=== PATIENT | female | born 1965 | race Caucasian/White ===

== ENCOUNTER → 2018-06-27 14:39 | Outpatient (CLI) | payer BC, SELFPAY ==
--- NOTE | 2018-06-27 14:46 | MM_ITS ---
MM Dig screening mamm BI w/CAD ORDERING PHYSICIAN : Luis Fernando Britton MD PATIENT AGE: 53 years GENDER: Female COMPARISON: Digital mammogram June 2016, . Film screen mammogram March 2009 INDICATION: ITS.Routine: SCREENING mammogram. No hormones. No new complaints. Noncontributory family history TECHNIQUE: Standard CC and MLO images were obtained. R2 CAD reviewed. FINDINGS: Moderate dense breasts. Moderate residual fibroglandular elements most evident towards central and upper outer quadrant of breast bilateral RIGHT BREAST: Visual inspection and CAD noted small focal density at lateral breast cc view,- 4 x 5 mm small nodular density with slight irregular margins. This nodule seen on the cc view and labeled A. It is Not readily apparent on MLO view.... Would suggest follow-up CC and MLO and 90 degrees spot view along with breast ultrasound right breast on further evaluate LEFT BREAST:No new areas of concern at the left breast on either CABG or visual inspection similar fibroglandular pattern. Follow-up in one year on the left IMPRESSION: Right Breast: . Small 4 x 5 mm nodular density lateral breast on cc view labeled A.... This warrants additional spot views & ultrasound. . Could merely be overlapping shadow Left breast: .No areas of concern follow-up in one year on left BI-RADS Category: 0 Need Additional Imaging Evaluation RECOMMENDED FOLLOW-UP: IMM - IMMEDIATE FOLLOW-UP RECOMMENDED Right breast Spot views and ultrasound (A letter has been sent to the patient regarding results of the study.)
--- NOTE | 2018-06-27 14:46 | US_ITS ---
US transvaginal HISTORY: ITS.REASON: RT OVARY CYST ORDERING PHYSICIAN: Luis Fernando Britton MD PATIENT AGE: 53 years Comparison: None FINDINGS: The uterus is 7 x 3.5 x 4.2 cm. Combined endometrial thickness 5 mm. Focus of increased echogenicity is present in the fundus of the uterus consistent with small calcification. The left ovary is 2.4 x 1.4 cm and has an unremarkable appearance. Right ovary measures 2.6 x 1.7 cm and has an unremarkable appearance. No cul-de-sac fluid. IMPRESSION: Essentially negative pelvic ultrasound. Small focus of calcification suspected in the fundus of the uterus
== END ==
PROVIDERS: PCP Family Medicine; Visit Provider Family Medicine
DX: Z12.31 Encounter for screening mammogram for malignant neoplasm of breast (principal); N60.19 Diffuse cystic mastopathy of unspecified breast; N83.201 Unspecified ovarian cyst, right side
CPT/HCPCS: 76830; 77067

== ENCOUNTER → 2018-07-15 14:16 | Outpatient (CLI) | payer BC, SELFPAY ==
--- NOTE | 2018-07-15 14:24 | MM_ITS ---
MM Dig mamm DX unilat RT CAD, US breast RT complete INDICATION: Follow-up abnormal screening mammogram ORDERING PHYSICIAN: Luis Fernando Britton MD PATIENT AGE: 53 years COMPARISON: 06/27/2018, 07/07/2016 TECHNIQUE: Problem-solving views performed of the right breast along with right breast ultrasound FINDINGS: Right mammogram: The area of asymmetric density in the lateral aspect of the right breast does appear to compress out as fibroglandular tissue. No discrete mass or malignant appearing microcalcification. Right breast ultrasound: No sonographic abnormality detected. No mass or cyst. Small nodes are present in the axilla. IMPRESSION: No discrete nodule apparent. Asymmetric density may been due to asymmetric fibroglandular tissue. Recommend 6 month mammographic follow-up for confirmation BI-RADS Category: 3 Probably Benign Finding Short Term Follow-up RECOMMENDED FOLLOW-UP: 6M - 6 MONTH FOLLOW-UP (A letter has been sent to the patient regarding results of the study.)
== END ==
PROVIDERS: PCP Family Medicine; Visit Provider Family Medicine
DX: R92.8 Other abnormal and inconclusive findings on diagnostic imaging of breast (principal)
CPT/HCPCS: 76641; 77065

== ENCOUNTER → 2019-01-17 13:34 | Outpatient (CLI) | payer BC, SELFPAY ==
--- NOTE | 2019-01-17 13:37 | MM_ITS ---
PROCEDURE: MM DIG MAMM DX UNILAT RT CAD CLINICAL INDICATION: 6 MO FU COMPARISON: DIGMAMMS MAMMOGRAM SCREEN-INSPECTOR ALUMINUM BOAT N/C from 02/25/2009 DIGMAMMDX MAMMOGRAM DX-INSPECTOR ALUMINUM BOAT N/C from 03/15/2009 [facility] DIG MAMM-SCREEN HORTENSIA W/CAD from 07/07/2016 [facility] MM Dig screening mamm BI w/CAD from 06/27/2018 DXRT MM Dig mamm DX unilat RT CAD from 07/15/2018 BREASTRT US breast RT complete from 07/15/2018 MM DIG MAMM DX UNILAT RT CAD from 01/17/2019 TECHNIQUE: Follow-up and problem solving views performed of the right breast along with right breast ultrasound. FINDINGS: The average fibroglandular tissue. No discrete mass or malignant-appearing microcalcification.. Previously noted area of asymmetric density is unchanged and felt to be related to fibroglandular tissue Right breast ultrasound: A 3 mm cyst is present at 11 o'clock. No suspicious nodules are evident. IMPRESSION: Benign findings. No evidence of malignancy. Recommend resume screening mammogram in 6 months BI-RAD Category: 2 Benign Finding(s) FOLLOW-UP: 6M 6Month Follow-up (A letter has been sent to the patient regarding results of the study.) Dictated by: Octavio Avalos MD 01/24/2019 09:52 Electronically signed by Octavio Avalos MD in [place] 01/24/2019 09:52
== END ==
PROVIDERS: PCP Family Medicine; Visit Provider Family Medicine
DX: R92.8 Other abnormal and inconclusive findings on diagnostic imaging of breast (principal); N60.01 Solitary cyst of right breast
CPT/HCPCS: 76641; 77065

== ENCOUNTER → 2019-07-16 10:16 | Outpatient (CLI) | payer BC, SELFPAY ==
--- NOTE | 2019-07-16 10:19 | MM_ITS ---
PROCEDURE: MM DIG SCREENING MAMM BI W/CAD DIGITAL BREAST TOMOSYNTHESIS INCLUDED Patient Age:54Y CLINICAL INDICATION: SCREENING 54-year-old female no hormones no new complaints noncontributory family history COMPARISON: DIGMAMMS MAMMOGRAM SCREEN-COMMISSIONING ENGINEER N/C from 02/25/2009 DIGMAMMDX MAMMOGRAM DX-COMMISSIONING ENGINEER N/C from 03/15/2009 [facility] DIG MAMM-SCREEN HORTENSIA W/CAD from 07/07/2016 [facility] MM Dig screening mamm BI w/CAD from 06/27/2018 DXRT MM Dig mamm DX unilat RT CAD from 07/15/2018 MM DIG MAMM DX UNILAT RT CAD from 01/17/2019 TECHNIQUE: Standard CC and MLO images were obtained. R2 CAD reviewed. Bilateral digital breast tomosynthesis included. FINDINGS: Moderate density breast with scattered moderate residual fibroglandular elements. Similar architecture to previous studies with no dominant or suspicious mass but no suspicious calcifications. IMPRESSION: Stable bilateral mammogram No significant new findings. Bilateral follow-up 1 year recommended BI-RAD Category: 1 Negative FOLLOW-UP: 1YR 1 Year Follow-up (A letter has been sent to the patient regarding results of the study.) Dictated by: Ari Angel MD 07/22/2019 10:36 Electronically signed by Ari Angel MD in [place] 07/22/2019 10:36
== END ==
PROVIDERS: PCP Family Medicine; Visit Provider Family Medicine
DX: Z12.31 Encounter for screening mammogram for malignant neoplasm of breast (principal); N60.19 Diffuse cystic mastopathy of unspecified breast
CPT/HCPCS: 77063; 77067

== ENCOUNTER → 2020-07-16 08:22 | Outpatient (CLI) | payer BC, SELFPAY ==
--- NOTE | 2020-07-16 08:25 | MM_ITS ---
PROCEDURE: MM DIG SCREENING MAMM BI W/CAD Digital Breast Tomosynthesis Included CLINICAL INDICATION: SCREENING There is no personal or family history of breast cancer. COMPARISON: MG DXRT MM Dig mamm DX unilat RT CAD from 07/15/2018 MG MM DIG MAMM DX UNILAT RT CAD from 01/17/2019 MG MM DIG SCREENING MAMM BI W/CAD from 07/16/2019 TECHNIQUE: Standard CC and MLO images and 3D Tomosynthesis was obtained. R2 CAD reviewed. FINDINGS: Mild scattered fibroglandular densities are seen throughout both breast on a background of fatty breast parenchyma. There are no CAD markings. There is a benign-appearing calcification left breast. There is no suspicious lesion and no suspicious microcalcifications. IMPRESSION: Fibrofatty parenchyma with no suspicious lesions seen BI-RAD Category: 2 Benign Finding(s) FOLLOW-UP: 1YR 1 Year Follow-up (A letter has been sent to the patient regarding results of the study.) Dictated by: Dr. Aram Saenz MD 07/16/2020 13:04 Dr. Aram Saenz MD in [place] 07/16/2020 13:04
== END ==
PROVIDERS: PCP Family Medicine; Visit Provider Family Medicine
DX: Z12.31 Encounter for screening mammogram for malignant neoplasm of breast (principal); N60.19 Diffuse cystic mastopathy of unspecified breast
CPT/HCPCS: 77063; 77067

== ENCOUNTER → 2021-03-01 14:52 | Outpatient (CLI) | payer BC, SELFPAY ==
--- NOTE | 2021-03-01 14:56 | US_ITS ---
PROCEDURE: US TRANSVAGINAL CLINICAL INDICATION: PELVIC PAIN COMPARISON: US TRANVAG US transvaginal from 06/27/2018 FINDINGS: UTERUS: 7cm x 4cmx 4cm with a combined endometrial thickness of 3.5mm. Calcification noted in the fundus of the uterus. LEFT OVARY: 2dun6pmt4.2cm with a volume of 2.2ml. RIGHT OVARY: [id number] with a volume of 2.2ml. Small right ovarian cyst 1 x 0.6 cm. No cul-de-sac fluid. IMPRESSION: No acute finding. Nonspecific calcification in the fundus of the uterus. Small right ovarian cyst. Dictated by: Octavio Avalos MD 03/01/2021 17:09 Octavio Avalos MD in [place] 03/01/2021 17:09
== END ==
PROVIDERS: PCP Family Medicine; Visit Provider Family Medicine
DX: R10.2 Pelvic and perineal pain (principal)
CPT/HCPCS: 76830

== ENCOUNTER 2024-07-01 17:01 | Outpatient (CLI) | payer BC, SELFPAY ==
--- NOTE | 2024-07-01 17:00 | MM_ITS ---
PROCEDURE INFORMATION: Exam: MG Bilateral Screening 3D Mammography Exam date and time: 07/01/2024 5:08 PM Age: 59 years old Clinical indication: Screening examination TECHNIQUE: Imaging protocol: Bilateral Screening tomosynthesis and 2D mammography including computer-aided detection (CAD) when performed. COMPARISON: 1. MG MM DIG SCREENING MAMM BI W/CAD 07/16/2020 8:27 AM 2. MG MM DIG SCREENING MAMM BI W/CAD 07/16/2019 10:36 AM FINDINGS: MAMMOGRAPHY: Breast composition: There are scattered areas of fibroglandular density. Mass: None. Architectural distortion: None. Calcifications: Clustered calcifications in the posterior left upper outer quadrant Asymmetric density: None. Skin thickening: None. Axillary adenopathy: None. IMPRESSION: Patient to be recalled for spot magnification views of the left breast in the CC and MLO projections for further evaluation of left breast calcifications. ASSESSMENT: BI-RADS Category 0: Incomplete- Need Additional Imaging Evaluation
== END 2024-07-01 23:59 | disposition home or self-care (01) ==
LOC: RAD 17:03
PROVIDERS: PCP Family Medicine; Visit Provider Obstetrics & Gynecology
DX: Z12.31 Encounter for screening mammogram for malignant neoplasm of breast (principal)
CPT/HCPCS: 77063; 77067

== ENCOUNTER 2024-07-21 13:45 | Outpatient (CLI) | payer BC, SELFPAY ==
--- OUTSIDE RECORDS SUMMARY | 2024-07-21 13:47 | XMS_ITS ---
Author Organization Unknown Medications Medication Instructions Effective Dates (start - stop) Status potassium chloride 10 MEQ Ex tended Release Oral Tablet [id number]:00:00.000+00 :00 - Completed potassium chloride 10 MEQ Ex tended Release Oral Tablet [id number]:00:00.000+00 :00 - Completed Microencapsulated potassium chloride 10 MEQ Extended Release Oral Tablet [id number]:00:0 0.000+00 :00 - Completed Microencapsulated potassium chloride 10 MEQ Extended Release Oral Tablet [id number]:00:0 0.000+00 :00 - Completed Microencapsulated potassium chloride 10 MEQ Extended Release Oral Tablet [id number]:00:0 0.000+00 :00 - Completed - [id number]:00 :00.000+00 :00 - Completed Microencapsulated potassium chloride 10 MEQ Extended Release Oral Tablet [id number]:00:0 0.000+00 :00 - Completed Microencapsulated potassium chloride 10 MEQ Extended Release Oral Tablet [id number]:00:0 0.000+00 :00 - Completed fluconazole 150 MG Oral Tablet [id number]:00:00.000+00 :00 - Completed Microencapsulated potassium chloride 10 MEQ Extended Release Oral Tablet [id number]:00:0 0.000+00 :00 - Completed rosuvastatin calcium 10 MG O ral Tablet [id number]:00:00.000+00 :00 - Completed rosuvastatin calcium 10 MG O ral Tablet [id number]:00:00.000+00 :00 - Completed rosuvastatin calcium 10 MG O ral Tablet [id number]:00:00.000+00 :00 - Completed rosuvastatin calcium 10 MG O ral Tablet [id number]:00:00.000+00 :00 - Completed rosuvastatin calcium 10 MG O ral Tablet [id number]:00:00.000+00 :00 - Completed rosuvastatin calcium 10 MG O ral Tablet [id number]:00:00.000+00 :00 - Completed rosuvastatin calcium 10 MG O ral Tablet [id number]:00:00.000+00 :00 - Completed estradiol 0.1 MG/ML Vaginal Cream [id number]:00:00.000+00 :00 - Completed Microencapsulated potassium chloride 10 MEQ Extended Release Oral Tablet [id number]:00:0 0.000+00 :00 - Completed rosuvastatin calcium 10 MG O ral Tablet [id number]:00:00.000+00 :00 - Completed hydrochlorothiazide 25 MG / triamterene 37.5 MG Oral Tablet [id number]:00:00.00 0+00 :00 - Completed hydrochlorothiazide 25 MG / triamterene 37.5 MG Oral Tablet [id number]:00:00.00 000 :00 - Completed sulfamethoxazole 800 MG / trimethoprim 160 MG Oral Tablet [id number]:00:00.00 000 :00 - Completed hydrochlorothiazide 25 MG / triamterene 37.5 MG Oral Tablet [id number]:00:00.00 0+00 :00 - Completed Patient Care team information Name Category Status Period Participants - - Proposed period not known -
--- NOTE | 2024-07-21 14:00 | MM_ITS ---
PROCEDURE INFORMATION: Exam: MG Left Diagnostic Breast Tomosynthesis Exam date and time: 07/21/2024 2:06 PM Age: 59 years old Clinical indication: Patient recalled on the basis of a screening mammogram for further evaluation; Additional info: Spot magnification views in cc/mlo projections TECHNIQUE: Imaging protocol: Left Diagnostic tomosynthesis and 2D mammography including computer-aided detection (CAD) when performed. Unilateral or bilateral exam. COMPARISON: 1. MG MM DIG SCREENING MAMM BI W/CAD 07/01/2024 5:08 PM 2. MG MM DIG SCREENING MAMM BI W/CAD 07/16/2020 8:27 AM FINDINGS: MAMMOGRAPHY: Breast composition: There are scattered areas of fibroglandular density. Breast mammogram findings: There is a 2.3 cm linear move the calcifications in the left upper outer quadrant, posterior depth, approximately 12 cm from the nipple. These are considered indeterminate. No suspicious distortion or mass is seen. IMPRESSION: Calcifications in the left upper outer quadrant at the posterior depth are considered indeterminate. Stereotactic biopsy is recommended for further evaluation. ASSESSMENT: BI-RADS Category 4: Suspicious.
== END 2024-07-21 23:59 | disposition home or self-care (01) ==
LOC: RAD 13:46
PROVIDERS: PCP Family Medicine; Visit Provider Obstetrics & Gynecology
DX: R92.1 Mammographic calcification found on diagnostic imaging of breast (principal)
CPT/HCPCS: 77061; 77065; G0279

== ENCOUNTER 2024-08-08 07:55 | Outpatient (CLI) | payer BC, SELFPAY ==
--- OUTSIDE RECORDS SUMMARY | 2024-08-08 07:57 | XMS_ITS ---
Author Organization Unknown Medications Medication Instructions Effective Dates (start - stop) Status potassium chloride 10 MEQ Ex tended Release Oral Tablet 0015-85-49Z16:00:00.000+00 :00 - Completed potassium chloride 10 MEQ Ex tended Release Oral Tablet 9715-02-53P13:00:00.000+00 :00 - Completed Microencapsulated potassium chloride 10 MEQ Extended Release Oral Tablet 4059-82-53L55:00:0 0.000+00 :00 - Completed Microencapsulated potassium chloride 10 MEQ Extended Release Oral Tablet 5969-88-66N56:00:0 0.000+00 :00 - Completed Microencapsulated potassium chloride 10 MEQ Extended Release Oral Tablet 1010-96-62J76:00:0 0.000+00 :00 - Completed - 5196-31-97U96:00 :00.000+00 :00 - Completed Microencapsulated potassium chloride 10 MEQ Extended Release Oral Tablet 5705-26-13X94:00:0 0.000+00 :00 - Completed Microencapsulated potassium chloride 10 MEQ Extended Release Oral Tablet [id number]:00:0 0.000+00 :00 - Completed fluconazole 150 MG Oral Tablet 256-55-49M91:00:00.000+00 :00 - Completed Microencapsulated potassium chloride 10 MEQ Extended Release Oral Tablet 9244-22-67B36:00:0 0.000+00 :00 - Completed rosuvastatin calcium 10 MG O ral Tablet 7636-62-65O75:00:00.000+00 :00 - Completed rosuvastatin calcium 10 MG O ral Tablet 1167-53-82D57:00:00.000+00 :00 - Completed rosuvastatin calcium 10 MG O ral Tablet 8376-09-39D22:00:00.000+00 :00 - Completed rosuvastatin calcium 10 MG O ral Tablet 4042-28-80F54:00:00.000+00 :00 - Completed rosuvastatin calcium 10 MG O ral Tablet 0279-72-19C14:00:00.000+00 :00 - Completed rosuvastatin calcium 10 MG O ral Tablet [id number]:00:00.000+00 :00 - Completed rosuvastatin calcium 10 MG O ral Tablet 9254-30-96B47:00:00.000+00 :00 - Completed estradiol 0.1 MG/ML Vaginal Cream 6689-43-38I08:00:00.000+00 :00 - Completed Microencapsulated potassium chloride 10 MEQ Extended Release Oral Tablet 7678-04-75X98:00:0 0.000+00 :00 - Completed rosuvastatin calcium 10 MG O ral Tablet 0277-85-91E96:00:00.000+00 :00 - Completed hydrochlorothiazide 25 MG / triamterene 37.5 MG Oral Tablet 7026-60-74J65:00:00.00 0+00 :00 - Completed hydrochlorothiazide 25 MG / triamterene 37.5 MG Oral Tablet 7702-09-19L68:00:00.00 000 :00 - Completed sulfamethoxazole 800 MG / trimethoprim 160 MG Oral Tablet 1887-15-98S79:00:00.00 000 :00 - Completed hydrochlorothiazide 25 MG / triamterene 37.5 MG Oral Tablet [id number]:00:00.00 0+00 :00 - Completed Patient Care team information Name Category Status Period Participants - - Proposed period not known -
--- NOTE | 2024-08-08 08:08 | MM_ITS ---
FINAL REPORT CLINICAL HISTORY: clip placement s/p biopsy FINDINGS: MAMMOGRAM LEFT TECHNIQUE: Standard digital 2-D views COMPARISON: 07/16/2020 and 07/01/2024 DENSITY: There are scattered areas of fibroglandular density FINDINGS: Post biopsy marker clip is noted to be in satisfactory position. No residual calcifications are seen in the left upper outer quadrant, all contained within the sample. Postbiopsy changes are noted. IMPRESSION: Biopsy marker clip in good position with calcifications of interest removed ASSESSMENT: A post-procedure mammogram is used to confirm the position and deployment of a breast tissue marker after a biopsy RECOMMENDATION: Given findings of invasive ductal carcinoma, recommend medical oncologic and surgical follow-up Authenticated and ERN
--- NOTE | 2024-08-08 08:30 | MM_ITS ---
FINAL REPORT CLINICAL HISTORY: left breast calcs FINDINGS: STEREOTACTIC GUIDED LEFT BREAST BIOPSY, CLIP PLACEMENT, SPECIMEN RADIOGRAPH AND POST BIOPSY MAMMOGRAM Indication: Suspicious calcifications Findings: The stereotactic guided breast biopsy procedure was explained in detail to the patient including potential risk and benefits. The patient voiced an understanding of the procedure, was given an opportunity to ask questions, after which informed consent was obtained. The patient was positioned upon the stereotactic unit in the upright position. The breast was prepped in the usual sterile fashion. Subcutaneous soft tissues were anesthetized with lidocaine with epinephrine. Subsequently, with intermittent stereotactic guidance, the stereotactic biopsy needle was advanced into the breast in the region of the mammographic abnormality corresponding to recent diagnostic mammogram. Multiple vacuum assisted core samples were obtained. Sampling was thought to be adequate and the biopsy clip marker was deployed in the region of biopsy. Additional imaging as detailed below was performed. Specimen radiograph: Calcifications confirmed adequate Post procedure routine CC and MLO view mammogram: Post biopsy changes. Biopsy marker clip noted to be in the appropriate location. Patient tolerated the procedure well. No immediate complications. IMPRESSION: 1. Technically successful stereotactic guided biopsy of left breast calcifications 2. Biopsy marker clip deployed 3. Post biopsy mammogram obtained as above Histopathology results reveal invasive ductal carcinoma. Pathology is concordant with mammographic findings. Recommend surgical and medical oncologic follow-up. Authenticated and ERN
[2024-08-08] MEDS: ALPRAZolam 0.5MG TABLET 0.5 MG PO (08:45)
[2024-08-08] MEDS: APAP/HYDROCODONE 325MG/7.5MG TAB 1 TAB PO (08:45)
[2024-08-08] MEDS: LIDOCAINE 1% W/EPI 1:100,000 20ML VIAL IJ (10:08)
== END 2024-08-08 23:59 | disposition home or self-care (01) ==
LOC: RAD 07:56
PROVIDERS: PCP Family Medicine; Visit Provider Obstetrics & Gynecology
DX: C50.912 Malignant neoplasm of unspecified site of left female breast (principal); R92.8 Other abnormal and inconclusive findings on diagnostic imaging of breast; R92.1 Mammographic calcification found on diagnostic imaging of breast
CPT/HCPCS: 19081; 76098; 77065

== ENCOUNTER 2024-11-04 10:56 | Outpatient (CLI) | payer BC, SELFPAY ==
--- OUTSIDE RECORDS SUMMARY | 2024-09-09 14:30 | XMS_ITS | Encounter Summary ---
Author Organization Healthcare Address [address] [place] [id number] Care Team Providers Care Commercial Hvac Service Technician Name Role Phone Terence Britton MD Primary Care Provider [phone] Encounter Details Date Type Department Care Team (Late st Contact Info) Description 09/09/2024 2:30 PM EDT Office Visit [facility] [address] [place] [id number] Ellen Edmonds MD [address] [facility] [address] [place] [address] Invasive ductal carcinoma of breast, female, left (Primary Dx) Social History Tobacco Use Types Packs/Day Years Used Date Smoking Tobacco: Every Day Cigarettes 1 9.6 Started: 2016 Passive Smoke Exposure: Never Smokeless Tobacco: Never Tobacco Cessation:Ready to Q uit: Not Asked; Counseling Given: Not Answered Alcohol Use Standard Drinks/Week Comments Never 0 (1 standard drink = 0.6 oz pur e alcohol) PHQ-2 Answer Date Recorded Patient Health Questionnaire-2 Score 0 08/19/2024 PHQ-9 Answer Date Recorded Patient Health Questionnaire-9 Score 0 08/19/2024 Comments No Sex and Gender Information Value Date Recorded Sex Assigned at Not on file Legal Sex Female 7:32 PM EDT Gender Identity Not on file Sexual Orientation Not on file documented as of this encounter Last Filed Vital Signs Vital Sign Reading Time Taken Comments Blood Pressure 130/80 09/09/2024 2:06 PM EDT Pulse 87 09/09/2024 2:06 PM EDT Temperature 36.6 C (97.8 F) 09/09/2024 2:06 PM EDT Respiratory Rate 17 09/09/2024 2:06 PM EDT Oxygen Saturation 97% 09/09/2024 2:06 PM EDT Inhaled Oxygen Concentration - - Weight 103 kg (227 lb 11.8 oz) 09/09/2024 2:06 P M EDT Height 165.1 cm (5' 5 ) 09/09/2024 2:06 PM EDT Body Mass Index 37.9 09/09/2024 2:06 PM EDT documented in this encounter Miscellaneous Notes * Maxine Ramires - Matilde Crowell, RN - 09/09/2024 2:55 PM EDT Images from the original note were not included. 916 Bathing Before Surgery Basic instructions ? You need to bathe with Hibiclens (chlorhexidine) before surgery. This will clean your skin and remove germs that live on the skin. This reduces your risk of infection after surgery. ? You?will get?free packets in the clinic, or you can?buy Hibiclens at most drug stores. ? You need to bathe with Hibiclens twice before surgery - once the night before surgery and again the morning of surgery. ? Do not use Hibiclens on your hair or anywhere above the neck. ? You should not shave with a razor or use hair removal creams near the surgery site for 4 days before surgery. Night before surgery If you take a shower or tub bath: 1. Wash with regular soap and water and rinse off. 2. You may wash your hair the night before. Shampoo and rinse as usual. 3. Pour 1 ounce (2 tablespoons) of Hibiclens on a clean washcloth. Wash the area where you will be having your surgery first. Then wash the rest of the body, leaving the groin area until last. 4. Allow the Hibiclens to stay on the skin for 5 minutes, then rinse off completely. 5. Use a clean towel to dry off. 6. Put on clean clothing and be sure to have clean sheets on your bed. Morning of surgery ? Repeat the above steps except do not shampoo your hair. If you develop a skin problem between now and your surgery, please tell your doctor as soon as possible at [phone]. * Maxine Ramires - Matilde Crowell RN - 09/09/2024 2:54 PM EDT Images from the original note were not included. 698 After Breast Lumpectomy Staying Active You need to keep your whole body active after your surgery. ? Take deep breaths and cough. ? Walk around your room while you are in the hospital. You don?t have to, and shouldn?t stay in bed. ? When you go home, you will be able to do most things you normally do, like using the stairs or riding in the car. ? You may drive when you no longer require narcotic pain medicines. ? Avoid vigorous activity like running or weight lifting until seen in your follow up appointment. Taking Care of Your Incision ? Most women go home wearing a surgi-bra. It keeps the gauze padding (bandage) in place without tape. ? Your incision is closed on the inside of your skin with stitches. They will dissolve in 4-6 weeks. ? There will be either paper strips called steri-strips or skin glue on the incision. The edges of the steri-strips will curl up in about 1 week and will begin falling off in 1-2 weeks. They can be removed at 2 weeks after surgery (usually in your follow up appointment). If skin glue was used this will flake off in 1-2 weeks. ? Do not apply any lotions or creams to your incision for the first 2 weeks after surgery. Gauze Padding (Bandage) ? You may remove the gauze padding (bandage) on your breast 2 days after surgery. It does not need to be replaced. It?s ok if your incision is exposed to the air. ? The surgi-bra is for your comfort. You don?t need to wear it if it?s not comfortable. Grooming ? You may shower 2 days after your surgery. ? No soaking in the tub, hot tubs, or swimming for 2 weeks after surgery. ? Try not to irritate the incision when shaving or putting on deodorant. Use a mirror for these activities. Numbness and Tingling The upper part of your arm and around the incision on the breast may feel numb and tingly. You may also feel sharp pain like an electric shock in your arm or breast. This is normal and may get betterover time. Swelling ? A small amount of swelling in the breast, chest wall or armpit is normal during the first month after surgery. ? Use pillows to raise your whole arm above your heart to help with swelling in the arm or armpit. Taking Blood or Injections ? If you had a sentinel lymph node biopsy (where only 1-3 lymph nodes are taken out): You can have blood draws, injections, and IV?s in the arm on the same side. ? If you have had an axillary lymph node dissection (where all lymph nodes are removed and you had a drain after the procedure): Avoid having blood draws, injections and IV?s in the arm on the side that the lymph node dissection was performed. If there are no other options, tell your provider aboutyour history of having breast cancer and an axillary lymph node dissection. Monthly Breast Self-Exam Do a breast self-exam every month. If you don?t know how to do a breast self- exam, ask your doctor or nurse to teach you how. You can also get a booklet on breast self-exam in the Breast Center. Changes You Will Feel 2 Weeks After Surgery You may feel a pain in your armpit, down your arm or in your breast. This is a normal part of healing. To help you can: ? Start to exercise more 2 weeks after surgery. ? Take a mild pain medicine like Tylenol or Ibuprofen. ? Take warm showers. Also, your incision(s) may feel thick and lumpy. This is a normal part of healing. To help you can: ? 2 weeks after surgery you can start rubbing the incision with a lotion that has Vitamin E or purelanolin in it. You can get these kinds of lotions at a drug store, a discount store, or a health food store. ? You can also rub Vitamin E on the incision. Prick a Vitamin E capsule with a pin. Squeeze out theoil and apply the oil to the incision. ? Don?t use perfumed lotions. They may contain alcohol which will irritate your skin. ? If you have radiation therapy after surgery, ask your radiation doctor before putting on lotion or oil during your radiation therapy. ? The scar will slowly soften and become cloth shearer in color over several weeks. * Progress Notes - Lisa Sims APRN - 09/09/2024 2:30 PM EDT Images from the original note were not included. [facility] New Patient Consultation This is a follow I[ visit at the [facility] Breast Care [place] visit for this 59 y.o. female for left screen- detected triple negative invasive ductal carcinoma. History of Present Illness Sunita Chiang is a 59 y.o. female referred for evaluation of left upper outer quadrant calcifications that resulted as biopsy proven triple negative breast cancer. She underwent screening mammogram on07/01/2024, and this showed indeterminate cluster of complication int he left upper outer quadrant.A left diagnostic mammogram was then performed on 07/21/2024, and this demonstrated a 2.3cm clusterof calcifications in the upper outer quadrant, posterior depth, 12cmfn . On 08/08/2024, a stereotactic guided biopsy of the left breast calcs found triple negative invasive ductal adenocarcinoma. On 08/19/2024, she had a US of her left axilla that showed focal cortical thickening measuring up to 6mm in lymph node #1 that warranted a FNA. FNA showed no evidence of malignancy. She denies breast pain, skin or nipple changes, and nipple discharge. She also denies unintentional weight loss, fatigue,or new back pain, neck pain, or headaches. She presents today for further evaluation and management. Genetic testing was negative. She saw plastic surgery and is not interested in reconstruction. She has a history of prediabetes, HTN, and HLD which complications care. She is a current smoker. She desires to quit, but states she has been struggling with recent diagnosis and it has been hard tobegin that process. Health Maintenance Colonoscopy: N/A TECHNICAL SERVICES SPECIALIST Exam: 06/25/2024 DEXA: N/A Review of Systems: Review of Systems Constitutional: Negative for activity change, appetite change, fatigue, fever and unexpected weightchange. HENT: Negative for hearing loss, sore throat, trouble swallowing and voice change. Eyes: Negative for pain and visual disturbance. Respiratory: Negative for cough, chest tightness and shortness of breath. Cardiovascular: Negative for chest pain, palpitations and leg swelling. Gastrointestinal: Negative for abdominal pain, blood in stool, nausea and vomiting. Genitourinary: Negative for difficulty urinating, dysuria and frequency. Musculoskeletal: Negative for arthralgias, back pain, myalgias and neck pain. Skin: Negative for color change and wound. Neurological: Negative for dizziness, speech difficulty, weakness and headaches. Psychiatric/Behavioral: Negative for agitation and confusion. The patient is nervous/anxious. All other systems reviewed and are negative. Past Medical History Past Medical History[1] Past Surgical History Surgical History[2] Social History Patient reports that she has been smoking cigarettes. She started smoking about 9 years ago. She has a 9.4 pack-year smoking history. She has never been exposed to tobacco smoke. She has never used smokeless tobacco. She reports that she does not drink alcohol and does not use drugs. Support person: Housing: Lives with Transportation: will drive her Family History Family History[3] Obstetric and Gynecologic History -Menarche: 16 -LMP: N/A -OCP hx: yes, for 7 years -G1@: 20 - -Breast feeding (m): no -Infertility treatments: no -Menopause: no -HRT: no -Hyst/Ooph: no -Previous Bx: no No LMP recorded. Patient is postmenopausal. Current Medications Medications Ordered Prior to Encounter[4] Allergies Allergies[5] PHYSICAL EXAMINATION ECOG Performance Status: 0: Fully active, able to carry on all pre-disease performance without restriction Vital Signs: Visit Vitals OB Status Postmenopausal Smoking Status Every Day Vitals: 06/03/25 1406 BP: 130/80 Pulse: 87 Resp: 17 Temp: 36.6 ??C (97.8 ??F) SpO2: 97% General: The patient is a well-developed individual who appears the stated age, the patient's speech pattern and movements are normal, and affect is appropriate. Head: The head is normocephalic. Neck: The neck is supple, the thyroid is not enlarged, there are no palpable masses, and the trachea is in the midline. Lymphatics: The supraclavicular, submental, cervical, and axillary regions are free of significant lymphadenopathy. Chest: The chest expands symmetrically, the AP diameter appears normal, and the lungs are clear to auscultation bilaterally without wheezes, rhonchi or rales. Heart: The rhythm is regular, the heart is not enlarged, and there are no murmurs, rubs, gallops, or thrills audible. Right Breast: The skin, nipple, and areola appear normal, there is no skin dimpling with movement of the pectoralis, there is no nipple retraction, no nipple discharge can be elicited, the parenchymais mildly nodular, there are no dominant masses, and the axillary tail is normal. Left Breast: The skin, nipple, and areola appear normal, there is no skin dimpling with movement ofthe pectoralis, there is no nipple retraction, no nipple discharge can be elicited, the parenchyma is mildly nodular, there are no dominant masses, and the axillary tail is normal. Abdomen: The abdomen is soft, flat and non-tender, the liver is not enlarged, and there are no palpable masses. Back: There is no vertebral column tenderness. Skin: The skin appears normal and there are no suspicious rashes or lesions. Extremities: The extremities are without deformity, cyanosis, and edema. IMAGING: Imaging has been reviewed here by our radiologists; we have personally reviewed these images/imaging studies. Left DX Mammogram (07/23/2024) Left axillary US (08/19/2024) FINDINGS: Left Axilla Findings: Lymph node #1 demonstrates focal cortical thickening measuring up to 6 mm. FNA is recommended. Lymph nodes labeled #2 and #3 are morphologically normal. IMPRESSION: BI-RADS: BI-RADS 4, Suspicious finding. PATHOLOGY: Pathology has been reviewed here. [facility] Pathology Review (Pending) Stereotactic guided biopsy left breast (08/08/2024) Final Diagnosis (no units) Date/Time Value 08/19/2024 1245 A. LYMPH NODE, LEFT AXILLA ULTRASOUND GUIDED FINE NEEDLE ASPIRATION: - LYMPHOID TISSUE PRESENT - NO EVIDENCE OF MALIGNANCY I have personally reviewed the pathology report. CARE TEAM Primary Care Physician: Terence Britton MD Plastic and Reconstructive Surgery: Not required Medical Oncology: Dr. Garrett Verdin MD Radiation Oncology: Not yet assigned ASSESSMENT: Sunita Chiang is a 59 y.o. female who was referred by Dr. Garrett Verdin for left screen-detected triple negative invasive ductal carcinoma. AJCC (8th Edition) Clinical Stage: Cancer Staging Invasive ductal carcinoma of breast, female, left Staging form: Breast, AJCC 8th Edition - Clinical stage from 08/12/2024: Stage IIB (cT2, cN0, cM0, G3, ER-, PA-, HER2-) - Unsigned Stage prefix: Initial diagnosis Histologic grading system: 3 grade system DISCUSSION: Sunita and I reviewed her situation in detail including her clinical exam findings, imaging and pathology reports. She has also since seen plastics and genetics. We again discussed management options. It was advised that with the currently known information, surgical options include breast conservation (consisting of partial mastectomy and subsequent breast irradiation) versus total mastectomy with or without reconstruction. The details of each were described, including the reasons why one might be chosen over the other. The lack of a survival difference and the risk of local recurrence with both were discussed. She expressed interest in breast conservation, and the remainder of the discussion was dedicated tothis. The use of seed localization and the anticipated perioperative course were discussed in detail. The possible need for a second surgery to obtain clear margins was described. We also reviewed the risks of the procedure, which include but are not limited to, bleeding, infection, seroma, scar formation, cosmetic deformity, and sensory changes. Management of the axilla was also discussed. The use of sentinel lymphadenectomy for axillary staging was reviewed, which would be performed using lymphatic mapping with blue dye and radionucleotide isotope. It was explained that in certain circumstances further axillary surgery may be required, a determination that would be made based upon pathology from surgery. We discussed the possibility of a false negative result if intraoperative analysis of lymph nodes is performed. We also reviewed therisks of axillary surgery, which include but are not limited to bleeding, infection, seroma, altered sensation of the axilla and/or upper arm, injury to surrounding neurovascular structures, blue dye allergic reaction, and lymphedema. We discussed that the vast majority of breast cancers are not related to an inherited gene, but that for many patients, especially those with a family history of breast or ovarian cancer, genetic testing is valuable. Lanre genetic testing was negative. We then discussed the potential role of chemotherapy, endocrine therapy and radiation based on the results of surgical pathology. Appropriate consultation with medical oncology and radiation oncologywill be made postoperatively to complete her adjuvant therapy plan. She is already a patient of Dr.Michael Contreras, so will plan to see him to discuss adjuvant tx once surgery is completed. Finally, we discussed lifestyle modifications that Sunita can take to help in her treatment and overall health. Specifically, we discussed referral to tobacco cessation program, eating a balanced, heart-healthy diet, limiting alcohol consumption, engaging in regular physical activity, and getting plenty of sleep. Smoking Cessation Discussion: I discussed the risks and impact of smoking and advised Sunita Chiang to quit. I explained that quitting smoking prior to surgery will reduce the risk of pulmonary and perioperative complications. Anyreduction in the amount of smoking will help, but a quit date at least 1 month prior to surgery is ideal. After this discussion, the patient was willing to quit. I provided resources, including Quit Now [place] at (372) QUIT-NOW (082-2395). Recommend follow-up with PCP for ongoing assessment and any adjunctive tools. A total of 5 additional minutes was spent separately discussion smoking, including education and smoking cessation. PLAN: -Left localized tag placement 09/22/2024 -Left lumpectomy with SLNB 10/15/2024 -Consent to be obtained day of surgery -Follow up with Dr. Verdin for treatment plan The patient expressed understanding of the treatment plan. All questions were answered to her apparent satisfaction. She was encouraged to contact the office if any questions or concerns arise. Dr. Ellen Edmonds MD Batch Dumper of Surgical Oncology [facility] I spent 60 minutes on this encounter, including preparing to see the patient, which involved review/interpretation of diagnostics and reports; obtaining and/or reviewing separately obtained history; performing appropriate physical exam; ordering/scheduling medications, tests or procedures; communicating findings, discussing diagnosis, prognosis, and treatment plans and counseling/educating the patient, family and/or caregiver; documentation in EMR; and care coordination. In addition, I spent another 4 minutes in smoking cessation counseling. Discussing the need to stopsmoking, the data that shows increased wound infections, and the need for improved respiratory function in preparation for surgery. We also discussed and I recommended nicotine alternatives. [1] Past Medical History: Diagnosis Date Breast cancer 2024 Diabetes mellitus (CMS/HCC) Hyperlipidemia Hypertension [2] Past Surgical History: Procedure Laterality Date BREAST BIOPSY Left 2024 outside facility-invasive ductal carcinoma INNER EAR SURGERY TUBAL LIGATION [3] Family History Problem Relation Name Age of Onset Lung cancer Mother [4] Current Outpatient Medications on File Prior to Visit Medication Sig Dispense Refill cetirizine (ZyrTEC ALLERGY) 10 MG tablet Take 1 tablet by mouth Daily. cholecalciferol (Vitamin D-3) 125 MCG (5000 UT) capsule 1 (one) time each day at the same time. co-enzyme Q-10 30 MG capsule Take 1 capsule by mouth daily. cyanocobalamin 1000 MCG tablet Take 1 tablet by mouth daily. hydroCHLOROthiazide (HYDRODiuril) 25 MG tablet 1 (one) time each day at the same time. losartan (Cozaar) 25 MG tablet 1 (one) time each day at the same time. metFORMIN (Glucophage) 850 MG tablet 1 (one) time each day at the same time. potassium chloride CR (Klor-Con) 10 MEQ ER tablet 1 (one) time each day at the same time. rosuvastatin (Crestor) 10 MG tablet 1 (one) time each day at the same time. No current facility-administered medications on file prior to visit. [5] Allergies Allergen Reactions Augmentin [Amoxicillin-Pot Clavulanate] Vomiting Cosigned by Ellen Edmonds MD at 09/09/2024 4:48 PM EDT Associated attestation - Ellen Edmonds MD - 09/09/2024 4:48 PM EDT Images from the original note were not included. Attending Attestation: I personally saw and evaluated the patient with the RAGMAN. I attest to being involved in providing substantive time in patient care. I discussed the case with them and agree with the findings as documented. The discussion and plan reflect my edits and medical decision making. Dr. Ellen Edmonds MD Batch Dumper of Surgical Oncology [facility] documented in this encounter Plan of Treatment Upcoming Encounters Date Type Department Care Team (Late st Contact Info) Description 06/30/2025 1:00 PM EDT Appointment [facility] [address] [facility] [address] [place] [address] 06/30/2025 2:30 PM EDT Office Visit [facility] [address] [place] [address] Ellen Edmonds MD [address] [facility] [address] [place] [address] documented as of this encounter Results * Mammography Guided Localization Breast Left (09/22/2024 10:51 AM EDT) Anatomical Region Laterality Modality Breast Left Mammography Impressions 09/22/2024 11:47 AM EDT Technically successful mammographically guided localization of the mass and tissue marker in the left breast at the 3:00 position, 11 cm from the nipple with a pink smart clip. CRITICAL RESULT: No. COMMUNICATION: Per this written report. Drafted by Lien Martínez MD on 09/22/2024 11:43 AM Final report signed by Lien Martínez MD on 09/22/2024 11:47 AM Narrative 09/22/2024 11:47 AM EDT CLINICAL INDICATION: Recently diagnosed left breast cancer . Patient is seen for mammographically guided localization. TECHNIQUE: Mammographically guided localization of the mass and tissue marker breast, followed by left unilateral post-procedure mammogram. COMPARISON: Outside facility mammograms dated 08/08/2024, 07/01/2024, and 07/21/2024 Procedure: The patient was informed and consent was obtained. The pre-procedure timeout was performed using two patient identifiers, confirming patient identity, and procedure to be performed. The correct side was marked. Target 1: Utilizing radiographic compression grid guidance, sterile technique, buffered lidocaine for local anesthesia and a lateral approach, the mass and tissue marker in the the left breast at the 3:00 position, 11 cm from the nipple was localized with a pink 5 cm localization device. The patient tolerated the procedure well, and left the department in stable condition. Surgical excision will be performed by Dr. Edmonds. FINDINGS: Final mammographic images demonstrate the localizer tag to be located within the mass. Left Breast Density: There are scattered areas of fibroglandular density. Procedure Note Lien Martínez MD - 09/22/2024 CLINICAL INDICATION: Recently diagnosed left breast cancer . Patient is seen formammographically guided localization. TECHNIQUE: Mammographically guided localization of the mass and tissue marker breast,followed by left unilateral post-procedure mammogram. COMPARISON: Outside facility mammograms dated 08/08/2024, 07/01/2024, and 07/21/2024 Procedure: The patient was informed and consent was obtained. The pre-proceduretimeout was performed using two patient identifiers, confirming patientidentity, and procedure to be performed. The correct side was marked. Target 1: Utilizing radiographic compression grid guidance, steriletechnique, buffered lidocaine for local anesthesia and a lateral approach,the mass and tissue marker in the the left breast at the 3:00 position, 11cm from the nipple was localized with a pink 5 cm localization device. The patient tolerated the procedure well, and left the department instable condition. Surgical excision will be performed by Dr. Edmonds. FINDINGS: Final mammographic images demonstrate the localizer tag to be locatedwithin the mass. Left Breast Density: There are scattered areas of fibroglandulardensity. IMPRESSION: Technically successful mammographically guided localization of the massand tissue marker in the left breast at the 3:00 position, 11 cm from thenipple with a pink smart clip. CRITICAL RESULT: No. COMMUNICATION: Per this written report. Drafted by Lien Martínez MD on 09/22/2024 11:43 AM Final report signed by Lien Martínez MD on 09/22/2024 11:47 AM Ellen Edmonds MD IMG BI PROCEDURES Final Result documented in this encounter Visit Diagnoses Diagnosis Invasive ductal carcinoma of breast, female, left- Primary Invasive ductal carcinoma of breast, female, left documented in this encounter Additional Health Concerns Assessment Noted Time PHQ-9 Depression Total Score: 0 08/20/19 9:56 AM EDT A fall risk assessment has been complete d for the patient 09/09/2024 2:06 PM EDT A Body Mass Index follow-up plan has been documented for the patient 09/09/2024 4:49 PM EDT documented as of this encounter Care Teams Commercial Hvac Service Technician Relationship Specialty Start Date End Date Terence Britton MD [address] [place] [address] PCP - General 08/19/24 documented as of this encounter
--- OUTSIDE RECORDS SUMMARY | 2024-09-22 08:52 | XMS_ITS | Encounter Summary ---
Author Organization Healthcare Address [address] [place] [address] Care Team Providers Care Wood Heel Flap Inserter Name Role Phone Terence Britton MD Primary Care Provider Encounter Details Date Type Department Care Team (Latest Contact Info) Description 09/22/2024 8:52 AM EDT - 09/22/2024 10:09 AM EDT Hospital Encounter [facility] Breast Care Center [facility] [address] [address] Invasive ductal carcinoma of breast, female, left Discharge Disposition: Home or Self Care Social History Tobacco Use Types Packs/Day Years Used Date Smoking Tobacco: Every Day Cigarettes 1 9.6 Started: 2016 Passive Smoke Exposure: Never Smokeless Tobacco: Never Alcohol Use Standard Drinks/Week Comments Never 0 [...] Sign Reading Time Taken Comments Blood Pressure 128/85 09/22/2024 10:15 AM EDT Pulse 85 09/22/2024 10:15 AM EDT Temperature - - Respiratory Rate - - Oxygen Saturation 97% 09/22/2024 10:15 AM EDT Inhaled Oxygen Concentration - - Weight - - Height - - Body Mass Index - - documented in this encounter Medications at Time of Discharge BLACK COHOSH PO Take by mouth daily. cetirizine (ZyrTEC ALLERGY) 10 MG tablet Take 1 tablet by mouth Daily. cholecalciferol (Vitamin D-3) 125 MCG (5000 UT) capsule 1 (one) time each day at the same time. co-enzyme Q-10 30 MG capsule Take 1 capsule by mouth daily. cyanocobalamin 1000 MCG tablet Take 1 tablet by mouth daily. hydroCHLOROthiazi de (HYDRODiuril) 25 MG tablet 1 (one) time each day at the same time. 01/21/2024 losartan (Cozaar) 25 MG tablet 1 (one) time each day at the same time. metFORMIN (Glucophage) 850 MG tablet 1 (one) time each day at the same time. 05/23/2024 oxyCODONE (Roxicodone) 5 MG immediate release tablet Take 1 tablet by mouth every 6 hours as needed for severe pain for up to 5 doses. 5 tablet 10/15/2024 potassium chloride CR (Klor-Con) 10 MEQ ER tablet 1 (one) time each day at the same time. rosuvastatin (Crestor) 10 MG tablet 1 (one) time each day at the same time. documented as of this encounter Miscellaneous Notes * Post-Procedure Note - Savanna Davis RN - 09/22/2024 10:00 AM EDT Patient: Sunita Chiang Date and Time: September 22, 2024 at 1030 Breast: left Procedure: deepa guided tag placement How long was pressure applied: 2 min Site Check: soft, hemostasis achieved Procedure Tolerance: tolerated well Post Pain Assessment: 0 Bleeding or Hematoma: absent Additional Pressure Applied: n/a Post Procedure Care: dermabond to incision, extra ice provided Radiologist that spoke with the patient: Dr Martínez Discharged mode: ambulatory Discharge Instructions: re-enforced prior to dc Entered By: Sunita Davis RN * Pre-Procedure Note - Savanna Davis RN - 09/22/2024 10:00 AM EDT Patient: Sunita Chiang Date and Time: September 22, 2024 at 1025 Procedure Consent: obtained, Dr Martínez Patient Pulse: 85 Patient Pain Level: 0 Patient Allergies: Augmentin NSAIDS and Anti-coagulants: none O2 Sats Room Air: 97% Blood Pressure: 128/85 Discharge Instructions: provided, dc instructions sheet provided, pt states understanding Timeout performed by the radiologist at the time of the procedure: completed, Dr Martínez Patient Medications (see chart and HQA form) Medical History (see chart and HQA form) Surgical History (see chart and HQA form) Entered by: Sunita Davis RN documented in this encounter Plan of Treatment Upcoming Encounters Date Type Department Care Team (Late st Contact Info) Description 06/30/2025 1:00 PM EDT Appointment [facility] Breast Care [place] [facility] [address] [facility] [address] [place] [address] 06/30/2025 2:30 PM EDT Office Visit [facility] Breast Care [place] [address] [facility], [address]nd [place] [address] Ellen Edmonds MD 800 [facility] [address] [place] [address] documented as of this encounter Goals Goal Patient Goal Type Associated Problems Recent Progress Patient-Stated? Author Autogenerat ed Goal Care Plan Autogenerated Problem No Paulo Dickey documented as of this encounter Procedures Procedure Name Priority Date/Time Associated Diagnosis Comments MAMMOGRAPHY GUIDED LOCALIZATION BREAST LEFT Routine 09/22/2024 10:51 AM EDT Invasive ductal carcinoma of breast, female, left documented in this encounter Results * Mammography Guided Localization [...] Diagnosis Invasive ductal carcinoma of breast, female, left documented in this encounter Additional Health Concerns Active Problems Noted Date Diagnosed Date Autogenerated Problem 09/10/2024 Assessment Noted Time PHQ-9 Depression Total Score: 0 08/20/19 9:56 AM EDT A fall risk assessment has been complete d for the patient 09/09/2024 2:06 PM EDT A Body Mass Index follow-up plan has been documented for the patient 09/09/2024 4:49 PM EDT documented as of this encounter Care Teams Wood Heel Flap Inserter Relationship Specialty Start Date End Date Terence Britton MD [address] [place] [address] PCP - General 08/19/24 documented as of this encounter
--- OUTSIDE RECORDS SUMMARY | 2024-09-22 10:10 | XMS_ITS | Encounter Summary ---
Author Organization [facility] Address [address] [place] [address] Care Team Providers Care Salicylic Acid Blender Name Role Phone Terence Britton MD Primary Care Provider [phone] Encounter Details Date Type Department Care Team (Latest Contact Info) Description 09/22/2024 10:10 AM EDT - 09/22/2024 11:59 PM EDT Hospital Encounter [facility] Breast Care Center [facility] [address] [address] Abnormal mammogram Discharge Disposition: Home or Self [...] Info) Description 06/30/2025 1:00 PM EDT Appointment [facility] Breast Care [place] [facility] [address] [place] [address] 06/30/2025 2:30 PM EDT Office Visit [facility] Breast Care [place] [address] [facility], 2nd [place] [address] Ellen Edmonds MD 800 [facility] [address] [address] documented as of this encounter Goals Goal [...] 09/22/2024 10:56 AM Final report signed by iLen Martínez MD on 09/22/2024 11:00 AM Narrative [...] compatible with known malignancy. Procedure Note Lien Martíenz MD - 09/22/2024 CLINICAL INDICATION: Newly diagnosed [...] Lien Martínez MD on 09/22/2024 11:00 AM Ellen Edmonds MD IMG BI PROCEDURES [...] documented as of this encounter Care Teams Salicylic Acid Blender Relationship Specialty Start Date End Date Terence Britton MD [address] [place] [address] PCP - General 08/19/24 documented as of this encounter
--- OUTSIDE RECORDS SUMMARY | 2024-10-15 07:16 | XMS_ITS | Encounter Summary ---
Author Organization [facility] Address [address] [place] [place] [id number] Care Team Providers Care Cafeteria Manager Name Role Phone Terence Britton MD Primary Care Provider [phone] Reason for Visit * Auth/Cert (Routine) Specialty Diagnoses / Procedures Referred By Contac t Referred To Contact Diagnoses Invasive ductal carcinoma of breast, female, left Invasive ductal carcinoma of breast, female, left [C50.912] Procedures LA MASTECTOMY, PARTIAL LA BIOPSY/EXCISION, LYMPH NODE(S) LA BX/REMV,LYMPH NODE,DEEP AXILL LA INTRAOPERATIVE SENTINEL LYMPH NODE ID W DYE INJECTION Left localized lumpectomy sentinel lymph node EXCISION, LYMPH NODE, SENTINEL Ellen Edmonds MD 800 [facility] [address] [address] Phone: tel: fax: [facility] [address] [place] [address] Phone: tel: Referral ID Status Reason Start Date Expiration Date Visits Re quested Visits Authorized [id number] 1 1 Encounter Details Date Type Department Care Team (Latest Contact Info) Description 10/15/2024 7:16 AM EDT - 10/15/2024 10:56 AM EDT Hospital Encounter [facility] [address] [place] [address] Abnormal mammogram Discharge Disposition: Home or Self [...] on file documented as of this encounter Functional Status * Calculated C-SSRS Risk Score (Lifetime/Recent) Answer Date of Assessment Author No Risk Indicated 10/15/2024 12:38 PM EDT Anastacia Barahona RN * Question Answer Date of Assessment Author 1. Wish to be (Past 1 Month) No 025 12:38 PM EDT Anastacia Reddy RN 2. Non-Specific Active Suici jer Thoughts (Past 1 Month) No 10/15/2024 12:38 PM EDT Ramírez Reddy RN 6. Suicidal Behavior (Lifetime) No 12:38 PM EDT Anastacia Reddy RN documented as of this encounter Medications at [...] Breast Care [facility] [address] [place] [address] 06/30/2025 2:30 PM EDT Office Visit [facility] [address] [facility]nd [place] [address] Ellen Edmonds MD [address] [facility] [address] [place] [address] documented as of this encounter Goals Goal Patient Goal Type Associated Problems Recent Progress Patient-Stated? Author Autogenerat ed Goal Care Plan Autogenerated Problem No Paulo Dickey documented as of this encounter Procedures Procedure Name Priority Date/Time Associated Diagnosis Comments MAMMOGRAPHY BREAST SURGICAL SPECIMEN REVIEW Routine 10/15/2024 7:16 AM EDT Abnormal mammogram documented in this encounter Results * Mammography Breast Surgical Specimen (10/15/2024 7:16 AM EDT) Anatomical Region Laterality Modality Breast N/A Mammography Impressions 10/15/2024 5:10 PM EDT Successful localization of the biopsy tissue marker and localizer at 3 o'clock position of the left breast. CRITICAL RESULT: No. COMMUNICATION: Findings communicated via telephone to Dr. Edmonds on 10/15/2024 at the time of the specimen review. Drafted by Adan Loo MD on 10/15/2024 5:04 PM Final report signed by Adan Loo MD on 10/15/2024 5:10 PM Narrative 10/15/2024 5:10 PM EDT CLINICAL INDICATION: Patient with biopsy-proven left breast triple negative breast cancer, via stereotactic biopsy for microcalcifications. Now for specimen review, prior localizer placement. TECHNIQUE: Surgery Specimen review from left breast. Procedure: Surgical excision was performed by Dr. Edmonds. The localized biopsy tissue marker at the 3 o'clock position of the left breast is within the surgical specimen. The localization tag is included within the specimen. COMPARISON: Mammogram 09/22/2024 FINDINGS: See Impression. Procedure Note Adan Loo MD - 10/15/2024 CLINICAL INDICATION: Patient with biopsy-proven left breast triple negative breast cancer, viastereotactic biopsy for microcalcifications. Now for specimen review,prior localizer placement. TECHNIQUE: Surgery Specimen review from left breast. Procedure: Surgical excision was performed by Dr. Edmonds. The localized biopsy tissue marker at the 3 o'clock position of the leftbreast is within the surgical specimen. The localization tag is included within the specimen. COMPARISON: Mammogram 09/22/2024 FINDINGS: See Impression. IMPRESSION: Successful localization of the biopsy tissue marker and localizer at 3o'clock position of the left breast. CRITICAL RESULT: No. COMMUNICATION: Findings communicated via telephone to Dr. Edmonds on 10/15/2024 at the timeof the specimen review. Drafted by Adan Loo MD on 10/15/2024 5:04 PM Final report signed by Adan Loo MD on 10/15/2024 5:10 PM Ellen Edmonds MD IMG BI PROCEDURES Final [...] documented as of this encounter Care Teams Cafeteria Manager Relationship Specialty Start Date End Date Terence Britton MD [address] [place] [address] PCP - General 08/19/24 documented as of this encounter
--- OUTSIDE RECORDS SUMMARY | 2024-10-15 10:57 | XMS_ITS | Encounter Summary ---
Author Organization [facility] Address [address] [place] [address] Care Team Providers Care Recruitment Director Name Role Phone Terence Britton MD Primary Care Provider [phone] Reason for Visit * Auth/Cert (Routine) Specialty Diagnoses / Procedures Referred By Contac t Referred To Contact Diagnoses Invasive ductal carcinoma of breast, female, left Invasive ductal carcinoma of breast, female, left [C50.912] Procedures DE MASTECTOMY, PARTIAL DE BIOPSY/EXCISION, LYMPH NODE(S) DE BX/REMV,LYMPH NODE,DEEP AXILL DE INTRAOPERATIVE SENTINEL LYMPH NODE ID W DYE INJECTION Left localized lumpectomy sentinel lymph node EXCISION, LYMPH NODE, SENTINEL Ellen Edmonds MD [address] [facility] Mouna Benavides macy [address] [address] Phone: tel: fax: [facility] [address] [place] [address] Phone: tel: Referral ID Status Reason Start Date Expiration Date Visits Re quested Visits Authorized [id number] 1 1 Encounter Details Date Type Department Care Team (Late st Contact Info) Description 10/15/2024 10:57 AM EDT - 10/15/2024 8:05 PM EDT Hospital Encounter [facility] A OPERATING ROOM [address] [place] [address] Ellen Edmonds MD [address] [facility] Mouna Benavides [address] [address] Invasive ductal carcinoma of breast, [...] Bills MD - 10/15/2024 5:50 PM EDT [facility] Postoperative Discharge Instructions Follow-up Please follow-up [...] constipation. If necessary you may take an njyf-ujs-sefwleo medication (such as MiraLax or Colace). Call [...] you have questions or concerns, please call [phone] during regular business hours or [phone] at any other time (after hours, weekends, and/or holidays) and ask for the GOLD PIG CASTING MACHINE OPERATOR . Please call the above number [...] PM EDT Operative Note Date: 10/15/24 Location: [place] OR Name: Sunita Chiang, : 1965, Diagnoses: Pre-op Diagnosis Invasive ductal carcinoma of breast, female, left Post-op Diagnosis Invasive ductal carcinoma of breast, female, left Procedure(s): Left axillary sentinel lymph node biopsy Left smartclip localized partial mastectomy Attending Surgeon(s): * Ellen Edmonds - Primary Transmission Mechanic(s): * Linda Bills MD - Resident - Assisting Anesthesia: Choice ASA: III Blood Administration: Blood Product Administration History None Estimated Blood Loss: Minimal Drains: * None in log * Specimen: Specimens ID Source Frozen? 1 [place] Lymph Node No Description: left axillary sentinel lymph node - blue and hot - [id number] 2 Breast, Left No Description: left lumpectomy [...] Submitted by: Ellen Edmonds MD - 10/15/2024 [place] Node Biopsy for Breast Cancer - Left [...] AM. H&P copy forward from clinic note. [facility] New Patient Consultation This is a follow I[ visit at the [facility] [place] visit for this 59 y.o. female for [...] tobegin that process. Health Maintenance Colonoscopy: N/A HEEL SEAT FITTER MACHINE Exam: 06/25/2024 DEXA: N/A Review of Systems: [...] finding. PATHOLOGY: Pathology has been reviewed here. [facility] Pathology Review (Pending) Stereotactic guided biopsy left [...] Stage IIB (cT2, cN0, cM0, G3, ER-, DE-, HER2-) - Unsigned Stage prefix: Initial diagnosis [...] quit. I provided resources, including Quit Now [place] at [phone] QUIT-NOW ([phone]). Recommend follow-up with PCP for ongoing assessment [...] or concerns arise. Dr. Ellen Edmonds MD Herbicide Sprayer of [facility] I spent 60 minutes on this [...] welcome you, your family, and friends to [facility]. We offer access to more than 1,500 [...] will help you be more comfortable with [facility] and the surgical process. This information provides [...] located on the first floor of the [facility] near the Pharmacy and main clinic entrance. We are open Sunday-Sunday from 8 a.m. to 4:30 p.m. A clinic c s s representative can be reached at [phone]. Parking is available in the [facility] garage on [facility] or in the [facility] garage located at [address] [place] [address], directly across [facility] from [facility]. The day before surgery You will receive a phone call telling you what time you need to arrive at the hospital for surgery.If you miss the call, please call one of the following numbers (depending on where your surgery is scheduled): ?? [facility]: [phone] or [phone] ?? [facility]: [phone] or [phone] The day of surgery ?? Arrive on time to avoid delays or cancellation. ?? Park in the [facility] parking garage located at [address] It is directly across [facility] from the medical campus. ?? If you are scheduled for surgery at [facility], take the hospital garage elevator to Level C, then cross the concourse bridge to the Surgery Waiting Room to register for your surgery. The Surgery Waiting Room is located down the first hallway to the right at the end of the concourse bridge. If you need help crossing the concourse, you may chart picker the patient golf cart shuttle directly to the right of the elevators on Level C. ?? If you are scheduled for surgery at the [place] [facility], take the garage elevator Equifaxel A and catch the free shuttle to the hospital. (Be careful not to take the [facility] shuttle - there is an ambassador there [...] checked many times throughout your stay at [facility] to ensure your safety. ?? Go over [...] talk to them after your surgery. A maintenance of way clerk is available in the waiting room [...] them: living will, health care surrogate, powerof heel seat fitter machine or guardianship papers. ?? Bring a responsible [...] makeup, jewelry (including body piercing) or nail danish. ?? Don?t bring money or valuables to [...] office and the Preoperative Anesthesia Clinic at [phone] or [phone]. If it is the day of surgery, call the location where you are scheduled to have your surgery: [facility] at [phone] or [phone] or [place] at [phone] or [phone]. For more information Visit [email or web address] / [facility] or call [phone] or [phone]. [facility] does not discriminate. [facility] complies with applicable Federal civil rights laws [...] turn right off the exit ramp onto [address] ([place] [address] [address]) toward [place]. ?? In 4.1 miles, turn left onto [address]. (at the [employer]). ?? In a half-mile, turn right onto [address]. ?? In .3 miles, turn right onto [address] (just past the [employer] gas station). Garage entrance is on the left. ?? Important: This garage address will change to Anabela Nevarez on October 07, 2024. Directions from HealthCare Parking Garage to I-75/I-64: ?? Turn left out of the garage onto [address]. ?? Turn left onto [address]. ?? In .3 miles, turn left down [address] ?? In a half-mile, turn right onto [address] (at the [employer] gas station). In 4.1 miles, merge onto I-64 /[address]-75 (near the [facility] by [employer] [address]adalupe Guerrero). Parking Any patients or visitors of [facility] can park in the following areas: ?? [facility] Parking Garage (main garage): [address] (Levels A-F) ?? [facility] Garage: [address] (Levels 1-6) ?? [facility] Cancer lot: Located off [employer] (limited parking for [facility] outpatients only). Upon Your Arrival ?? Patients and visitors going to Pavili A, H, and [facility] may walk acrossthe pedway, located [...] please visit our information desks located throughout [facility]. Information desks have additional maps and resources. Information desks are located at the main entrances of: [facility] (first floor and ground floor), [facility]?s [facility], [facility], [facility] CC, [facility], [facility] (first and third floor), and [facility]. Informationdesk number: [phone]. Important Addresses [address] [facility] ?? [facility]?s Hospital entrance ?? Pav[facility] A [facility] G ([facility]) ?? Emergency Department [address] ?? [facility] H ?? [facility] ([facility]) ?? [facility] ([facility]) ?? [facility] [facility] ?? [facility] [facility] ?? [facility] 110 [facility] ?? [facility] [...] card, photo ID, along with power of heel seat fitter machine, guardianship or advanced directives if applicable Do [...] will be on the first floor of [facility]) at the end of the bridge from the parking garage, the hallway on the RIGHT. Parking Garage Address: [address] [place] [address] Av. documented in this encounter Plan of Treatment Upcoming Encounters Date Type Department Care Team (Late st Contact Info) Description 06/30/2025 1:00 PM EDT Appointment [facility] [address] [facility] [address] [place] [address] 06/30/2025 2:30 PM EDT Office Visit [facility] Breast [facility] [address] [facility], 2nd [place] [address] Ellen Edmonds MD 800 [facility] [address] [place] [address] documented as of this encounter Goals Goal Patient Goal Type Associated Problems Recent Progress Patient-Stated? Author Autogenerat ed Goal Care Plan Autogenerated Problem No Paulo Dickey documented as of this encounter Procedures Procedure Name Priority Date/Time Associated Diagnosis Comments SURGICAL PATHOLOGY EXAM Routine 10/15/2024 4:16 PM EDT Invasive ductal carcinoma of breast, female, left DE BIOPSY/EXCISION, LYMPH NODE(S) 10/15/2024 2:38 PM EDT Invasive ductal carcinoma of breast, female, left DE MASTECTOMY, PARTIAL 10/15/2024 2:38 PM EDT Invasive ductal carcinoma of breast, female, left POCT GLUCOSE METER UNSOLICITED RESULTS Routine 10/15/2024 12:48 PM EDT documented in this encounter Results * Surgical Pathology Exam (10/15/2024 4:16 PM EDT) Case Report Surgical Pathology Case: [id number] Authorizing Provider: Ellen Edmonds MD Collected: 10/15/2024 1616 Ordering Location: [facility] OPERATING ROOM Received: 10/15/2024 1633 Pathologist: Carli Grijalva MD Specimens: A) - [place] Lymph Node, left axillary sentinel lymph node - blue and hot - 04326 B) - Breast, Left, left lumpectomy short [...] tao true margin 10/20/2024 4:08 PM EDT [facility] Final Diagnosis A. LYMPH NODE, LEFT [...] WITHOUT DIAGNOSTIC ABNORMALITY. 10/20/2024 4:08 PM EDT [facility] at 1608 EDT Synoptic Checklist INVASIVE CARCINOMA OF THE BREAST: Resection INVASIVE CARCINOMA OF THE BREAST: RESECTION - All Specimens 8th Edition - Protocol posted: 09/26/2023 SPECIMEN Procedure: Excision (less than total mastectomy) Specimen Laterality: Left TUMOR Tumor Site: Central Histologic Type: Invasive carcinoma of no special type (ductal) Histologic Grade (Edinson Histologic Score): Glandular (Acinar) / Tubular Differentiation: [...] Examined (sentinel and non-sentinel): 2 Number of [place] Nodes Examined: 2 pTNM CLASSIFICATION (AJCC 8th [...] Drug Administration (FDA) cleared (test / vendor): [place] Primary Antibody: SP1 Scoring System: No separate scoring system used Test(s) Performed: Progesterone Receptor (PgR) Status: Negative (less than 1%) : Internal control cells present and stain as expected Test Type: Food and Drug Administration (FDA) cleared (test / vendor): [place] Primary Antibody: 1E2 Scoring System: No separate scoring system used Test(s) Performed: HER2 by Immunohistochemist ry: Negative (Score 0) Test Type: Food and Drug Administration (FDA) cleared (test / vendor): [place] Primary Antibody: 4B5 Cold Ischemia and Fixation Times: Meet requirements specified in latest version of the ASCO / CAP Guidelines METHODS Fixative: Formalin Image Analysis: Not performed 10/20/2024 4:08 PM EDT [facility] Clinical Information Invasive ductal carcinoma of breast, female, left [C50.912] 10/20/2024 4:08 PM EDT [facility] Gross Description A. LEFT AXILLARY SENTINEL LYMPH NODE - BLUE AND HOT - 56635 The specimen is received fresh and placed [...] and 5% olea - white fibromembranous tissue. Broom Bundler sections are submitted as follows: B1-B6: Slice [...] FLOR Atkinson (ASCP) 10/20/2024 4:08 PM EDT [facility] Note: A resident was involved in the service. I attest I examined the relevant preparations for the specimens and confirmed the diagnosis or interpretation. 10/20/2024 4:08 PM EDT [facility] Lymph Node Specimen from sentinel lymph [...] MD LAB PATHOLOGY ORDERABLES Final R esult [facility] [address] [place] [address] * (ABNORMAL) POCT glucose meter (10/15/2024 12:48 [...] Comment 10/15/2024 12:49 PM EDT [facility] College Intern ID Dianne Zhu 10/15/2024 12:49 PM EDT [facility] Device ID [id number] 10/15/2024 12:49 PM EDT [facility] Specimen Type POC Capillary 10/15/2024 12:49 PM EDT [facility] Blood Capillary blood specimen / Unknown 10/15/2024 12:48 PM EDT 10/15/2024 12:49 PM EDT Ellen Edmonds MD LAB POINT OF CARE TE ST DOCKED DEVICE UNSOLICITED RESULTS Final Result Performing Organization Address City/[facility] Co de Phone Number [facility] [address] [place] [address] documented in this encounter Visit Diagnoses Diagnosis [...] of breath bupivacaine-EPINEPHrine PF (Marcaine w/EPI) 0.25% -1:[id number] injection (CANCELED) As needed, Starting on Sun10/15/24 [...] on Sun10/15/24 at 1734, Until Sun10/15/24 at 222, Routine, Recovery (Phase I only), pain score [...] documented as of this encounter Care Teams Recruitment Director Relationship Specialty Start Date End Date Terence Britton MD [address] [place] [address] PCP - General 08/19/24 documented as of this encounter
--- OUTSIDE RECORDS SUMMARY | 2024-10-15 12:30 | XMS_ITS | Encounter Summary ---
Author Organization [facility] [address] [facility] [address] [id number] Care Team Providers Care Disability Manager Name Role Phone Terence Britton MD Primary Care Provider [phone] Reason for Referral * Imaging (Routine) - Closed Specialty Diagnoses / Procedures Referred By Rohan t Referred To Contact Radiology Diagnoses Breast cancer Procedures NM Dermal Injection [place] Node Ellen Edmonds MD 800 [facility] Mouna Benavides [address] [address] Phone: tel: fax: Referral ID Status Reason Start Date Expiration Date Visits Re quested Visits Authorized [id number] Closed 09/09/2024 03/11/2026 1 1 Reason for Visit * Auth/Cert (Routine) Specialty Diagnoses / Procedures Referred By Contalexandru t Referred To Contact Diagnoses Invasive ductal carcinoma of breast, female, left Invasive ductal carcinoma of breast, female, left [C50.912] Procedures [place] MASTECTOMY, PARTIAL [place] BIOPSY/EXCISION, LYMPH NODE(S) [place] BX/REMV,LYMPH NODE,DEEP AXILL [place] INTRAOPERATIVE SENTINEL LYMPH NODE ID W DYE INJECTION Left localized lumpectomy sentinel lymph node EXCISION, LYMPH NODE, SENTINEL Ellen Edmonds MD 800 [facility] Mouna Benavides [address] [address] Phone: tel: fax: P[facility] [address] [place] [address] Phone: tel: Referral ID Status Reason Start Date Expiration Date Visits Re quested Visits Authorized [id number] 1 1 Encounter Details Date Type Department Care Team (Latest Contact Info) Description 10/15/2024 12:30 PM EDT - 10/15/2024 11:59 PM EDT Hospital Encounter [facility] H Nuclear Medicine [address] [place] [address] Breast cancer Discharge Disposition: Home or Self [...] 06/30/2025 1:00 PM EDT Appointment [facility] Breast Care [place] [facility] [address] [place] [address] 06/30/2025 2:30 PM EDT Office Visit [facility] Breast Care [place] [address] [facility], 2nd [place] [address] Ellen Edmonds MD 800 [facility] [address] [place] [address] documented as of this encounter Goals Goal Patient Goal Type Associated Problems Recent Progress Patient-Stated? Author Autogenerat ed Goal Care Plan Autogenerated Problem No Paulo Dickey documented as of this encounter Procedures Procedure Name Priority Date/Time Associated Diagnosis Comments NM DERMAL INJECTION SENTINEL NODE Routine 10/15/2024 1:31 PM EDT Breast cancer documented in this encounter Results * NM Dermal Injection [place] Node (10/15/2024 1:31 PM EDT) Anatomical Region [...] as marked on the skin, by the ep technologist at 1:31 PM. COMPARISON/CORRELATION: Not applicable. FINDINGS: [...] as marked on the skin, by the ep technologist at 1:31PM. COMPARISON/CORRELATION: Not applicable. FINDINGS: No [...] on 10/15/2024 3:11 PM Ellen Edmonds MD IMG NM PROCEDURES Final Result documented in this encounter [...] documented as of this encounter Care Teams Disability Manager Relationship Specialty Start Date End Date Terence Britton MD [address] [place] [address] PCP - General 08/19/24 documented as of this encounter
--- OUTSIDE RECORDS SUMMARY | 2024-10-15 12:45 | XMS_ITS | Encounter Summary ---
Author Organization [facility] Address [address] [place] [address] Care Team Providers Care Bark Fitter Name Role Phone Terence Britton MD Primary Care Provider [phone] Reason for Visit * Auth/Cert (Routine) Specialty Diagnoses / Procedures Referred By Contac t Referred To Contact Diagnoses Invasive ductal carcinoma of breast, female, left Invasive ductal carcinoma of breast, female, left [C50.912] Procedures TX MASTECTOMY, PARTIAL TX BIOPSY/EXCISION, LYMPH NODE(S) TX BX/REMV,LYMPH NODE,DEEP AXILL TX INTRAOPERATIVE SENTINEL LYMPH NODE ID W DYE INJECTION Left localized lumpectomy sentinel lymph node EXCISION, LYMPH NODE, SENTINEL Ellen Edmonds MD [address] [facility] Mouna Benavides macy [address] [address] Phone: tel: fax: [facility] [address] [place] [address] Phone: tel: Referral ID Status Reason Start Date Expiration Date Visits Re quested Visits Authorized [id number] 1 1 Encounter Details Date Type Department Care Team (Late st Contact Info) Description 10/15/2024 12:45 PM EDT - 10/15/2024 3:50 PM EDT Surgery [facility] OPERATING ROOM [address] [place] [address] Ellen Edmonds MD [address] [facility] Mouna Benavides [address] [address] Left localized lumpectomy sentinel lymph node [70981 (CPT )] Surgery Details Date/Time Status Location OR Service Patient Class Case Class Case Type Trauma Case? 10/15/2024 12:45 PM [facility] E-Electi ve [...] Bills MD - 10/15/2024 5:50 PM EDT [facility] Postoperative Discharge Instructions Follow-up Please [...] constipation. If necessary you may take an htsc-sci-isfztqo medication (such as MiraLax or Colace). Call [...] you have questions or concerns, please call [phone] during regular business hours or [phone] at any other time (after hours, weekends, and/or holidays) and ask for the GOLD APPRAISAL ANALYST . Please call the above number if [...] PM EDT Operative Note Date: 10/15/24 Location: [facility] Name: Sunita Chiang, : 1965, Diagnoses: Pre-op Diagnosis Invasive ductal carcinoma of breast, female, left Post-op Diagnosis Invasive ductal carcinoma of breast, female, left Procedure(s): Left axillary sentinel lymph node biopsy Left smartclip localized partial mastectomy Attending Surgeon(s): * Ellen Edmonds - Primary Rug Dry Room Attendant(s): * Linda Bills MD - Resident - Assisting Anesthesia: Choice ASA: III Blood Administration: Blood Product Administration History None Estimated Blood Loss: Minimal Drains: * None in log * Specimen: Specimens ID Source Frozen? 1 Luning Lymph Node No Description: left axillary sentinel lymph node - blue and hot - 58157 2 Breast, Left No Description: left lumpectomy [...] surgical clips to identify the true margin. Estorian de monstrated both the smart clip and [...] Submitted by: Ellen Edmonds MD - 10/15/2024 Luning Node Biopsy for Breast Cancer - Left [...] AM. H&P copy forward from clinic note. [facility] New Patient Consultation This is a follow I[ visit at the [facility] visit for this 59 y.o. female for [...] tobegin that process. Health Maintenance Colonoscopy: N/A SOFTWARE LICENSING SPECIALIST Exam: 06/25/2024 DEXA: N/A Review of [...] finding. PATHOLOGY: Pathology has been reviewed here. [facility] Pathology Review (Pending) Stereotactic guided biopsy left [...] Stage IIB (cT2, cN0, cM0, G3, ER-, TX-, HER2-) - Unsigned Stage prefix: Initial diagnosis [...] quit. I provided resources, including Quit Now [place] at (015) QUIT-NOW ([phone]). Recommend follow-up with PCP for ongoing assessment [...] or concerns arise. Dr. Ellen Edmonds MD Psychiatric Aides Teacher of Surgical Oncology [facility] I spent 60 minutes on this [...] welcome you, your family, and friends to [facility]. We offer access to more than [...] will help you be more comfortable with [facility] and the surgical process. This information [...] located on the first floor of the [facility] near the Pharmacy and main clinic entrance. We are open Sunday-Sunday from 8 a.m. to 4:30 p.m. A clinic wire rope sales representative can be reached at [phone]. Parking is available in the [facility] garage on [facility] or in the [facility] garage located at [address] [place] [address] Avenue, directly across [facility] from [facility]. The day before surgery You will receive a phone call telling you what time you need to arrive at the hospital for surgery.If you miss the call, please call one of the following numbers (depending on where your surgery is scheduled): ?? [facility]: [phone] or [phone] ?? [facility] Advanced Surgery: [phone] or [phone] The day of surgery ?? Arrive on time to avoid delays or cancellation. ?? Park in the [facility] parking garage located at [address] It is directly across [facility] from the [facility]. ?? If you are scheduled for surgery at [facility], take the hospital garage elevator to Level C, then cross the concourse bridge to the Surgery Waiting Room to register for your surgery. The Surgery Waiting Room is located down the first hallway to the right at the end of the concourse bridge. If you need help crossing the concourse, you may last picker the patient golf cart shuttle directly to the right of the elevators on Level C. ?? If you are scheduled for surgery at the [facility], take the garage elevator toLevel A and catch the free shuttle to the hospital. (Be careful not to take the [facility] shuttle - there is an ambassador there [...] checked many times throughout your stay at [facility] to ensure your safety. ?? Go [...] talk to them after your surgery. A keyboarding clerk is available in the waiting room [...] them: living will, health care surrogate, powerof marine oil terminal superintendent or guardianship papers. ?? Bring a responsible [...] makeup, jewelry (including body piercing) or nail nicaraguan. ?? Don?t bring money or valuables to [...] office and the Preoperative Anesthesia Clinic at [phone] or [phone]. If it is the day of surgery, call the location where you are scheduled to have your surgery: [facility] at [phone] or [phone] or [facility] at [phone] or [phone]. For more information Visit [email or web address] or call [phone] or [phone]. [facility] does not discriminate. HealthCare complies with [...] right off the exit ramp onto [address] ([place] [address] [address]) toward [place]. ?? In 4.1 miles, turn left onto [address] (at the [employer] gas station). ?? In a half-mile, turn right onto [address]. ?? In .3 miles, turn right onto [address] (just past the [employer] gas station). Garage entrance is on the left. ?? Important: This garage address will change to [address] [place] [address] on October 07, 2024. Directions from [facility] Parking Garage to I-[address]-64: ?? Turn left out of the garage onto [facility] [address]. ?? Turn left onto [address]. ?? In .3 miles, turn left down [address] ?? In a half-mile, turn right onto [address] (at the [employer] gas station). In 4.1 miles, merge onto [address] /[address] (near the [facility] by Jose Guadalupe Guerrero). Parking Any patients or visitors of [facility] can park in the following areas: ?? HealthCare Parking Garage (main garage): [address] (Levels A-F) ?? [facility] Garage: [address] (Levels 1-6) ?? [facility] lot: Located off [employer] [address]a (limited parking for [facility] outpatients only). Upon Your Arrival ?? Patients and visitors going to Pavilion A, H, G and [facility] may walk acrossthe pedway, located at Level [...] please visit our information desks located throughout [facility]. Information desks have additional maps and resources. Information desks are located at the main entrances of: [place] [facility] (first floor and ground floor), [facility], [facility], [facility] CC, [facility], [facility] (first and third floor), and [facility]. Informationdesk number: [phone]. Important Addresses [address] [place] [address] ?? The [facility] Center?s Hospital entrance ?? [facility] A [facility] G ([facility]) ?? Emergency Department [address] ?? [facility] H ?? [facility] ([facility]) ?? [facility] ([facility]) ?? [facility] ?? [facility] [facility] ?? [address] ?? [facility] Pediatric Ophthal[facility] * [...] card, photo ID, along with power of marine oil terminal superintendent, guardianship or advanced directives if applicable Do [...] will be on the first floor of [facility]) at the end of the bridge from the parking garage, the hallway on the RIGHT. Parking Garage Address: [address] [place] [address]. documented in this encounter Plan of Treatment Upcoming Encounters Date Type Department Care Team (Late st Contact Info) Description 06/30/2025 1:00 PM EDT Appointment [facility] [place] [address] [facility] [address] [place] [address] 06/30/2025 2:30 PM EDT Office Visit [facility] [address] [facility] 2nd [place] [address] Ellen Edmonds MD [address] [facility] [address] [place] [address] documented as of this encounter Goals Goal Patient Goal Type Associated Problems Recent Progress Patient-Stated? Author Autogenerat ed Goal Care Plan Autogenerated Problem No Paulo Dickey documented as of this encounter Procedures Procedure Name Priority Date/Time Associated Diagnosis Comments SURGICAL PATHOLOGY EXAM Routine 10/15/2024 4:16 PM EDT Invasive ductal carcinoma of breast, female, left TX BIOPSY/EXCISION, LYMPH NODE(S) 10/15/2024 2:38 PM EDT Invasive ductal carcinoma of breast, female, left TX MASTECTOMY, PARTIAL 10/15/2024 2:38 PM EDT Invasive ductal carcinoma of breast, female, left POCT GLUCOSE METER UNSOLICITED RESULTS Routine 10/15/2024 12:48 PM EDT documented in this encounter Results * Surgical Pathology Exam (10/15/2024 4:16 PM EDT) Case Report Surgical Pathology Case: [id number] Authorizing Provider: Ellen Edmonds MD Collected: 10/15/2024 1616 Ordering Location: [facility] OPERATING ROOM Received: 10/15/2024 1633 Pathologist: Carli Grijalva MD Specimens: A) - Luning Lymph Node, left axillary sentinel lymph node - blue and hot - 52144 B) - Breast, Left, left lumpectomy short [...] tao true margin 10/20/2024 4:08 PM EDT [facility] Final Diagnosis A. LYMPH NODE, [...] WITHOUT DIAGNOSTIC ABNORMALITY. 10/20/2024 4:08 PM EDT [facility] at 1608 EDT Synoptic Checklist INVASIVE CARCINOMA OF THE BREAST: Resection INVASIVE CARCINOMA OF THE BREAST: RESECTION - All Specimens 8th Edition - Protocol posted: 09/26/2023 SPECIMEN Procedure: Excision (less than total mastectomy) Specimen Laterality: Left TUMOR Tumor Site: Central Histologic Type: Invasive carcinoma of no special type (ductal) Histologic Grade ([place] Histologic Score): Glandular (Acinar) / Tubular Differentiation: [...] Examined (sentinel and non-sentinel): 2 Number of Luning Nodes Examined: 2 pTNM CLASSIFICATION (AJCC 8th [...] Drug Administration (FDA) cleared (test / vendor): Peletier Primary Antibody: SP1 Scoring System: No separate scoring system used Test(s) Performed: Progesterone Receptor (PgR) Status: Negative (less than 1%) : Internal control cells present and stain as expected Test Type: Food and Drug Administration (FDA) cleared (test / vendor): Peletier Primary Antibody: 1E2 Scoring System: No separate scoring system used Test(s) Performed: HER2 by Immunohistochemist ry: Negative (Score 0) Test Type: Food and Drug Administration (FDA) cleared (test / vendor): Peletier Primary Antibody: 4B5 Cold Ischemia and Fixation Times: Meet requirements specified in latest version of the ASCO / CAP Guidelines METHODS Fixative: Formalin Image Analysis: Not performed 10/20/2024 4:08 PM EDT [facility] Clinical Information Invasive ductal carcinoma of breast, female, left [C50.912] 10/20/2024 4:08 PM EDT [facility] Gross Description A. LEFT AXILLARY SENTINEL LYMPH NODE - BLUE AND HOT - 50753 The specimen is received fresh and placed [...] and 5% olea - white fibromembranous tissue. Brick Extruder Operator sections are submitted as follows: B1-B6: Slice [...] Atkinson (ASCP) E. INFERIOR SHAVE MARGIN CLIP ATO TRUE MARGIN The specimen is received fresh [...] H1-H4. Cold Time: 24h 11m FLOR Atkinson ([facility]) 10/20/2024 4:08 PM EDT [facility] Note: A resident was involved in the service. I attest I examined the relevant preparations for the specimens and confirmed the diagnosis or interpretation. 10/20/2024 4:08 PM EDT [facility] Lymph Node Specimen from sentinel [...] ductal carcinoma of breast, female, left [C50.912] us Ellen Edmonds MD LAB PATHOLOGY ORDERABLES Final R esult Performing Organization Address City/[facility] [place] [address] * (ABNORMAL) POCT glucose meter (10/15/2024 12:48 [...] 10/15/2024 12:49 PM EDT [facility] Wire Loop Machine Operator ID Dianne Zhu 10/15/2024 12:49 PM EDT HEALTHCARE LAB Device ID [id number] 10/15/2024 12:49 PM EDT [facility] Specimen Type POC Capillary 10/15/2024 12:49 PM EDT [facility]ALTH[facility] Blood Capillary blood specimen / Unknown 10/15/2024 12:48 PM EDT 10/15/2024 12:49 PM EDT us Ellen Edmonds MD LAB POINT OF CARE TE ST DOCKED DEVICE UNSOLICITED RESULTS Final Result Performing Organization Address City/[facility]/ZIP Co de Phone Number [facility] [address] [place] [address] documented in this encounter Visit Diagnoses Diagnosis [...] of breath bupivacaine-EPINEPHrine PF (Marcaine w/EPI) 0.25% -[id number] injection As needed, Starting on Sun10/15/24 at [...] of breath bupivacaine-EPINEPHrine PF (Marcaine w/EPI) 0.25% -[id number] injection (CANCELED) As needed, Starting on Sun10/15/24 [...] Routine, Recovery (Phase I only), nausea, vomiting 185 (Given - Provid er: Jose Posadas RN) [...] documented as of this encounter Care Teams Bark Fitter Relationship Specialty Start Date End Date Terence Britton MD [address] [place] [address] PCP - General 08/19/24 documented as of this encounter
--- OUTSIDE RECORDS SUMMARY | 2024-10-15 14:50 | XMS_ITS | Encounter Summary ---
Author Organization [facility] Address [address] [place] [address] Care Team Providers Care Bonded Strand Operator Name Role Phone Terence Britton MD Primary Care Provider [phone] Reason for Visit * Auth/Cert (Routine) Specialty [...] LYMPH NODE, SENTINEL Ellen Edmonds MD [address] [address] Phone: tel: fax: [facility] [address] [place] [address] Phone: tel: Referral ID Status Reason Start Date Expiration Date Visits Re quested Visits Authorized [id number] 1 1 Encounter Details Date Type Department Care Team (Late st Contact Info) Description 10/15/2024 2:50 PM EDT Anesthesia Event [facility] OPERATING ROOM [address] [place] [address] Jessenia Humphreys MD [address] [place] [address] Anesthesia Record Procedure Summary Procedure [...] 10/15/241309 by Anastacia Reddy RN 10/15/241954 by oJse Posadas RN Supraglottic Airway Placement Date: 10/15/24; Placement Time: 1513 (created via procedure documentation); Mask Ventilation: 0; Removal Date: 10/15/24; Removal Time: 173910/15/24 151 by Layo Wen SOIL EXPERT 10/15/241739 by Norbert Putnam MD documented in [...] 1 Month) No 10/15/2024 12:38 PM EDT Ramíerz Reddy RN 6. Suicidal Behavior (Lifetime) No 12:38 PM EDT Anatsacia Reddy RN documented as of this encounter [...] and Staff Patient location during procedure: OR SOIL EXPERT: Layo Wen CRNA Performed: SOIL EXPERT Patient Condition Indications for airway management: anesthesia [...] Current Medications[6] Jessenia Humphreys MD Anesthesiologist: (Unknown) SOIL EXPERT: (Unknown) Market Development Specialist: (Unknown) Patient: Sunita Chiang HPI Suinta Chiang is a 59 y.o. female with [...] ABG No results found for: PHART , CIS3EBW , PO2ART , SO2ART , BEART , TEL6FBI , HCTART , SODIUMART , POTASSIUMART , POCTCL , POCGLU , IONCALART , LACTATE No results found for: PH , PCO2 , PO2 , M1LFADLW , BASEEXC , HCTSYR , KSYR , CLSYR , GLUSYR , CAION , LACTATE ECHO No echocardiogram results found for the past 12 months PFTs No results found for: QQA7IKR , MFO1YEFN , IDW8SEX , FVCPRED BP Readings from Last 5 [...] Plan ASA 3 Plan was reviewed with: SOIL EXPERT Anesthesia technique(s) discussed with the patient/family: general [...] 06/30/2025 1:00 PM EDT Appointment [facility] Breast Care Center Comprehensive Breast Care Center [place] [address] [address] [facility] [address] [place] [address] 06/30/2025 2:30 PM EDT Office Visit [facility] Breast Care [place] [address] [facility] [place] [address] Ellen Edmonds MD [address] [facility] [address] [place] [address] documented as of this encounter Goals Goal Patient Goal Type Associated Problems Recent Progress Patient-Stated? Author Autogenerat ed Goal Care Plan Autogenerated Problem No Paulo Dickey documented as of this encounter Procedures Procedure Name Priority Date/Time Associated Diagnosis Comments PB ANESTHESIA PLACEHOLDER Routine 10/15/2024 3:14 PM EDT TX AN ELECTIVE SUPRAGLOTTIC AIRWAY Routine 10/15/2024 3:14 PM EDT documented in this encounter Results * TX AN ELECTIVE SUPRAGLOTTIC AIRWAY, PB ANESTHESIA PLACEHOLDER (10/15/2024 3:14 PM EDT) Narrative Layo Wen CRNA - 10/15/2024 3:14 PM EDT Layo Wen CRNA 10/15/2024 3:15 PM Airway Date/Time: 10/15/2024 3:14 PM Reason: elective Airway not difficult General Information and Staff Patient location during procedure: OR SOIL EXPERT: Layo Wen CRNA Performed: PAM Patient Condition [...] documented as of this encounter Care Teams Bonded Strand Operator Relationship Specialty Start Date End Date Terence Britton MD [address] [place] [address] PCP - General 08/19/24 documented as of this encounter
--- OUTSIDE RECORDS SUMMARY | 2024-10-28 15:30 | XMS_ITS | Encounter Summary ---
Author Organization Healthcare Address [address] [place] [id number] Care Team Providers Care Paper Products Supervisor Name Role Phone Terence Britton MD Primary Care Provider [phone] Encounter Details Date Type Department Care Team (Late st Contact Info) Description 10/28/2024 3:30 PM EDT Office Visit [facility] [address] [facility], [address]nd [place] [address] Ellen Edmonds MD [address] [facility] [address] [place] [phone] Invasive ductal carcinoma of breast, female, left [...] Notes * Progress Notes - Lisa Sims, BRAILLE TYPIST - 10/28/2024 3:30 PM EDT Images from the original note were not included. [facility] Postoperative Note Sunita Chiang [...] lymph nodes negative for malignancy. Tumor markersdemonstrate ER-/OK-/HER-. The pathology report was reviewed in detail [...] of no special type (ductal) Histologic Grade ([place] Histologic Score): Glandular (Acinar) / Tubular Differentiation: [...] Examined (sentinel and non-sentinel): 2 Number of [place] Nodes Examined: 2 pTNM CLASSIFICATION (AJCC 8th [...] Drug Administration (FDA) cleared (test / vendor): [employer] Primary Antibody: SP1 Scoring System: No separate scoring system used Test(s) Performed: Progesterone Receptor (PgR) Status: Negative (less than 1%) : Internal control cells present and stain as expected Test Type: Food and Drug Administration (FDA) cleared (test / vendor): [employer] Primary Antibody: 1E2 Scoring System: No separate scoring system used Test(s) Performed: HER2 by Immunohistochemistry: Negative (Score 0) Test Type: Food and Drug Administration (FDA) cleared (test / vendor): [employer] Primary Antibody: 4B5 Cold Ischemia and Fixation [...] Stage IIB (cT2, cN0, cM0, G3, ER-, [place]-, HER2-) - Unsigned Stage prefix: Initial diagnosis Histologic grading system: 3 grade system - Pathologic stage from 10/15/2024: Stage IB (pT1b, pN0, cM0, G3, ER-, [place]-, HER2-) - Unsigned Histopathologic type: Infiltrating duct [...] reasons. She previously saw Dr. Verdin in [place], [place] for medical oncology and would like [...] at any point. Dr. Ellen Edmonds MD Agribusiness Professor of Surgical Oncology [facility] Cosigned by Ellen Edmonds MD at 10/28/2024 4:58 PM EDT Associated attestation - Ellen Edmonds MD - 10/28/2024 4:58 PM EDT Images from the original note were not included. Attending Attestation: I personally saw and evaluated the patient with the BRAILLE TYPIST. I attest to being involved in providing substantive time in patient care. I discussed the case with them and agree with the findings as documented. The discussion and plan reflect my edits and medical decision making. Dr. Ellen Edmonds MD Agribusiness Professor of Surgical Oncology [facility] Healthcare documented in this encounter Plan of Treatment Upcoming Encounters Date Type Department Care Team (Late st Contact Info) Description 06/30/2025 1:00 PM EDT Appointment [facility] [address] [facility] [address] [place] [address] 06/30/2025 2:30 PM EDT Office Visit [facility] [address] [facility], [address]nd [place] [address] Ellen Edmonds MD [address] [facility] [address] [place] [address] Scheduled Orders Name Type Priority Associated Diagnoses Orde r Schedule Mammography Breast Diagnostic Tomosynthesis Bilateral Imaging Routine Invasive ductal carcinoma of breast, female, left Expected: 04/30/2025, Expires: 05/01/2026 documented as of this encounter Goals Goal Patient Goal Type Associated Problems Recent Progress Patient-Stated? Author Autogenerat ed Goal Care Plan Autogenerated Problem No Paulo Dickey documented as of this encounter Visit Diagnoses [...] documented as of this encounter Care Teams Paper Products Supervisor Relationship Specialty Start Date End Date Terence Britton MD [address] [place], [place] [address] PCP - General 08/19/24 documented as of this encounter
--- OUTSIDE RECORDS SUMMARY | 2024-11-04 11:00 | XMS_ITS | Encounter Summary ---
Author Organization Healthcare Address [address] [place] [address] Care Team Providers Care Semi Driver Name Role Phone Terence Britton MD Primary Care Provider [phone] Encounter Details Date Type Department Care Team (Late st Contact Info) Description 10/16/2024 Telephone [facility] [address] [place] [address] Ellen Edmonds MD [address] [place] [address] Social History Tobacco Use Types Packs/Day Years [...] on file documented as of this encounter Miscellaneous Notes * Telephone Encounter - Matilde Crowell RN - 10/16/2024 10:37 AM EDT Spoke to Ms. Chiang and explained that we recommend waiting 48 hours after surgery before she showers. * Telephone Encounter - Kalli Shen Velazquez - 10/16/2024 10:23 AM EDT Patient calling wants to know when she can shower after surgery one paper says 48 hours the other one says she can at any time. Please call back at [phone]. documented in this encounter Plan of Treatment Upcoming Encounters Date Type Department Care Team (Late st Contact Info) Description 06/30/2025 1:00 PM EDT Appointment [facility] [place] [address] [address] [facility] [address] [place] [address] 06/30/2025 2:30 PM EDT Office Visit [facility] [address] [facility], [address]nd [place] [address] Ellen Edmonds MD [address] [facility] [address] [facility] [address] [place] [address] documented as of this encounter Goals Goal Patient Goal Type Associated Problems Recent Progress Patient-Stated? Author Autogenerat ed Goal Care Plan Autogenerated Problem No Paulo Dickey documented as of this encounter Visit Diagnoses Not on filedocumented in this encounter Additional Health Concerns Active [...] documented as of this encounter Care Teams Semi Driver Relationship Specialty Start Date End Date Terence Britton MD [address] [place] [address] PCP - General 08/19/24 documented as of this encounter
--- OUTSIDE RECORDS SUMMARY | 2024-11-04 11:00 | XMS_ITS | Clinical Summary ---
Author Organization [facility] Address [address] [place] [address] Care Team Providers Care Karate Black Belt Name Role Phone Terence Britton MD Primary Care Provider [phone] Allergies Active Allergy Reactions Criticality Noted Date Comments Amoxicillin-Pot Clavulanate Vomiting Medium 08/20/19 25 Medications cetirizine (ZyrTEC ALLERGY) 10 MG tablet Take 1 tablet by mouth Daily. Active cholecalciferol (Vitamin D-3) 125 MCG (5000 UT) capsule 1 (one) time each day at the same time. Active hydroCHLOROthia zide (HYDRODiuril) 25 MG tablet 1 (one) time each day at the same time. 01/21/2024 Active losartan (Cozaar) 25 MG tablet 1 (one) time each day at the same time. Active metFORMIN (Glucophage) 850 MG tablet 1 (one) time each day at the same time. 05/23/2024 Active potassium chloride CR (Klor-Con) 10 MEQ ER tablet 1 (one) time each day at the same time. Active rosuvastatin (Crestor) 10 MG tablet 1 (one) time each day at the same time. Active cyanocobalamin 1000 MCG tablet Take 1 tablet by mouth daily. Active co-enzyme Q-10 30 MG capsule Take 1 capsule by mouth daily. Active BLACK COHOSH PO Take by mouth daily. Active oxyCODONE (Roxicodone) 5 MG immediate release tablet Take 1 tablet by mouth every 6 hours as needed for severe pain for up to 5 doses. 5 tablet 10/15/2024 Active Hospital, Clinic, or Other Facility Administered Medication Ordered Dose Route Frequency Start Date End Date Status sodium bicarbonate 8.4 % injection 2 mEqIndications:Invasiv e ductal carcinoma of breast, female, left 2 mEq SC Once 09/22/2024 Acti ve lidocaine (Xylocaine) 1 % injection 8 mLIndications:Invasive ductal carcinoma of breast, female, left 8 mL INFILTRATION Once 09/22/2024 Ac tive Active Problems Problem Noted Date Diagnosed Date Tobacco use disorder 08/19/2024 Invasive ductal carcinoma of breast, female, lef t 08/19/2024 Cancer Staging:Clinical stage from 08/12/2024:Stage IIB(cT2, cN0, cM0, G3, ER-, WA-, HER2-) - Unsigned Pathologic stage from 10/15/2024:Stage IB(pT1b, pN0, cM0, G3, ER-, WA-, HER2-) - Unsigned Encounters Date Type Department Care Team Description 10/28/2024 3:30 PM EDT Office Visit [facility] [address] [place] [address], [address] [place] [address] Ellen Edmonds MD Invasive ductal carcinoma of breast, female, left (Primary Dx) 10/28/2024 Travel 10/16/2024 Telephone [facility] [address] [phone] Ellen Edmonds MD 10/15/2024 2:50 PM EDT Anesthesia Event [facility] A OPERATING ROOM [address] [place] [phone] Jessenia Humphreys MD 10/15/2024 12:45 PM EDT - 10/15/2024 3:50 PM EDT Surgery [facility] [address] [place] [phone] Ellen Edmonds MD Left localized lumpectomy sentinel lymph node [06843 (CPT )] 10/15/2024 12:30 PM EDT - 10/15/2024 11:59 PM EDT Hospital Encounter [facility] Nuclear Medicine [address] [place] [phone] Breast cancer Discharge Disposition: Home or Self Care 10/15/2024 10:57 AM EDT - 10/15/2024 8:05 PM EDT Hospital Encounter [facility] OPERATING RO[facility] [address] [place] [address] Ellen Edmonds MD Invasive ductal carcinoma of breast, female, left Discharge Disposition: Home or Self Care 10/15/2024 7:16 AM EDT - 10/15/2024 10:56 AM EDT [facility] [address] [facility] [address] [place] [address] Abnormal mammogram Discharge Disposition: Home or Self Care 10/15/2024 Travel 09/22/2024 10:10 AM EDT - 09/22/2024 11:59 PM EDT Hospital [facility] [address] [facility] [address] [place] [address] Abnormal mammogram Discharge Disposition: Home or Self Care 09/22/2024 8:52 AM EDT - 09/22/2024 10:09 AM EDT Hospital [facility]counter [facility] [address] [place] [address] Invasive ductal carcinoma of breast, female, left Discharge Disposition: Home or Self Care 09/22/2024 Travel 09/10/2024 Orders Only [facility] [address] [facility], [address] [place] [address] Ellen Edmonds MD Invasive ductal carcinoma of breast, female, left (Primary Dx) 09/09/2024 2:30 PM EDT Office Visit [facility] [address] [facility] [facility], [address] [place] [address] Ellen Edmonds MD Invasive ductal carcinoma of breast, female, left (Primary Dx) 09/09/2024 Orders Only Radiology Virtual Dept. [address] [place] [address] Mando Kay MD 09/09/2024 Travel 09/03/2024 9:00 AM EDT Consult [facility]astic [facility] Re[facility]ive Surgery [facility] [place] [address] Jazmyn Pascual, BREAD WRAPPER OPERATOR, DNP Encounter to discuss breast reconstruction (Primary Dx); Invasive ductal carcinoma of breast, female, left; Tobacco use disorder 09/03/2024 Travel 08/26/2024 Telephone [facility] [address] [phone] Cely Hoff Distress Screen Follow-up 08/22/2024 11:00 AM EDT Clinical Support [facility] [address] [place] [phone] Michell Brown, GC Invasive ductal carcinoma of breast, female, left 08/22/2024 Travel 08/20/2024 Telephone [facility] [address] [phone] Ellen Edmonds MD 08/20/2024 Telephone [facility] [address] [phone] Jessica Dillon Nurse Liaison call 08/19/2024 11:58 AM EDT - 08/19/2024 11:59 PM EDT Hospital Encounter [facility] [address] [phone] Abnormal finding on breast imaging (Primary Dx) Discharge Disposition: Home or Self Care 08/19/2024 11:12 AM EDT - 08/19/2024 11:57 AM EDT Hospital Encounter [facility] [address] [phone] Invasive ductal carcinoma of breast, female, left Discharge Disposition: Home or Self Care 08/19/2024 10:00 AM EDT Office Visit [facility] [address] [phone] Ellen Edmonds MD Invasive ductal carcinoma of breast, female, left (Primary Dx) 08/19/2024 Travel 08/08/2024 Orders Only External Location [address] [place] [phone] Provider, External 08/08/2024 Orders Only External Location [address] [place] [phone] Provider, External 08/08/2024 Orders Only External Location [address] [place] [phone] Provider, External from Last 3 Months Family History Medical History Relation Name Comments Lung cancer Mother Anesthesia problems Neg Hx Relation Name Status Comments Mother Social History Tobacco Use Types Packs/Day Years [...] on file Sexual Orientation Not on file Last Filed Vital Signs Vital Sign Reading Time Taken Comments Blood Pressure 127/82 10/28/2024 3:12 PM EDT Pulse 85 10/28/2024 3:12 PM EDT Temperature 36.6 C (97.9 F) 10/15/2024 7:30 PM EDT Respiratory Rate 17 10/28/2024 3:12 PM EDT Oxygen Saturation 94% 10/28/2024 3:12 PM EDT Inhaled Oxygen Concentration - - Weight 103 kg (227 lb) 10/14/2024 10:24 AM EDT Height 165.1 cm (5' 5 ) 09/09/2024 2:06 PM EDT Body Mass Index 37.77 09/09/2024 2:06 PM EDT Plan of Treatment Upcoming Encounters Date Type Department Care Team (Late st Contact Info) Description 06/30/2025 1:00 PM EDT [facility]ointment [facility] [address] [place] [address] 06/30/2025 2:30 PM EDT Office Visit [facility] [address] [facility], [address]nd [place] [address] Ellen Edmonds MD [address] [place] [address] [address] [place] [address] Health Maintenance Due Date Last Done Comments [facility]-HIV Screening 1967 [facility]-Hepatitis C Screening 1967 [facility]-/Child/Adol SDOH Screenings 1967 [facility]- SDOH Screenings 1985 [facility]-Adult SDOH Screenings 1985 [facility]-Hepatitis B Vaccines (1 of 3 - 19+ 3-dose series) 1986 [facility]-Pneumococcal Vaccine: 50 + Years (1 of 2 - PCV) 1986 [facility]-Pap Smear 1988 [facility]-Cervical Cancer Screening 1997 [facility]-HPV/Cotest 1997 CT Colonography 2012 Colonoscopy 2012 FIT-DNA 2012 FIT 2012 FOBT 2012 Sigmoidoscopy 2012 [facility]-Colorectal Cancer Screening 2012 [facility]-Zoster Vaccines (2 of 2) 11/08/2021 09/13/2021 [id number] Vaccine ( season) 2023 03/30/2021, 07/21/2020, 06/23/2020 [facility]-Influenza Vaccine (#1) 12/08/202401/09, 02/09/2021 [facility]-Depression Screening 08/19/2025 025, 08/19/2024 [facility]-DTaP,Tdap,and Td Vaccine s (2 - Td or Tdap) 06/17/2028 06/17/2018 [facility]-Obesity Intervention Completed 025, 09/03/2024 HPV Vaccines Aged Out No longer eligi ble based on patient's age to complete this topic [facility]-HIB Vaccines Aged Out No longer e ligible based on patient's age to complete this topic [facility]-Hepatitis A Vaccines Aged Out No longer eligible based on patient's age to complete this topic [facility]-IPV Vaccines Aged Out No longer e ligible based on patient's age to complete this topic [facility]-Rotavirus Vaccines Aged Out No lo nger eligible based on patient's age to complete this topic Goals Goal Patient Goal Type Associated Problems Recent Progress Patient-Stated? Author Autogenerat ed Goal Care Plan Autogenerated Problem No Paulo Dic[employer] Implanted Type Area Press Tender Smoke Signal Device Identifier Shelf Expiration Date Model / Serial / Lot Marker Smartclip Soft Tiss/Delvry Sys Pnk 5cm - [id number] Implanted:Qty: 1 on 09/22/2024 by Lien Martínez MD at [facility] Breast Left: Breast [id number] SMARTCLIPL [id number] / / Procedures Procedure Name Priority Date/Time Associated Diagnosis Comments SURGICAL PATHOLOGY EXAM Routine 10/15/2024 4:16 PM EDT Invasive ductal carcinoma of breast, female, left PB ANESTHESIA PLACEHOLDER Routine 10/15/2024 3:14 PM EDT WA AN ELECTIVE SUPRAGLOTTIC AIRWAY Routine 10/15/2024 3:14 PM EDT WA BIOPSY/EXCISION, LYMPH NODE(S) 10/15/2024 2:38 PM EDT Invasive ductal carcinoma of breast, female, left WA MASTECTOMY, PARTIAL 2:38 PM EDT Invasive ductal carcinoma of breast, female, left NM DERMAL INJECTION SENTINEL NODE Routine 10/15/2024 1:31 PM EDT Breast cancer POCT GLUCOSE METER UNSOLICITED RESULTS Routine 10/15/2024 12:48 PM EDT MAMMOGRAPHY BREAST SURGICAL SPECIMEN REVIEW Routine 10/15/2024 7:16 AM EDT Abnormal mammogram MAMMOGRAPHY GUIDED LOCALIZATION BREAST LEFT Routine 09/22/2024 10:51 AM EDT Invasive ductal carcinoma of breast, female, left MAMMOGRAPHY BREAST DIAGNOSTIC TOMOSYNTHESIS LEFT Routine 09/22/2024 10:23 AM EDT Abnormal mammogram US GUIDED BREAST FINE NEEDLE ASPIRATION Routine 08/19/2024 12:45 PM EDT Abnormal finding on breast imaging FINE NEEDLE ASPIRATION - CYTOLOGY Routine 08/19/2024 12:45 PM EDT Abnormal finding on breast imaging US BREAST LIMITED LEFT Routine 11:28 AM EDT Invasive ductal carcinoma of breast, female, left MAMMOGRAPHY OUTSIDE IMAGES 08/08/2024 9:47 AM EDT MAMMOGRAPHY OUTSIDE IMAGES 08/08/2024 9:37 AM EDT MAMMOGRAPHY OUTSIDE IMAGES 08/08/2024 8:35 AM EDT from Last 3 Months Results * Surgical Pathology Exam (10/15/2024 4:16 PM EDT) Case Report Surgical Pathology Case: [id number] Authorizing Provider: Ellen Edmonds MD Collected: 10/15/2024 1616 Ordering Location: [facility] A OPERATING ROOM Received: 10/15/2024 1633 Pathologist: Carli Grijalva MD Specimens: A) - [place] Lymph Node, left axillary sentinel lymph node - blue and hot - 24338 B) - Breast, Left, left lumpectomy short [...] tao true margin 10/20/2024 4:08 PM EDT [facility] Final Diagnosis A. LYMPH [...] WITHOUT DIAGNOSTIC ABNORMALITY. 10/20/2024 4:08 PM EDT [facility] at 1608 EDT Synoptic Checklist [...] Examined (sentinel and non-sentinel): 2 Number of [place] Nodes Examined: 2 pTNM CLASSIFICATION (AJCC 8th [...] Drug Administration (FDA) cleared (test / vendor): [employer] Primary Antibody: SP1 Scoring System: No separate scoring system used Test(s) Performed: Progesterone Receptor (PgR) Status: Negative (less than 1%) : Internal control cells present and stain as expected Test Type: Food and Drug Administration (FDA) cleared (test / vendor): [employer] Primary Antibody: 1E2 Scoring System: No separate scoring system used Test(s) Performed: HER2 by Immunohistochemist ry: Negative (Score 0) Test Type: Food and Drug Administration (FDA) cleared (test / vendor): [employer] Primary Antibody: 4B5 Cold Ischemia and Fixation Times: Meet requirements specified in latest version of the ASCO / CAP Guidelines METHODS Fixative: Formalin Image Analysis: Not performed 10/20/2024 4:08 PM EDT [facility] Clinical Information Invasive ductal carcinoma of breast, female, left [C50.912] 10/20/2024 4:08 PM EDT [facility] Gross Description A. LEFT AXILLARY SENTINEL LYMPH NODE - BLUE AND HOT - 10388 The specimen is received fresh and placed [...] serially sectioned Cold Time: 18m FLOR Atkinson ([facility]) B. LEFT LUMPECTOMY SHORT STITCH SUPERIOR, LONG [...] and 5% olea - white fibromembranous tissue. Make Up Artist sections are submitted as follows: B1-B6: Slice [...] sectioned Cold Time: 24h 15m FLOR Atkinson ([facility]) C. SUPERIOR SHAVE MARGIN CLIP TAO TRUE [...] FLOR Atkinson ([facility]) 10/20/2024 4:08 PM EDT [facility] Note: A resident was involved in the service. I attest I examined the relevant preparations for the specimens and confirmed the diagnosis or interpretation. 10/20/2024 4:08 PM EDT [facility] Lymph Node Specimen from [...] MD LAB PATHOLOGY ORDERABLES Final R esult [facility] [address] [place] [address] * WA AN ELECTIVE SUPRAGLOTTIC AIRWAY, PB ANESTHESIA PLACEHOLDER (10/15/2024 3:14 PM EDT) Narrative Layo Wen CRNA - 10/15/2024 3:14 PM EDT Layo Wen CRNA 10/15/2024 3:15 PM Airway Date/Time: 10/15/2024 3:14 PM Reason: elective Airway not difficult General Information and Staff Patient location during procedure: OR NETWORK CONTROLLER: Layo Wen CRNA Performed: NETWORK CONTROLLER Patient Condition Indications for airway management: anesthesia Patient position: sniffing MILS maintained throughout Final Airway Details Final airway type: LMALMA Size: 4 LMA Type: flexible us Jessenia Humphreys MD ANESTHESIA ORDERABLES Final R esult * NM Dermal Injection [place] Node (10/15/2024 1:31 PM EDT) Anatomical Region [...] marked on the skin, by the nuclear instructor at 1:31 PM. COMPARISON/CORRELATION: Not applicable. FINDINGS: [...] marked on the skin, by the nuclear instructor at 1:31PM. COMPARISON/CORRELATION: Not applicable. FINDINGS: No imaging performed. No immediate complication. IMPRESSION: Preoperative intradermal injections for sentinel lymph node surgery. CRITICAL RESULT: No. COMMUNICATION: Per this written report. By electronically signing this report, I, the attending physician, que I have personally reviewed the images/data for the aboveexamination(s) and agree with the final edited report. Drafted by Adrian Clifton MD on 10/15/2024 2:43 PM Final report signed by Mando Kay MD on 10/15/2024 3:11 PM Ellen Edmonds MD [facility]ED[facility] Final Result * (ABNORMAL) POCT glucose meter (10/15/2024 12:48 PM EDT) Pathologist [facility] POCT Glucose 101(H) 74 - 99 mg/dL 10/15/2024 12:49 PM EDT [facility] Comment:Accuracy of a glucos e result [...] 10/15/2024 12:49 PM EDT [facility] Flame Cutter ID Dianne Zhu Sarah 10/15/2024 12:49 PM EDT [facility] Device ID [id number] 10/15/2024 12:49 PM EDT [facility]ALTH[facility] Specimen Type POC Capillary 10/15/2024 12:49 PM EDT [facility]ALTH[facility] Blood Capillary blood specimen / Unknown 10/15/2024 12:48 PM EDT 10/15/2024 12:49 PM EDT Ellen Edmonds MD LAB POINT OF CARE TE ST DOCKED DEVICE UNSOLICITED RESULTS Final Result [facility] [address] [place] [address] * Mammography Breast Surgical Specimen (10/15/2024 7:16 [...] Edmonds MD IMG BI PROCEDURES Final Result * Mammography Guided Localization Breast Left (09/22/2024 [...] Edmonds MD IMG BI PROCEDURES Final Result * (ABNORMAL) Mammography Breast Diagnostic Tomosynthesis Left [...] Edmonds MD IMG BI PROCEDURES Final Result * US Guided Breast Fine Needle Aspiration (08/19/2024 12:45 PM EDT) Anatomical Region Laterality Modality Breast N/A Ultrasound Addenda Addendum by Lien Martínez MD on 08/21/2024 11:18 AM EDT Addendum: ADDENDUM: Final Pathology: Target 1: A. LYMPH NODE, LEFT AXILLA ULTRASOUND GUIDED FINE NEEDLE ASPIRATION: - LYMPHOID TISSUE PRESENT - NO EVIDENCE OF MALIGNANCY Concordant: yes Recommendations: Medical/Surgical follow up Patient will be informed of the results and recommendations. The communication will be documented in the patient's chart at the [facility]. Drafted by Lien Martínez MD on 08/21/2024 11:18 AM Final report signed by Lien Martínez MD on 08/21/2024 11:18 AM Impressions 08/19/2024 1:15 PM EDT 1. Successful fine needle aspiration of the left axillary lymph node. 2. Cytologic findings will be correlated. An addendum will be issued when pathology results become available. PATHOLOGY ASSESSMENT: Waiting for pathology. PATHOLOGY RECOMMENDATION: Waiting for pathology. CRITICAL RESULT: No. COMMUNICATION: Per this written report. Drafted by Myla Dhaliwal MD on 08/19/2024 1:14 PM Final report signed by Myla Dhaliwal MD on 08/19/2024 1:15 PM Narrative 08/19/2024 1:15 PM EDT CLINICAL INDICATION: Abnormal exam with cortical thickening measuring 6 mm (labeled #1) COMPARISON: Previous studies were reviewed. TECHNIQUE: Multiplanar, newman scale ultrasound with limited Doppler vascular ultrasound was performed in preparation for the biopsy. Ultrasound-guided FNA of the left axillary lymph node was performed. Procedure: Images from previous studies were reviewed. There is a 20 mm lymph node identified in the left axilla. Informed consent was obtained and placed upon the patient's medical record. The pre-procedure timeout was performed using two patient identifiers, confirming patient identity, and procedure to be performed. The correct side was marked. Using sterile technique, local anesthesia was achieved with 1% buffered lidocaine. Under ultrasound guidance, a 22 gauge needle was placed into the lymph node. 4 passes were performed. Cytopathology was present to collect the specimens and deemed it adequate. Post-biopsy instructions were reviewed with the patient, and a copy was given to the patient. The patient left the department in stable condition. Preliminary Results: Adequate FINDINGS: See Impression. Procedure Note Myla Dhaliwal MD / Lien Martínez MD - 08/21/2024 CLINICAL INDICATION: Abnormal exam with cortical thickening measuring 6 mm (labeled #1) COMPARISON: Previous studies were reviewed. TECHNIQUE: Multiplanar, newman scale ultrasound with limited Doppler vascularultrasound was performed in preparation for the biopsy. Ultrasound-guidedFNA of the left axillary lymph node was performed. Procedure: Images from previous studies were reviewed. There is a 20 mm lymph nodeidentified in the left axilla. Informed consent was obtained and placed upon the patient's medicalrecord. The pre-procedure timeout was performed using two patientidentifiers, confirming patient identity, and procedure to be performed.The correct side was marked. Using sterile technique, local anesthesia was achieved with 1% bufferedlidocaine. Under ultrasound guidance, a 22 gauge needle was placed intothe lymph node. 4 passes were performed. Cytopathology was present to collect the specimens and deemed itadequate. Post-biopsy instructions were reviewed with the patient, and a copy wasgiven to the patient. The patient left the department in stablecondition. Preliminary Results: Adequate FINDINGS: See Impression. IMPRESSION: 1. Successful fine needle aspiration of the left axillary lymph node. 2. Cytologic findings will be correlated. An addendum will be issued whenpathology results become available. PATHOLOGY ASSESSMENT: Waiting for pathology. PATHOLOGY RECOMMENDATION: Waiting for pathology. CRITICAL RESULT: No. COMMUNICATION: Per this written report. Drafted by Myla Dhaliwal MD on 08/19/2024 1:14 PM Final report signed by Myla Dhaliwal MD on 08/19/2024 1:15 PM us Ellen Edmonds MD IMG BI PROCEDURES Edited Result - Final * Fine needle aspiration (08/19/2024 12:45 PM EDT) Case Report Cytology Case: [id number] Authorizing Provider: Ellen Edmonds MD Collected: 08/19/2024 1245 Ordering Location: [facility] Received: 08/19/2024 1403 Pathologist: Carli Grijalva MD Specimen: Lymph Node, Left Axilla, Fine Needle Aspiration, LYMPH NODE, LEFT AXILLA ULTRASOUND GUIDED FINE NEEDLE ASPIRATION 08/20/2024 2:49 PM EDT [facility] Final Diagnosis A. LYMPH NODE, LEFT AXILLA ULTRASOUND GUIDED FINE NEEDLE ASPIRATION: - LYMPHOID TISSUE PRESENT - NO EVIDENCE OF MALIGNANCY 08/20/2024 2:49 PM EDT [facility] at 1449 EDT Immediate Evaluation FNA performed by: Dr. Dhaliwal Number of sticks: 4 Immediate evaluation performed by: Dr. Grijalva / LT Evaluation episode # 1-4: Adequate The immediate evaluation in this case was performed via telecytology by the attending physician listed above. 08/20/2024 2:49 PM EDT [facility] Gross Description A. LYMPH NODE, LEFT AXILLA ULTRASOUND GUIDED FINE NEEDLE ASPIRATION 5 ml's clear Needle rinse fluid processed as ThinPrep for complete evaluation of sample. Received 4 diff quick slides and 4 pap slides. 08/20/2024 2:49 PM EDT [facility] Note: A resident was involved in the service. I attest I examined the relevant preparations for the specimens and confirmed the diagnosis or interpretation. 08/20/2024 2:49 PM EDT [facility] Clinical Information R92.8 - Abnormal finding on breast imaging [ICD-10-CM] 08/20/2024 2:49 PM EDT [facility] Fine Needle Aspirate Structure of lymph node / Unknown 08/19/2024 12:45 PM EDT 08/19/2024 2:03 PM EDT us Ellen Edmonds MD LAB CYTOLOGY ORDERABLES Final Re sult [facility] [address] [place] [address] * (ABNORMAL) US Breast Limited Left (08/19/2024 11:28 AM EDT) Anatomical Region Laterality Modality Breast Left Ultrasound Impressions 08/19/2024 11:51 AM EDT BI-RADS: BI-RADS 4, Suspicious finding. RECOMMENDATIONS: Fine Needle Aspiration for lymph node #1. CRITICAL RESULT: No. COMMUNICATION: The results and recommendations were discussed with the patient and a printed lay language version of the imaging report was given to the patient at the time of the visit. Drafted by Myla Dhaliwal MD on 08/19/2024 11:47 AM Final report signed by Myla Dhaliwal MD on 08/19/2024 11:51 AM Narrative 08/19/2024 11:51 AM EDT CLINICAL INDICATION: Patient presents for left axillary ultrasound. Newly diagnosed breast cancer in the left breast. TECHNIQUE: Multiplanar, newman scale directed ultrasound of the left axilla with limited Doppler vascular ultrasound was performed. Elastography was not performed. COMPARISON: None. FINDINGS: Left Axilla Findings: Lymph node #1 demonstrates focal cortical thickening measuring up to 6 mm. FNA is recommended. Lymph nodes labeled #2 and #3 are morphologically normal. Procedure Note Myla Dhaliwal MD - 08/19/2024 CLINICAL INDICATION: Patient presents for left axillary ultrasound. Newly diagnosed breastcancer in the left breast. TECHNIQUE: Multiplanar, newman scale directed ultrasound of the left axilla withlimited Doppler vascular ultrasound was performed. Elastography was notperformed. COMPARISON: None. FINDINGS: Left Axilla Findings: Lymph node #1 demonstrates focal cortical thickening measuring up to 6 mm.FNA is recommended. Lymph nodes labeled #2 and #3 are morphologicallynormal. IMPRESSION: BI-RADS: BI-RADS 4, Suspicious finding. RECOMMENDATIONS: Fine Needle Aspiration for lymph node #1. CRITICAL RESULT: No. COMMUNICATION: The results and recommendations were discussed with the patient and aprinted lay language version of the imaging report was given to thepatient at the time of the visit. Drafted by Myla Dhaliwal MD on 08/19/2024 11:47 AM Final report signed by Myla Dhaliwal MD on 08/19/2024 11:51 AM Ellen Edmonds MD IMG BI PROCEDURES Final Result * MAMMOGRAPHY OUTSIDE IMAGES (08/08/2024 9:47 AM EDT) Only the most recent of3 resultswithin the time period is included. Anatomical Region Laterality Modality Breast Mammography 08/08/2024 9:47 AM EDT External Provider IMG BI PROCEDURES Final Result from Last 3 Months Additional Health Concerns Active Problems Noted Date Diagnosed Date Autogenerated Problem 09/10/2024 Insurance [employer] Care Teams Karate Black Belt Relationship Specialty Start Date End Date Terence Britton MD [address] [place], [place] [address] PCP - General 08/19/24
--- OUTSIDE RECORDS SUMMARY | 2024-11-04 11:00 | XMS_ITS | Encounter Summary ---
Author Organization Healthcare Address [address] [place] [address] Care Team Providers Care Homebirth Midwife Name Role Phone Terence Britton MD Primary Care Provider [phone] Encounter Details Date Type Department Care Team (Latest Contact Info) Description 10/28/2024 Travel Social History Tobacco Use Types Packs/Day Years [...] on file documented as of this encounter Plan of Treatment Upcoming Encounters Date Type Department Care Team (Late st Contact Info) Description 06/30/2025 1:00 PM EDT Appointment [facility] [place] [address] Mouna Benavides [facility] [address] [place] [address] 06/30/2025 2:30 PM EDT Office Visit [facility] [address], [address]nd [place] [address] Ellen Edmonds MD [address] Mouna Makayla [address] [phone] documented as of this encounter Goals Goal [...] documented as of this encounter Care Teams Homebirth Midwife Relationship Specialty Start Date End Date Terence Britton MD [address] [place] [address] PCP - General 08/19/24 documented as of this encounter
--- OUTSIDE RECORDS SUMMARY | 2024-11-04 11:00 | XMS_ITS | Encounter Summary ---
Author Organization [facility] Address [address] [place] [address] Care Team Providers Care Reactor Kettle Operator Name Role Phone Terence Britton MD Primary Care Provider [phone] Encounter Details Date Type Department Care Team (Latest Contact Info) Description 10/15/2024 Travel Social History Tobacco Use Types Packs/Day [...] Behavior (Lifetime) No 12:38 PM EDT Anastacia Reddy, RN documented as of this encounter Plan of Treatment Upcoming Encounters Date Type Department Care Team (Late st Contact Info) Description 06/30/2025 1:00 PM EDT Appointment [facility] Alejandrina Benavides [facility] [address] [place] [address] 06/30/2025 2:30 PM EDT [facility] [address] , [address] [place] [address] Ellen Edmonds MD 800 [facility] Mouna Benavides [address] [place] [address] documented as of this encounter [...] documented as of this encounter Care Teams Reactor Kettle Operator Relationship Specialty Start Date End Date Terence Britton MD [address] [place] [address] PCP - General 08/19/24 documented as of this encounter
--- OUTSIDE RECORDS SUMMARY | 2024-11-04 11:01 | XMS_ITS | Encounter Summary ---
Author Organization Healthcare Address [address] [address] Care Team Providers Care Nanotechnology Engineering Technician Name Role Phone Terence Britton MD Primary Care Provider [phone] Encounter Details Date Type Department Care Team (Late Contact Info) Description 01/17/2019 Orders Only External Location [address] [place] [address] Provider, External Social History Tobacco Use Types Packs/Day Years Used Date Smoking Tobacco: Never Assessed Comments Unknown Sex and Gender Information Value Date Recorded Sex Assigned at Not on file Legal Sex Female 7:32 PM EDT Gender Identity Not on file Sexual Orientation Not on file documented as of this encounter Plan of Treatment Upcoming Encounters Date Type Department Care Team (Late Contact Info) Description 06/30/2025 1:00 PM EDT Appointment [facility] [place] [address] Mouna Benavides [facility] [address] [place] [address] 06/30/2025 2:30 PM EDT [facility] Visit [facility] [address] [facility], [address]nd [place] [address] Ellen Edmonds MD 800 [facility] Makayla [address] [place] [address] documented as of this encounter Procedures Procedure Name Priority Date/Time Associated Diagnosis Comments US BREAST OUTSIDE IMAGES 01/17/2019 2:12 PM EDT documented in this encounter Results * US BREAST OUTSIDE IMAGES (01/17/2019 2:12 PM EDT) Anatomical Region Laterality Modality Breast Mammography 01/17/2019 2:12 PM EDT us External Provider IMG BI PROCEDURES Final Result documented in this encounter Visit Diagnoses Not on filedocumented in this encounter Care Teams Nanotechnology Engineering Technician Relationship Specialty Start Date End Date Terence Britton MD [address] [place] [address] PCP - General 08/19/24 documented as of this encounter
--- OUTSIDE RECORDS SUMMARY | 2024-11-04 11:01 | XMS_ITS | Encounter Summary ---
Author Organization Healthcare Address [address] [place] [address] Care Team Providers Care Egg Trayer Name Role Phone Terence Britton MD Primary Care Provider [phone] Encounter Details Date Type Department Care Team (Latest Contact Info) Description 09/22/2024 Travel Social History Tobacco Use Types Packs/Day [...] [facility] [place] [address] Mouna Benavides [facility] [address] [place] [address] 06/30/2025 2:30 PM EDT Office Visit [facility] [address] [facility], 2nd [place] [address] Ellen Edmonds MD 800 [facility] Mouna Makayla Bldg [address] [phone] documented as of this encounter Goals Goal [...] documented as of this encounter Care Teams Egg Trayer Relationship Specialty Start Date End Date Terence Britton MD [address] [place] [address] PCP - General 08/19/24 documented as of this encounter
--- OUTSIDE RECORDS SUMMARY | 2024-11-04 11:01 | XMS_ITS | Encounter Summary ---
Author Organization Healthcare Address [address] [place] [address] Care Team Providers Care Cut Off Sawyer [place]ingle [place] Name Role Phone Terence Britton MD Primary Care Provider [phone] Encounter Details Date Type Department Care Team (Late Contact Info) Description 09/10/2024 Orders Only [facility] [address] [facility], 2nd [place] [address] Ellen Edmonds MD [address] [facility] Mouna Benavides [address] [phone] Invasive ductal carcinoma of breast, female, left [...] [facility] [place] [address] Mouna Benavides [facility] [address] [place] [address] 06/30/2025 2:30 PM EDT Office Visit [facility] [address] [facility], 2nd [place] [address] Ellen Edmonds MD [address] [facility] Mouna Benavides [facility] [address] [place] [address] documented as of this encounter Goals Goal [...] documented as of this encounter Care Teams Cut Off Sawyer [place] Relationship Specialty Start Date End Date Terence Britton MD [address] [place] [address] PCP - General 08/19/24 documented as of this encounter
--- OUTSIDE RECORDS SUMMARY | 2024-11-04 11:01 | XMS_ITS | Encounter Summary ---
Author Organization Healthcare Address [address] [place] [address] Care Team Providers Care Skin Care Specialist Name Role Phone Terence Britton MD Primary Care Provider [phone] Encounter Details Date Type Department Care Team (Late Contact Info) Description 07/01/2024 Orders Only External Location [address] [place] [address] Provider, External Social History Tobacco [...] [facility] [place] [address] Mouna Benavides [facility] 800 [place] [address] 06/30/2025 2:30 PM EDT Office Visit [facility] 7[address] [facility], 2nd [place] [address] Ellen Edmonds MD 800 [facility] Mak[address] [place] [address] documented as of this encounter Procedures Procedure Name Priority Date/Time Associated Diagnosis Comments MAMMOGRAPHY OUTSIDE IMAGES 07/01/2024 5:08 PM EDT documented in this encounter Results * MAMMOGRAPHY OUTSIDE IMAGES (07/01/2024 5:08 PM EDT) Anatomical Region Laterality Modality Breast Mammography 07/01/2024 5:08 PM EDT us External Provider IMG BI PROCEDURES Final Result documented in this encounter Visit Diagnoses Not on filedocumented in this encounter Care Teams Skin Care Specialist Relationship Specialty Start Date End Date Terence Britton MD [address] [place] [address] PCP - General 08/19/24 documented as of this encounter
--- OUTSIDE RECORDS SUMMARY | 2024-11-04 11:01 | XMS_ITS | Encounter Summary ---
Author Organization Healthcare Address [address] [place] [address] Care Team Providers Care Balance Staff Staker Name Role Phone Terence Britton MD Primary Care Provider [phone] Encounter Details Date Type Department Care Team (Late Contact Info) Description 07/21/2024 Orders Only External Location 800 [place] [address] Provider, External Social History Tobacco [...] [facility] [place] [address] Mouna Benavides [facility] 800 [place] [address] 06/30/2025 2:30 PM EDT Office Visit [facility] 7[address] [facility], 2nd [place] [address] Ellen Edmonds MD 800 [facility] Mak[address] [place] [address] documented as of this encounter Procedures Procedure Name Priority Date/Time Associated Diagnosis Comments MAMMOGRAPHY OUTSIDE IMAGES 07/21/2024 2:06 PM EDT documented in this encounter Results * MAMMOGRAPHY OUTSIDE IMAGES (07/21/2024 2:06 PM EDT) Anatomical Region Laterality Modality Breast Mammography 07/21/2024 2:06 PM EDT us External Provider IMG BI PROCEDURES Final Result documented in this encounter Visit Diagnoses Not on filedocumented in this encounter Care Teams Balance Staff Staker Relationship Specialty Start Date End Date Terence Britton MD [address] [place] [address] PCP - General 08/19/24 documented as of this encounter
--- OUTSIDE RECORDS SUMMARY | 2024-11-04 11:01 | XMS_ITS | Encounter Summary ---
Author Organization Healthcare Address [address] [place] [address] Care Team Providers Care Food Science Professor Name Role Phone Terence Britton MD Primary Care Provider [phone] Encounter Details Date Type Department Care Team (Late Contact Info) Description 07/15/2018 Orders Only External Location 800 [place] [address] Provider, External Social History Tobacco [...] [facility] [place] [address] Mouna Benavides [facility] 800 [place] [address] 06/30/2025 2:30 PM EDT Office Visit [facility] [address] [facility], 2nd [place] [address] Ellen Edmonds MD 800 [facility] [address] [place] [address] documented as of this encounter Procedures Procedure Name Priority Date/Time Associated Diagnosis Comments MAMMOGRAPHY OUTSIDE IMAGES 07/15/2018 3:01 PM EDT documented in this encounter Results * MAMMOGRAPHY OUTSIDE IMAGES (07/15/2018 3:01 PM EDT) Anatomical Region Laterality Modality Breast Mammography 07/15/2018 3:01 PM EDT us External Provider IMG BI PROCEDURES Final Result documented in this encounter Visit Diagnoses Not on filedocumented in this encounter Care Teams Food Science Professor Relationship Specialty Start Date End Date Terence Britton MD [address] [place] [address] PCP - General 08/19/24 documented as of this encounter
--- OUTSIDE RECORDS SUMMARY | 2024-11-04 11:01 | XMS_ITS | Encounter Summary ---
Author Organization Healthcare Address [address] [place] [address] Care Team Providers Care Superintendent Distribution Name Role Phone Terence Britton MD Primary Care Provider Encounter Details Date Type Department Care Team (Latest Contact Info) Description 09/09/2024 Travel Social History Tobacco Use Types Packs/Day [...] [facility] [place] [address] Mouna Benavides [facility] 800 [place] [address] 06/30/2025 2:30 PM EDT Office Visit [facility] [address] [facility], 2nd [place] [address] Ellen Edmonds MD 800 [facility] Mouna Makayla Bldg [address] [phone] documented as of this encounter Visit Diagnoses Not on filedocumented in this encounter Additional Health Concerns Assessment Noted Time PHQ-9 Depression Total Score: 0 08/20/19 9:56 AM EDT A fall risk assessment has been complete d for the patient 09/09/2024 2:06 PM EDT A Body Mass Index follow-up plan has been documented for the patient 09/09/2024 4:49 PM EDT documented as of this encounter Care Teams Superintendent Distribution Relationship Specialty Start Date End Date Terence Britton MD [address] [place] [address] PCP - General 08/19/24 documented as of this encounter
--- OUTSIDE RECORDS SUMMARY | 2024-11-04 11:01 | XMS_ITS | Encounter Summary ---
Author Organization Healthcare Address [address] [place] [address] Care Team Providers Care Grocery Checker Name Role Phone Terence Britton MD Primary Care Provider [phone] Encounter Details Date Type Department Care Team (Late Contact Info) Description 09/09/2024 Orders Only Ch Radiology Virtual Dept. [address] [place] [address] Mando Kay MD [address] [place] [address] Social History Tobacco Use Types Packs/Day Years [...] [facility] [address] [place] [address] 06/30/2025 2:30 PM EDT Office Visit [facility] [address] [facility], 2nd [place] [address] Ellen Edmonds MD [address] [facility] Mouna Benavides [facility] [address] [place] [address] documented as of this encounter Visit Diagnoses [...] documented as of this encounter Care Teams Grocery Checker Relationship Specialty Start Date End Date Terence Britton MD [address] [place] [address] PCP - General 08/19/24 documented as of this encounter
--- OUTSIDE RECORDS SUMMARY | 2024-11-04 11:01 | XMS_ITS | Encounter Summary ---
Author Organization Healthcare Address [address] [place] [address] Care Team Providers Care Spray Mixer Name Role Phone Terence Britton MD Primary Care Provider [phone] Encounter Details Date Type Department Care Team (Late Contact Info) Description 07/16/2019 Orders Only External Location 800 [place] [address] Provider, External Social History Tobacco [...] [facility] [place] [address] Mouna Benavides [facility] 800 [place] [address] 06/30/2025 2:30 PM EDT Office Visit [facility] [address] [facility], 2nd [place] [address] Ellen Edmonds MD 800 [facility] Makay[address] [place] [address] documented as of this encounter Procedures Procedure Name Priority Date/Time Associated Diagnosis Comments MAMMOGRAPHY OUTSIDE IMAGES 07/16/2019 10:36 AM EDT documented in this encounter Results * MAMMOGRAPHY OUTSIDE IMAGES (07/16/2019 10:36 AM EDT) Anatomical Region Laterality Modality Breast Mammography 07/16/2019 10:3 6 AM EDT us External Provider IMG BI PROCEDURES Final Result documented in this encounter Visit Diagnoses Not on filedocumented in this encounter Care Teams Spray Mixer Relationship Specialty Start Date End Date Terence Britton MD [address] [place] [address] PCP - General 08/19/24 documented as of this encounter
--- OUTSIDE RECORDS SUMMARY | 2024-11-04 11:01 | XMS_ITS | Encounter Summary ---
Author Organization Healthcare Address [address] [place] [address] Care Team Providers Care Handhole Machine Operator Name Role Phone Terence Britton MD Primary Care Provider [phone] Encounter Details Date Type Department Care Team (Late Contact Info) Description 07/15/2018 Orders Only External Location [address] [place] [address] Provider, External Social History Tobacco [...] [facility] [place] [address] [place] Benavides [facility] 800 [place] [address] 06/30/2025 2:30 PM EDT Office Visit [facility] [address] [facility], 2nd [place] [address] Ellen Edmonds MD 800 [facility] Mak[address] [place] [address] documented as of this encounter Procedures Procedure Name Priority Date/Time Associated Diagnosis Comments US BREAST OUTSIDE IMAGES 07/15/2018 2:57 PM EDT documented in this encounter Results * US BREAST OUTSIDE IMAGES (07/15/2018 2:57 PM EDT) Anatomical Region Laterality Modality Breast Mammography 07/15/2018 2:57 PM EDT us External Provider IMG BI PROCEDURES Final Result documented in this encounter Visit Diagnoses Not on filedocumented in this encounter Care Teams Handhole Machine Operator Relationship Specialty Start Date End Date Terence Britton MD [address] [place] [address] PCP - General 08/19/24 documented as of this encounter
[2024-11-04 11:55] LABS: Hematocrit 42.9 % (37.0-47.0); Hemoglobin 13.2 g/dL (12.2-16.2); Immature Granulocytes % 0.6 %; Mean Corpuscular HGB Conc 30.8 g/dL (31.8-35.4); Mean Corpuscular Hemoglobin 27.3 pg (27.0-31.2); Mean Corpuscular Volume 88.8 fl (81-99); Nucleated Red Blood Cells % 0 %; Platelet Count 356 K/mm3 (142-424); Red Blood Count 4.83 M/mm3 (4.20-5.40); Red Cell Distribution Width-SD 45.5 fL; White Blood Count 8.8 K/mm3 (4.8-10.8)
[2024-11-04 12:18] LABS: Albumin Level 3.3 g/dl (3.5-5.0); Chloride 107 mmol/L (98-107); Potassium 4.0 mmoL/L (3.5-5.1); Sodium 137 mmol/L (136-145)
[2024-11-04 12:21] LABS: Alanine Aminotransferase 24 U/L (12-78); Albumin/Globulin Ratio 1.1 (1.1-1.8); Alkaline Phosphatase 93 U/L (38-126); Anion Gap 6.0 mEq/L (5-15); Aspartate Amino Transferase 23 U/L (14-36); Bilirubin,Total 0.5 mg/dl (0.2-1.3); Blood Urea Nitrogen 11 mg/dl (7-17); Calcium 8.8 mg/dl (8.4-10.2); Carbon Dioxide 28 mmol/L (22.0-30.0); Creatinine,Serum 0.60 mg/dl (0.52-1.04); Estimated Glomerular Filt Rate 103 ml/min (>60); GFR (African American) 125 ML/MIN (>60); Globulin 3.1 g/dL (1.3-3.2); Glucose 84 mg/dl (74-100); Total Protein,Serum 6.4 g/dl (6.3-8.2)
== END 2024-11-04 23:59 | disposition home or self-care (01) ==
LOC: LAB 10:57
PROVIDERS: PCP Family Medicine; Visit Provider Internal Medicine Medical Oncology
DX: C50.912 Malignant neoplasm of unspecified site of left female breast (principal)
CPT/HCPCS: 36415; 80053; 85025

== ENCOUNTER 2024-11-18 09:11 | Outpatient (CLI) | payer BC, SELFPAY ==
--- OUTSIDE RECORDS SUMMARY | 2024-01-21 06:00 | XMS_ITS ---
[facility] Address [address] [place] [id number] Care Team Providers Care Rotary Furnace Tender Name Role Phone Carola Britton Primary Care Provider Allergies Allergen (clinical drug ingredient) Drug/Non Drug [...] Encounter Location Date Provider Diagnosis [facility] [address] [facility] 36 [facility] [address] [place] [id number] 01/21/2024 Carola Britton Encounter for immunization Z23 [...] hydroCHLOROthiazide 25 MG 1 tablet in th morning Orally Once a day; Duration: 30 day(s) 01/21/2024 Next Appt Details Follow Up: 4 Months, Reason: Provider Name:Carola Sharma er, 12/01/2024 10:00:00 AM, [facility]0 [facility] 36 [facility], [address], [place], [phone], Progress Notes * MIRIAM GALVANADOB:1965 (59 yo F)Acc No.[id number]:01/21/2024 Progress Notes Patient: CHRISTAL GARZA Provider: Carola Britton M.D. :1965 A ge:58 Y S ex:Female Date:01/21/2024 Address:[address] [place], [place] [id number] Subjective: * Chief Complaints: * 1 [...] * Images: Billing Information: * Visit Code: 36667 Office Visit, Est Pt., Level 3. * Procedure Codes: * Electronic signature of Carola Britton MD on 11/18/2024 at 09:15 AM EDT Sign off status: Pending * Provider: Carola Britton M.D. Date: Generated for Gelai ng/Fasofiag/eTransmitting on: 0 11/18/2024 09:15 AM EDT History and Physical Notes * HPI (History [...]
--- OUTSIDE RECORDS SUMMARY | 2024-05-23 05:30 | XMS_ITS ---
Author Organization [facility] Address [address] [place] [id number] Care Team Providers Care Web Worker Name Role Phone Carola Britton Primary Care [...] OV Performing Lab: Notes/Report: Test performed by [facility] [address] [place] [address] , [address], [place] [address] Alejandro Cabrales MD, Hardwood Faller CLIA: [id number] Sodium 142 135-145 mmol/L Potassium 4.4 3.5-5.3 [...] Interpretation:satisfactory Performing Lab: Notes/Report: Test performed by [facility], [address] , [address], [place] [address] Alejandro Cabrales MD, Hardwood Faller CLIA: [id number] Cholesterol 105 <200 mg/dL Triglycerides 90 <150 [...] 05/23/2024 Encounters Encounter Location Date Provider Diagnosis [facility] [address], [place] [phone] 05/23/2024 Carola Britton Essential hypertensi on I10 [...] 2 months, Reason: Provider Name:Carola Sharma er, 12/01/2024 10:00:00 AM, [address], [address], [place], [id number], Progress Notes * MIRIAM GALVANADOB:1965 (59 yo F)Acc No.[id number]:05/23/2024 Progress Notes Patient: CHRISTAL GARZA Provider: Carola Britton M.D. :1965 A ge:59 Y S ex:Female Date:05/23/2024 Address:[address] [place] [address] [place], [id number] Subjective: * Chief Complaints: * 1 . [...] T riglycerides 90 <150 - mg/dL * VickieHanna L 05/29/2024 9:5 5:58 AM >Patient informed of normal results. 3.?Hyperglycemia?LAB: Glycohemoglobin A1c (in house) (Collection Date & Time - 05/23/2024)? 6.2* Value Reference Range g lycohemoglobin 6.2% 5 - 6.5 % * Candelaria Johnstonnisosa Daniel 05/23/2024 11: 01:11 AM > , Provider reviewed results while patient in office. 4.?Type 2 diabetes mellitus without complication, without long-term current use of insulin? Start metFORMIN HCl Tablet, 850 MG, 1 tablet with a meal, Orally, Once a day, 30 day(s), 30, Refills 4.?? * Procedure Codes: 3 6416 CAPILLARY BLOOD DRAW, 94143 GLYCATED HEMOGLOBIN TEST, Modifiers: QW , 3044F HG A1C LEVEL LT 7.0%, 3074F SYST BP LT 130 MM HG, 3078F DIAST BP < 80 MM HG * Follow Up: 2 months * Images: Billing Information: * Visit Code: 43910 Office Visit, Est Pt., Level 4. * Procedure Codes: 76456 CAPILLARY BLOOD DRAW. 71682 GLYCATED HEMOGLOBIN TEST. Modifiers: QW 3044F HG A1C LEVEL LT 7.0%. 3074F SYST BP LT 130 MM HG. 3078F DIAST BP < 80 MM HG. * Electronic signature of Carola Britton MD on 11/18/2024 at 09:15 AM EDT Sign off status: Pending * Provider: Carola Britton M.D. Date: 0 05/23/2024 Generated for Gelai cheryl/Cindy/eTransmitting on: 0 11/18/2024 09:15 AM EDT History [...]
--- OUTSIDE RECORDS SUMMARY | 2024-09-22 08:52 | XMS_ITS | Encounter Summary ---
Author Organization Healthcare Address [address] [place] [address] Care Team Providers Care Utility Repairer Name Role Phone Terence Britton MD Primary Care Provider [phone] Encounter Details Date Type Department Care Team (Latest Contact Info) Description 09/22/2024 8:52 AM EDT - 09/22/2024 10:09 AM EDT Hospital Encounter [facility] Breast Care Center [facility] [address] [address] Invasive ductal carcinoma of breast, female, left [...] Info) Description 06/30/2025 1:00 PM EDT Appointment [facility] Breast Care [place] [facility] [address] [facility] [address] [place] [address] 06/30/2025 2:30 PM EDT Office Visit [facility] Breast Care [place] [address] [facility], [address]nd [place] [address] Ellen Edmonds MD 800 [facility] [address] [place] [address] documented as of this encounter Procedures Procedure [...] documented as of this encounter Care Teams Utility Repairer Relationship Specialty Start Date End Date Terence Britton MD [address] [place] [address] PCP - General 08/19/24 documented as of this encounter
--- OUTSIDE RECORDS SUMMARY | 2024-09-22 10:10 | XMS_ITS | Encounter Summary ---
Author Organization [facility] Address [address] [place] [address] Care Team Providers Care Chartered Financial Analyst Name Role Phone Terence Britton MD Primary Care Provider [phone] Encounter Details Date Type Department Care Team (Latest Contact Info) Description 09/22/2024 10:10 AM EDT - 09/22/2024 11:59 PM EDT Hospital Encounter [facility] Breast Care Center [facility] Breast Care Center [address] [address] Abnormal mammogram Discharge Disposition: Home or Self Care Social History Tobacco Use Types Packs/Day Years Used Date Smoking Tobacco: Every Day Cigarettes 1 9.6 Started: 2015 Passive Smoke Exposure: Never Smokeless Tobacco: Never [...] on file documented as of this encounter Medications at Time of Discharge [...] same time. documented as of this encounter Plan of Treatment Upcoming Encounters Date Type Department Care Team (Late st Contact Info) Description 06/30/2025 1:00 PM EDT Appointment [facility] Breast Care [place] [facility] [place] [address] [facility] [address] [place] [address] 06/30/2025 2:30 PM EDT Office Visit [facility] Breast Care [place] [address] [facility], 2nd [place] [address] Ellen Edmonds MD [address] [facility] [address] [address] documented as of this encounter Procedures Procedure Name Priority Date/Time Associated Diagnosis Comments MAMMOGRAPHY BREAST DIAGNOSTIC TOMOSYNTHESIS LEFT Routine 09/22/2024 10:23 AM EDT Abnormal mammogram documented in this encounter Results * (ABNORMAL) Mammography Breast Diagnostic Tomosynthesis Left (09/22/2024 10:23 AM EDT) Anatomical Region Laterality Modality Breast Left Mammography Impressions 09/22/2024 11:00 AM EDT BI-RADS Code: BI-RADS 6. Biopsy proven malignancy. RECOMMENDATIONS: Left Breast Recommendations: Medical/Surgical follow up CRITICAL RESULT: No. COMMUNICATION: The results and recommendations were discussed with the patient and a printed lay language version of the imaging report was given to the patient at the time of the visit. The mammogram was read with the assistance of CAD and tomosynthesis. Drafted by Lien Martínez MD on 09/22/2024 10:56 AM Final report signed by Lien Martínez MD on 09/22/2024 11:00 AM Narrative 09/22/2024 11:00 AM EDT CLINICAL INDICATION: Newly diagnosed left breast cancer presents for localization. Preimaging performed for procedure planning. TECHNIQUE: Left diagnostic mammogram was performed. Computer assisted detection was used in the interpretation of this study. Tomosynthesis was used in the interpretation of this study. COMPARISON: Outside facility mammograms dated 08/08/2024, 07/21/2024, and 07/01/2024 Left Breast Density: There are scattered areas of fibroglandular density. FINDINGS: Findings: There is a 13 mm irregular mass in the left breast with associated tissue marker at the 3:00 position, 11 cm from the nipple. There are a few associated scattered amorphous calcifications. Findings are compatible with known malignancy. Procedure Note Lien Martínez MD - 09/22/2024 CLINICAL INDICATION: Newly diagnosed left breast cancer presents for localization. Preimagingperformed for procedure planning. TECHNIQUE: Left diagnostic mammogram was performed. Computer assisted detection was used in the interpretation of this study.Tomosynthesis was used in the interpretation of this study. COMPARISON: Outside facility mammograms dated 08/08/2024, 07/21/2024, and 07/01/2024 Left Breast Density: There are scattered areas of fibroglandulardensity. FINDINGS: Findings: There is a 13 mm irregular mass in the left breast withassociated tissue marker at the 3:00 position, 11 cm from the nipple.There are a few associated scattered amorphous calcifications. Findingsare compatible with known malignancy. IMPRESSION: BI-RADS Code: BI-RADS 6. Biopsy proven malignancy. RECOMMENDATIONS: Left Breast Recommendations: Medical/Surgical follow up CRITICAL RESULT: No. COMMUNICATION: The results and recommendations were discussed with the patient and aprinted lay language version of the imaging report was given to thepatient at the time of the visit. The mammogram was read with theassistance of CAD and tomosynthesis. Drafted by Lien Martínez MD on 09/22/2024 10:56 AM Final report signed by Lien Martínez MD on 09/22/2024 11:00 AM Ellne Edmonds MD IMG BI PROCEDURES Final Result documented in this encounter Visit Diagnoses Diagnosis Abnormal mammogram Abnormal mammogram, unspecified documented in this encounter Additional Health Concerns Assessment Noted Time PHQ-9 Depression Total Score: 0 08/20/19 9:56 AM EDT A fall risk assessment has been complete d for the patient 09/09/2024 2:06 PM EDT A Body Mass Index follow-up plan has been documented for the patient 09/09/2024 4:49 PM EDT documented as of this encounter Care Teams Chartered Financial Analyst Relationship Specialty Start Date End Date Terence Britton MD [address] [place] [address] PCP - General 08/19/24 documented as of this encounter
--- OUTSIDE RECORDS SUMMARY | 2024-10-15 07:16 | XMS_ITS | Encounter Summary ---
Author Organization [facility] Address [address] [place] [id number] Care Team Providers Care Community Theater Actor Name Role Phone Terence Britton MD Primary Care Provider Reason for Visit * Auth/Cert (Routine) Specialty Diagnoses / Procedures Referred By Contac t Referred To Contact Diagnoses Invasive ductal carcinoma of breast, female, left Invasive ductal carcinoma of breast, female, left [C50.912] Procedures UT MASTECTOMY, PARTIAL UT BIOPSY/EXCISION, LYMPH NODE(S) UT BX/REMV,LYMPH NODE,DEEP AXILL UT INTRAOPERATIVE SENTINEL LYMPH NODE ID W DYE INJECTION Left localized lumpectomy sentinel lymph node EXCISION, LYMPH NODE, SENTINEL Ellen Edmonds MD [address] [facility] [address] [address] Phone: tel: fax: [facility] [address] [place] [phone] Phone: tel: Referral ID Status Reason Start Date Expiration Date Visits Re quested Visits Authorized [id number] 1 1 Encounter Details Date Type Department Care Team (Latest Contact Info) Description 10/15/2024 7:16 AM EDT - 10/15/2024 10:56 AM EDT Hospital Encounter [facility] [address] [place] [address] Abnormal mammogram Discharge Disposition: Home [...] Breast Care [facility] [address] [place] [address] 06/30/2025 2:30 PM EDT Office Visit [facility] [address] [facility], 2nd [place] [address] Ellen Edmonds MD [address] [facility] [address] [place] [address] documented as of this encounter [...] Loo MD on 10/15/2024 5:10 PM Ellen Darlyn Edmonds MD IMG BI PROCEDURES Final Result [...] documented as of this encounter Care Teams Community Theater Actor Relationship Specialty Start Date End Date Terence Britton MD [address] [place], [place] [address] PCP - General 08/19/24 documented as of this encounter
--- OUTSIDE RECORDS SUMMARY | 2024-10-15 10:57 | XMS_ITS | Encounter Summary ---
Author Organization [facility] Address [address] [place] [address] Care Team Providers Care Photonic Laboratory Technician Name Role Phone Terence Britton MD Primary Care Provider [phone] Reason for Visit * Auth/Cert (Routine) Specialty Diagnoses / Procedures Referred By Contac t Referred To Contact Diagnoses Invasive ductal carcinoma of breast, female, left Invasive ductal carcinoma of breast, female, left [C50.912] Procedures IL MASTECTOMY, PARTIAL IL BIOPSY/EXCISION, LYMPH NODE(S) IL BX/REMV,LYMPH NODE,DEEP AXILL IL INTRAOPERATIVE SENTINEL LYMPH NODE ID W DYE INJECTION Left localized lumpectomy sentinel lymph node EXCISION, LYMPH NODE, SENTINEL Ellen Edmonds MD [address] [facility] Mouna Benavides macy [address] [address] Phone: tel: fax: [facility] [address] [place] [address] Phone: tel: Referral ID Status Reason Start Date Expiration Date Visits Re quested Visits Authorized [id number] 1 1 Encounter Details Date Type Department Care Team (Late st Contact Info) Description 10/15/2024 10:57 AM EDT - 10/15/2024 8:05 PM EDT Hospital Encounter [facility] OPERATING ROOM [address] [place] [address] Ellen Edmodns MD [address] [facility] Mouna Benavides [address] [address] Invasive ductal carcinoma of breast, [...] Bills MD - 10/15/2024 5:50 PM EDT [facility] Postoperative Discharge Instructions Follow-up Please follow-up [...] constipation. If necessary you may take an lpvn-duh-psjupvk medication (such as MiraLax or Colace). Call [...] you have questions or concerns, please call [phone] during regular business hours or [phone] at any other time (after hours, weekends, and/or holidays) and ask for the GOLD CLAY PRESS OPERATOR . Please call the above number if [...] PM EDT Operative Note Date: 10/15/24 Location: [place] Name: Sunita Chiang, : 1965, Diagnoses: Pre-op Diagnosis Invasive ductal carcinoma of breast, female, left Post-op Diagnosis Invasive ductal carcinoma of breast, female, left Procedure(s): Left axillary sentinel lymph node biopsy Left smartclip localized partial mastectomy Attending Surgeon(s): * Ellen Edmonds - Primary Relationship Mgr(s): * Linda Bills MD - Resident - Assisting Anesthesia: Choice ASA: III Blood Administration: Blood Product Administration History None Estimated Blood Loss: Minimal Drains: * None in log * Specimen: Specimens ID Source Frozen? 1 [place] Lymph Node No Description: left axillary sentinel lymph node - blue and hot - [id number] 2 Breast, Left No Description: left lumpectomy [...] Submitted by: Ellen Edmonds MD - 10/15/2024 [place] Node Biopsy for Breast Cancer - Left [...] AM. H&P copy forward from clinic note. [facility] New Patient Consultation This is a follow I[ visit at the [facility] [place] visit for this 59 y.o. female for [...] tobegin that process. Health Maintenance Colonoscopy: N/A FOOD TRAY ASSEMBLER Exam: 06/25/2024 DEXA: N/A Review of Systems: [...] finding. PATHOLOGY: Pathology has been reviewed here. [facility] Pathology Review (Pending) Stereotactic guided biopsy left [...] Stage IIB (cT2, cN0, cM0, G3, ER-, IL-, HER2-) - Unsigned Stage prefix: Initial diagnosis [...] quit. I provided resources, including Quit Now [place] at [phone] QUIT-NOW ([phone]). Recommend follow-up with PCP for ongoing assessment [...] or concerns arise. Dr. Ellen Edmonds MD Continuity Reader of Surgical Oncology [facility] I spent 60 minutes [...] welcome you, your family, and friends to [facility]. We offer access to more than 1,500 [...] will help you be more comfortable with [facility] and the surgical process. This information provides [...] located on the first floor of the [facility] near the Pharmacy and main clinic entrance. We are open Sunday-Sunday from 8 a.m. to 4:30 p.m. A clinic installation service representative can be reached at [phone]. Parking is available in the [facility] garage on [facility] or in the [facility] garage located at [address] [place] [address], directly across [facility] from [facility]. The day before surgery You will receive a phone call telling you what time you need to arrive at the hospital for surgery.If you miss the call, please call one of the following numbers (depending on where your surgery is scheduled): ?? [facility]: [phone] or [phone] ?? [facility]: [phone] or [phone] The day of surgery ?? Arrive on time to avoid delays or cancellation. ?? Park in the [facility] parking garage located at [address] It is directly across [facility] from the medical campus. ?? If you are scheduled for surgery at [facility], take the hospital garage elevator to Level C, then cross the concourse bridge to the Surgery Waiting Room to register for your surgery. The Surgery Waiting Room is located down the first hallway to the right at the end of the concourse bridge. If you need help crossing the concourse, you may molded goods spot picker the patient golf cart shuttle directly to the right of the elevators on Level C. ?? If you are scheduled for surgery at the [facility], take the garage elevator [employer] A and catch the free shuttle to the hospital. (Be careful not to take the [facility] shuttle - there is an ambassador there [...] checked many times throughout your stay at [facility] to ensure your safety. ?? Go over [...] talk to them after your surgery. A airport clerk is available in the waiting room [...] them: living will, health care surrogate, powerof civil rights attorney or guardianship papers. ?? Bring a [...] makeup, jewelry (including body piercing) or nail zambian. ?? Don?t bring money or valuables to [...] office and the Preoperative Anesthesia Clinic at [phone] or [phone]. If it is the day of surgery, call the location where you are scheduled to have your surgery: [facility] at [phone] or [phone] or [facility] at [phone] or [phone]. For more information Visit [email or web address] or call [phone] or [phone]. [facility] does not discriminate. [facility] complies with applicable Federal civil rights laws [...] turn right off the exit ramp onto [address] ([place] [address] [address]) toward [place]. ?? In 4.1 miles, turn left onto [address]. (at the [address]). ?? In a half-mile, turn right onto [address]. ?? In .3 miles, turn right onto [address] (just past the [employer] gas station). Garage entrance is on the left. ?? Important: This garage address will change to Anabela Nevarez on October 07, 2024. Directions from HealthCare Parking Garage to I-75/I-64: ?? Turn left out of the garage onto [address]. ?? Turn left onto [address]. ?? In .3 miles, turn left down [address] ?? In a half-mile, turn right onto [address] (at the [employer] gas station). In 4.1 miles, merge onto [address] /[address] (near the [facility] by [employer] Guadalupe Guerrero). Parking Any patients or visitors of [facility] can park in the following areas: ?? [facility] Parking Garage (main garage): [address] (Levels A-F) ?? [facility] Garage: [address] (Levels 1-6) ?? [facility] Cancer lot: Located off [address] (limited parking for [facility] outpatients only). Upon Your Arrival ?? Patients and visitors going to Pavili A, H, and [facility] may walk acrossthe pedway, located at [...] please visit our information desks located throughout [facility]. Information desks have additional maps and resources. Information desks are located at the main entrances of: [place] [facility] (first floor and ground floor), [facility]?s [facility], [facility], [facility] CC, [facility], [facility] (first and third floor), and [facility]. Informationdesk number: [phone]. Important Addresses [address] [facility] ?? [facility]?s Hospital entrance ?? Pavilion A Pavilion G ([facility]) ?? Emergency Department [address] ?? [facility] H ?? [facility] CC ([facility]) ?? [facility] ([facility]) ?? [facility] [address] [facility] ?? [facility] [address] [facility] ?? [facility] [address] [facility] ?? [facility] Pediatric Ophthalmology * [...] card, photo ID, along with power of civil rights attorney, guardianship or advanced directives if applicable [...] will be on the first floor of [facility]) at the end of the bridge from the parking garage, the hallway on the RIGHT. Parking Garage Address: [address] [place] [address] Av. documented in this encounter Plan of Treatment Upcoming Encounters Date Type Department Care Team (Late st Contact Info) Description 06/30/2025 1:00 PM EDT Appointment [facility] Breast Care Center Comprehensive Breast Care Center [place] [address] Mouna Benavides [facility] [address] [place] [address] 06/30/2025 2:30 PM EDT Office Visit [facility] Breast Care Center [address] [facility], 2nd [place] [address] Ellen Edmonds MD [address] [facility] [address] [place] [address] documented as of this encounter Procedures Procedure Name Priority Date/Time Associated Diagnosis Comments SURGICAL PATHOLOGY EXAM Routine 10/15/2024 4:16 PM EDT Invasive ductal carcinoma of breast, female, left IL BIOPSY/EXCISION, LYMPH NODE(S) 10/15/2024 2:38 PM EDT Invasive ductal carcinoma of breast, female, left IL MASTECTOMY, PARTIAL 10/15/2024 2:38 PM EDT Invasive ductal carcinoma of breast, female, left POCT GLUCOSE METER UNSOLICITED RESULTS Routine 10/15/2024 12:48 PM EDT documented in this encounter Results * Surgical Pathology Exam (10/15/2024 4:16 PM EDT) Case Report Surgical Pathology Case: [id number] Authorizing Provider: Ellen Edmonds MD Collected: 10/15/2024 1616 Ordering Location: [facility] OPERATING ROOM Received: 10/15/2024 1639 Pathologist: Carli Grijalva MD Specimens: A) - [place] Lymph Node, left axillary sentinel lymph node - blue and hot - [address] B) - Breast, Left, left lumpectomy short [...] tao true margin 10/20/2024 4:08 PM EDT [facility] Final Diagnosis A. LYMPH NODE, [...] WITHOUT DIAGNOSTIC ABNORMALITY. 10/20/2024 4:[address] [facility] [place] [place] at 1608 EDT Synoptic Checklist INVASIVE CARCINOMA OF THE BREAST: Resection INVASIVE CARCINOMA OF THE BREAST: RESECTION - All Specimens 8th Edition - Protocol posted: 09/26/2023 SPECIMEN Procedure: Excision (less than total mastectomy) Specimen Laterality: Left TUMOR Tumor Site: Central Histologic Type: Invasive carcinoma of no special type (ductal) Histologic Grade ([place] Histologic Score): Glandular (Acinar) / Tubular Differentiation: [...] Examined (sentinel and non-sentinel): 2 Number of [place] Nodes Examined: 2 pTNM CLASSIFICATION (AJCC 8th [...] Drug Administration (FDA) cleared (test / vendor): Goss Primary Antibody: SP1 Scoring System: No separate scoring system used Test(s) Performed: Progesterone Receptor (PgR) Status: Negative (less than 1%) : Internal control cells present and stain as expected Test Type: Food and Drug Administration (FDA) cleared (test / vendor): Goss Primary Antibody: 1E2 Scoring System: No separate scoring system used Test(s) Performed: HER2 by Immunohistochemist ry: Negative (Score 0) Test Type: Food and Drug Administration (FDA) cleared (test / vendor): SnapMD Primary Antibody: 4B5 Cold Ischemia and Fixation Times: Meet requirements specified in latest version of the ASCO / CAP Guidelines METHODS Fixative: Formalin Image Analysis: Not performed 10/20/2024 4:08 PM EDT [facility] Clinical Information Invasive ductal carcinoma of breast, female, left [C50.912] 10/20/2024 4:08 PM EDT [facility] Gross Description A. LEFT AXILLARY SENTINEL LYMPH NODE - BLUE AND HOT - 89111 The specimen is received fresh and placed [...] and 5% olea - white fibromembranous tissue. Security Analyst sections are submitted as follows: B1-B6: Slice [...] FLOR Atkinson (ASCP) 10/20/2024 4:08 PM EDT [facility] Note: A resident was involved in the service. I attest I examined the relevant preparations for the specimens and confirmed the diagnosis or interpretation. 10/20/2024 4:08 PM EDT [facility] Lymph Node Specimen from sentinel [...] ORDERABLES Final R esult Performing Organization Address City/[facility]/ZIP Co de Phone Number [facility] [address] [place] [address] * (ABNORMAL) POCT glucose meter (10/15/2024 12:48 [...] Comment 10/15/2024 12:49 PM EDT [facility] Enterprise Infrastructure Architect ID Dianne Zhu 10/15/2024 12:49 PM EDT [facility] Device ID [id number] 10/15/2024 12:49 PM EDT [facility] Specimen Type POC Capillary 10/15/2024 12:49 PM EDT [facility] Blood Capillary blood specimen / Unknown 10/15/2024 12:48 PM EDT 10/15/2024 12:49 PM EDT Ellen Edmonds MD LAB POINT OF CARE TE ST DOCKED DEVICE UNSOLICITED RESULTS Final Result Performing Organization Address [facility] Co de Phone Number [facility] [address] [place] [address] documented in this encounter Visit Diagnoses Diagnosis [...] of breath bupivacaine-EPINEPHrine PF (Marcaine w/EPI) 0.25% -1:606853 injection (CANCELED) As needed, Starting on Sun10/15/24 [...] documented as of this encounter Care Teams Photonic Laboratory Technician Relationship Specialty Start Date End Date Terence Britton MD [address] [place] [address] PCP - General 08/19/24 documented as of this encounter
--- OUTSIDE RECORDS SUMMARY | 2024-10-15 12:30 | XMS_ITS | Encounter Summary ---
Author Organization [facility] Address [address] [place] [id number] Care Team Providers Care Dump Motorman Name Role Phone Terence Britton MD Primary Care Provider [phone] Reason for Referral * Imaging (Routine) - Closed Specialty Diagnoses / Procedures Referred By Rohan t Referred To Contact Radiology Diagnoses Breast cancer Procedures NM Dermal Injection [place] Node Ellen Edmonds MD [address] [facility] Mouna Benavides [address] [address] Phone: tel: fax: Referral ID Status Reason Start Date Expiration Date Visits Re quested Visits Authorized [id number] Closed 09/09/2024 03/11/2026 1 1 Reason for Visit * Auth/Cert (Routine) Specialty Diagnoses / Procedures Referred By Contalexandru t Referred To Contact Diagnoses Invasive ductal carcinoma of breast, female, left Invasive ductal carcinoma of breast, female, left [C50.912] Procedures CO MASTECTOMY, PARTIAL CO BIOPSY/EXCISION, LYMPH NODE(S) CO BX/REMV,LYMPH NODE,DEEP AXILL CO INTRAOPERATIVE SENTINEL LYMPH NODE ID W DYE INJECTION Left localized lumpectomy sentinel lymph node EXCISION, LYMPH NODE, SENTINEL Ellen Edmonds MD 800 [facility] Mouna Benavides [address] [address] Phone: tel: fax: PAV [facility] [address] [place] [address] Phone: tel: Referral ID Status Reason Start Date Expiration Date Visits Re quested Visits Authorized [id number] 1 1 Encounter Details Date Type Department Care Team (Latest Contact Info) Description 10/15/2024 12:30 PM EDT - 10/15/2024 11:59 PM EDT Hospital Encounter [facility] H Nuclear Medicine [address] [place] [address] Breast cancer Discharge Disposition: Home or Self Care Social [...] 1:00 PM EDT Appointment [facility] [place] [facility] [place] [address] Mouna Benavides [facility] [address] [place] [address] 06/30/2025 2:30 PM EDT Office Visit [facility] Breast Care [place] [address] [facility], [address] [place] [address] Ellen Edmonds MD 800 [facility] [address] [place] [address] documented as of this encounter Procedures Procedure Name Priority Date/Time Associated Diagnosis Comments NM DERMAL INJECTION SENTINEL NODE Routine 10/15/2024 1:31 PM EDT Breast cancer documented in this encounter Results * NM Dermal Injection [place] Node (10/15/2024 1:31 PM EDT) Anatomical Region Laterality Modality Nuclear Medicine Impressions 10/15/2024 3:11 PM EDT Preoperative intradermal injections for sentinel lymph node surgery. CRITICAL RESULT: No. COMMUNICATION: Per this written report. By electronically signing this report, I, the attending physician, attest that I have personally reviewed the images/data for the above examination(s) and agree with the final edited report. Drafted by Adrian Clifton MD on 10/15/2024 2:43 PM Final report signed by Mando Kay MD on 10/15/2024 3:11 PM Narrative 10/15/2024 3:11 PM EDT CLINICAL INDICATION: Breast cancer. TECHNIQUE: To assist with gamma probe sentinel lymph node surgery, two intradermal injections containing a total of 1 mCi of Tc-99m tilmanocept (Lymphoseek) were performed at the 1 o'clock position of the areolar border of the left breast, according to protocol and/or as specified in the patient's chart and/or as marked on the skin, by the nuclear radiation engineer at 1:31 PM. COMPARISON/CORRELATION: Not applicable. FINDINGS: No imaging performed. No immediate complication. Procedure Note Mando Kay MD - 10/15/2024 CLINICAL INDICATION: Breast cancer. TECHNIQUE: To assist with gamma probe sentinel lymph node surgery, two intradermalinjections containing a total of 1 mCi of Tc-99m tilmanocept (Lymphoseek)were performed at the 1 o'clock position of the areolar border of the leftbreast, according to protocol and/or as specified in the patient's chartand/or as marked on the skin, by the nuclear radiation engineer at 1:31PM. COMPARISON/CORRELATION: Not applicable. FINDINGS: No imaging performed. No immediate complication. IMPRESSION: Preoperative intradermal injections for sentinel lymph node surgery. CRITICAL RESULT: No. COMMUNICATION: Per this written report. By electronically signing this report, I, the attending physician, attestthat I have personally reviewed the images/data for the aboveexamination(s) and agree with the final edited report. Drafted by Adrian Clifton MD on 10/15/2024 2:43 PM Final report signed by Mando Kay MD on 10/15/2024 3:11 PM Ellen Edmonds MD [facility] PROCEDURES Final Result documented in this encounter Visit Diagnoses Diagnosis Breast cancer Malignant neoplasm of breast (female), unspecified site documented in this encounter Administered Medications Inactive Administered Medications - up to 3 most recent administrations Medication Order MAR Action Action Date Dose Rate Site Technetium Tc 99m Tilmanocept (Lymphoseek) radio-isotope injection 1 millicurie 1 millicurie, Intradermal, Once, 1 dose, On Sun10/15/24 at 1415, Routine, Imaging NM Protocol Orders Given 10/15/2024 1:28 PM EDT 1 millicurie documented in this encounter Additional Health Concerns Assessment Noted Time PHQ-9 Depression Total Score: 0 08/20/19 9:56 AM EDT A fall risk assessment has been complete d for the patient 09/09/2024 2:06 PM EDT A Body Mass Index follow-up plan has been documented for the patient 09/09/2024 4:49 PM EDT documented as of this encounter Care Teams Dump Motorman Relationship Specialty Start Date End Date Terence Britton MD [address] [place] [address] PCP - General 08/19/24 documented as of this encounter
--- OUTSIDE RECORDS SUMMARY | 2024-10-15 12:45 | XMS_ITS | Encounter Summary ---
Author Organization [facility] Address [address] [place] [address] Care Team Providers Care Turbine Engineer Name Role Phone Terence Britton MD Primary Care Provider [phone] Reason for Visit * Auth/Cert (Routine) Specialty Diagnoses / Procedures Referred By Contac t Referred To Contact Diagnoses Invasive ductal carcinoma of breast, female, left Invasive ductal carcinoma of breast, female, left [C50.912] Procedures ME MASTECTOMY, PARTIAL ME BIOPSY/EXCISION, LYMPH NODE(S) ME BX/REMV,LYMPH NODE,DEEP AXILL ME INTRAOPERATIVE SENTINEL LYMPH NODE ID W DYE INJECTION Left localized lumpectomy sentinel lymph node EXCISION, LYMPH NODE, SENTINEL Ellen Edmonds MD [address] [facility] Mouna Benavides macy [address] [address] Phone: tel: fax: [facility] [address] [place] [address] Phone: tel: Referral ID Status Reason Start Date Expiration Date Visits Re quested Visits Authorized [id number] 1 1 Encounter Details Date Type Department Care Team (Late st Contact Info) Description 10/15/2024 12:45 PM EDT - 10/15/2024 3:50 PM EDT Surgery [facility] A OPERATING ROOM [address] [place] [address] Ellen Edmonds MD [address] [facility] Mouna Benavides [address] [address] Left localized lumpectomy sentinel lymph node [56517 (CPT )] Surgery Details Date/Time Status Location OR Service Patient Class Case Class Case Type Trauma Case? 10/15/2024 12:45 PM [facility] E-Electi ve Panel 1 Procedure LRB Anes Op Region Wound Class Comments Left localized lumpectomy se ntinel lymph node Left Choice Class I/ Clean EXCISION, LYMPH NODE, SENTINEL Left Choice Class I/ Clean Surgeon Surgeon Role Service Panel Linda Bills MD Resident - Assisting 1 Ellen Edmonds MD Primary Surgical Oncology 1 documented in this encounter Social History Tobacco Use Types Packs/Day Years [...] Sign Reading Time Taken Comments Blood Pressure 134/77 10/15/2024 12:40 PM EDT Pulse 75 10/15/2024 12:40 PM EDT Temperature 36.7 C (98.1 F) 10/15/2024 12:40 PM EDT Respiratory Rate - - Oxygen Saturation 97% 10/15/2024 12:40 PM EDT Inhaled Oxygen Concentration - - [...] Bills MD - 10/15/2024 5:50 PM EDT [facility] Postoperative Discharge Instructions Follow-up Please follow-up [...] constipation. If necessary you may take an harx-pjj-cogshbw medication (such as MiraLax or Colace). Call [...] you have questions or concerns, please call [phone] during regular business hours or [phone] at any other time (after hours, weekends, and/or holidays) and ask for the GOLD LEATHER [employer] I ASSEMBLER . Please call the above number if [...] PM EDT Operative Note Date: 10/15/24 Location: [facility] Name: Sunita Chiang, : 1965, Diagnoses: Pre-op Diagnosis Invasive ductal carcinoma of breast, female, left Post-op Diagnosis Invasive ductal carcinoma of breast, female, left Procedure(s): Left axillary sentinel lymph node biopsy Left smartclip localized partial mastectomy Attending Surgeon(s): * Ellen Edmonds - Primary Air Transport Professionals(s): * Linda Bills MD - Resident - Assisting Anesthesia: Choice ASA: III Blood Administration: Blood Product Administration History None Estimated Blood Loss: Minimal Drains: * None in log * Specimen: Specimens ID Source Frozen? 1 Newman Lymph Node No Description: left axillary sentinel lymph node - blue and hot - [id number] 2 Breast, Left No Description: left lumpectomy [...] surgical clips to identify the true margin. Ortho-tag de monstrated both the smart clip and biopsy clip [...] Submitted by: Ellen Edmonds MD - 10/15/2024 Newman Node Biopsy for Breast Cancer - Left [...] AM. H&P copy forward from clinic note. [facility] New Patient Consultation This is a follow I[ visit at the [facility] Breast [facility] visit for this 59 y.o. female for [...] tobegin that process. Health Maintenance Colonoscopy: N/A BUSINESS COORDINATOR Exam: 06/25/2024 DEXA: N/A Review of Systems: [...] finding. PATHOLOGY: Pathology has been reviewed here. [facility] Pathology Review (Pending) Stereotactic guided biopsy left [...] Stage IIB (cT2, cN0, cM0, G3, ER-, ME-, HER2-) - Unsigned Stage prefix: Initial diagnosis [...] quit. I provided resources, including Quit Now [place] at [phone] QUIT-NOW [phone]). Recommend follow-up with PCP for ongoing assessment [...] or concerns arise. Dr. Ellen Edmonds MD Rn Relief Charge of Surgical Oncology [facility] I spent 60 minutes on this [...] MD at 09/09/2024 4:48 PM * Maxine Keyla - Risa Sparrow RN - 10/14/2024 10:31 [...] your doctor as soon as possible! * Maxine Ramires - Risa Sparrow, RN - 10/14/2024 10:31 AM EDT Images from the original note were not included. 1072 Patient Surgery Guide The doctors and staff of Surgical Services would like to welcome you, your family, and friends to [facility]. We offer access to more than 1,500 [...] will help you be more comfortable with [facility] and the surgical process. This information provides [...] located on the first floor of the [facility] near the Pharmacy and main clinic entrance. We are open Sunday-Sunday from 8 a.m. to 4:30 p.m. A clinic sales representative education courses can be reached at [phone]. Parking is available in the [facility] garage on [facility] or in the [facility] garage located at [address] [place] [address] Avenue, directly across [facility] from [facility]. The day before surgery You will receive a phone call telling you what time you need to arrive at the hospital for surgery.If you miss the call, please call one of the following numbers (depending on where your surgery is scheduled): ?? [facility]: [phone] or [phone] ?? [facility]: [phone] or [phone] The day of surgery ?? Arrive on time to avoid delays or cancellation. ?? Park in the [facility] parking garage located at [address] It is directly across [facility] from the [facility]. ?? If you are scheduled for surgery at [facility], take the hospital garage elevator to Level C, then cross the concourse bridge to the Surgery Waiting Room to register for your surgery. The Surgery Waiting Room is located down the first hallway to the right at the end of the concourse bridge. If you need help crossing the concourse, you may belt picker the patient golf cart shuttle directly to the right of the elevators on Level C. ?? If you are scheduled for surgery at the [facility], take the garage elevator toLevel A and catch the free shuttle to the hospital. (Be careful not to take the [facility] shuttle - there is an ambassador [...] checked many times throughout your stay at [facility] to ensure your safety. ?? Go over [...] talk to them after your surgery. A temporary data entry clerk is available in the waiting room [...] them: living will, health care surrogate, powerof family law attorney or guardianship papers. ?? Bring a [...] makeup, jewelry (including body piercing) or nail estonian. ?? Don?t bring money or valuables to [...] office and the Preoperative Anesthesia Clinic at [phone] or [phone]. If it is the day of surgery, call the location where you are scheduled to have your surgery: [facility] at [phone] or [phone] or [facility] at [phone] or [phone]. For more information Visit [email or web address] or call [phone] or [phone]. [facility] does not discriminate. HealthCare complies with applicable Federal civil rights laws and does not discriminate on the basis of race, color, national origin, age, disability, or sex. * Maxine Ramires - Risa Sparrow RN - 10/14/2024 10:31 AM EDT Images from the original note were not included. 489 Map to HealthCare Facilities Directions Easy directions to and from I-[address] (from [address]) Directions from I-75/I-64 to the [facility] Parking Garage: ?? From [address], turn right off the exit ramp onto [address] ([place] [address] [address]) toward [place]. ?? In 4.1 miles, turn left onto [address] (at the [employer] gas station). ?? In a half-mile, turn right onto [address]. ?? In .3 miles, turn right onto [address] (just past the [employer] gas station). Garage entrance is on the left. ?? Important: This garage address will change to [address] [place] [address] on October 07, 2024. Directions from [facility] Parking Garage to I-75/I-64: ?? Turn left out of the garage onto [address]. ?? Turn left onto [address]. ?? In .3 miles, turn left down [address] ?? In a half-mile, turn right onto [address] (at the [employer] gas station). In 4.1 miles, merge onto [address] /[address] (near the [facility] by Jose Guadalupe Guerrero). Parking Any patients or visitors of [facility] can park in the following areas: ?? HealthCare Parking Garage (main garage): [address] (Levels A-F) ?? [facility] Garage: [address] (Levels 1-6) ?? [facility] lot: Located off [address] (limited parking for [facility] outpatients only). Upon Your Arrival ?? Patients and visitors going to Pavilion A, H, G and [place] may walk acrossthe pedway, located at Level [...] dropoff area. Vehicles in this lot must bemoved to the main hospital garage after 15 [...] please visit our information desks located throughout [facility]. Information desks have additional maps and resources. Information desks are located at the main entrances of: [place] [facility] (first floor and ground floor), [facility]?s [facility], [facility] H, [facility] CC, [facility] WH, [facility] (first and third floor), and [facility]. Informationdesk number: [phone]. Important Addresses [address] [place] [address] ?? [facility]?s Hospital entrance ?? Pav[facility] A [facility] G ([facility]) ?? Emergency Department [address] ?? [facility] H ?? [facility] CC ([facility]) ?? [facility] ([facility]) ?? [place] [facility] [address] [facility] ?? [facility] [address] [facility] ?? [address] ?? [facility] Pediatric Ophthalmology * PAT Phone Note - Risa Sparrow RN - 10/14/2024 10:31 AM EDT ASHLIE Cihang is a 59 y.o. female who presents [...] same time. * Preprocedure Instructions - Risa Sparrow, RN - 10/14/2024 10:29 AM EDT Home [...] card, photo ID, along with power of family law attorney, guardianship or advanced directives if applicable [...] will be on the first floor of [facility]) at the end of the bridge from the parking garage, the hallway on the RIGHT. Parking Garage Address: [address] [place] [address]. documented in this encounter Plan of Treatment Upcoming Encounters Date Type Department Care Team (Late st Contact Info) Description 06/30/2025 1:00 PM EDT Appointment [facility] Breast Care Center [facility] [address] [address] [facility] [address] [place] [address] 06/30/2025 2:30 PM EDT Office Visit [facility] Breast Care Center [address] [facility]nd [place] [address] Ellen Edmonds MD [address] Mouna Benavides [facility] [address] [place] [address] documented as of this encounter Procedures Procedure Name Priority Date/Time Associated Diagnosis Comments SURGICAL PATHOLOGY EXAM Routine 10/15/2024 4:16 PM EDT Invasive ductal carcinoma of breast, female, left ME BIOPSY/EXCISION, LYMPH NODE(S) 10/15/2024 2:38 PM EDT Invasive ductal carcinoma of breast, female, left ME MASTECTOMY, PARTIAL 10/15/2024 2:38 PM EDT Invasive ductal carcinoma of breast, female, left POCT GLUCOSE METER UNSOLICITED RESULTS Routine 10/15/2024 12:48 PM EDT documented in this encounter Results * Surgical Pathology Exam (10/15/2024 4:16 PM EDT) Case Report Surgical Pathology Case: [id number] Authorizing Provider: Ellen Edmonds MD Collected: 10/15/2024 1616 Ordering Location: [facility] OPERATING ROOM Received: 10/15/2024 1633 Pathologist: Carli Grijalva MD Specimens: A) - Newman Lymph Node, left axillary sentinel lymph node - blue and hot - [address] B) - Breast, Left, left lumpectomy short [...] tao true margin 10/20/2024 4:08 PM EDT [facility] Final Diagnosis A. LYMPH NODE, [...] WITHOUT DIAGNOSTIC ABNORMALITY. 10/20/2024 4:08 PM EDT [facility] at 1608 EDT Synoptic Checklist INVASIVE CARCINOMA OF THE BREAST: Resection INVASIVE CARCINOMA OF THE BREAST: RESECTION - All Specimens 8th Edition - Protocol posted: 09/26/2023 SPECIMEN Procedure: Excision (less than total mastectomy) Specimen Laterality: Left TUMOR Tumor Site: Central Histologic Type: Invasive carcinoma of no special type (ductal) Histologic Grade ([place] Histologic Score): Glandular (Acinar) / Tubular Differentiation: [...] Examined (sentinel and non-sentinel): 2 Number of Newman Nodes Examined: 2 pTNM CLASSIFICATION (AJCC 8th [...] Drug Administration (FDA) cleared (test / vendor): [place] Primary Antibody: SP1 Scoring System: No separate scoring system used Test(s) Performed: Progesterone Receptor (PgR) Status: Negative (less than 1%) : Internal control cells present and stain as expected Test Type: Food and Drug Administration (FDA) cleared (test / vendor): [place] Primary Antibody: 1E2 Scoring System: No separate scoring system used Test(s) Performed: HER2 by Immunohistochemist ry: Negative (Score 0) Test Type: Food and Drug Administration (FDA) cleared (test / vendor): [place] Primary Antibody: 4B5 Cold Ischemia and Fixation Times: Meet requirements specified in latest version of the ASCO / CAP Guidelines METHODS Fixative: Formalin Image Analysis: Not performed 10/20/2024 4:08 PM EDT [facility] Clinical Information Invasive ductal carcinoma of breast, female, left [C50.912] 10/20/2024 4:08 PM EDT [facility] Gross Description A. LEFT AXILLARY SENTINEL LYMPH NODE - BLUE AND HOT - 44057 The specimen is received fresh and placed [...] serially sectioned Cold Time: 18m FLOR Atkinson ([facility]) B. LEFT LUMPECTOMY SHORT STITCH SUPERIOR, LONG [...] and 5% olea - white fibromembranous tissue. Film Inspector sections are submitted as follows: B1-B6: Slice [...] sectioned Cold Time: 24h 15m FLOR Atkinson [facility] C. SUPERIOR SHAVE MARGIN CLIP TAO TRUE [...] H1-H4. Cold Time: 24h 11m FLOR Atkinson ([facility]) 10/20/2024 4:08 PM EDT [facility] Note: A resident was involved in the service. I attest I examined the relevant preparations for the specimens and confirmed the diagnosis or interpretation. 10/20/2024 4:08 PM EDT [facility] Lymph Node Specimen from sentinel [...] MD LAB PATHOLOGY ORDERABLES Final R esult [facility] [address] [place] [address] * (ABNORMAL) POCT glucose meter (10/15/2024 12:48 PM EDT) POCT Glucose 101(H) 74 - 99 mg/dL 10/15/2024 12:49 PM EDT [facility] Comment:Accuracy of a glucos e [...] for testing. Comment 10/15/2024 12:49 PM EDT [facility] Crop Or Grain Farmer ID Dianne Zhu 10/15/2024 12:49 PM EDT HEALTH[facility]ARE LAB Device ID [id number] 10/15/2024 12:49 PM EDT [facility] Specimen Type POC Capillary 10/15/2024 12:49 PM EDT [facility] Blood Capillary blood specimen / Unknown 10/15/2024 12:48 PM EDT 10/15/2024 12:49 PM EDT us Ellen Edmonds MD LAB POINT OF CARE TE ST DOCKED DEVICE UNSOLICITED RESULTS Final Result [facility] [address] [place] [address] documented in this encounter Visit Diagnoses Diagnosis Invasive ductal carcinoma of breast, female, left- Primary Invasive ductal carcinoma of breast, female, left documented in this encounter Admitting Diagnoses Diagnosis [...] of breath bupivacaine-EPINEPHrine PF (Marcaine w/EPI) 0.25% -1:960797 injection As needed, Starting on Sun10/15/24 at 1733, Until Sun10/15/24 at 1754, Routine, Intraprocedure Given 10/15/2024 5:33 PM EDT 30 mL droperidol (Inapsine) injection 0.625 mg 0.625 mg, [...] 10 isosulfan blue (Lumphazurin) 1 % injection As needed, Starting on Sun10/15/24 at 1515, Until Sun10/15/24 at 1754, Routine, Intraprocedure Given 10/15/2024 3:15 PM EDT 5 mL Other lactated Ringer's infusion 20 mL/hr, Intravenous, Continuous, [...] of breath bupivacaine-EPINEPHrine PF (Marcaine w/EPI) 0.25% -1:555906 injection (CANCELED) As needed, Starting on Sun10/15/24 [...] Routine, Recovery (Phase I only), nausea, vomiting 1853 (Given - Provid er: Jose Posadas RN) [...] documented as of this encounter Care Teams Turbine Engineer Relationship Specialty Start Date End Date Terence Britton MD [address] [place] [address] PCP - General 08/19/24 documented as of this encounter
--- OUTSIDE RECORDS SUMMARY | 2024-10-15 14:50 | XMS_ITS | Encounter Summary ---
Author Organization [facility] Address [address] [place] [address] Care Team Providers Care Interventional Radiology Rn Name Role Phone Terence Britton MD Primary Care Provider [phone] Reason for Visit * Auth/Cert (Routine) Specialty [...] LYMPH NODE, SENTINEL Ellen Edmonds MD [address] [address] Phone: tel: fax: [facility] [address] [place] [address] Phone: tel: Referral ID Status Reason Start Date Expiration Date Visits Re quested Visits Authorized [id number] 1 1 Encounter Details Date Type Department Care Team (Late st Contact Info) Description 10/15/2024 2:50 PM EDT Anesthesia Event [facility] RO[facility] [address] [place] [address] Jessenia Humphreys MD [address] [place] [address] Anesthesia Record Procedure Summary Procedure Name Responsible Anesthesiologist Anesthesia Start Time Anesthesia Stop Time Left localized lumpectomy sentinel lymph node (Left) Jessenia Humphreys MD 10/15/24 1450 10/15/24 1800 Events Date Time Event Comment 10/15/2024 1258 1450 An Start The patient was reevaluated immediately before sedation and remains eligible for anesthesia plan. 1453 In Room 1453 An Start Data 1502 An Induction The patient was reevaluated immediately before moderate or deep sedation use and before anesthesia induction. 1506 An Intubation 1508 Anesthesia Ready 1515 Proc Start 1740 An Extubation 1743 Proc Fin 1753 an stop data 1754 Out of Room 1800 Handoff to Receiving I compl eted my handoff to the receiving clinician during which we: 1. Identified the patient 2. Identified the responsible provider 3. Reviewed the pertinent medical history 4. Discussed the surgical course 5. Reviewed intra-op anesthesia management and issues during anesthesia 6. Set expectations for post-procedure period 7. Allowed opportunity for questions and acknowledgement of understanding. 1800 An Stop Meds Name Total fentaNYL (Sublimaze) injection 50 mcg/mL 200 mcg lidocaine PF (Xylocaine-MPF) 2% 100 mg propofol (Diprivan) injection 10 mg/mL 3 00 mg dexamethasone (Decadron) injection 4 mg/ mL 4 mg ondansetron (Zofran) injection 2 mg/mL 8 mg ceFAZolin (Ancef) vial 1 g 2 g midazolam (Versed) injection 1 mg/mL 2 m g HYDROmorphone PF (Dilaudid) injection 1 mg/mL 0.7 mg ketorolac (Toradol) injection 30 mg/mL 1 5 mg lactated Ringer's infusion 500 mL * Agents Name O2 N2O Air Sevoflurane Isoflurane Desflurane Inspired Desflurane Inspired Isoflurane Inspired Sevoflurane N2O Inspired N2O * Blood No blood administrations on file. Lines, Drains, and Airways Type Details Placement Removal Wound 10/15/24; 1530; N; Yes; Surgical; Breast; Left 10/15/24 153 by Vera Rodriguez RN Peripheral IV Placement Date: 10/15/24; Placement Time: 1309; Catheter Size: 20 G; Orientation: Right; Location: Antecubital; Site Prep: Alcohol; Insertion Attempts: 3; Patient Tolerance: Tolerated well; Removal Date: 10/15/24; Removal Time: 1954; Removal Reason: Discharge 10/15/241309 by Anastacia Reddy RN 10/15/241954 by Jose Posadas RN Supraglottic Airway Placement Date: 10/15/24; Placement Time: 1513 (created via procedure documentation); Mask Ventilation: 0; Removal Date: 10/15/24; Removal Time: 173910/15/24 151 by Layo Wen WINDOW SHADE RING SEWER 10/15/241739 by Norbert Putnam MD documented in this encounter Social History Tobacco [...] Reddy RN documented as of this encounter Miscellaneous Notes * Anesthesia Postprocedure Evaluation - Dyana Desir MD - 10/15/2024 6:00 PM EDT Patient: Sunita Chiang Anesthesia Type: general Vitals Value Taken Time BP 117/58 10/15/24 17:56 Temp See flowsheet 10/15/24 18:00 Pulse 87 10/15/24 18:00 Resp 14 10/15/24 18:00 SpO2 94 % 10/15/24 17:59 Vitals shown include unfiled device data. Anesthesia Post Evaluation Patient location during evaluation: PACU Patient participation: complete - patient participated Level of consciousness: awake and baseline Pain management: adequate (pain score 0-3) Airway patency: natural airway Cardiovascular status: acceptable Respiratory status: acceptable Hydration status: acceptable Nausea/Vomiting: No No notable events documented. * Anesthesia Procedure Notes - Layo Wen CRNA - 10/15/2024 3:14 PM EDTAssociated Order(s): Airway Airway Date/Time: 10/15/2024 3:14 PM Reason: elective Airway not difficult General Information and Staff Patient location during procedure: OR WINDOW SHADE RING SEWER: Layo Wen CRNA Performed: WINDOW SHADE RING SEWER Patient Condition Indications for airway management: anesthesia Patient position: sniffing MILS maintained throughout Final Airway Details Final airway type: LMALMA Size: 4 LMA Type: flexible * Anesthesia Preprocedure Evaluation - Jessenia Humphreys MD - 10/15/2024 8:57 AM EDT HPI Sunita Chiang is a 59 y.o. female who presents with Pre-op Diagnosis * Invasive ductal carcinoma of breast, female, left [C50.912] now scheduled for Left localized lumpectomy sentinel lymph node (Left), EXCISION, LYMPH NODE, SENTINEL (Left). Date scheduled is 10/15/2024. Past Medical History[1] Family History[2] Social History[3] SURGICAL HISTORY: Surgical History[4] Allergies[5] MEDICATIONS: Current Medications[6] Jessenia Humphreys MD Anesthesiologist: (Unknown) WINDOW SHADE RING SEWER: (Unknown) Information Assurance Officer: (Unknown) Patient: Sunita Chiang HPI Sunita Chiang is a 59 y.o. female with body mass index is 37.77 kg/m??. who presents with Invasive ductal carcinoma of breast, female, left, now for Left localized lumpectomy sentinel lymph node (Left), EXCISION, LYMPH NODE, SENTINEL (Left) Procedure Information Date/Time: 10/15/24 1245 Procedures: Left localized lumpectomy sentinel lymph node (Left) EXCISION, LYMPH NODE, SENTINEL (Left) Location: 2OR / [facility] OR Surgeons: Ellen Edmonds MD Relevant Problems No relevant active problems ALLERGIES Allergies[7] NPO STATUS Past Medical History[8] AIRWAY HISTORY Airway Detailed Review Displaying the 20 most recent records No records found. MEDICATIONS Outpatient Current Outpatient Medications Medication Instructions BLACK COHOSH PO Daily cetirizine (ZyrTEC ALLERGY) 10 MG tablet 1 tablet, Daily cholecalciferol (Vitamin D-3) 125 MCG (5000 UT) capsule Every 24 hours co-enzyme Q-10 30 mg, Daily cyanocobalamin (VITAMIN B-12) 1,000 mcg, Daily hydroCHLOROthiazide (HYDRODiuril) 25 MG tablet Every 24 hours losartan (Cozaar) 25 MG tablet Every 24 hours metFORMIN (Glucophage) 850 MG tablet Every 24 hours potassium chloride CR (Klor-Con) 10 MEQ ER tablet Every 24 hours rosuvastatin (Crestor) 10 MG tablet Every 24 hours Scheduled Current Scheduled Medications[9] PRNs Current PRN Medications[10] SURGICAL HX: Surgical History[11] SOCIAL HX: Social History[12] OBJECTIVE DATA LABS No results found for: WBC , HGB , HCT , MCV , PLT No results found for: CALCIUM , BUN , CREATININE , BCR , NA , K , CL , CO2 , AG , CA Type and Screen No results found for: ABO No results found for: HGBA1C No results found for: PGLU , GLUCOSE ABG No results found for: PHART , YTR8RNS , PO2ART , SO2ART , BEART , RXY6OFQ , HCTART , SODIUMART , POTASSIUMART , POCTCL , POCGLU , IONCALART , LACTATE No results found for: PH , PCO2 , PO2 , X2JQGXLD , BASEEXC , HCTSYR , KSYR , CLSYR , GLUSYR , CAION , LACTATE ECHO No echocardiogram results found for the past 12 months PFTs No results found for: AZV3QQC , HAH8LYFY , GMF0HYA , FVCPRED BP Readings from Last 5 Encounters: 09/22/24 128/85 09/09/24 130/80 09/03/24 113/78 05/13/25 125/84 08/19/24 134/84 Physical Exam Airway Mallampati: II Mouth opening: normal TM distance: >3 FB Neck ROM: full Upper lip bite test: I Cardiovascular Rhythm: regular Rate: normal Dental - normal exam (+) upper dentures, lower dentures Pulmonary Breath sounds clear to auscultation Neurological Oriented: normal to time, normal to place and normal to person and oriented to person, place and time Skin - normal exam Musculoskeletal - normal exam Extremities -normal exam Anesthesia Plan ASA 3 Plan was reviewed with: WINDOW SHADE RING SEWER Anesthesia technique(s) discussed with the patient/family: general Anesthesia plan agreed upon was: general Anesthetic plan and risks discussed with patient. ROS Anesthesia: history of previous anesthesia. Does not have a history of anesthetic complications. Cardiovascular: hyperlipidemia. hypertension: Respiratory: allergic rhinitis. Gastrointestinal: obese. Genitourinary: Negative ROS. Endocrine/Metabolic: diabetes mellitus type 2.well controlled. [1] Past Medical History: Diagnosis Date Breast [...] time each day at the same time. 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 Exercise tolerance finding 10/14/2024 Can climb 2 flights of stairs w/o SOA Hyperlipidemia Hypertension Motion sickness Seasonal allergies [9] lidocaine, 8 mL, Infiltration, Once sodium bicarbonate, 2 mEq, Subcutaneous, Once [10] [11] Past Surgical History: Procedure Laterality Date BREAST BIOPSY Left 2024 outside facility-invasive ductal carcinoma INNER EAR SURGERY OTHER SURGICAL HISTORY Polyp Removal from Vocal Cords TUBAL LIGATION [12] Social History Tobacco Use Smoking status: Every Day Current packs/day: 1.00 Average packs/day: 1 pack/day for 9.5 years (9.5 ttl pk-yrs) Types: Cigarettes Start date: 2015 Passive exposure: Never Smokeless tobacco: Never Vaping Use Vaping status: Never Used Substance Use Topics Alcohol use: Never Drug use: Never documented in this encounter Plan of Treatment Upcoming Encounters Date Type Department Care Team (Late st Contact Info) Description 06/30/2025 1:00 PM EDT Appointment [facility] [place] [address] [address] [facility] [address] [place] [address] 06/30/2025 2:30 PM EDT Office Visit [facility] Breast Care [place] [address] [facility] [place] [address] Ellen Edmonds MD [address] [facility] [address] [place] [address] documented as of this encounter Procedures Procedure Name Priority Date/Time Associated Diagnosis Comments PB ANESTHESIA PLACEHOLDER Routine 10/15/2024 3:14 PM EDT DE AN ELECTIVE SUPRAGLOTTIC AIRWAY Routine 10/15/2024 3:14 PM EDT documented in this encounter Results * DE AN ELECTIVE SUPRAGLOTTIC AIRWAY, PB ANESTHESIA PLACEHOLDER (10/15/2024 3:14 PM EDT) Narrative Layo Wen CRNA - 10/15/2024 3:14 PM EDT Layo Wen CRNA 10/15/2024 3:15 PM Airway Date/Time: 10/15/2024 3:14 PM Reason: elective Airway not difficult General Information and Staff Patient location during procedure: OR WINDOW SHADE RING SEWER: Layo Wen CRNA Performed: PAM Patient Condition Indications for airway management: anesthesia Patient position: sniffing MILS maintained throughout Final Airway Details Final airway type: LMALMA Size: 4 LMA Type: flexible us Jessenia Humphreys MD ANESTHESIA ORDERABLES Final R esult documented in this encounter Visit Diagnoses Not on filedocumented in this encounter Administered Medications Inactive Administered Medications - up to 3 most recent administrations Medication Order MAR Action Action Date Dose Rate Site ceFAZolin (Ancef) injection Intravenous, As needed, Starting on Sun10/15/24 at 1512, Until Sun10/15/24 at 1800, Routine, Anesthesia Intraprocedure Given 10/15/2024 3:05 PM EDT 2 g dexamethasone (Decadron) injection Intravenous, As needed, Starting on Sun10/15/24 at 1521, Until Sun10/15/24 at 1800, Routine, Anesthesia Intraprocedure Given 10/15/2024 3:21 PM EDT 4 mg fentaNYL (Sublimaze) injection Intravenous, As needed, Starting on Sun10/15/24 at 1453, Until Sun10/15/24 at 1800, Routine, Anesthesia Intraprocedure Given 10/15/2024 4:01 PM EDT 50 mcg Given 10/15/2024 3:42 PM EDT 50 mcg Given 10/15/2024 2:53 PM EDT 100 mcg HYDROmorphone PF (Dilaudid) injection Intravenous, As needed, Starting on Sun10/15/24 at 1645, Until Sun10/15/24 at 1800, Routine, Anesthesia Intraprocedure Given 10/15/2024 5:11 PM EDT 0.2 mg Given 10/15/2024 4:45 PM EDT 0.5 mg ketorolac (Toradol) injection Intravenous, As needed, Starting on Sun10/15/24 at 1719, Until Sun10/15/24 at 1800, Routine, Anesthesia Intraprocedure Given 10/15/2024 5:19 PM EDT 15 mg lactated Ringer's infusion 20 mL/hr, Intravenous, Continuous, Starting on Sun10/15/24 at 1330, Until Sun10/15/24 at 2221, Routine New Bag 10/15/2024 2:50 PM EDT lidocaine PF (Xylocaine) 2 % injection Intravenous, As needed, Starting on Sun10/15/24 at 1502, Until Sun10/15/24 at 1800, Routine, Anesthesia Intraprocedure Given 10/15/2024 3:02 PM EDT 100 mg midazolam (Versed) injection Intravenous, As needed, Starting on Sun10/15/24 at 1453, Until Sun10/15/24 at 1800, Routine, Anesthesia Intraprocedure Given 10/15/2024 2:53 PM EDT 2 mg ondansetron (Zofran) injection Intravenous, As needed, Starting on Sun10/15/24 at 1521, Until Sun10/15/24 at 1800, Routine, Anesthesia Intraprocedure Given 10/15/2024 5:19 PM EDT 4 mg Given 10/15/2024 3:21 PM EDT 4 mg propofol (Diprivan) injection Intravenous, As needed, Starting on Sun10/15/24 at 1502, Until Sun10/15/24 at 1800, Routine, Anesthesia Intraprocedure Given 10/15/2024 5:03 PM EDT 20 mg Given 10/15/2024 3:42 PM EDT 80 mg Given 10/15/2024 3:02 PM EDT 200 mg documented in this encounter Additional Health Concerns Assessment Noted Time PHQ-9 Depression Total Score: 0 08/20/19 25 9:56 AM EDT A fall risk assessment has been complete d for the patient 09/09/2024 2:06 PM EDT A Body Mass Index follow-up plan has been documented for the patient 09/09/2024 4:49 PM EDT documented as of this encounter Care Teams Interventional Radiology Rn Relationship Specialty Start Date End Date Terence Britton MD [address] [place] [address] PCP - General 08/19/24 documented as of this encounter
--- OUTSIDE RECORDS SUMMARY | 2024-10-28 15:30 | XMS_ITS | Encounter Summary ---
Author Organization Healthcare Address [address] [place] [id number] Care Team Providers Care Principal Biostatistician Name Role Phone Terence Britton MD Primary Care Provider [phone] Encounter Details Date Type Department Care Team (Late st Contact Info) Description 10/28/2024 3:30 PM EDT Office Visit [facility] [address] [facility], [address]nd [place] [address] Ellen Edmonds MD [address] [facility] [address] [place] [id number] Invasive ductal carcinoma of breast, female, left [...] Sign Reading Time Taken Comments Blood Pressure 127/82 10/28/2024 3:12 PM EDT Pulse 85 10/28/2024 3:12 PM EDT Temperature - - Respiratory Rate 17 10/28/2024 3:12 PM EDT Oxygen Saturation 94% 10/28/2024 3:12 PM EDT Inhaled Oxygen Concentration - - Weight - - Height - - Body Mass Index - - documented in this encounter Miscellaneous Notes * Progress Notes - Lisa Sims, CIVIL ENGINEERING PROFESSOR - 10/28/2024 3:30 PM EDT Images from the original note were not included. [facility] Postoperative Note Sunita Chiang is a 59 y.o. female who returns today for her postoperative visit. She underwent her left lumpectomy with SLNB on 10/15/2024 and is thus POD# 13. She has no complaints. 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 Tumor markersdemonstrate ER-/FL-/HER-. The pathology report was reviewed in detail with the patient, and she was provided with a copy. We discussed that surgery is considered complete. . Final Diagnosis (no units) Date/Time Value 10/15/2024 1616 A. LYMPH NODE, LEFT AXILLARY SENTINEL; EXCISION: [...] - FATTY BREAST TISSUE WITHOUT DIAGNOSTIC ABNORMALITY. Synoptic Checklist (no units) Date/Time Value 10/15/2024 1616 INVASIVE CARCINOMA OF THE BREAST: Resection INVASIVE CARCINOMA OF THE BREAST: RESECTION - All Specimens 8th Edition - Protocol posted: 09/26/2023 SPECIMEN Procedure: Excision (less than total mastectomy) Specimen Laterality: Left TUMOR Tumor Site: Central Histologic Type: Invasive carcinoma of no special type (ductal) Histologic Grade ([place] Histologic Score): Glandular (Acinar) / Tubular Differentiation: [...] / or Vascular Invasion: No skin present Microcalcifications: Not identified Treatment Effect in the Breast: [...] Examined (sentinel and non-sentinel): 2 Number of [place] Nodes Examined: 2 pTNM CLASSIFICATION (AJCC 8th Edition) Reporting of pT, pN, and (when applicable) pM categories is based on information available to the pathologist at the time the report is issued. As per the AJCC (Chapter 1, 8th Ed.) it is the managingphysician's responsibility to establish the final pathologic stage [...] Drug Administration (FDA) cleared (test / vendor): [place] Primary Antibody: SP1 Scoring System: No separate scoring system used Test(s) Performed: Progesterone Receptor (PgR) Status: Negative (less than 1%) : Internal control cells present and stain as expected Test Type: Food and Drug Administration (FDA) cleared (test / vendor): [place] Primary Antibody: 1E2 Scoring System: No separate scoring system used Test(s) Performed: HER2 by Immunohistochemistry: Negative (Score 0) Test Type: Food and Drug Administration (FDA) cleared (test / vendor): [employer] Primary Antibody: 4B5 Cold Ischemia and Fixation Times: Meet requirements specified in latest version of the ASCO / CAP Guidelines METHODS Fixative: Formalin Image Analysis: Not performed Oncology History: 08/08/2024: Left breast ST biopsy 08/19/2024: Left FNA Physical Examination: The left axilla demonstrates a well-healing incision and left breast demonstrates a well-healing incision. The surgical area is clean and dry and demonstrates no erythema or drainage. ECOG Performance Status: 0: Fully active, able to carry on all pre-disease performance without restriction CARE TEAM Primary Care Physician: Terence Britton MD Plastic and Reconstructive Surgery: Not required Medical Oncology: Dr. 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, left breast AJCC (8th Edition) Pathologic Stage: Cancer Staging Invasive ductal carcinoma of breast, female, left Staging form: Breast, AJCC 8th Edition - Clinical stage from 08/12/2024: Stage IIB (cT2, cN0, cM0, G3, ER-, FL-, HER2-) - Unsigned Stage prefix: Initial diagnosis Histologic grading system: 3 grade system - Pathologic stage from 10/15/2024: Stage IB (pT1b, pN0, cM0, G3, ER-, FL-, HER2-) - Unsigned Histopathologic type: Infiltrating duct carcinoma, NOS Stage prefix: Initial diagnosis Nuclear grade: G2 Multigene prognostic tests performed: IHC4 Histologic grading system: 3 grade system Residual tumor (R): R2 Laterality: Left Lymph-vascular invasion (LVI): LVI not present (absent)/not identified Specimen type: Excision HER2-IHC interpretation: Negative HER2-IHC value: Score 0 Plan: She can continue to shower and should keep the breast supported as she has been doing. Based on final pathology, surgery is considered complete. She will follow up with medical oncology and we discussed the reasons. She previously saw Dr. Verdin in [place], [place] for medical oncology and would like to proceed with treatment there. A radiation referral will also be placed based on adjuvant chemotherapy plan. Oncotype DX testing will be deferredgiven triple negative disease. We will see her back at 6 month intervals for the first two years. Her next breast screening is duein June 2025, for which bilateral diagnostic mammogram will be arranged. She understands that should she have any concerns or questions, she is welcome to either call at any time, or return to see us at any point. Dr. Ellen Edmonds MD Retail Sales Assistant of Surgical Oncology [facility] Cosigned by Ellen Edmonds MD at 10/28/2024 4:58 PM EDT Associated attestation - Ellen Edmonds MD - 10/28/2024 4:58 PM EDT Images from the original note were not included. Attending Attestation: I personally saw and evaluated the patient with the CIVIL ENGINEERING PROFESSOR. I attest to being involved in providing substantive time in patient care. I discussed the case with them and agree with the findings as documented. The discussion and plan reflect my edits and medical decision making. Dr. Ellen Edmonds MD Retail Sales Assistant of Surgical Oncology [facility] Healthcare documented in this encounter Plan of Treatment Upcoming Encounters Date Type Department Care Team (Late st Contact Info) Description 06/30/2025 1:00 PM EDT Appointment [facility] [address] [facility] [address] [place] [address] 06/30/2025 2:30 PM EDT Office Visit [facility] [address] [facility], [address] [place] [address] Ellen Edmonds MD [address] [facility] [address] [place] [address] Scheduled Orders Name Type Priority Associated Diagnoses Orde r Schedule Mammography Breast Diagnostic Tomosynthesis Bilateral Imaging Routine Invasive ductal carcinoma of breast, female, left Expected: 04/30/2025, Expires: 05/01/2026 documented as of this encounter Visit Diagnoses Diagnosis Invasive ductal carcinoma of breast, female, left- Primary documented in this encounter Additional Health Concerns Assessment Noted Time PHQ-9 Depression Total Score: 0 08/20/19 25 9:56 AM EDT A fall risk assessment has been complete d for the patient 10/28/2024 3:11 PM EDT A Body Mass Index follow-up plan has been documented for the patient 09/09/2024 4:49 PM EDT documented as of this encounter Care Teams Principal Biostatistician Relationship Specialty Start Date End Date Terence Britton MD [address] [place] [address] PCP - General 08/19/24 documented as of this encounter
[2024-11-18] VITALS (8 sets, daily range): BP systolic 108–133; BP diastolic 59–81; PULSE 65–78; RESP 18; TEMP 36.1–36.2; O2SAT 97
--- OUTSIDE RECORDS SUMMARY | 2024-11-18 09:15 | XMS_ITS | Clinical Summary ---
Author Organization [facility] Address [address] [place] [address] Care Team Providers Care Four Slide Operator Name Role Phone Terence Britton MD Primary Care Provider [phone] Allergies Active Allergy Reactions Criticality Noted Date [...] from 08/12/2024:Stage IIB(cT2, cN0, cM0, G3, ER-, WI-, HER2-) - Unsigned Pathologic stage from 10/15/2024:Stage IB(pT1b, pN0, cM0, G3, ER-, WI-, HER2-) - Unsigned Encounters Date Type Department Care Team Description 10/28/2024 3:30 PM EDT Office Visit [facility] [address] [place] [address], [address] [place] [address] Ellen Edmonds MD Invasive ductal carcinoma of breast, female, left (Primary Dx) 10/28/2024 Travel 10/16/2024 Telephone [facility] Breast [facility] [address] [address] Ellen Edmonds MD 10/15/2024 2:50 PM EDT Anesthesia Event [facility] A OPERATING ROOM [address] [place] [phone] Jessenia Humphreys MD 10/15/2024 12:45 PM EDT - 10/15/2024 3:50 PM EDT Surgery [facility] RO[facility] [address] [place] [phone] Ellen Edmonds MD Left localized lumpectomy sentinel lymph node [48247 (CPT )] 10/15/2024 12:30 PM EDT - 10/15/2024 11:59 PM EDT Hospital Encounter [facility] H Nuclear Medicine [address] [place] [phone] Breast cancer Discharge Disposition: Home or Self Care 10/15/2024 10:57 AM EDT - 10/15/2024 8:05 PM EDT Hospital Encounter [facility]PERATING RO[facility] [address] [place] [address] Ellen Edmonds MD Invasive ductal carcinoma of breast, female, left Discharge Disposition: Home or Self Care 10/15/2024 7:16 AM EDT - 10/15/2024 10:56 AM EDT Hospital [facility] [address] [facility] [address] [place] [address] Abnormal mammogram Discharge Disposition: Home or Self Care 10/15/2024 Travel 09/22/2024 10:10 AM EDT - 09/22/2024 11:59 PM EDT Hospital Encounter [facility] [address] [place] [address] Abnormal mammogram Discharge Disposition: Home or Self Care 09/22/2024 8:52 AM EDT - 09/22/2024 10:09 AM EDT Hospital Encounter [facility] [address] [facility] [address] [place] [address] Invasive ductal carcinoma of breast, female, left Discharge Disposition: Home or Self Care 09/22/2024 Travel 09/10/2024 Orders Only [facility] [address] [facility], [address] [place] [address] Ellen Edmonds MD Invasive ductal carcinoma of breast, female, left (Primary Dx) 09/09/2024 2:30 PM EDT Office Visit [facility]AV [facility] [address] [facility], [address] [place] [address] Ellen Edmonds MD Invasive ductal carcinoma of breast, female, left (Primary Dx) 09/09/2024 Orders Only Radiology Virtual Dept. [address] [place] [address] Mando Kay MD 09/09/2024 Travel 09/03/2024 9:00 AM EDT Consult [facility] Plastic & Reconstructive Surgery [facility] [place] [address] Jazmyn Pascual, MANAGER RELATIONSHIP, DNP Encounter to discuss breast reconstruction (Primary Dx); Invasive ductal carcinoma of breast, female, left; Tobacco use disorder 09/03/2024 Travel 08/26/2024 Telephone [facility] [address] [phone] Cely Hoff Distress Screen Follow-up 08/22/2024 11:00 AM EDT Clinical Support [facility] [address] [place] [phone] Pack, Michell N, GC Invasive ductal carcinoma of breast, female, left 08/22/2024 Travel 08/20/2024 Telephone [facility] [address] [address] Ellen Edmonds MD 08/20/2024 Telephone [facility] [address] [address] Jessica Dillon Nurse Liaison call 08/19/2024 11:58 AM EDT - 08/19/2024 11:59 PM EDT Hospital Encounter [facility] [address] [address] Abnormal finding on breast imaging (Primary Dx) Discharge Disposition: Home or Self Care 08/19/2024 11:12 AM EDT - 08/19/2024 11:57 AM EDT Hospital Encounter [facility] [address] [address] Invasive ductal carcinoma of breast, female, left Discharge Disposition: Home or Self Care 08/19/2024 10:00 AM EDT Office Visit [facility] [address] [address] Ellen Edmonds MD Invasive ductal carcinoma of breast, female, left (Primary Dx) 08/19/2024 Travel from Last 3 Months Family History Medical [...] Upcoming Encounters Date Type Department Care Team ([facility] st Contact Info) Description 06/30/2025 1:00 PM EDT Appointment [facility] Breast Care Center Comprehensive [facility] [place] [address] [address] [facility] [address] [place] [address] 06/30/2025 2:30 PM EDT Office Visit [facility] Breast Care Center [address] [facility], [address] [place] [address] Ellen Edmonds MD [address] [facility] [address] [address] Health Maintenance Due Date Last Done Comments [facility]-HIV Screening 1965 [facility]-Hepatitis C Screening 1965 [facility]-Infant/Child/Adol SDOH Screenings 1965 [facility]- SDOH Screenings 1985 [...] [facility]-Zoster Vaccines (2 of 2) 11/08/2021 09/13/2021 [id number] Vaccine ( season) 2023 03/30/2021, 07/21/2020, 06/23/2020 [...] on patient's age to complete this topic Medical Devices Implanted Type Area Product Representative Device Identifier Shelf Expiration Date Model / Serial / Lot Marker Smartclip Soft Tiss/Delvry Sys Pnk 5cm - [id number] Implanted:Qty: 1 on 09/22/2024 by Lien Martínez MD at [facility] Breast Left: Breast [employer] [id number] SMARTIPL T-[id number]-5 / / Procedures Procedure Name Priority Date/Time Associated Diagnosis Comments SURGICAL PATHOLOGY EXAM Routine 10/15/2024 4:16 PM EDT Invasive ductal carcinoma of breast, female, left PB ANESTHESIA PLACEHOLDER Routine 10/15/2024 3:14 PM EDT WI AN ELECTIVE SUPRAGLOTTIC AIRWAY Routine 10/15/2024 3:14 PM EDT WI BIOPSY/EXCISION, LYMPH NODE(S) 10/15/2024 2:38 PM EDT Invasive ductal carcinoma of breast, female, left WI MASTECTOMY, PARTIAL 2:38 PM EDT Invasive ductal [...] Invasive ductal carcinoma of breast, female, left from Last 3 Months Results * Surgical Pathology Exam (10/15/2024 4:16 PM EDT) Case Report Surgical Pathology Case: [id number] Authorizing Provider: Ellen Edmonds MD Collected: 10/15/2024 1616 Ordering Location: [facility] OPERATING ROOM Received: 10/15/2024 1633 Pathologist: Carli Grijalva MD Specimens: A) - Anderson Lymph Node, left axillary sentinel lymph node - blue and hot - [id number] B) - Breast, Left, left lumpectomy short [...] tao true margin 10/20/2024 4:08 PM EDT [facility] Final Diagnosis A. LYMPH [...] WITHOUT DIAGNOSTIC ABNORMALITY. 10/20/2024 4:08 PM EDT [facility] at 1608 EDT Synoptic [...] Examined (sentinel and non-sentinel): 2 Number of Anderson Nodes Examined: 2 pTNM CLASSIFICATION (AJCC 8th [...] Drug Administration (FDA) cleared (test / vendor): [employer] Primary Antibody: SP1 Scoring System: No separate scoring system used Test(s) Performed: Progesterone Receptor (PgR) Status: Negative (less than 1%) : Internal control cells present and stain as expected Test Type: Food and Drug Administration (FDA) cleared (test / vendor): [employer] Primary Antibody: 1E2 Scoring System: No separate scoring system used Test(s) Performed: HER2 by Immunohistochemist ry: Negative (Score 0) Test Type: Food and Drug Administration (FDA) cleared (test / vendor): [employer] Primary Antibody: 4B5 Cold Ischemia and Fixation Times: Meet requirements specified in latest version of the ASCO / CAP Guidelines METHODS Fixative: Formalin Image Analysis: Not performed 10/20/2024 4:08 PM EDT [facility] Clinical Information Invasive ductal carcinoma of breast, female, left [C50.912] 10/20/2024 4:08 PM EDT [facility] Gross Description A. LEFT AXILLARY SENTINEL LYMPH NODE - BLUE AND HOT - 91272 The specimen is received fresh and placed [...] and 5% olea - white fibromembranous tissue. Sign Language Instructor sections are submitted as follows: B1-B6: Slice [...] in formalin, labeled i nferior shave clips toa true margin , and consists of two [...] FLOR Atkinson (ASCP) 10/20/2024 4:08 PM EDT [facility] Note: A resident was involved in the service. I attest I examined the relevant preparations for the specimens and confirmed the diagnosis or interpretation. 10/20/2024 4:08 PM EDT [facility] Lymph Node Specimen from [...] MD LAB PATHOLOGY ORDERABLES Final R esult [facility] [address] [place] [address] * WI AN ELECTIVE SUPRAGLOTTIC AIRWAY, PB ANESTHESIA PLACEHOLDER (10/15/2024 3:14 PM EDT) Narrative Layo Wen OPERATING SYSTEMS SPECIALIST - 10/15/2024 3:14 PM EDT Layo Wen CRNA 10/15/2024 3:15 PM Airway Date/Time: 10/15/2024 3:14 PM Reason: elective Airway not difficult General Information and Staff Patient location during procedure: OR OPERATING SYSTEMS SPECIALIST: Layo Wen CRNA Performed: PAM Patient Condition Indications for airway management: anesthesia Patient position: sniffing MILS maintained throughout Final Airway Details Final airway type: LMALMA Size: 4 LMA Type: flexible us Jessenia Humphreys MD ANESTHESIA ORDERABLES Final R esult * NM Dermal Injection Anderson Node (10/15/2024 1:31 PM EDT) Anatomical Region [...] as marked on the skin, by the interventional radiology technologist at 1:31 PM. COMPARISON/CORRELATION: Not applicable. [...] as marked on the skin, by the interventional radiology technologist at 1:31PM. COMPARISON/CORRELATION: Not applicable. FINDINGS: No imaging performed. No immediate complication. IMPRESSION: Preoperative intradermal injections for sentinel lymph node surgery. CRITICAL RESULT: No. COMMUNICATION: Per this written report. By electronically signing this report, I, the attending physician, evelynat I have personally reviewed the images/data for the aboveexamination(s) and agree with the final edited report. Drafted by Adrian Clifton MD on 10/15/2024 2:43 PM Final report signed by Mando Kay MD on 10/15/2024 3:11 PM us Ellen Edmonds MD IMG NM PROCEDURES Final Result * (ABNORMAL) POCT glucose meter (10/15/2024 12:48 PM EDT) POCT Glucose 101(H) 74 - 99 mg/dL 10/15/2024 12:49 PM EDT [facility] Comment:Accuracy of a glucos e result [...] for testing. Comment 10/15/2024 12:49 PM EDT [facility] Manager Of Compensation ID Dianne Zhu 10/15/2024 12:49 PM EDT [facility] Device ID [id number] 10/15/2024 12:49 PM EDT [facility] Specimen Type POC Capillary 10/15/2024 12:49 PM EDT [facility] Blood Capillary blood specimen / Unknown 10/15/2024 12:48 PM EDT 10/15/2024 12:49 PM EDT us Ellen Edmonds MD LAB POINT OF CARE TE ST DOCKED DEVICE UNSOLICITED RESULTS Final Result [facility] [address] [place] [address] * Mammography Breast Surgical Specimen (10/15/2024 7:16 [...] Lien Martínez MD on 09/22/2024 11:00 AM us Ellen Edmonds MD IMG BI PROCEDURES Final [...] documented in the patient's chart at the [facility]. Drafted by Lein Martínez MD on 08/21/2024 11:18 AM Final [...] Myla Dhaliwal MD on 08/19/2024 1:15 PM Ellen Edmonds MD [facility] [place] PROCEDURES Edited Result - Final * Fine needle aspiration (08/19/2024 12:45 PM EDT) Case Report Cytology Case: [id number] Authorizing Provider: Ellen Edmonds MD Collected: 08/19/2024 8615 Ordering Location: [facility] Received: 08/19/2024 7378 Pathologist: Carli Grijalva MD Specimen: Lymph Node, Left Axilla, Fine Needle Aspiration, LYMPH NODE, LEFT AXILLA ULTRASOUND GUIDED FINE NEEDLE ASPIRATION 08/20/2024 2:49 PM EDT [facility] Final Diagnosis A. LYMPH NODE, LEFT AXILLA ULTRASOUND GUIDED FINE NEEDLE ASPIRATION: - LYMPHOID TISSUE PRESENT - NO EVIDENCE OF MALIGNANCY 08/20/2024 2:49 PM EDT [facility] at 1449 EDT Immediate Evaluation FNA performed by: Dr. Dhaliwal Number of sticks: 4 Immediate evaluation performed by: Dr. Grijalva / LT Evaluation episode # 1-4: Adequate The immediate evaluation in this case was performed via telecytology by the attending physician listed above. 08/20/2024 2:49 PM EDT [facility] Gross Description A. LYMPH NODE, LEFT AXILLA ULTRASOUND GUIDED FINE NEEDLE ASPIRATION 5 ml's clear Needle rinse fluid processed as ThinPrep for complete evaluation of sample. Received 4 diff quick slides and 4 pap slides. 08/20/2024 2:49 PM EDT [facility] Note: A resident was involved in the service. I attest I examined the relevant preparations for the specimens and confirmed the diagnosis or interpretation. 08/20/2024 2:49 PM EDT [facility] Clinical Information R92.8 - Abnormal finding on breast imaging [ICD-10-CM] 08/20/2024 2:49 PM EDT [facility] Fine Needle Aspirate Structure of lymph node / Unknown 08/19/2024 12:45 PM EDT 08/19/2024 2:03 PM EDT us Ellen Edmonds MD LAB CYTOLOGY ORDERABLES Final Re sult Performing Organization Address City/State/[facility] Co de Phone Number [facility] [address] [place] [address] * (ABNORMAL) US Breast Limited Left (08/19/2024 [...] Edmonds MD IMG BI PROCEDURES Final Result from Last 3 Months Insurance MARLENE Care Teams Four Slide Operator Relationship Specialty Start Date End Date Terence Britton MD [address] [place] [address] PCP - General 08/19/24
--- OUTSIDE RECORDS SUMMARY | 2024-11-18 09:16 | XMS_ITS | Encounter Summary ---
Author Organization Healthcare Address [address] [place] [address] Care Team Providers Care Metal Drill Press Operator Name Role Phone Terence Britton MD Primary Care Provider [phone] Encounter Details Date Type Department Care Team (Late Contact Info) Description 07/01/2024 Orders Only External Location [address] [place] [address] Provider, External Social History Tobacco [...] Breast Care Center [facility] [place] [address] [address] [facility] [address] [place] [address] 06/30/2025 2:30 PM EDT Office Visit [facility] [address] [facility], 2nd [place] [address] Ellen Edmonds MD 800 [facility] [address] [place] [address] documented as of this encounter [...] on filedocumented in this encounter Care Teams Metal Drill Press Operator Relationship Specialty Start Date End Date Terence Britton MD [address] [place] [address] PCP - General 08/19/24 documented as of this encounter
--- OUTSIDE RECORDS SUMMARY | 2024-11-18 09:16 | XMS_ITS | Encounter Summary ---
Author Organization Healthcare Address [address] [place] [address] Care Team Providers Care Cardiology Physician Assistant Name Role Phone Terence Britton MD Primary Care Provider [phone] Encounter Details Date Type Department Care Team (Late Contact Info) Description 07/15/2018 Orders Only External Location [address] [place] [address] Provider, External Social History Tobacco [...] Breast Care Center [facility] [place] [address] [address] [facility] [address] [place] [address] 06/30/2025 2:30 PM EDT Office Visit [facility] [address] [facility], 2nd [place] [address] Ellen Edmonds MD [address] [facility] [address] [place] [address] documented as of this encounter [...] on filedocumented in this encounter Care Teams Cardiology Physician Assistant Relationship Specialty Start Date End Date Terence Britton MD [address] [place] [address] PCP - General 08/19/24 documented as of this encounter
--- OUTSIDE RECORDS SUMMARY | 2024-11-18 09:16 | XMS_ITS | Encounter Summary ---
Author Organization [facility] Address [address] [place] [address] Care Team Providers Care Behavioral Geneticist Name Role Phone Terence Britton MD Primary Care Provider [phone] Encounter Details Date Type Department Care Team [...] Breast Care Center [facility] Alejandrina Benavides [facility] [address] [place] [address] 06/30/2025 2:30 PM EDT Office Visit [facility] [address] [facility], 2nd [place] [address] Ellen Edmonds MD [address] [facility] Moun[address] Benavides [facility] [address] [place] [address] documented as of this encounter Visit Diagnoses [...] documented as of this encounter Care Teams Behavioral Geneticist Relationship Specialty Start Date End Date Terence Britton MD [address] [place] [address] PCP - General 08/19/24 documented as of this encounter
--- OUTSIDE RECORDS SUMMARY | 2024-11-18 09:16 | XMS_ITS | Encounter Summary ---
Author Organization Healthcare Address [address] [place] [address] Care Team Providers Care Production Quality Analyst Name Role Phone Terence Britton MD Primary Care Provider [phone] Encounter Details Date Type Department Care Team [...] Breast Care Center [facility] [place] [address] [address] [facility] [address] [place] [address] 06/30/2025 2:30 PM EDT Office Visit [facility] [address] [facility], [address]nd [place] [address] Ellen Edmonds MD [address] [facility] [address] [phone] documented as of this encounter Visit Diagnoses [...] documented as of this encounter Care Teams Production Quality Analyst Relationship Specialty Start Date End Date Terence Britton MD [address] [place] [address] PCP - General 08/19/24 documented as of this encounter
--- OUTSIDE RECORDS SUMMARY | 2024-11-18 09:16 | XMS_ITS | Encounter Summary ---
Author Organization Healthcare Address [address] [place] [address] Care Team Providers Care Preparation Plant Supervisor Name Role Phone Terence Britton MD Primary Care Provider [phone] Encounter Details Date Type Department Care Team [...] Breast Care Center [facility] [place] [address] [address] [facility] [address] [place] [address] 06/30/2025 2:30 PM EDT Office Visit [facility] [address] [facility], [address]nd [place] [address] Ellen Edmonds MD [address] [facility] [address] [phone] documented as of this encounter Visit Diagnoses [...] documented as of this encounter Care Teams Preparation Plant Supervisor Relationship Specialty Start Date End Date Terence Britton MD [address] [place] [address] PCP - General 08/19/24 documented as of this encounter
--- OUTSIDE RECORDS SUMMARY | 2024-11-18 09:16 | XMS_ITS | Patient Health Record ---
[facility] [address] [facility] [address] [place] [id number] Care Team Providers Care Whiskey Filterer Name Role Phone Carola Britton Primary Care Provider Allergies Allergen (clinical drug ingredient) Drug/Non Drug Allergy documented on EMR Reaction Allergy Type Onset Date Status amoxicillin / clavulanate Augmentin vomiting Drug Allergy Active Results Component Value Reference Range Notes P-Hemoglobin A1C Reviewed date:08/08/2024 12:26:23 PM Interpretation:a1c 6.2 Performing Lab: Notes/Report: Test performed by [facility] [address] [place], [place] [address] [place] , [address], [place] [address] Alejandro Cabrales MD, Broke Beater CLIA: [id number] Hemoglobin A1C 6.2 <5.7 % The following HbA1c ranges recommended by the [place] [employer] (ADA) may be used as an aid in the diagnosis of diabetes mellitus. HbA1c Suggested Diagnosis >=6.5% Diabetic 5.7% - 6.4% Pre-Diabetic <5.7% Non-Diabetic P-Basic Metabolic Panel (BMP ) Reviewed date:08/08/2024 12:26:23 PM Interpretation:Normal Performing Lab: Notes/Report: Test performed by [facility] [address] [place], [place] [address] [place] , [address], [place] [address] Alejandro Cabrales MD, Broke Beater CLIA: [id number] Sodium 141 135-145 mmol/L Potassium 4.2 3.5-5.3 mmol/L Chloride 104 97-108 mmol/L CO2 26 22-32 mmol/L Glucose 90 65-99 mg/dL BUN 13 6-20 mg/dL Creatinine 0.70 0.50-1.00 mg/dL Calcium 9.6 8.6-10.4 mg/dL eGFR by Creatinine 101 >59 mL/min/1.73m2 P-Lipid Panel Reviewed date:05/29/2024 09:56:08 AM Interpretation:satisfactory Performing Lab: Notes/Report: Test performed by [facility] [address] [facility] [address], [place] [address] Alejandro Cabrales MD, Broke Beater CLIA: [id number] Cholesterol 105 <200 mg/dL Triglycerides 90 <150 [...] Results: 50 Units: mg/dL % Change: - P-Comprehensive Metabolic Pa mariama (CMP) Reviewed date:05/29/2024 09:56:08 AM Interpretation:gluc 113, a1c discussed in OV Performing Lab: Notes/Report: Test performed by [facility] [address] [place] [address] [address], [place] [address] Alejandro Cabrales MD, Broke Beater CLIA: [id number] Sodium 142 135-145 mmol/L Potassium 4.4 3.5-5.3 [...] 0.4 <0.2-1.2 mg/dL A/G Ratio 1.5 1.1-2.5 Glycohemoglobin A1c (in hous e) Reviewed date:05/23/2024 12:45:47 PM Interpretation:6.2 Performing Lab: Notes/Report: 6.2 glycohemoglobin 6.2% 5 - 6.5 % Estimated Average Glucose Reviewed date:08/08/2024 12:26:23 PM Interpretation:Normal Performing Lab: Notes/Report: Test performed by [facility] [address] [place] [address] [address], [place] [address] Alejandro Cabrales MD, Broke Beater CLIA: [id number] Estimated Average Glucose (eAG) 131 Estimated Average Glucose (eAG) is calculated using the equation eAG = (28.7 x HbA1c) - 46.7 based on the guidelines established by the ADA. If the patient has certain diseases including kidney disease, sickle cell anemia, thalassemia, or is taking medications such as dapsone, erythropoietin, or iron, eAG should not be evaluated. Medications Medication SIG (Take, Route, Frequency, Duration) Notes Start Date End Date Status Potassium Chloride ER 10 MEQ 1 tab(s) Or ally once daily; Duration: 30 days Active Losartan Potassium 25 MG 1 tablet Orally once daily; Duration: 30 days Active metFORMIN HCl 850 MG 1 tablet with a uriel l Orally Once a day; Duration: 30 days Active Rosuvastatin Calcium 10 MG 1 tablet Oral ly once daily; Duration: 30 days Active Vitamin B-12 1000 MCG 1 tab(s) orally on a day 07/24/2016 Active Vitamin D3 125 MCG (5000 UT) 1 cap(s) or ally once a day; Duration: 30 day(s) Active ZyrTEC Allergy 10 MG 1 tab(s) orally onc e a day Active hydroCHLOROthiazide 25 MG 1 tablet in th e morning Orally Once a day; Duration: 30 day(s) 01/21/2024 Active CoQ-10 100 MG 1 cap(s) orally once a day; Duration: 30 day(s) 10/22/2019 Active Immunizations Vaccine Route Administration Date Status Comme nts COVID 19 Moderna Unknown 06/23/2020 Administered COVID 19 Moderna Unknown 07/21/2020 Administered COVID 19 Moderna Unknown 03/30/2021 Administered Flublok IM Intramuscular 01/14/2020 Administered Fluzone Quad (6months&older) IM Intramuscular 02/09/2021 Administered Fluzone Quad (6months&older) IM Intramuscular 01/09/2022 Administered Fluzone Quad (6months&older) IM Intramuscular 02/05/2023 Administered Fluzone Quad (6months&older) IM Intramuscular 01/21/2024 Administered Shingrix IM Intramuscular 09/13/2021 Administered Shingrix IM Intramuscular 03/15/2022 Administered Tetanus Tdap-Adacel (over 7yrs) IM Intramuscular 06/17/2018 Administered Problems Problem Type SNOMED Code ICD Code Onset Dates Problem Status W/U Status Risk Notes Problem Hyperglycemia (53441434) Hyperglycemia (R73.9) Active confirmed Problem Vitamin B12 deficiency (288727057) Vitamin B12 deficiency (E53.8) Active confirmed Problem Essential hypertension (06314136) Essential hypertension (I10) Active confirmed Problem Mixed hyperlipidemia (502285386) Mixed hyperlipidemia (E78.2) Active confirmed Problem Vaccination given (817245975) Encounter for immunization (Z23) Active confirmed Problem Abnormal vaginal bleeding (280945151) DUB (dysfunctional uterine bleeding) (N93.8) Active confirmed Problem Fibrocystic breast changes (71110955) Fibrocystic breast, unspecified laterality (N60.19) Active confirmed Problem New daily persistent headache (548642256605333) New daily persistent headache (G44.52) Active confirmed Problem Chronic vaginitis (62750422) Chronic vaginitis (N76.1) Active confirmed Problem Vulvovaginitis (28010867) Vulvovaginitis (N76.0) Active confirmed Problem Mammography abnormal (728407262) Abnormal mammogram of right breast (R92.8) Active confirmed Problem Type II diabetes mellitus without complication (663015044) Type 2 diabetes mellitus without complication, without long-term current use of insulin (E11.9) Active confirmed Problem Urge incontinence of urine (11970220) Urge incontinence of urine (N39.41) Active confirmed Problem Cigarette smoking tobacco (substance) (30544265) Smoking history (Z87.891) Active confirmed Problem Fibrocystic breast changes (92001093) Fibrocystic breast disease (FCBD), unspecified laterality (N60.19) Active confirmed Problem Cyst of right ovary (8533028724957763 8) Cyst of right ovary (N83.201) Active confirmed Problem Hordeolum externum (4179852) Hordeolum externum of left upper eyelid (H00.014) Active confirmed Problem Ganglion cyst of left wrist (811435384239383) Ganglion cyst of dorsum of left wrist (M67.432) Active confirmed Problem Lichen sclerosus of vulva (316898311) Lichen sclerosus of vulva (N90.4) Active confirmed Vital Signs Heart Rate 79 /min 08/04/2024 Blood pressure diastolic 84 mm Hg 08/04/2024 Height 64.75 in 08/04/2024 Blood pressure systolic 120 mm Hg 08/04/2024 Weight 229.4 lbs 08/04/2024 BMI 38.47 kg/m2 08/04/2024 Encounters Encounter Location Date Provider Diagnosis [facility] [address] [place] [id number] 01/21/2024 Carola Britton Encounter for immunization Z23 and Essential hypertension I10 [facility] [address] [facility] [address] [place] [id number] 05/23/2024 Carola Britton Essential hypertensi on I10 ; Mixed hyperlipidemia E78.2 ; Hyperglycemia R73.9 and Type 2 diabetes mellitus without complication, without long-term current use of insulin E11.9 [facility] [address] [facility] [address] [facility] [address] [place] [id number] 08/04/2024 Carola Britton Essential hypertensi on I10 ; Vulvovaginitis N76.0 ; Lichen sclerosus of vulva N90.4 and Type 2 diabetes mellitus without complication, without long-term current use of insulin E11.9 [facility] [address] [facility] [address] [facility] [address] [place] [id number] 05/26/2024 Carola Britton Type 2 diabetes alsiha itus without complication, without long-term current use of insulin E11.9 [facility] [address] [facility] [address] [facility] [address] [place] [id number] 08/08/2024 Carola Britton Assessments Encounter Date Diagnosis (ICD Code) Assessment Notes Treatment Notes Treatment Clinical Notes Section Notes 01/21/2024 Essential hypertension (ICD-10 - I10) 01/21/2024 Encounter for immunization (ICD-10 - Z23) 05/26/2024 Type 2 diabetes mellitus without complication, without long-term current use of insulin (ICD-10 - E11.9) 08/04/2024 Essential hypertension (ICD-10 - I10) 08/04/2024 Vulvovaginitis (ICD-10 - N76.0) 05/23/2024 Essential hypertension (ICD-10 - I10) 05/23/2024 Mixed hyperlipidemia (ICD-10 - E78.2) 08/04/2024 Lichen sclerosus of vulva (ICD-10 - N90.4) 05/23/2024 Hyperglycemia (ICD-10 - R73.9) 05/23/2024 Type 2 diabetes mellitus without complication, without long-term current use of insulin (ICD-10 - E11.9) 08/04/2024 Type 2 diabetes mellitus without complication, without long-term current use of insulin (ICD-10 - E11.9) Plan Of Treatment Next Appt Details Provider Name:Carola Sharma er, 12/01/2024 10:00:00 AM, [address] [facility] [address] [facility], [address], [place], [id number], Insurance Providers Payer Name Payer Address Payer Phone Subscriber Number Group Number Insured Name Patient Relationship to Insured Coverage Start Date Coverage End Date MARLENE VELAZCO [address] [place] [address] [id number] CHRISTAL RIVERA Self - patient is the insured Medications Administered Medication Instructions Date of Administration Dosage Notes B-12 07/24/2016 1 mL B-12 10/24/2016 1 mL B-12 08/14/2018 1 mL Dexamethasone 08/23/2011 1 mL Dexamethasone 07/23/2012 Medical (General) History Medical History History ICD Code 06/2018 mammogram COVID 19 Vaccine, Moderna Jun/May 2020 Hives have cleared since Zolair Encounter for vaccination Z23 decreased vision OS, traumatic Surgical History Surgery Date(Month/Year) left ear drum X 2 BTL poylps from vocal cord 05/18/14 poylps removed from vocal cords endometrial polyp, Dr. Vale 2011 Colonoscopy, Dr. Berrios, adenomatous polyp s 08/01/2018 Hospitalization History Reason Date(Month/Year) ears
--- OUTSIDE RECORDS SUMMARY | 2024-11-18 09:16 | XMS_ITS | Encounter Summary ---
Author Organization Healthcare Address [address] [place] [address] Care Team Providers Care Occupational Health Nurse Manager Name Role Phone Terence Britton MD Primary Care Provider [phone] Encounter Details Date Type Department Care Team (Late st Contact Info) Description 10/16/2024 Telephone [facility] [address] [place] [address] Ellen Edmonds MD [address] [place] [address] Social History Tobacco Use Types Packs/Day [...] at any time. Please call back at [phone]. documented in this encounter Plan of Treatment Upcoming Encounters Date Type Department Care Team (Late st Contact Info) Description 06/30/2025 1:00 PM EDT Appointment [facility] [place] [address] Mouna Benavides [facility] [address] [place] [address] 06/30/2025 2:30 PM EDT Office Visit [facility] [address] [facility], [address] [place] [address] Ellen Edmonds MD [address] [facility] Mouna Benavides [address] [address] documented as of this encounter Visit [...] documented as of this encounter Care Teams Occupational Health Nurse Manager Relationship Specialty Start Date End Date Terence Britton MD [address] [place] [address] PCP - General 08/19/24 documented as of this encounter
--- OUTSIDE RECORDS SUMMARY | 2024-11-18 09:16 | XMS_ITS | Encounter Summary ---
Author Organization Healthcare Address [address] [place] [address] Care Team Providers Care Wool Hat Flanger Name Role Phone Terence Britton MD Primary Care Provider Encounter Details Date Type Department Care Team (Late Contact Info) Description 07/21/2024 Orders Only External Location [address] [place] [address] Provider, External Social History Tobacco [...] [facility] [place] [address] Mouna Benavides [facility] [address] [place] [address] 06/30/2025 2:30 PM EDT Office Visit [facility] [address] [facility], [address] [place] [address] Ellen Edmonds MD [address] [facility] [address] [place] [address] documented as of this encounter [...] on filedocumented in this encounter Care Teams Wool Hat Flanger Relationship Specialty Start Date End Date Terence Britton MD [address] [place] [address] PCP - General 08/19/24 documented as of this encounter
--- OUTSIDE RECORDS SUMMARY | 2024-11-18 09:16 | XMS_ITS | Encounter Summary ---
Author Organization Healthcare Address [address] [place] [address] Care Team Providers Care Medical Scientific Liaison Name Role Phone Terence Britton MD Primary Care Provider [phone] Encounter Details Date Type Department Care Team (Late Contact Info) Description 07/15/2018 Orders Only External Location [address] [place] [address] Provider, External Social History Tobacco [...] [facility] [place] [address] Mouna Benavides [facility] [address] [place] [address] 06/30/2025 2:30 PM EDT Office Visit [facility] [address] [facility], [address] [place] [address] Ellen Edmonds MD [address] [facility] [address] [place] [address] documented as of this encounter [...] on filedocumented in this encounter Care Teams Medical Scientific Liaison Relationship Specialty Start Date End Date Terence Britton MD [address] [place] [address] PCP - General 08/19/24 documented as of this encounter
--- OUTSIDE RECORDS SUMMARY | 2024-11-18 09:16 | XMS_ITS | Encounter Summary ---
Author Organization Healthcare Address [address] [place] [address] Care Team Providers Care Oven Press Tender Name Role Phone Terence Britton MD Primary Care Provider [phone] Encounter Details Date Type Department Care Team (Late Contact Info) Description 07/16/2019 Orders Only External Location [address] [place] [address] Provider, External Social History Tobacco [...] [facility] [place] [address] M[address]a [address] [facility] [address] [place] [address] 06/30/2025 2:30 PM EDT Office Visit [facility] [address] [facility], [address] [place] [address] Ellen Edmonds MD [address] [facility] [address] [place] [address] documented as of this encounter [...] on filedocumented in this encounter Care Teams Oven Press Tender Relationship Specialty Start Date End Date Terence Britton MD [address] [place] [address] PCP - General 08/19/24 documented as of this encounter
--- OUTSIDE RECORDS SUMMARY | 2024-11-18 09:16 | XMS_ITS | Encounter Summary ---
Author Organization Healthcare Address [address] [place] [address] Care Team Providers Care Translator And Interpreter Name Role Phone Terence Britton MD Primary Care Provider [phone] Encounter Details Date Type Department Care Team (Late Contact Info) Description 01/17/2019 Orders Only External Location [address] [place] [address] Provider, External Social History Tobacco [...] [facility] [place] [address] Mouna Benavides [facility] [address] [place] [address] 06/30/2025 2:30 PM EDT Office Visit [facility] [address] [facility], [address] [place] [address] Ellen Edmonds MD [address] [facility] [address] [place] [address] documented as of this encounter [...] on filedocumented in this encounter Care Teams Translator And Interpreter Relationship Specialty Start Date End Date Terence Britton MD [address] [place] [address] PCP - General 08/19/24 documented as of this encounter
[2024-11-18] MEDS: DEXAMETHASONE 4MG TABLET 8 MG (09:25)
[2024-11-18] MEDS: 0.9 % SODIUM CHLORIDE 100 ML IV (09:25)
[2024-11-18] MEDS: ONDANSETRON 4MG ODT 16 MG (09:25)
--- NOTE | 2024-11-18 10:00 | PC.NURSE ---
[facility] nurse navigator at chair side educating pt on chemotherapy
[2024-11-18] MEDS: WATER IV (10:10)
[2024-11-18] MEDS: DOCETAXEL IV (10:10)
[2024-11-18] MEDS: DEXTROSE 5% IV (10:10)
[2024-11-18] MEDS: CYCLOPHOSPHAMIDE IV (11:21)
[2024-11-18] MEDS: SODIUM CHLORIDE 0.9% IV (11:21)
== END 2024-11-18 12:13 | disposition home or self-care (01) ==
LOC: INF 09:13
PROVIDERS: PCP Family Medicine; Visit Provider Internal Medicine Medical Oncology
DX: C50.912 Malignant neoplasm of unspecified site of left female breast (principal); Z51.11 Encounter for antineoplastic chemotherapy
CPT/HCPCS: 96413; 96415; 96417; J7060; J8540; J9075; J9171; Q0162

== ENCOUNTER 2024-12-09 08:23 | Outpatient (CLI) | payer BC, SELFPAY ==
--- OUTSIDE RECORDS SUMMARY | 2024-01-21 06:00 | XMS_ITS ---
Author [facility] Address [address] [place] [phone] Care Team Providers Care Animal Control Supervisor Name Role Phone Carola Britton Primary Care Provider [phone] Allergies Allergen (clinical drug ingredient) Drug/Non Drug [...] Encounter Location Date Provider Diagnosis [facility] [facility] 36 [facility] [address] [place] [phone] 01/21/2024 Carola Britton Encounter for immunization Z23 [...] Provider Name:Carola Sharma er, 03/13/2025 10:15:00 AM, [facility]0 [facility] 36 [facility], [address], [place], [phone], Progress Notes * MIRIAM GALVANADOB:1965 (59 yo F)Acc No.[id number]:01/21/2024 Progress Notes Patient: CHRISTAL GARZA Provider: Carola Britton M.D. :1965 A ge:58 Y S ex:Female Date:01/21/2024 Address:[address] [place], [place] [id number] Subjective: * Chief Complaints: * 1 [...] * Images: Billing Information: * Visit Code: 95682 Office Visit, Est Pt., Level 3. * Procedure Codes: * Electronic signature of Carola Britton MD on 12/09/2024 at 08:47 AM EDT Sign off status: Pending * Provider: Carola Britton M.D. Date: Generated for Gelai ng/Fasofiag/eTransmitting on: 0 12/09/2024 08:47 AM EDT History and Physical Notes * [...]
--- OUTSIDE RECORDS SUMMARY | 2024-05-23 05:30 | XMS_ITS ---
Author Organization [facility] Address [address] [place] [id number] Care Team Providers Care Medical Lead Name Role Phone Carola Britton Primary Care [...] OV Performing Lab: Notes/Report: Test performed by [facility] [address] [place] [address] , [address], [place] [address] Alejandro Cabrales MD, Architectural Draftsperson CLIA: [id number] Sodium 142 135-145 mmol/L Potassium 4.4 3.5-5.3 [...] Interpretation:satisfactory Performing Lab: Notes/Report: Test performed by [facility], [address] , [address], [place] [address] Alejandro Cabrales MD, Architectural Draftsperson CLIA: [id number] Cholesterol 105 <200 mg/dL Triglycerides 90 <150 [...] Status W/U Status Risk Notes Problem Type 2 diabetes mellitus without complication, without long-term current use of insulin (E11.9) Active confirmed Vital Signs Blood pressure systolic 110 mm Hg 05/23/19 25 Blood pressure diastolic 78 mm Hg 025 Heart Rate 79 /min 05/23/2024 Height 64.75 in 05/23/2024 Weight 237.8 lbs 05/23/2024 BMI 39.87 kg/m2 05/23/2024 Encounters Encounter Location Date Provider Diagnosis [facility] [facility] [address], [place] [id number] 05/23/2024 Carola Britton Essential hypertensi on I10 [...] 03/13/2025 10:15:00 AM, [address], [address], [place], [id number], Progress Notes * MIRIAM GALVANADOB:1965 (59 yo F)Acc No.[id number]:05/23/2024 Progress Notes Patient: CHRISTAL GARZA Provider: Carola Britton M.D. :1965 A ge:59 Y S ex:Female Date:05/23/2024 Address:[address] [place] [address] [place], [id number] Subjective: * Chief Complaints: * 1 . [...] T riglycerides 90 <150 - mg/dL * Underhill CenterHanna desouza Fredy 05/29/2024 9:5 5:58 AM >Patient informed of normal results. 3.?Hyperglycemia?LAB: Glycohemoglobin A1c (in house) (Collection Date & Time - 05/23/2024)? 6.2* Value Reference Range g lycohemoglobin 6.2% 5 - 6.5 % * VickieHanna L 05/23/2024 11: 01:11 AM > , Provider reviewed results while patient in office. 4.?Type 2 diabetes mellitus without complication, without long-term current use of insulin? Start metFORMIN HCl Tablet, 850 MG, 1 tablet with a meal, Orally, Once a day, 30 day(s), 30, Refills 4.?? * Procedure Codes: 3 6416 CAPILLARY BLOOD DRAW, 75052 GLYCATED HEMOGLOBIN TEST, Modifiers: QW , 3044F HG A1C LEVEL LT 7.0%, 3074F SYST BP LT 130 MM HG, 3078F DIAST BP < 80 MM HG * Follow Up: 2 months * Images: Billing Information: * Visit Code: 36645 Office Visit, Est Pt., Level 4. * Procedure Codes: 51975 CAPILLARY BLOOD DRAW. 44777 GLYCATED HEMOGLOBIN TEST. Modifiers: QW 3044F HG A1C LEVEL LT 7.0%. 3074F SYST BP LT 130 MM HG. 3078F DIAST BP < 80 MM HG. * Electronic signature of Carola Britton MD on 12/09/2024 at 08:47 AM EDT Sign off status: Pending * Provider: Carola Britton M.D. Date: 0 05/23/2024 Generated for Gelai ng/Cindy/eTransmitting on: 0 12/09/2024 08:47 AM EDT History [...]
--- OUTSIDE RECORDS SUMMARY | 2024-10-15 07:16 | XMS_ITS | Encounter Summary ---
Author Organization [facility] Address [address] [place] [id number] Care Team Providers Care Parachute Rigger Name Role Phone Terence Britton MD Primary Care Provider [phone] Reason for Visit * Auth/Cert (Routine) Specialty Diagnoses / Procedures Referred By Contac t Referred To Contact Diagnoses Invasive ductal carcinoma of breast, female, left Invasive ductal carcinoma of breast, female, left [C50.912] Procedures OR MASTECTOMY, PARTIAL OR BIOPSY/EXCISION, LYMPH NODE(S) OR BX/REMV,LYMPH NODE,DEEP AXILL OR INTRAOPERATIVE SENTINEL LYMPH NODE ID W DYE INJECTION Left localized lumpectomy sentinel lymph node EXCISION, LYMPH NODE, SENTINEL Ellen Edmonds MD [address] [facility] [address] [phone] Phone: tel: fax: [facility] [address] [place] [phone] Phone: tel: Referral ID Status Reason Start Date Expiration Date Visits Re quested Visits Authorized [id number] 1 1 Encounter Details Date Type Department Care Team (Latest Contact Info) Description 10/15/2024 7:16 AM EDT - 10/15/2024 10:56 AM EDT Hospital Encounter [facility] [address] [place] [address] Abnormal mammogram Discharge Disposition: Home or Self Care Social History Tobacco Use Types Packs/Day Years Used Date Smoking Tobacco: Every Day Cigarettes 1 9.7 Started: 2016 Passive Smoke Exposure: Never Smokeless [...] [facility] [address] [place] [address] 06/30/2025 2:30 PM EDT Office Visit [facility] [address] [facility] [place] [address] Ellen Edmonds MD [address] [facility] [address] [place] [address] documented as of this encounter [...] documented as of this encounter Care Teams Parachute Rigger Relationship Specialty Start Date End Date Terence Britton MD [address] [place], [place] [address] PCP - General 08/19/24 documented as of this encounter
--- OUTSIDE RECORDS SUMMARY | 2024-10-15 10:57 | XMS_ITS | Encounter Summary ---
Author Organization [facility] Address [address] [place] [address] Care Team Providers Care Spine Specialist Name Role Phone Terence Britton MD Primary Care Provider [phone] Reason for Visit * Auth/Cert (Routine) Specialty Diagnoses / Procedures Referred By Contac t Referred To Contact Diagnoses Invasive ductal carcinoma of breast, female, left Invasive ductal carcinoma of breast, female, left [C50.912] Procedures FL MASTECTOMY, PARTIAL FL BIOPSY/EXCISION, LYMPH NODE(S) FL BX/REMV,LYMPH NODE,DEEP AXILL FL INTRAOPERATIVE SENTINEL LYMPH NODE ID W DYE INJECTION Left localized lumpectomy sentinel lymph node EXCISION, LYMPH NODE, SENTINEL Ellen Edmonds MD [address] [facility] Mouna Benavides macy [address] [address] Phone: tel: fax: [facility] [address] [place] [address] Phone: tel: Referral ID Status Reason Start Date Expiration Date Visits Re quested Visits Authorized [id number] 1 1 Encounter Details Date Type Department Care Team (Late st Contact Info) Description 10/15/2024 10:57 AM EDT - 10/15/2024 8:05 PM EDT Hospital Encounter [facility] OPERATING ROOM [address] [place] [address] Ellen Edmonds MD [address] [facility] Mouna Benavides [address] [address] Invasive ductal carcinoma of breast, female, [...] Sign Reading Time Taken Comments Blood Pressure 117/60 10/15/2024 7:30 PM EDT Pulse 62 10/15/2024 7:30 PM EDT Temperature 36.6 C (97.9 F) 10/15/2024 7:30 PM EDT Respiratory Rate 15 10/15/2024 6:10 PM EDT Oxygen Saturation 91% 10/15/2024 7:30 PM EDT Inhaled Oxygen Concentration - - Weight 103 kg (227 lb) 10/14/2024 10:24 AM EDT Height - - Body Mass Index 37.77 09/09/2024 2:06 PM EDT documented in this encounter Functional Status * Calculated C-SSRS [...] Reddy RN documented as of this encounter Discharge Instructions * Discharge Instructions* Linda Bills MD - 10/15/2024 5:50 PM EDT [facility] Postoperative Discharge Instructions Follow-up Please follow-up with Dr. Edmonds on 10/28/24 at 3:30pm. Wound care - You may have a surgical bra on when you wake up from surgery. Please wear your surgical bra at all times until your follow up. It can be worn during sleeping for comfort, but should not be worn in the shower. - Over your incision may be a clear plastic dressing ( Tegaderm ), a gauze dressing, Steri-strips and/or surgical glue. You may remove the Tegaderm and gauze two days after surgery. The Steri-strips or surgical glue will begin to flake off in about one week. You can leave your incision(s) uncoveredunless you have drainage. Some blood staining of the dressing can be normal, as is bruising at the site. - You may develop a harmless pocket of fluid (called a seroma ) at the surgical site(s), which maycause a sloshing sound or sensation. This is normal and will eventually disappear. If you developa seroma that is large or uncomfortable, call the office to discuss. - You may have a surgical drain to collect extra fluid from the surgical site. Please refer to additional instructions on how to care for the drain. - If you had a sentinel lymph node biopsy, where blue dye was injected, your skin may be blue. Thisis normal and will eventually resolve after several weeks. Your urine may be green for a few days and this will also resolve. Showering - You may shower as you normally do starting the day after surgery. The dressings are waterproof. Let soapy water run over the incision and avoid vigorous scrubbing of the surgical site. - No soaking in baths, hot tubs or public areas such as lakes or pools until cleared by your surgeon. Eating and drinking - You may return to eating your regular diet. Because you received anesthesia, we recommend you start with drinking clear liquids and a light meal to avoid getting an upset stomach. - Drink plenty of liquids to avoid constipation. If necessary you may take an hzig-exv-fpaiqbu medication (such as MiraLax or Colace). Call the office if you have not had a bowel movement in more than 2 days. Activity - You may resume normal activity the day after surgery, but avoid any vigorous exercise until your follow up. - Please do not drive for at least 24 hours as you received anesthesia. If you are taking prescriptions pain medicine that makes you drowsy, please do not attempt to drive. Pain - You may experience tenderness or soreness at the surgical site(s) which is to be expected. You may also experience a sore throat or a headache which is temporary. - If narcotic pain medication was prescribed to you, please take only only as prescribed. Refills cannot be provided after regular business hours. - For pain control, you can take Tylenol and Ibuprofen, unless prohibited by another health care provider. - You may apply ice packs to the surgical site(s) for comfort.s or on weekends. - Please take medications as prescribed. If you have questions or concerns, please call [phone] during regular business hours or [phone] at any other time (after hours, weekends, and/or holidays) and ask for the GOLD SUPERINTENDENT OF GENERATION . Please call the above number if you experience: - a fever 100.4 or higher - unrelieved or increasing pain at your surgical site - significant redness of your incision(s) or surrounding area - concerning drainage from the incision(s) documented in this encounter Medications at Time [...] as of this encounter Miscellaneous Notes * Anesthesia PACU Signout - Dyana Desir MD - 10/15/2024 7:52 PM EDT Patient: Sunita Chiang Anesthesia Type: general Vitals Value Taken Time BP 117/60 10/15/24 19:30 Temp 36.6 ??C (97.9 ??F) 10/15/24 19:30 Pulse 64 10/15/24 19:31 Resp 15 10/15/24 18:10 SpO2 95 % 10/15/24 19:31 Vitals shown include unfiled device data. Anesthesia PACU Signout * Op Note - Ellen Edmonds MD - 10/15/2024 3:15 PM EDT Operative Note Date: 10/15/24 Location: [facility] Name: Sunita Chiang, : 1965, Diagnoses: Pre-op Diagnosis Invasive ductal carcinoma of breast, female, left Post-op Diagnosis Invasive ductal carcinoma of breast, female, left Procedure(s): Left axillary sentinel lymph node biopsy Left smartclip localized partial mastectomy Attending Surgeon(s): * Ellen Edmonds - Primary Deputy Felony Clerk(s): * Linda Bills MD - Resident - Assisting Anesthesia: Choice ASA: III Blood Administration: Blood Product Administration History None Estimated Blood Loss: Minimal Drains: * None in log * Specimen: Specimens ID Source Frozen? 1 [place] Lymph Node No Description: left axillary sentinel lymph node - blue and hot - [id number] 2 Breast, Left No Description: left lumpectomy short stitch superior, long stitch lateral 3 Breast, Left No Description: superior shave margin clip tao true margin 4 Breast, Left No Description: lateral shave margin clip tao true margin 5 Breast, Left No Description: inferior shave margin clip tao true margin 6 Breast, Left No Description: medial shave margin clip tao true margin 7 Breast, Left No Description: anterior shave margin clip tao true margin 8 Breast, Left No Description: posterior shave margin clip tao true margin Findings: The smart clip and biopsy marker were visualized in the center of the specimen in intraoperative mammogram. Indications: Sunita Chiang is an 59 y.o. female who is having surgery for Invasive ductal carcinoma of breast, female, left. Narrative: After informed consent was obtained, the patient was brought to the operating room and placed on the operating room table in the supine position. The patient was prepped and draped in sterile fashionand timeout was completed. 5cc of 1% Lymphazurin dye was injected into the left breast intradermally and intraparenchymally and breast massage was commenced for approximately 5 minutes. An incision was made with a #15 blade and electrocautery was used to dissect down to the site of sentinel nodes that were blue/hot. These were resected by electrocautery and sent off the table to pathology fresh for permanent section. No additional sentinel nodes were identified. After copious irrigation for hemostasis attention was turned to the remainder of the procedure. Attention was then turned to the partial mastectomy portion of the procedure. Preoperatively, the left-sided breast lesion was localized using a smart clip by breast radiology, and films were reviewed to confirm proximity of the smart clip to the biopsy clip. A curvilinear incision was made with a #15 blade along the lateral breast. The dissection was facilitated by real-time navigation, and the area in question was resected using electrocautery. Separatecavity shave margins were taken of the superior, lateral, inferior, medial posterior and anterior margins, all of which were marked with surgical clips to identify the true margin. Faxitron imaging demonstrated both the smart clip and biopsy clip in the specimen. Electrocautery was used to achieve hemostasis and the site was irrigated. After hemostasis was assured, clips were placed to roman the cavity. Local anesthetic was injected.Closure of the underlying flap was performed using a #2-0 Vicryl. The surgical incisions were then closed with interrupted #3-0Vicryl and #4-0 Monocryl in running subcuticular fashion. Surgical glue and a dry sterile dressing were applied and the patient was transferred to the recovery room in stable condition having tolerated the procedure quite well. Complications: None; patient tolerated the procedure well. Submitted by: Ellen Edmonds MD - 10/15/2024 [place] Node Biopsy for Breast Cancer - Left Operation performed with curative intent. Yes Tracer(s) used to identify sentinel nodes in the upfront surgery (non- neoadjuvant) setting (select all that apply). Dye and Radioactive tracer Tracer(s) used to identify sentinel nodes in the neoadjuvant setting (select all that apply). N/A All nodes (colored or non-colored) present at the end of a dye-filled lymphatic channel were removed. Yes All significantly radioactive nodes were removed. Yes All palpably suspicious nodes were removed. Yes Biopsy-proven positive nodes marked with clips prior to chemotherapy were identified and removed. N/A * H&P - Jonatan Anderson APRN - 10/15/2024 12:43 PM EDT Images from the original note were not included. H&P reviewed. The patient was examined and there are no changes to the H&P. NO changes to medical history. Not on AC. - To OR for left lumpectomy with SLNB - Consent obtained at bedside and in patient chart - NPO since midnight, clears prior to 0900. No home meds taken this AM. H&P copy forward from clinic note. [facility] New Patient Consultation This is a follow I[ visit at the [facility] visit for this 59 y.o. female for [...] tobegin that process. Health Maintenance Colonoscopy: N/A INSIDE SALES AGENT Exam: 06/25/2024 DEXA: N/A Review of Systems: [...] reviewed and are negative. Past Medical History [Past Medical History] [Past Medical History] Diagnosis Date Breast cancer 2024 Diabetes mellitus (CMS/HCC) Hyperlipidemia Hypertension Past Surgical History [Surgical History] [Surgical History] Past Surgical History Procedure Laterality Date BREAST BIOPSY Left 2024 outside facility-invasive ductal carcinoma INNER EAR SURGERY TUBAL LIGATION Social History Patient reports that she has been smoking cigarettes. She started smoking about 9 years ago. She has a 9.4 pack-year smoking history. She has never been exposed to tobacco smoke. She has never used smokeless tobacco. She reports that she does not drink alcohol and does not use drugs. Support person: Housing: Lives with Transportation: will drive her Family History [Family History] [Family History] Problem Relation Name Age of Onset Lung cancer Mother Obstetric and Gynecologic History -Menarche: 16 -LMP: N/A -OCP hx: yes, for 7 years -G1@: 20 - -Breast feeding (m): no -Infertility treatments: no -Menopause: no -HRT: no -Hyst/Ooph: no -Previous Bx: no No LMP recorded. Patient is postmenopausal. Current Medications [Medications Ordered Prior to Encounter] [Medications Ordered Prior to Encounter] Current Outpatient Medications on File Prior to [...] facility-administered medications on file prior to visit. Allergies [Allergies] [Allergies] Allergen Reactions Augmentin [Amoxicillin-Pot Clavulanate] Vomiting PHYSICAL EXAMINATION ECOG Performance Status: 0: Fully active, able to carry on all pre-disease performance without restriction Vital Signs: Visit Vitals OB Status Postmenopausal Smoking Status Every Day Vitals: 09/09/24 1406 BP: 130/80 Pulse: 87 Resp: 17 [...] finding. PATHOLOGY: [facility] has been [facility]. [facility] (Pending) Stereotactic guided biopsy left [...] Stage IIB (cT2, cN0, cM0, G3, ER-, FL-, HER2-) - Unsigned Stage prefix: Initial diagnosis [...] or ovarian cancer, genetic testing is valuable. Sunita's genetic testing was negative. We then discussed [...] quit. I provided resources, including Quit Now [place] at (929) QUIT-NOW (976-4096). Recommend follow-up with PCP for ongoing assessment [...] or concerns arise. Dr. Ellen Edmonds MD Clerical Assigner of Surgical Oncology [facility] I spent 60 minutes [...] also discussed and I recommended nicotine alternatives. Cosigned by: Ellen Edmonds MD at 09/09/2024 4:48 PM * Maxine Ramires - Risa Sparrow RN - 10/14/2024 10:31 AM EDT Images from the original note were not included. 40 Bathing Before Surgery Basic instructions ?? You need to bathe with Hibiclens (chlorhexidine) before surgery. This will clean your skin and remove germs that live on the skin. This reduces your risk of infection after surgery. ?? You can buy Hibiclens at most drug stores. ?? You need to bathe with Hibiclens twice before surgery - once the night before surgery and again the morning of surgery. ?? Do not use Hibiclens on your hair or anywhere above the neck. ?? You should not shave with a razor or use hair removal creams near the surgery site for 4 days before surgery. Night before surgery If you take a shower or tub bath: 1. Wash with regular soap and water and rinse off. 2. You may wash your hair the night before or the morning of surgery. Shampoo and rinse as usual. 3. Pour [...] to have clean sheets on your bed. ? If you take a bed bath: 1. Wash with regular soap and water and rinse off. 2. Place 1 ounce (2 tablespoons) of Hibiclens solution in a wash basin of clean water. Wash the area where you will be having surgery first. 3. Then wash the rest of the body. Leave the groin area until last. 4. Allow the Hibiclens to stay on the skin for 5 minutes. Then rinse off completely. 5. Use a clean towel to dry off. 6. Put on clean clothing. Be sure to have clean sheets on your bed. Morning of surgery ?? Repeat the above steps. You are now ready for surgery with the cleanest possible skin! If you develop a skin problem between now and your surgery, please tell your doctor as soon as possible! * Risa Hicks, RN - 10/14/2024 10:31 AM EDT Images from the original note were not included. 1072 Patient Surgery Guide The doctors and staff of [facility] would like to welcome you, your family, and friends to [facility]. We offer access to more than 1,500 doctors from many specialty areas. Our goal is to provide high-quality, patient-centered care throughout your experience. We have a team approach tosurgery, and you and your family are an important part of our team. Surgeons, surgical nurses, anest hesiologists, dietitians, social workers, pharmacists, and others will work with you to decide the best plan of care for you. We understand surgery is a stressful time. This information will help you be more comfortable with [facility] and the surgical process. This information provides an overview answering many of yourquestions. But if you have further questions, please ask your doctor or nurse. Preoperative Anesthesia Clinic Your doctor may ask you to go to the Preoperative Anesthesia Clinic before your surgery. This visitallows us to evaluate your overall health and reduce the chance of delays or cancellation on the day of surgery. Please bring a complete list of the medicines your currently take. Bring any recent test reports you may have, including blood work, EKG, X-rays. Bring the results of any recent heart evaluation, including doctor?s notes and test reports. If you are not scheduled for a Preoperative Anesthesia Clinic visit, a nurse will call you to go over your health history and give you information about your surgery. It is very important you speak to a nurse before your surgery. The Preoperative Anesthesia Clinic is located on the first floor of the [facility] near the Pharmacy and main clinic entrance. We are open Sunday-Sunday from 8 a.m. to 4:30 p.m. A clinic outreach representative can be reached at [phone]. Parking is available in the [facility] garage on [facility] or in the [facility] garage located at [address] [place] [address], directly across [facility] from [facility]. The day before surgery You will receive a phone call telling you what time you need to arrive at the hospital for surgery.If you miss the call, please call one of the following numbers (depending on where your surgery is scheduled): ?? [facility]: [phone] or [phone] ?? [facility]: [phone] or [phone] The day of surgery ?? Arrive on time to avoid delays or cancellation. ?? Park in the [facility] parking garage located at [address] It is directly across [facility] from the medical campus. ?? If you are scheduled for surgery at [facility], take the hospital garage elevator to Level C, then cross the concourse bridge to the Surgery Waiting Room to register for your surgery. The Surgery Waiting Room is located down the first hallway to the right at the end of the concourse bridge. If you need help crossing the concourse, you may nut picker the patient golf cart shuttle directly to the right of the elevators on Level C. ?? If you are scheduled for surgery at the [facility], take the garage elevator TripShakeel A and catch the free shuttle to the hospital. (Be careful not to take the [facility] shuttle - there is an ambassador there who can help you.) Exit the shuttle at the first shuttle stop, then proceed to the registration desk to the right of the entrance. ?? Registration staff will take your insurance information and confirm your name, birthday, addressand other information. When you arrive After you register, we will take you to the preoperative area. Here the nurses will get you ready for surgery. Visitors are limited in the preoperative area. Nurses will: ?? Allow you to change into a hospital gown. ?? Check your arm band for your name and birthday. Your arm band will be checked many times throughout your stay at [facility] to ensure your safety. ?? Go over your health history. ?? Review your medicines and allergies. ?? Check your temperature, blood pressure, heart rate, height and weight. ?? Start an IV. ?? Tell you what to expect during your stay at the hospital. During surgery Your family and friends will be directed to the Surgery Waiting Room. There they will receive regular updates during your surgery. Your doctor will talk to them after your surgery. A inventory clerk is available in the waiting room to help family and visitors. Space is limited, so please limit the number of people who come with you for your surgery. After surgery We will take you to a special area called the Post-Anesthesia Care Unit, or ?PACU.? There nurses will take care of you as you recover from surgery. Most patients will stay in the PACU for about 1-2 hours. Some people might need to stay longer. During this time the doctors and nurses will: ?? Keep your pain level as low as possible. ?? Help keep you from being sick to your stomach. ?? Make sure you are warm and comfortable. ?? Update your family on how you are doing. The anesthesia doctor will decide when you can go home or to your room. If you are going home after surgery: A nurse will give you and your family instructions on how to care for yourself when you go home. You will also get written instructions. This information will tell you how to schedule a follow-up appointment if an appointment is not scheduled before you leave, and how to contact your surgeon. If you are staying in the hospital after surgery: You will stay in the PACU until you are assigned a room. Your family and friends may visit you once you get to your hospital room. Parents of children or caregivers of special needs patients may remain in the preoperative area forthe entire time. They will be allowed in the PACU as soon as possible after the operation. At home ?? Plan to go straight home to rest when you leave the hospital. If you wish, your medicines to take home can be brought to your room before you leave. ?? Follow your doctor?s instructions about rest, what to eat, what you can and cannot do, which medicines to take and when you may return to your normal activities. ?? Be sure to keep your follow-up appointment with your doctor. You should be scheduled for a clinic appointment before you leave the hospital. Special reminders If you take insulin or other medicine for diabetes, the doctor will tell you what dose to take before your surgery. This will probably be different from your normal dose. Please bring your insulin with you on the day of surgery. If you are taking a blood thinner (for example: Coumadin, Plavix, aspirin, etc.), please tell your surgeon and anesthesia doctor. For all other medicines, you will receive instructions during your Anesthesia Preoperative Clinic visit or phone screening. Updates from the operating room It is important to protect your privacy when you are in the hospital. We also want to make it easy for your family to find out how you are doing while you are in surgery. To do this, on the day of your surgery a nurse will ask you to choose a password and share it with just one family member or friend. This password will then be put on your chart. When your family member calls to check on your condition, he or she must give the password to the nurse. The nurse will look on your chart to make sure it is the correct password and then give the person information on your condition. If you have any questions about this process, please ask. Our mission is to give you the very best care, including protecting your privacy. Feel better faster You should take walks if possible and do plenty of deep breathing. This will help you feel better more quickly after surgery. Walking and deep breathing help prevent blood clots and pneumonia and mayhelp ease any muscle soreness. Surgery do's ?? Be sure to bring your current insurance card and a picture ID. ?? Please bring copies of the following,if you have them: living will, health care surrogate, powerof employment attorney or guardianship papers. ?? Bring a responsible adult to drive you home (or ride with you in a taxi) if you are having outpatient surgery. ?? Plan to have someone stay with you at home for 24 hours after your surgery. ?? Bring a list of your current medicines, including how much you take and when you take it. You may also just bring the medicines (in their original containers) with you. ?? Tell your doctor about any allergies you have to medicines or food. ?? Wear comfortable, loose-fitting clothes and low-heeled shoes. ?? Bring a case to store glasses, contact lenses or dentures during surgery. Label the containers with your name. ?? Pack an overnight bag that includes personal care items, such as a toothbrush and lotion, if youare staying in the hospital. ?? Bring a parent or guardian if you are younger than 18. ?? Bring a favorite toy or blanket for children having surgery. Surgery don'ts ?? Starting at midnight, don?t eat anything on the day of your surgery. ?? Don?t drink anything after midnight (unless told otherwise by your doctor or nurse) the day before your surgery. ?? Don?t smoke, use smokeless tobacco, eat mints or chew gum after midnight the day of your surgery. ?? Don?t drink alcohol 24 hours before your surgery. ?? Don?t wear makeup, jewelry (including body piercing) or nail welsh. ?? Don?t bring money or valuables to the hospital. ?? Don?t drive a motor vehicle for 24 hours after your surgery. ?? Don?t make important decisions or sign any legal documents for 24 hours after your surgery. ?? Don?t drink alcohol or take medicine not prescribed by your doctor for 24 hours after your surgery. Need to cancel? If you decide not to have surgery or if you need to cancel because of a fever, a breathing or viralillness, or a family emergency, please call your surgeon?s office and the Preoperative Anesthesia Clinic at [phone] or [phone]. If it is the day of surgery, call the location where you are scheduled to have your surgery: [facility] at [phone] or [phone] or [facility] at [phone] or [phone]. For more information Visit [email or web address] or call [phone] or [phone]. [facility] does not discriminate. [facility] complies with applicable Federal civil rights laws and does not discriminate on the basis of race, color, national origin, age, disability, or sex. * Maxine PerezFERNY - Risa Sparrow RN - 10/14/2024 10:31 AM EDT Images from the original note were not included. 489 Map to HealthCare Facilities Directions Easy directions to and from I-75/I-64 (from [address]) Directions from I-75/I-64 to the HealthCare Parking Garage: ?? From Exit [address], turn right off the exit ramp onto [employer] [address] ([place] [address]/[place] [address]) toward [place]. ?? In 4.1 miles, turn left onto [address]. (at the [email or web address]). ?? In a half-mile, turn right onto [address]. ?? In .3 miles, turn right onto [address] (just past the [employer] gas station). Garage entrance is on the left. ?? Important: This garage address will change to Anabela Nevarez on October 07, 2024. Directions from HealthCare Parking Garage to I-75/I-64: ?? Turn left out of the garage onto [address]. ?? Turn left onto [address]. ?? In .3 miles, turn left down [address] ?? In a half-mile, turn right onto [address] (at the [employer] gas station). In 4.1 miles, merge onto I-64 /I-75 (near the [facility] by Jose Guadalupe Guerrero). Parking Any patients or visitors of [facility] can park in the following areas: ?? [facility] Parking Garage (main garage): [address] (Levels A-F) ?? [facility] Garage: [address] (Levels 1-6) ?? [facility] Cancer lot: Located off [address] (limited parking for [facility] outpatients only). Upon Your Arrival ?? Patients and visitors going to Pavili A, H, and [facility] may walk acrossthe pedway, located at Level C of the main parking garage ([address] or take the free shuttle from Level A. Golf carts are available on the pedway. ?? Patients and visitors going to all other hospital pavilions are encouraged to take a free shuttle at Level A of the main garage. ?? Emergency Department (ED) patients in need of immediate treatment may be dropped off at the ED entrance at the 15-minute dropoff area. Vehicles in this lot must be moved to the main hospital garage after 15 minutes. The ED may also be accessed via the pedway off the main hospital garage on Level C. If you need a shuttle to the ED, one can be called for you at Level A of the main garage or contact any of the information desks, . Additional Information For additional information, please visit our information desks located throughout [facility]. Information desks have additional maps and resources. Information desks are located at the main entrances of: [place] [facility] (first floor and ground floor), [facility]?s [facility], [facility] H, [facility] CC, [facility] WH, [facility] (first and third floor), and [facility]. Informationdesk number: [phone]. Important Addresses [address] [facility] ?? [facility]?s Hospital entrance ?? Pavilion A Pav[facility] G ([facility]) ?? Emergency Department [address] ?? Pavilion H ?? [facility] ([facility]) ?? [facility] ([facility]) ?? [facility] [address] [facility] ?? [facility] [address] [facility] ?? [facility] [address] [facility] ?? [facility] * PAT Phone Note - Risa Sparrow RN - 10/14/2024 10:31 AM EDT ASHLIE Chiang is a 59 y.o. female who presents with Pre-op Diagnosis * Invasive ductal carcinoma of breast, female, left [C50.912] now scheduled for Left localized lumpectomy sentinel lymph node (Left), EXCISION, LYMPH NODE, SENTINEL (Left). Date scheduled is 10/15/2024. 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 Exercise tolerance finding 10/14/2024 Can climb 2 flights of stairs w/o SOA Hyperlipidemia Hypertension Motion sickness Seasonal allergies [2] Family History Problem Relation Name Age of Onset Lung cancer Mother Anesthesia problems Neg Hx [3] Social History Tobacco Use Smoking status: Every Day Current packs/day: 1.00 Average packs/day: 1 pack/day for 9.5 years (9.5 ttl pk-yrs) Types: Cigarettes Start date: 2015 Passive exposure: Never Smokeless tobacco: Never Vaping Use Vaping status: Never Used Substance Use Topics Alcohol use: Never Drug use: Never [4] Past Surgical History: Procedure Laterality Date BREAST BIOPSY Left 2024 outside facility-invasive ductal carcinoma INNER EAR SURGERY OTHER SURGICAL HISTORY Polyp Removal from Vocal Cords TUBAL LIGATION [5] Allergies Allergen Reactions Augmentin [Amoxicillin-Pot Clavulanate] Vomiting [6] Current Facility-Administered Medications: lidocaine sodium bicarbonate Current Outpatient Medications: BLACK COHOSH PO, Take by mouth daily. cetirizine, Take 1 tablet by mouth Daily. cholecalciferol, 1 (one) time each day at the same time. co-enzyme Q-10, Take 1 capsule by mouth daily. cyanocobalamin, Take 1 tablet by mouth daily. hydroCHLOROthiazide, 1 (one) time each day at the same time. losartan, 1 (one) time each day at the same time. metFORMIN, 1 (one) time each day at the same time. potassium chloride CR, 1 (one) time each day at the same time. rosuvastatin, 1 (one) time each day at the same time. * Preprocedure Instructions - Risa Sparrow RN - 10/14/2024 10:29 AM EDT Home Medication Instructions Current Medications Medication Instructions BLACK COHOSH PO Hold day of surgery cetirizine (ZyrTEC ALLERGY) 10 MG tablet Take morning of surgery cholecalciferol (Vitamin D-3) 125 MCG (5000 UT) capsule Hold day of surgery co-enzyme Q-10 30 MG capsule Hold day of surgery cyanocobalamin 1000 MCG tablet Hold day of surgery hydroCHLOROthiazide (HYDRODiuril) 25 MG tablet Hold day of surgery losartan (Cozaar) 25 MG tablet Take night before surgery metFORMIN (Glucophage) 850 MG tablet Hold 48 hours before surgery potassium chloride CR (Klor-Con) 10 MEQ ER tablet Hold day of surgery rosuvastatin (Crestor) 10 MG tablet Take night before surgery General Preoperative Instructions You will be called the business day before surgery with your arrival time No alcohol or smoking prior to surgery Arrive on time to avoid delays Parking/Registration procedure explained You MUST have a responsible adult available for transport to and from hospital Visitation policy for the day of surgery reviewed Bring insurance card, photo ID, along with power of employment attorney, guardianship or advanced directives if applicable Do not bring money, jewelry or other valuables Hibiclens bathing instructions reviewed if applicable Notify surgeon of fever, illness, any changes or if you decide not to have surgery No food, no thick or dark liquids after midnight the night before the surgery. Please drink CLEAR LIQUIDS-meaning water, Gatorade/Pedialyte, or apple juice, until 2 hours prior to arrival time surgery day. Please avoid the reds and purples on the Gatorade/Pedialyte. Registration will be on the first floor of [facility]) at the end of the bridge from the parking garage, the hallway on the RIGHT. Parking Garage Address: [address] [place] [address] Av. documented in this encounter Plan of Treatment Upcoming Encounters Date Type Department Care Team (Late st Contact Info) Description 06/30/2025 1:00 PM EDT Appointment [facility] Breast [facility] [place] [address] [address] [facility] [address] [place] [address] 06/30/2025 2:30 PM EDT Office Visit [facility] [address] [facility]nd [place] [address] Ellen Edmonds MD [address] [facility] [address] [place] [address] documented as of this encounter Procedures Procedure Name Priority Date/Time Associated Diagnosis Comments SURGICAL PATHOLOGY EXAM Routine 10/15/2024 4:16 PM EDT Invasive ductal carcinoma of breast, female, left FL BIOPSY/EXCISION, LYMPH NODE(S) 10/15/2024 2:38 PM EDT Invasive ductal carcinoma of breast, female, left FL MASTECTOMY, PARTIAL 10/15/2024 2:38 PM EDT Invasive ductal carcinoma of breast, female, left POCT GLUCOSE METER UNSOLICITED RESULTS Routine 10/15/2024 12:48 PM EDT documented in this encounter Results * Surgical Pathology Exam (10/15/2024 4:16 PM EDT) Case Report Surgical Pathology Case: [id number] Authorizing Provider: Ellen Edmonds MD Collected: 10/15/2024 1616 Ordering Location: [facility] OPERATING ROOM Received: 10/15/2024 1630 Pathologist: Carli Grijalva MD Specimens: A) - Manderson Lymph Node, left axillary sentinel lymph node - blue and hot - [id number] B) - Breast, Left, left lumpectomy short stitch superior, long stitch lateral C) - Breast, Left, superior shave margin clip tao true margin D) - Breast, Left, lateral shave margin clip tao true margin E) - Breast, Left, inferior shave margin clip tao true margin F) - Breast, Left, medial shave margin clip tao true margin G) - Breast, Left, anterior shave margin clip tao true margin H) - Breast, Left, posterior shave margin clip tao true margin 10/20/2024 4:08 PM EDT [facility] Final Diagnosis A. LYMPH NODE, LEFT AXILLARY SENTINEL; EXCISION: - TWO SENTINEL LYMPH NODES NEGATIVE FOR TUMOR (0/2). B. BREAST, LEFT; LUMPECTOMY: - INVASIVE DUCTAL CARCINOMA (SEE CANCER CHECKLIST FOR DETAILS). - DUCTAL CARCINOMA IN SITU (SEE CANCER CHECKLIST). - FIBROCYSTIC CHANGES. - BIOPSY SITE WITH INFLAMMATION AND FIBROSIS. C. BREAST, SUPERIOR; SHAVE MARGINATION: - FATTY BREAST TISSUE WITHOUT DIAGNOSTIC ABNORMALITY. D. BREAST, LEFT LATERAL; SHAVE MARGINATION: - FATTY BREAST TISSUE WITHOUT DIAGNOSTIC ABNORMALITY. E. BREAST, LEFT INFERIOR; SHAVE MARGINATION: - FATTY BREAST TISSUE WITHOUT DIAGNOSTIC ABNORMALITY. F. BREAST, LEFT MEDIAL; SHAVE MARGINATION: - FATTY BREAST TISSUE WITHOUT DIAGNOSTIC ABNORMALITY. G. BREAST, LEFT ANTERIOR; SHAVE MARGINATION: - SPARSE FIBROCYSTIC CHANGES COMPRISING COLUMNAR CELL CHANGE, APOCRINE METAPLASIA AND DUCT ECTASIA. H. BREAST, LEFT POSTERIOR; SHAVE MARGINATION: - FATTY BREAST TISSUE WITHOUT DIAGNOSTIC ABNORMALITY. 10/20/2024 4:08 PM EDT [facility] at 1608 EDT Synoptic Checklist INVASIVE CARCINOMA OF THE BREAST: Resection INVASIVE CARCINOMA OF THE BREAST: RESECTION - All Specimens 8th Edition - Protocol posted: 09/26/2023 SPECIMEN Procedure: Excision (less than total mastectomy) Specimen Laterality: Left TUMOR Tumor Site: Central Histologic Type: Invasive carcinoma of no special type (ductal) Histologic Grade ([place] Histologic Score): Glandular (Acinar) / Tubular Differentiation: Score 3 Nuclear Pleomorphism: Score 3 Mitotic Rate: Score 2 Overall Grade: Grade 3 (scores of 8 or 9) Tumor Size: Greatest dimension of largest invasive focus (Millimeters): 8 mm Tumor Focality: Single focus of invasive carcinoma Ductal Carcinoma In Situ (DCIS): Present : Negative for extensive intraductal component (EIC) Size (Extent) of DCIS: Estimated size (extent) of DCIS is at least (Millimeters): 4 mm Architectural Patterns: Comedo Architectural Patterns: Solid Nuclear Grade: Grade II (intermediate) Necrosis: Present, central (expansive comedo necrosis) Number of Blocks with DCIS: 2 Number of Blocks Examined: 26 Lobular Carcinoma In Situ (LCIS): Not identified Lymphatic and / or Vascular Invasion: Not identified Dermal Lymphatic and / or Vascular Invasion: No skin present Microcalcificatio ns: Not identified Treatment Effect in the Breast: No known presurgical therapy MARGINS Margin Status for Invasive Carcinoma: All margins negative for invasive carcinoma Distance from Invasive Carcinoma to Closest Margin: Greater than: 12 mm Closest Margin(s) to Invasive Carcinoma: Inferior Margin Status for DCIS: All margins negative for DCIS Distance from DCIS to Closest Margin: Greater than: 12 mm REGIONAL LYMPH NODES Regional Lymph Node Status: : All regional lymph nodes negative for tumor Total Number of Lymph Nodes Examined (sentinel and non-sentinel): 2 Number of Manderson Nodes Examined: 2 pTNM CLASSIFICATION (AJCC 8th Edition) Reporting of pT, pN, and (when applicable) pM categories is based on information available to the pathologist at the time the report is issued. As per the AJCC (Chapter 1, 8th Ed.) it is the managing physician's responsibility to establish the final pathologic stage based upon all pertinent information, including but potentially not limited to this pathology report. pT Category: pT1b pN Category: pN0 N Suffix: (sn) ADDITIONAL FINDINGS Additional Findings: FIBROCYSTIC CHANGES, CLIP FOUND WITH SURROUNDING BIOPSY SITE CHANGES Breast Biomarker Reporting Template BREAST BIOMARKER REPORTING TEMPLATE - All Specimens Protocol posted: 2023 Test(s) Performed: Estrogen Receptor (ER) Status: Negative (less than 1%) : Internal control cells present and stain as expected Test Type: Food and Drug Administration (FDA) cleared (test / vendor): [place] Primary Antibody: SP1 Scoring System: No separate scoring system used Test(s) Performed: Progesterone Receptor (PgR) Status: Negative (less than 1%) : Internal control cells present and stain as expected Test Type: Food and Drug Administration (FDA) cleared (test / vendor): [place] Primary Antibody: 1E2 Scoring System: No separate scoring system used Test(s) Performed: HER2 by Immunohistochemist ry: Negative (Score 0) Test Type: Food and Drug Administration (FDA) cleared (test / vendor): [place] Primary Antibody: 4B5 Cold Ischemia and Fixation Times: Meet requirements specified in latest version of the ASCO / CAP Guidelines METHODS Fixative: Formalin Image Analysis: Not performed 10/20/2024 4:08 PM EDT [facility] Clinical Information Invasive ductal carcinoma of breast, female, left [C50.912] 10/20/2024 4:08 PM EDT [facility] Gross Description A. LEFT AXILLARY SENTINEL LYMPH NODE - BLUE AND HOT - 16457 The specimen is received fresh and placed in formalin, labeled l eft axillary sentinel node blue and hot 23,600 , and consists of a 2.8 x 2.1 x 1.1 cm aggregate of olea-yellow lobulated fibroadipose tissue. Two lymph nodes that range from 0.6-1.2 cm in greatest dimension are identified. The lymph nodes are entirely submitted as follows: A1: One lymph node, bisected A2-A3: Largest lymph node, serially sectioned Cold Time: 18m FLOR Atkinson (ASCP) B. LEFT LUMPECTOMY SHORT STITCH SUPERIOR, LONG STITCH LATERAL The specimen is received fresh and placed in formalin, labeled l eft lumpectomy short superior long lateral , and consists of a 54.7 g, 5.1 (medial to lateral) by 4.1 (anterior to posterior) by 4.0 cm (superior to inferior) lumpectomy. The superior surface is inked red, the inferior surface is inked green, the anterior surface is inked blue, the posterior surface is inked black, the medial surface is inked orange, and the lateral surface is inked yellow. The specimen is serially sectioned from anterior to posterior into 12 slices. Within slices 6-8, there is a 1.2 ( anterior to posterior) by 1.1 ( superior to inferior ) 1.0 cm (medial to lateral) olea- newman, well-defined, and extremely necrotic ( > 75%) mass. Within the mass a bow-tie shaped metallic biopsy clip is identified. The mass is 0.6 cm from the superior margin, 1.2 cm from the medial margin, 1.7 cm from the inferior margin, and 2.3 cm from the lateral margin. No other masses are identified. The remaining cut surface is 95% olea - yellow lobulated adipose tissue, and 5% olea - white fibromembranous tissue. Asphalt Mixer sections are submitted as follows: B1-B6: Slice 1, anterior margin, serially sectioned B7-B12: slice 5 anterior to mass, entirely submitted B13-B14: slice 6, midportion with mass, nearest medial and inferior margins B15-B16: slice 7, midportion with mass, nearest superior margin B17: slice 8, inferior portion with remaining B18- B22: slice 9, posterior to mass, entirely submitted B23-B26: slice 12, posterior margin, serially sectioned Cold Time: 24h 15m FLOR Atkinson (ASCP) C. SUPERIOR SHAVE MARGIN CLIP TAO TRUE MARGIN The specimen is received fresh and placed in formalin, labeled s uperior shave margin clip tao true margin , and consists of a 2.6 x 1.8 x 1.2 cm portion of olea-yellow lobulated fibroadipose tissue. The new margin is inked blue. The specimen is serially sectioned and entirely submitted in cassettes C1-C3. Cold Time: 24h 13m FLOR Atkinson (ASCP) D. LATERAL SHAVE MARGIN CLIP TAO TRUE MARGIN The specimen is received fresh and placed in formalin, labeled l ateral shave margin clip tao true margin , and consists of a a 2.4 x 1.7 x 0.6 cm portion of olea-yellow lobulated fibroadipose tissue. The new margin is inked blue. The specimen is serially sectioned and entirely submitted in cassettes D1-D3. Cold Time: 24h 12m FLOR Atkinson (ASCP) E. INFERIOR SHAVE MARGIN CLIP TAO TRUE MARGIN The specimen is received fresh and placed in formalin, labeled i nferior shave clips tao true margin , and consists of two fragments of olea-yellow lobulated adipose tissue that range from 1.6-2.1 cm in greatest dimension. The new margin is inked blue. The specimen is serially sectioned and entirely submitted in cassettes E1-E3. Cold Time: 24h 12m FLOR Atkinson (ASCP) F. MEDIAL SHAVE MARGIN CLIP TAO TRUE MARGIN The specimen is received fresh and placed in formalin, labeled m edial shave margin clip tao true margin , and consists of a 3.1 x 2.1 x 1.1 cm portion of olea-yellow lobulated fibroadipose tissue. The new margin is inked blue. The specimen is serially sectioned and entirely submitted in cassettes F1-F4. Cold Time: 24h 12m FLOR Atkinson (ASCP) G. ANTERIOR SHAVE MARGIN CLIP TAO TRUE MARGIN The specimen is received fresh and placed in formalin, labeled a nterior shave margin clip tao true margin , and consists of a 2.8 x 2.2 x 0.7 cm portion of olea-yellow lobulated fibroadipose tissue. The new margin is inked blue. The specimen is serially sectioned and entirely submitted in cassettes G1-G3. Cold Time: 24h 11m FLOR Atkinson (ASCP) H. POSTERIOR SHAVE MARGIN CLIP TAO TRUE MARGIN The specimen is received fresh and placed in formalin, labeled p osterior shave margin clip tao true margin , and consists of a 2.8 x 2.1 x 1.1 cm portion of olea-yellow lobulated fibroadipose tissue. The new margin is inked blue. Specimen is serially sectioned and entirely submitted in cassettes H1-H4. Cold Time: 24h 11m FLOR Atkinson (ASCP) 10/20/2024 4:08 PM EDT [facility] Note: A resident was involved in the service. I attest I examined the relevant preparations for the specimens and confirmed the diagnosis or interpretation. 10/20/2024 4:08 PM EDT [facility] Lymph Node Specimen from sentinel lymph node / Unknown 10/15/2024 4:16 PM EDT 10/15/2024 4:33 PM EDT Comment:Pre-op diagnosis: Invasive ductal carcinoma of breast, female, left [C50.912] Tissue specimen (specimen) Left breast structure / Unknown 10/15/2024 5:03 PM EDT 10/16/2024 7:41 AM EDT Comment:Pre-op diagnosis: Invasive ductal carcinoma of breast, female, left [C50.912] Tissue specimen (specimen) Left breast structure / Unknown 10/15/2024 5:05 PM EDT 10/16/2024 7:41 AM EDT Comment:Pre-op diagnosis: Invasive ductal carcinoma of breast, female, left [C50.912] Tissue specimen (specimen) Left breast structure / Unknown 10/15/2024 5:06 PM EDT 10/16/2024 7:41 AM EDT Comment:Pre-op diagnosis: Invasive ductal carcinoma of breast, female, left [C50.912] Tissue specimen (specimen) Left breast structure / Unknown 10/15/2024 5:06 PM EDT 10/16/2024 7:41 AM EDT Comment:Pre-op diagnosis: Invasive ductal carcinoma of breast, female, left [C50.912] Tissue specimen (specimen) Left breast structure / Unknown 10/15/2024 5:06 PM EDT 10/16/2024 7:41 AM EDT Comment:Pre-op diagnosis: Invasive ductal carcinoma of breast, female, left [C50.912] Tissue specimen (specimen) Left breast structure / Unknown 10/15/2024 5:07 PM EDT 10/16/2024 7:41 AM EDT Comment:Pre-op diagnosis: Invasive ductal carcinoma of breast, female, left [C50.912] Tissue specimen (specimen) Left breast structure / Unknown 10/15/2024 5:07 PM EDT 10/16/2024 7:41 AM EDT Comment:Pre-op diagnosis: Invasive ductal carcinoma of breast, female, left [C50.912] Ellen Edmonds MD LAB PATHOLOGY ORDERABLES Final R esult Performing Organization Address City/[facility]/ZIP Co de Phone Number [facility] [address] [place] [address] * (ABNORMAL) POCT glucose meter (10/15/2024 12:48 PM EDT) POCT Glucose 101(H) 74 - 99 mg/dL 10/15/2024 12:49 PM EDT [facility] Comment:Accuracy of a glucos e result obtained from a capillary whole blood specimen relies upon adequate, non-compromised capillary blood flow. If the capillary glucose result is not consistent with the patient's clinical signs and symptoms, glucose testing should be repeated with either an arterial or venous sample on the glucometer or sent to the main labortory for testing. Comment 10/15/2024 12:49 PM EDT [facility] Millinery Blocker ID [id number] 10/15/2024 12:49 PM EDT [facility]ALTH[facility]ARE [facility] Device ID [id number] 10/15/2024 12:49 PM EDT [facility]ALTH[facility]ARE [facility] Specimen Type POC Capillary 10/15/2024 12:49 PM EDT [facility] Blood Capillary blood specimen / Unknown 10/15/2024 12:48 PM EDT 10/15/2024 12:49 PM EDT Ellen Edmonds MD LAB POINT OF CARE TE ST DOCKED DEVICE UNSOLICITED RESULTS Final Result Performing Organization Address [facility] Co de Phone Number [facility] [address] [place] [address] documented in this encounter Visit Diagnoses Diagnosis Invasive ductal carcinoma of breast, female, left- Primary documented in this encounter Admitting Diagnoses Diagnosis Invasive ductal carcinoma of breast, female, left documented in this encounter Administered Medications Inactive Administered Medications - up to 3 most recent administrations Medication Order MAR Action Action Date Dose Rate Site albuterol (Proventil) (2.5 MG/3ML) 0.083% nebulizer solution 3 mL 3 mL, Nebulization, Once as needed, 1 dose, Starting on Sun10/15/24 at 1734, Until Sun10/15/24 at 2221, Routine, Recovery (Phase I only), shortness of breath droperidol (Inapsine) injection 0.625 mg 0.625 mg, Intravenous, Once as needed, 1 dose, Starting on Sun10/15/24 at 1734, Until Sun10/15/24 at 2221, Routine, Recovery (Phase I only), nausea, vomiting fentaNYL (Sublimaze) injection 25 mcg 25 mcg, Intravenous, Every 5 min PRN, 2 doses, Starting on Sun10/15/24 at 1734, Until Sun10/15/24 at 2221, Routine, Recovery (Phase I only), pain score of 3-4 out of 10 HYDROmorphone (Dilaudid) injection 0.5 mg 0.5 mg, Intravenous, Every 10 min PRN, 2 doses, Starting on Sun10/15/24 at 1734, Until Sun10/15/24 at 2221, Routine, Recovery (Phase I only), pain score of 9-10 out of 10 lactated Ringer's infusion 20 mL/hr, Intravenous, Continuous, Starting on Sun10/15/24 at 1330, Until Sun10/15/24 at 2221, Routine New Bag 10/15/2024 2:50 PM EDT naloxone (Narcan) injection 0.4 mg 0.4 mg, Intravenous, As needed, Starting on Sun10/15/24 at 1734, Until Sun10/15/24 at 2221, Routine, Recovery (Phase I only), respiratory depression ondansetron (Zofran) injection 4 mg 4 mg, Intravenous, Once as needed, 1 dose, Starting on Sun10/15/24 at 1734, Until Sun10/15/24 at 1853, Routine, Recovery (Phase I only), nausea, vomiting Given 10/15/2024 6:53 PM EDT 4 mg Povidone-Iodine 5 % swab solution 1 Application Nasal, Once, 1 dose, On Sun10/15/24 at 1315, Routine Given 10/15/2024 12:47 PM EDT 1 Application promethazine (Phenergan) suppository 12.5 mg 12.5 mg, Rectal, Once as needed, 1 dose, Starting on Sun10/15/24 at 1734, Until Sun10/15/24 at 2221, Routine, Recovery (Phase I only), nausea, vomiting documented in this encounter Active and Recently Administered Medications Times are shown in EDT. Scheduled Medication Order 10/13/2024 10/14/2024 10/15/2024 ceFAZolin (Ancef) injection 2 g 2 g, Intravenous, Once, 1 dose, On Sun10/15/24 at 1315, Routine, Anesthesia Intraprocedure 1315 (Canceled Entry - Provider: Automatic Discharge Provider - Comment: Automatically canceled at discontinue of medication order) oxyCODONE (Roxicodone) immediate release tablet 10 mg 10 mg, Oral, Once, 1 dose, On Sun10/15/24 at 1900, Routine, Recovery (Phase I only) 1900 (Canceled Entry - Provider: Automatic Discharge Provider - Comment: Automatically canceled at discontinue of medication order) Povidone-Iodine 5 % swab solution 1 Application (COMPLETED) Nasal, Once, 1 dose, On Sun10/15/24 at 1315, Routine 1247 (Given - Provid er: Anastacia Reddy RN) Continuous Medication Order 10/13/2024 10/14/2024 10/15/2024 lactated Ringer's infusion 20 mL/hr, Intravenous, Continuous, Starting on Sun10/15/24 at 1330, Until Sun10/15/24 at 2221, Routine 1450 (New Bag - Prov ider: Layo Wen CRNA)1700 (Anesthesia Volume Adjustment - Provider: Norbert Putnam MD) PRN Medication Order 10/13/2024 10/14/2024 10/15/2024 albuterol (Proventil) (2.5 MG/3ML) 0.083% nebulizer solution 3 mL 3 mL, Nebulization, Once as needed, 1 dose, Starting on Sun10/15/24 at 1734, Until Sun10/15/24 at 2221, Routine, Recovery (Phase I only), shortness of breath bupivacaine-EPINEPHrine PF (Marcaine w/EPI) 0.25% -1:914360 injection (CANCELED) As needed, Starting on Sun10/15/24 at 1733, Until Sun10/15/24 at 1754, Routine, Intraprocedure 1733 (Given - Provid er: Ellen Edmonds MD) droperidol (Inapsine) injection 0.625 mg 0.625 mg, Intravenous, Once as needed, 1 dose, Starting on Sun10/15/24 at 1734, Until Sun10/15/24 at 2221, Routine, Recovery (Phase I only), nausea, vomiting fentaNYL (Sublimaze) injection 25 mcg 25 mcg, Intravenous, Every 5 min PRN, 2 doses, Starting on Sun10/15/24 at 1734, Until Sun10/15/24 at 2221, Routine, Recovery (Phase I only), pain score of 3-4 out of 10 HYDROmorphone (Dilaudid) injection 0.5 mg 0.5 mg, Intravenous, Every 10 min PRN, 2 doses, Starting on Sun10/15/24 at 1734, Until Sun10/15/24 at 2221, Routine, Recovery (Phase I only), pain score of 9-10 out of 10 isosulfan blue (Lumphazurin) 1 % injection (CANCELED) As needed, Starting on Sun10/15/24 at 1515, Until Sun10/15/24 at 1754, Routine, Intraprocedure 1515 (Given - Provid er: Ellen Edmonds MD - Comment: injected in left breast) naloxone (Narcan) injection 0.4 mg 0.4 mg, Intravenous, As needed, Starting on Sun10/15/24 at 1734, Until Sun10/15/24 at 2221, Routine, Recovery (Phase I only), respiratory depression ondansetron (Zofran) injection 4 mg (COMPLETED) 4 mg, Intravenous, Once as needed, 1 dose, Starting on Sun10/15/24 at 1734, Until Sun10/15/24 at 1853, Routine, Recovery (Phase I only), nausea, vomiting 1852 (Given - Provid er: Jose Posadas RN) promethazine (Phenergan) suppository 12.5 mg 12.5 mg, Rectal, Once as needed, 1 dose, Starting on Sun10/15/24 at 1734, Until Sun10/15/24 at 2221, Routine, Recovery (Phase I only), nausea, vomiting documented in this encounter Additional Health Concerns Assessment Noted Time PHQ-9 Depression Total Score: 0 08/20/19 9:56 AM EDT A fall risk assessment has been complete d for the patient 09/09/2024 2:06 PM EDT A Body Mass Index follow-up plan has been documented for the patient 09/09/2024 4:49 PM EDT documented as of this encounter Care Teams Spine Specialist Relationship Specialty Start Date End Date Terence Britton MD [address] [place] [address] PCP - General 08/19/24 documented as of this encounter
--- OUTSIDE RECORDS SUMMARY | 2024-10-15 12:30 | XMS_ITS | Encounter Summary ---
Author Organization [facility] Address [address] [id number] Care Team Providers Care Physician Credentialing Specialist Name Role Phone Terence Britton MD Primary Care Provider [phone] Reason for Referral * Imaging (Routine) - Closed Specialty Diagnoses / Procedures Referred By Rohan t Referred To Contact Radiology Diagnoses Breast cancer Procedures NM Dermal Injection [place] Node Ellen Edmonds MD [address] [facility] Mouna Benavides [address] [address] Phone: tel: fax: Referral ID Status Reason Start Date Expiration Date Visits Re quested Visits Authorized [id number] Closed 09/09/2024 03/11/2026 1 1 Reason for Visit * Auth/Cert (Routine) Specialty Diagnoses / Procedures Referred By Contalexandru t Referred To Contact Diagnoses Invasive ductal carcinoma of breast, female, left Invasive ductal carcinoma of breast, female, left [C50.912] Procedures WY MASTECTOMY, PARTIAL WY BIOPSY/EXCISION, LYMPH NODE(S) WY BX/REMV,LYMPH NODE,DEEP AXILL WY INTRAOPERATIVE SENTINEL LYMPH NODE ID W DYE INJECTION Left localized lumpectomy sentinel lymph node EXCISION, LYMPH NODE, SENTINEL Ellen Edmonds MD [address] [facility] Mouna Benavides [address] [address] Phone: tel: fax: [facility] [address] [place] [address] Phone: tel: Referral ID Status Reason Start Date Expiration Date Visits Re quested Visits Authorized [id number] 1 1 Encounter Details Date Type Department Care Team (Latest Contact Info) Description 10/15/2024 12:30 PM EDT - 10/15/2024 11:59 PM EDT Hospital Encounter [facility] H Nuclear Medicine [address] [place] [address] Breast cancer Discharge Disposition: Home or Self Care Social History Tobacco Use Types Packs/Day Years Used Date Smoking Tobacco: Every Day Cigarettes 1 9.7 Started: 2015 Passive Smoke Exposure: Never Smokeless [...] 1:00 PM EDT Appointment [facility] [address] [address] Mouna Benavides [facility] [address] [place] [address] 06/30/2025 2:30 PM EDT Office Visit [facility] [place] [address] [facility] 2nd [place] [address] Ellen Edmonds MD 800 [facility] [address] [place] [address] documented as of this encounter Procedures Procedure Name Priority Date/Time Associated Diagnosis Comments NM DERMAL INJECTION SENTINEL NODE Routine 10/15/2024 1:31 PM EDT Breast cancer documented in this encounter Results * NM Dermal Injection [place] Node (10/15/2024 1:31 PM EDT) Anatomical Region [...] as marked on the skin, by the mri special procedures technologist at 1:31 PM. COMPARISON/CORRELATION: Not applicable. [...] as marked on the skin, by the mri special procedures technologist at 1:31PM. COMPARISON/CORRELATION: Not applicable. FINDINGS: [...] on 10/15/2024 3:11 PM Ellen Edmonds MD [facility] PROCEDURES Final Result documented in this [...] documented as of this encounter Care Teams Physician Credentialing Specialist Relationship Specialty Start Date End Date Terence Britton MD [address] [place] [address] PCP - General 08/19/24 documented as of this encounter
--- OUTSIDE RECORDS SUMMARY | 2024-10-15 12:45 | XMS_ITS | Encounter Summary ---
Author Organization [facility] Address [address] [place] [address] Care Team Providers Care Commercial Real Estate Underwriter Name Role Phone Terence Britton MD Primary Care Provider [phone] Reason for Visit * Auth/Cert (Routine) Specialty Diagnoses / Procedures Referred By Contac t Referred To Contact Diagnoses Invasive ductal carcinoma of breast, female, left Invasive ductal carcinoma of breast, female, left [C50.912] Procedures AZ MASTECTOMY, PARTIAL AZ BIOPSY/EXCISION, LYMPH NODE(S) AZ BX/REMV,LYMPH NODE,DEEP AXILL AZ INTRAOPERATIVE SENTINEL LYMPH NODE ID W DYE INJECTION Left localized lumpectomy sentinel lymph node EXCISION, LYMPH NODE, SENTINEL Ellen Edmonds MD [address] [facility] Mouna Benavides macy [address] [address] Phone: tel: fax: [facility] [address] [place] [address] Phone: tel: Referral ID Status Reason Start Date Expiration Date Visits Re quested Visits Authorized [id number] 1 1 Encounter Details Date Type Department Care Team (Late st Contact Info) Description 10/15/2024 12:45 PM EDT - 10/15/2024 3:50 PM EDT Surgery [facility] O[facility] [address] [place] [address] Ellen Edmonds MD [address] [facility] Mouna Benavides [address] [address] Left localized lumpectomy sentinel lymph node [33582 (CPT )] Surgery Details Date/Time Status Location OR Service Patient Class Case Class Case Type Trauma Case? 10/15/2024 12:45 PM [facility] E-Electi ve [...] Bills MD - 10/15/2024 5:50 PM EDT [facility] Postoperative Discharge Instructions Follow-up Please follow-up with [...] constipation. If necessary you may take an fjzo-ltu-dwgytpb medication (such as MiraLax or Colace). Call [...] you have questions or concerns, please call [phone] during regular business hours or [phone] at any other time (after hours, weekends, and/or holidays) and ask for the GOLD BOTTLE MACHINE OPERATOR . Please call the above [...] PM EDT Operative Note Date: 10/15/24 Location: [place] [facility] Name: Sunita Chiang, : 1965, Diagnoses: Pre-op Diagnosis Invasive ductal carcinoma of breast, female, left Post-op Diagnosis Invasive ductal carcinoma of breast, female, left Procedure(s): Left axillary sentinel lymph node biopsy Left smartclip localized partial mastectomy Attending Surgeon(s): * Ellen Edmonds - Primary Box Gluer(s): * Linda Bills MD - Resident - Assisting Anesthesia: Choice ASA: III Blood Administration: Blood Product Administration History None Estimated Blood Loss: Minimal Drains: * None in log * Specimen: Specimens ID Source Frozen? 1 [place] Lymph Node No Description: left axillary sentinel lymph node - blue and hot - 76230 2 Breast, Left No Description: left lumpectomy [...] surgical clips to identify the true margin. Learn[employer] de monstrated both the smart clip and [...] Submitted by: Ellen Edmonds MD - 10/15/2024 [place] Node Biopsy for Breast Cancer - Left [...] AM. H&P copy forward from clinic note. [facility] [place] New Patient Consultation This is a follow I[ visit at the [facility] visit for this 59 y.o. female for [...] tobegin that process. Health Maintenance Colonoscopy: N/A MUSIC AUTOGRAPHER Exam: 06/25/2024 DEXA: N/A Review of Systems: [...] finding. PATHOLOGY: Pathology has been reviewed here. [facility] Pathology Review (Pending) Stereotactic guided biopsy [...] Stage IIB (cT2, cN0, cM0, G3, ER-, AZ-, HER2-) - Unsigned Stage prefix: Initial diagnosis [...] quit. I provided resources, including Quit Now [place] at [phone]). Recommend follow-up with PCP for ongoing assessment [...] or concerns arise. Dr. Ellen Edmonds MD Plant Anatomist of Surgical Oncology [facility] I spent 60 minutes on this [...] welcome you, your family, and friends to [facility]. We offer access to more than [...] will help you be more comfortable with [facility] and the surgical process. This information [...] located on the first floor of the [facility] near the Pharmacy and main clinic entrance. We are open Sunday-Sunday from 8 a.m. to 4:30 p.m. A clinic medical service representative can be reached at [phone]. Parking is available in the [facility] garage on [facility] or in the [facility] garage located at [address] [place] [address] Avenue, directly across [facility] from [facility]. The day before surgery You will receive a phone call telling you what time you need to arrive at the hospital for surgery.If you miss the call, please call one of the following numbers (depending on where your surgery is scheduled): ?? [facility]: [phone] or [phone] ?? [facility]: [phone] or [phone] The day of surgery ?? Arrive on time to avoid delays or cancellation. ?? Park in the [facility] parking garage located at [address] It is directly across [facility] from the [facility]. ?? If you are scheduled for [...] need help crossing the concourse, you may rock picker the patient golf cart shuttle directly to the right of the elevators on Level C. ?? If you are scheduled for surgery at the [facility], take the garage elevator toLevel A and catch the free shuttle to the hospital. (Be careful not to take the [facility] shuttle - there is an ambassador [...] checked many times throughout your stay at [facility] to ensure your safety. ?? Go [...] talk to them after your surgery. A paper sample clerk is available in the waiting room [...] them: living will, health care surrogate, powerof repairer engine production or guardianship papers. ?? Bring a responsible [...] makeup, jewelry (including body piercing) or nail kiswahili. ?? Don?t bring money or valuables to [...] office and the Preoperative Anesthesia Clinic at [phone] or [phone]. If it is the day of surgery, call the location where you are scheduled to have your surgery: [facility] at [phone] or [phone] or [facility] at [phone] or [phone]. For more information Visit [email or web address] or call [phone] or [phone]. [facility] does not discriminate. HealthCare complies with applicable [...] right off the exit ramp onto [address] ([place] [address] [address]) toward [place]. ?? In 4.1 miles, turn left onto [address] (at the [employer] gas station). ?? In a half-mile, turn right onto [address]. ?? In .3 miles, turn right onto [address] (just past the [employer] gas station). Garage entrance is on the left. ?? Important: This garage address will change to [address] [place] [address] on October 07, 2024. Directions from [facility] Parking Garage to [address]: ?? Turn left out of the garage onto [address]. ?? Turn left onto [address]. ?? In .3 miles, turn left down [address] ?? In a half-mile, turn right onto [address] (at the [employer] gas station). In 4.1 miles, merge onto [address] /[address] (near the [facility] by [address]upe [address]erre[address]). Parking Any patients or visitors of [facility] can park in the following areas: ?? HealthCare Parking Garage (main garage): [address] (Levels A-F) ?? [facility] Garage: [address] (Levels 1-6) ?? [facility] lot: Located off [address] (limited parking for [facility] outpatients only). Upon Your Arrival ?? Patients and visitors going to Pav[facility] A, H, G and [facility] may walk acrossthe pedway, located [...] please visit our information desks located throughout [facility]. Information desks have additional maps and resources. Information desks are located at the main entrances of: [facility] (first floor and ground floor), [facility], [facility], [facility], [facility], [facility] (first and third floor), and [facility]. Informationdesk number: [phone]. Important Addresses [address] [place] [address] ?? [facility] Hospital entrance ?? [facility] A [facility] ([facility]) ?? Emergency Department [address] ?? [facility] H ?? [facility] ([facility]) ?? [facility] ([facility]) ?? [facility] [address] [facility] ?? [facility] [address] [facility] ?? [address] ?? [facility] * [...] card, photo ID, along with power of repairer engine production, guardianship or advanced directives if applicable Do [...] on the first floor of [facility]) at the end of the bridge from the parking garage, the hallway on the RIGHT. Parking Garage Address: [address] [place] [address]. documented in this encounter Plan of Treatment Upcoming Encounters Date Type Department Care Team (Late st Contact Info) Description 06/30/2025 1:00 PM EDT Appointment [facility] Breast Care [facility] [address] [place] [address] 06/30/2025 2:30 PM EDT Office Visit [facility] Breast Care Center [address] [facility], [address]nd [place] [address] Ellen Edmonds MD [address] Mouna Benavides [facility] [address] [place] [address] documented as of this encounter Procedures Procedure Name Priority Date/Time Associated Diagnosis Comments SURGICAL PATHOLOGY EXAM Routine 10/15/2024 4:16 PM EDT Invasive ductal carcinoma of breast, female, left AZ BIOPSY/EXCISION, LYMPH NODE(S) 10/15/2024 2:38 PM EDT Invasive ductal carcinoma of breast, female, left AZ MASTECTOMY, PARTIAL 10/15/2024 2:38 PM EDT Invasive ductal carcinoma of breast, female, left POCT GLUCOSE METER UNSOLICITED RESULTS Routine 10/15/2024 12:48 PM EDT documented in this encounter Results * Surgical Pathology Exam (10/15/2024 4:16 PM EDT) Case Report Surgical Pathology Case: [id number] Authorizing Provider: Ellen Edmonds MD Collected: 10/15/2024 1616 Ordering Location: [facility] Received: 10/15/2024 1633 Pathologist: Carli Grijalva MD Specimens: A) - [place] Lymph Node, left axillary sentinel lymph node - blue and hot - 33675 B) - Breast, Left, left lumpectomy short [...] tao true margin 10/20/2024 4:08 PM EDT [facility] Final Diagnosis A. LYMPH NODE, [...] WITHOUT DIAGNOSTIC ABNORMALITY. 10/20/2024 4:08 PM EDT [facility] at 1608 EDT Synoptic Checklist INVASIVE CARCINOMA OF THE BREAST: Resection INVASIVE CARCINOMA OF THE BREAST: RESECTION - All Specimens 8th Edition - Protocol posted: 09/26/2023 SPECIMEN Procedure: Excision (less than total mastectomy) Specimen Laterality: Left TUMOR Tumor Site: Central Histologic Type: Invasive carcinoma of no special type (ductal) Histologic Grade (Zwolle Histologic Score): Glandular (Acinar) / Tubular Differentiation: [...] Examined (sentinel and non-sentinel): 2 Number of [place] Nodes Examined: 2 pTNM CLASSIFICATION (AJCC 8th [...] Drug Administration (FDA) cleared (test / vendor): [place] Primary Antibody: SP1 Scoring System: No separate scoring system used Test(s) Performed: Progesterone Receptor (PgR) Status: Negative (less than 1%) : Internal control cells present and stain as expected Test Type: Food and Drug Administration (FDA) cleared (test / vendor): [employer] [place] Primary Antibody: 1E2 Scoring System: No separate scoring system used Test(s) Performed: HER2 by Immunohistochemist ry: Negative (Score 0) Test Type: Food and Drug Administration (FDA) cleared (test / vendor): [employer] Primary Antibody: 4B5 Cold Ischemia and Fixation Times: Meet requirements specified in latest version of the ASCO / CAP Guidelines METHODS Fixative: Formalin Image Analysis: Not performed 10/20/2024 4:08 PM EDT [facility] Clinical Information Invasive ductal carcinoma of breast, female, left [C50.912] 10/20/2024 4:08 PM EDT [facility] Gross Description A. LEFT AXILLARY SENTINEL LYMPH NODE - BLUE AND HOT - 00738 The specimen is received fresh and placed [...] serially sectioned Cold Time: 18m FLOR Atkinson ([facility]) B. LEFT LUMPECTOMY SHORT STITCH [...] and 5% olea - white fibromembranous tissue. Cyber Security Architect sections are submitted as follows: B1-B6: Slice [...] x 2.2 x 0.7 cm portion of oela-yellow lobulated fibroadipose tissue. The new margin is inked blue. The specimen is serially sectioned and entirely submitted in cassettes G1-G3. Cold Time: 24h 11m FLOR Atkinson ([facility]) H. POSTERIOR SHAVE MARGIN CLIP TAO TRUE MARGIN The specimen is received fresh and placed in formalin, labeled p osterior shave margin clip ato true margin , and consists of a 2.8 x 2.1 x 1.1 cm portion of olea-yellow lobulated fibroadipose tissue. The new margin is inked blue. Specimen is serially sectioned and entirely submitted in cassettes H1-H4. Cold Time: 24h 11m FLOR Atkinson ([facility]) 10/20/2024 4:08 PM EDT [facility] Note: A resident was involved in the service. I attest I examined the relevant preparations for the specimens and confirmed the diagnosis or interpretation. 10/20/2024 4:08 PM EDT [facility] Lymph Node Specimen from sentinel [...] MD LAB PATHOLOGY ORDERABLES Final R esult [facility] [address] [place] [address] * (ABNORMAL) POCT glucose meter (10/15/2024 12:48 [...] 10/15/2024 12:49 PM EDT [facility] Lip Reading Teacher ID Dianne Zhu 10/15/2024 12:49 PM EDT [facility] Device ID [id number] 10/15/2024 12:49 PM EDT [facility] Specimen Type POC Capillary 10/15/2024 12:49 PM EDT [facility] Blood Capillary blood specimen / Unknown 10/15/2024 12:48 PM EDT 10/15/2024 12:49 PM EDT us Ellen Edmonds MD LAB POINT OF CARE TE ST DOCKED DEVICE UNSOLICITED RESULTS Final Result [facility] [address] [place] [address] documented in this encounter Visit Diagnoses Diagnosis [...] of breath bupivacaine-EPINEPHrine PF (Marcaine w/EPI) 0.25% -1:[id number] injection As needed, Starting on Sun10/15/24 at 1733, Until Sun10/15/24 at 1754, Routine, Intraprocedure Given 10/15/2024 5:33 PM EDT 30 mL droperidol (Inapsine) injection 0.625 mg 0.625 mg, Intravenous, Once as needed, 1 dose, Starting on Sun10/15/24 at 1734, Until Sun10/15/24 at 222, Routine, Recovery (Phase I only), nausea, vomiting [...] of breath bupivacaine-EPINEPHrine PF (Marcaine w/EPI) 0.25% -1:863307 injection (CANCELED) As needed, Starting on Sun10/15/24 [...] as of this encounter Care Teams Commercial Real Estate Underwriter Relationship Specialty Start Date End Date Terence Britton MD [address] [place] [address] PCP - General 08/19/24 documented as of this encounter
--- OUTSIDE RECORDS SUMMARY | 2024-10-15 14:50 | XMS_ITS | Encounter Summary ---
Author Organization [facility] Address [address] [place] [address] Care Team Providers Care Textile Converter Name Role Phone Terence Britton MD Primary Care Provider [phone] Reason for Visit * Auth/Cert (Routine) Specialty Diagnoses / Procedures Referred By Contac t Referred To Contact Diagnoses Invasive ductal carcinoma of breast, female, left Invasive ductal carcinoma of breast, female, left [C50.912] Procedures AK MASTECTOMY, PARTIAL AK BIOPSY/EXCISION, LYMPH NODE(S) AK BX/REMV,LYMPH NODE,DEEP AXILL AK INTRAOPERATIVE SENTINEL LYMPH NODE ID W DYE INJECTION Left localized lumpectomy sentinel lymph node EXCISION, LYMPH NODE, SENTINEL Ellen Edmonds MD [address] [address] Phone: tel: fax: [facility] [address] [place] [address] Phone: tel: Referral ID Status Reason Start Date Expiration Date Visits Re quested Visits Authorized [id number] 1 1 Encounter Details Date Type Department Care Team (Late st Contact Info) Description 10/15/2024 2:50 PM EDT Anesthesia Event [facility] RO[facility] [address] [place] [address] Jessenia Humphreys MD [address] [place] [address] Anesthesia Record Procedure Summary Procedure [...] Removal Time: 173910/15/24 151 by Layo Wen AUDIO VISUAL AIDE 10/15/241739 by Norbert Putnam MD documented in [...] and Staff Patient location during procedure: OR AUDIO VISUAL AIDE: Layo Wen CRNA Performed: AUDIO VISUAL AIDE Patient Condition Indications for airway management: anesthesia [...] Current Medications[6] Jessenia Humphreys MD Anesthesiologist: (Unknown) AUDIO VISUAL AIDE: (Unknown) Sheet Cutter: (Unknown) Patient: Sunita Chiang HPI Sunita Chiang [...] ABG No results found for: PHART , SAP1RFM , PO2ART , SO2ART , BEART , XHK5JNX , HCTART , SODIUMART , POTASSIUMART , POCTCL , POCGLU , IONCALART , LACTATE No results found for: PH , PCO2 , PO2 , V8PRCVCU , BASEEXC , HCTSYR , KSYR , CLSYR , GLUSYR , CAION , LACTATE ECHO No echocardiogram results found for the past 12 months PFTs No results found for: ONO2GEN , TAO4DNBX , DTD9UML , FVCPRED BP Readings from Last 5 [...] Plan ASA 3 Plan was reviewed with: AUDIO VISUAL AIDE Anesthesia technique(s) discussed with the patient/family: general [...] Info) Description 06/30/2025 1:[address] [facility] Breast Care Center Comprehensive Breast Care Center [place] [address] [address] [facility] [address] [place] [address] 06/30/2025 2:30 PM EDT Office Visit [facility] Breast Care [place] [address] [facility] [place] [address] Ellen Edmonds MD [address]ides [facility] [address] [place] [address] documented as of this encounter Procedures Procedure Name Priority Date/Time Associated Diagnosis Comments PB ANESTHESIA PLACEHOLDER Routine 10/15/2024 3:14 PM EDT AK AN ELECTIVE SUPRAGLOTTIC AIRWAY Routine 10/15/2024 3:14 PM EDT documented in this encounter Results * AK AN ELECTIVE SUPRAGLOTTIC AIRWAY, PB ANESTHESIA PLACEHOLDER (10/15/2024 3:14 PM EDT) Narrative Layo Wen CRNA - 10/15/2024 3:14 PM EDT Layo Wen CRNA 10/15/2024 3:15 PM Airway Date/Time: 10/15/2024 3:14 PM Reason: elective Airway not difficult General Information and Staff Patient location during procedure: OR AUDIO VISUAL AIDE: Layo Wen CRNA Performed: PAM Patient Condition [...] documented as of this encounter Care Teams Textile Converter Relationship Specialty Start Date End Date Terence Britton MD [address] [place] [address] PCP - General 08/19/24 documented as of this encounter
--- OUTSIDE RECORDS SUMMARY | 2024-10-28 15:30 | XMS_ITS | Encounter Summary ---
Author Organization Healthcare Address [address] [place] [place] [id number] Care Team Providers Care Miller [place] Name Role Phone Terence Britton MD Primary Care Provider [phone] Encounter Details Date Type Department Care Team (Late st Contact Info) Description 10/28/2024 3:30 PM EDT Office Visit [facility] [address] [facility], [address]nd [place] [address] Ellen Edmonds MD [address] [facility] [address] [place] [phone] Invasive ductal carcinoma of breast, female, left [...] Notes * Progress Notes - Lisa Sims, TIGHTENING MACHINE OPERATOR - 10/28/2024 3:30 PM EDT Images from the original note were not included. [facility] Postoperative Note Sunita Chiang [...] lymph nodes negative for malignancy. Tumor markersdemonstrate ER-/SC-/HER-. The pathology report was reviewed in detail [...] Examined (sentinel and non-sentinel): 2 Number of [place] Nodes Examined: 2 pTNM CLASSIFICATION (AJCC 8th [...] Drug Administration (FDA) cleared (test / vendor): [employer] Primary Antibody: SP1 Scoring System: No separate scoring system used Test(s) Performed: Progesterone Receptor (PgR) Status: Negative (less than 1%) : Internal control cells present and stain as expected Test Type: Food and Drug Administration (FDA) cleared (test / vendor): [employer] Primary Antibody: 1E2 Scoring System: No separate scoring system used Test(s) Performed: HER2 by Immunohistochemistry: Negative (Score 0) Test Type: Food and Drug Administration (FDA) cleared (test / vendor): [employer] Primary Antibody: 4B5 Cold Ischemia and Fixation [...] Stage IIB (cT2, cN0, cM0, G3, ER-, [place]-, HER2-) - Unsigned Stage prefix: Initial diagnosis Histologic grading system: 3 grade system - Pathologic stage from 10/15/2024: Stage IB (pT1b, pN0, cM0, G3, ER-, SC-, HER2-) - Unsigned Histopathologic type: Infiltrating duct [...] reasons. She previously saw Dr. Verdin in [place], [place] for medical oncology and would like [...] at any point. Dr. Ellen Edmonds MD Glove Printer of Surgical Oncology [facility] Cosigned by Ellen Edmonds MD at 10/28/2024 4:58 PM EDT Associated attestation - Ellen Edmonds MD - 10/28/2024 4:58 PM EDT Images from the original note were not included. Attending Attestation: I personally saw and evaluated the patient with the TIGHTENING MACHINE OPERATOR. I attest to being involved in providing substantive time in patient care. I discussed the case with them and agree with the findings as documented. The discussion and plan reflect my edits and medical decision making. Dr. Ellen Edmonds MD Glove Printer of Surgical Oncology [facility] Healthcare documented in this encounter Plan of Treatment Upcoming Encounters Date Type Department Care Team (Late st Contact Info) Description 06/30/2025 1:00 PM EDT Appointment [facility] [address] [facility] [address] [place] [address] 06/30/2025 2:30 PM EDT Office Visit [facility] [address] [facility], [address]nd [place] [address] Ellen Edmonds MD [address] [facility] [address] [place] [address] Scheduled Orders Name Type Priority [...] documented as of this encounter Care Teams [place] Relationship Specialty Start Date End Date Terence Britton MD [address] [place] [address] PCP - General 08/19/24 documented as of this encounter
--- OUTSIDE RECORDS SUMMARY | 2024-12-01 06:00 | XMS_ITS ---
Author Organization [facility] Address [address] [place] [id number] Care Team Providers Care Bank Accountant Name Role Phone Carola Britton Primary Care [...] Interpretation:Normal Performing Lab: Notes/Report: Test performed by [employer], [employer] [address] [place] [address] , [address], [place] [address] Alejandro Cabrales MD, Security Control Center Operator CLIA: [id number] Sodium 142 135-145 mmol/L Potassium 4.0 3.5-5.3 [...] W/U Status Risk Notes Problem Ductal carcinoma (C80.1) Active confirmed Vital Signs Blood pressure systolic 128 mm Hg 12/02/19 25 Blood pressure diastolic 82 mm Hg 025 Heart Rate 78 /min 12/01/2024 Height 64.75 in 12/01/2024 Weight 221.2 lbs 12/01/2024 BMI 37.09 kg/m2 12/01/2024 Encounters Encounter Location Date Provider Diagnosis [facility] [facility] [address] [place], [place] [id number] 12/01/2024 Carola Britton Essential hypertensi on I10 [address], [place], [id number], Progress Notes * MIRIAM GALVANADOB:1965 (59 yo F)Acc No.[id number]:12/01/2024 Progress Notes Patient: CHRISTAL GARZA Provider: Carola Britton M.D. :1965 A ge:59 Y S ex:Female Date:12/01/2024 Address:[address] [place], [place] [id number] Subjective: * Chief Complaints: * 1 . 4 months. 2. Needs labs, low dose chest CT, & diabetic eye exam. * HPI: H PI: 59 year old female presents with c/o Patient is here today for?Pt is here today for a 4 month check up. Pt sts she has no concerns at this time. [place]/HER2 negative ductal carcinoma with lumpectomy October 2024. [...] Encounter for vaccination, decreased vision OS, traumatic, [place]/HER@ negative ductal carcinoma August 2024, October 15, 2024 lumpectomy, Dr. Edmonds, [facility]. * Surgical History: l eft [...] informed of normal results. * Procedure Codes: 3 6416 CAPILLARY BLOOD DRAW, 02317 GLYCATED HEMOGLOBIN TEST, Modifiers: QW * Follow Up: 3 Months * Images: Billing Information: * Visit Code: 83415 Office Visit, Est Pt., Level 4. * Procedure Codes: 06358 CAPILLARY BLOOD DRAW. 01614 GLYCATED HEMOGLOBIN TEST. Modifiers: QW * Electronic signature of Carola Britton MD on 12/09/2024 at 08:47 AM EDT Sign off status: Pending * Provider: Carola Britton M.D. Date: 0 12/01/2024 Generated for Jai luna/Cindy/Vinnie on: 0 12/09/2024 08:47 AM EDT History and Physical Notes * HPI (History of Present Illness) Category Sub-Category Detail Notes Category Not es HPI Patient is here today for Pt is here today for a 4 month check up. Pt sts she has no concerns at this time. [place]/HER2 negative ductal carcinoma with lumpectomy October 2024. [...]
[2024-12-09 08:27] VITALS: BMI 38.6
--- OUTSIDE RECORDS SUMMARY | 2024-12-09 08:46 | XMS_ITS | Encounter Summary ---
Author Organization [facility] Address [address] [place] [address] Care Team Providers Care Police Booking Officer Name Role Phone Terence Britton MD Primary Care Provider [phone] Encounter Details Date Type Department Care Team [...] [facility] [place] [address] [facility] [address] [place] [address] 06/30/2025 2:30 PM EDT Office Visit [facility] [address] [facility] [place] [address] Ellen Edmonds MD [address] [facility] [address] [address] [phone] documented as of this encounter Visit Diagnoses [...] documented as of this encounter Care Teams Police Booking Officer Relationship Specialty Start Date End Date Terence Britton MD [address] [place] [address] PCP - General 08/19/24 documented as of this encounter
--- OUTSIDE RECORDS SUMMARY | 2024-12-09 08:46 | XMS_ITS | Patient Health Record ---
[facility] Organization [facility] Address [address] [facility] [address] [place] [id number] Care Team Providers Care Bleach Packer Name Role Phone Carola Britton Primary Care Provider Allergies Allergen (clinical drug ingredient) Drug/Non Drug Allergy documented on EMR Reaction Allergy Type Onset Date Status amoxicillin / clavulanate Augmentin vomiting Drug Allergy Active Results Component Value Reference Range Notes Estimated Average Glucose Reviewed date:08/08/2024 12:26:23 PM Interpretation:Normal Performing Lab: Notes/Report: Test performed by [facility] [employer] [place] , [address], [place] [address] Alejandro Cabrales MD, Rn Neurosurgical CLIA: [id number] Estimated Average Glucose (eAG) 131 Estimated Average Glucose (eAG) is calculated using the equation eAG = (28.7 x HbA1c) - 46.7 based on the guidelines established by the ADA. If the patient has certain diseases including kidney disease, sickle cell anemia, thalassemia, or is taking medications such as dapsone, erythropoietin, or iron, eAG should not be evaluated. P-Hemoglobin A1C Reviewed date:08/08/2024 12:26:23 PM Interpretation:a1c 6.2 Performing Lab: Notes/Report: Test performed by [facility] [facility] [employer] [place] , [address], [place] [address] Alejandro Cabrales MD, Rn Neurosurgical CLIA: [id number] Hemoglobin A1C 6.2 <5.7 % The following HbA1c ranges recommended by the [place] [employer] (ADA) may be used as an aid in the diagnosis of diabetes mellitus. HbA1c Suggested Diagnosis >=6.5% Diabetic 5.7% - 6.4% Pre-Diabetic <5.7% Non-Diabetic P-Basic Metabolic Panel (BMP ) Reviewed date:08/08/2024 12:26:23 PM Interpretation:Normal Performing Lab: Notes/Report: Test performed by [facility] [address] [place] [address] , [address], [place] [address] Alejandro Cabrales MD, Rn Neurosurgical CLIA: [id number] Sodium 141 135-145 mmol/L Potassium 4.2 3.5-5.3 mmol/L Chloride 104 97-108 mmol/L CO2 26 22-32 mmol/L Glucose 90 65-99 mg/dL BUN 13 6-20 mg/dL Creatinine 0.70 0.50-1.00 mg/dL Calcium 9.6 8.6-10.4 mg/dL eGFR by Creatinine 101 >59 mL/min/1.73m2 Glycohemoglobin A1c (in hous e) Reviewed date:05/23/2024 12:45:47 PM Interpretation:6.2 Performing Lab: Notes/Report: 6.2 glycohemoglobin 6.2% 5 - 6.5 % P-Comprehensive Metabolic Pa mariama (CMP) Reviewed date:05/29/2024 09:56:08 AM Interpretation:gluc 113, a1c discussed in OV Performing Lab: Notes/Report: Test performed by [facility] [address] [place] [address] [address], [place] [address] Alejandro Cabrales MD, Rn Neurosurgical CLIA: [id number] Sodium 142 135-145 mmol/L Potassium 4.4 3.5-5.3 [...] Interpretation:satisfactory Performing Lab: Notes/Report: Test performed by [facility] [address] [place] , [place] [address] Alejandro Cabrales MD, Rn Neurosurgical CLIA: [id number] Cholesterol 105 <200 mg/dL Triglycerides 90 <150 [...] Results: 50 Units: mg/dL % Change: - Glycohemoglobin A1c (in hous e) Reviewed date:12/02/2024 02:46:21 PM Interpretation:6.1% Normal Performing Lab: Notes/Report: 6.1% Normal glycohemoglobin 6.1% 5 - 6.5 % P-Comprehensive Metabolic Pa mariama (CMP) Reviewed date:12/02/2024 02:46:20 PM Interpretation:Normal Performing Lab: Notes/Report: Test performed by [employer], [address] , [address], [place] [address] Alejandro Cabrales MD, Rn Neurosurgical CLIA: [id number] Sodium 142 135-145 mmol/L Potassium 4.0 3.5-5.3 [...] 0.2 <0.2-1.2 mg/dL A/G Ratio 1.6 1.1-2.5 Medications Medication SIG (Take, Route, Frequency, Duration) [...] Once a day; Duration: 30 days Active CoQ-10 100 MG 1 cap(s) orally once a day; Duration: 30 day(s) 10/22/2019 Active Potassium Chloride ER 10 MEQ 1 tab(s) Or ally once daily; Duration: 30 days Active ZyrTEC Allergy 10 MG 1 tab(s) orally onc e a day Active Vitamin D3 125 MCG (5000 UT) 1 cap(s) or ally once a day; Duration: 30 day(s) Active Vitamin B-12 1000 MCG 1 tab(s) orally on day 07/24/2016 Active Immunizations Vaccine Route Administration Date Status Comme nts Tetanus Tdap-Adacel (over 7yrs) IM Intramuscular 06/17/2018 Administered Shingrix IM Intramuscular 09/13/2021 Administered Shingrix IM Intramuscular 03/15/2022 Administered Fluzone Quad (6months&older) IM Intramuscular 02/09/2021 Administered Fluzone Quad (6months&older) IM Intramuscular 01/09/2022 Administered Fluzone Quad (6months&older) IM Intramuscular 02/05/2023 Administered Fluzone Quad (6months&older) IM Intramuscular 01/21/2024 Administered Flublok IM Intramuscular 01/14/2020 Administered COVID 19 Moderna Unknown 06/23/2020 Administered COVID 19 Moderna Unknown 07/21/2020 Administered COVID 19 Moderna Unknown 03/30/2021 Administered Problems Problem Type SNOMED Code ICD Code Onset Dates Problem Status W/U Status Risk Notes Problem Hyperglycemia (49777450) Hyperglycemia (R73.9) Active confirmed Problem Vitamin B12 deficiency (712195945) Vitamin B12 deficiency (E53.8) Active confirmed Problem Essential hypertension (96203258) Essential hypertension (I10) Active confirmed Problem Mixed hyperlipidemia (792291658) Mixed hyperlipidemia (E78.2) Active confirmed Problem Vaccination given (669378737) Encounter for immunization (Z23) Active confirmed Problem Abnormal vaginal bleeding (398794103) DUB (dysfunctional uterine bleeding) (N93.8) Active confirmed Problem Fibrocystic breast changes (88361156) Fibrocystic breast, unspecified laterality (N60.19) Active confirmed Problem New daily persistent headache (339807134340471) New daily persistent headache (G44.52) Active confirmed Problem Chronic vaginitis (47992397) Chronic vaginitis (N76.1) Active confirmed Problem Vulvovaginitis (23972551) Vulvovaginitis (N76.0) Active confirmed Problem Mammography abnormal (171590073) Abnormal mammogram of right breast (R92.8) Active confirmed Problem Type II diabetes mellitus without complication (419155051) Type 2 diabetes mellitus without complication, without long-term current use of insulin (E11.9) Active confirmed Problem Ductal carcinoma (78254138) Ductal carcinoma (C80.1) Active confirmed Problem Urge incontinence of urine (27693637) Urge incontinence of urine (N39.41) Active confirmed Problem Cigarette smoking tobacco (substance) (20137421) Smoking history (Z87.891) Active confirmed Problem Fibrocystic breast changes (00090399) Fibrocystic breast disease (FCBD), unspecified laterality (N60.19) Active confirmed Problem Cyst of right ovary (6507393045793481 8) Cyst of right ovary (N83.201) Active confirmed Problem Hordeolum externum (1316605) Hordeolum externum of left upper eyelid (H00.014) Active confirmed Problem Ganglion cyst of left wrist (549796368099819) Ganglion cyst of dorsum of left wrist (M67.432) Active confirmed Problem Lichen sclerosus of vulva (597730347) Lichen sclerosus of vulva (N90.4) Active confirmed Vital Signs Heart Rate 78 /min 12/01/2024 Blood pressure diastolic 82 mm Hg 12/01/2024 Height 64.75 in 12/01/2024 Blood pressure systolic 128 mm Hg 12/01/2024 Weight 221.2 lbs 12/01/2024 BMI 37.09 kg/m2 12/01/2024 Encounters Encounter Location Date Provider Diagnosis [facility] [address] [facility] [address] [place] [id number] 01/21/2024 Carola Britton Encounter for immunization Z23 and Essential hypertension I10 [facility] [address] [facility] [address] [place] [id number] 05/23/2024 Carola Britton Essential hypertensi on I10 ; Mixed hyperlipidemia E78.2 ; Hyperglycemia R73.9 and Type 2 diabetes mellitus without complication, without long-term current use of insulin E11.9 [facility] [address] [place] [id number] 12/01/2024 Carola Britton Essential hypertensi on I10 ; Mixed hyperlipidemia E78.2 ; Smoking history Z87.891 ; Type 2 diabetes mellitus without complication, without long-term current use of insulin E11.9 ; Ductal carcinoma C80.1 and History of lumpectomy of left breast Z98.890 [facility] 121 [facility] [address] [place] [id number] 08/04/2024 Carola Britton Essential hypertensi on I10 ; Vulvovaginitis N76.0 ; Lichen sclerosus of vulva N90.4 and Type 2 diabetes mellitus without complication, without long-term current use of insulin E11.9 [facility] [address] [facility] [address] [place] [id number] 05/26/2024 Carola Britton Type 2 diabetes alisha itus without complication, without long-term current use of insulin E11.9 [facility] [facility] [address] [place] [id number] 08/08/2024 Carola Britton Assessments Encounter Date Diagnosis (ICD Code) Assessment Notes Treatment Notes Treatment Clinical Notes Section Notes 01/21/2024 Essential hypertension (ICD-10 - I10) 01/21/2024 Encounter for immunization (ICD-10 - Z23) 05/26/2024 Type 2 diabetes mellitus without complication, without long-term current use of insulin (ICD-10 - E11.9) 08/04/2024 Essential hypertension (ICD-10 - I10) 08/04/2024 Vulvovaginitis (ICD-10 - N76.0) 12/01/2024 Essential hypertension (ICD-10 - I10) 12/01/2024 Mixed hyperlipidemia (ICD-10 - E78.2) 05/23/2024 Essential hypertension (ICD-10 - I10) 05/23/2024 Mixed hyperlipidemia (ICD-10 - E78.2) 12/01/2024 Smoking history (ICD-10 - Z87.891) 05/23/2024 Hyperglycemia (ICD-10 - R73.9) 08/04/2024 Lichen sclerosus of vulva (ICD-10 - N90.4) 08/04/2024 Type 2 diabetes mellitus without complication, without long-term current use of insulin (ICD-10 - E11.9) 05/23/2024 Type 2 diabetes mellitus without complication, without long-term current use of insulin (ICD-10 - E11.9) 12/01/2024 Type 2 diabetes mellitus without complication, without long-term current use of insulin (ICD-10 - E11.9) 12/01/2024 Ductal carcinoma (ICD-10 - C80.1) 12/01/2024 History of lumpectomy of left breast (ICD-10 - Z98.890) Plan Of Treatment Next Appt Details Provider Name:Carola Sharma er, 03/13/2025 10:15:00 AM, [address], [address], [place], [id number], Insurance Providers Payer Name Payer Address Payer Phone Subscriber Number Group Number Insured Name Patient Relationship to Insured Coverage Start Date Coverage End Date [employer] [address] [place] [address] [id number] CHRISTAL GALVAN Self - patient is the insured Medications Administered Medication Instructions Date of Administration Dosage Notes B-12 07/24/2016 1 mL B-12 10/24/2016 1 mL B-12 08/14/2018 1 mL Dexamethasone 08/23/2011 1 mL Dexamethasone 07/23/2012 Medical (General) History Medical History History ICD Code 06/2018 mammogram COVID 19 Vaccine, Moderna Jun/May 2020 [facility] for vaccination Z23 decreased vision OS, traumatic ER/ID/HER@ negative ductal carcinoma August 2024 October 15, 2024 lumpectomy, Dr. Edmonds, [facility] Surgical History Surgery Date(Month/Year) left ear drum X 2 BTL poylps from vocal cord 05/18/14 poylps removed from vocal cords 07/02- endometrial polyp, Dr. Vale 2011 Colonoscopy, Dr. Berrios, adenomatous polyp s 08/01/2018 Hospitalization History Reason Date(Month/Year) ears
--- OUTSIDE RECORDS SUMMARY | 2024-12-09 08:46 | XMS_ITS | Encounter Summary ---
Author Organization Healthcare Address [address] [place] [address] Care Team Providers Care Control Panel Operator Crude Unit Name Role Phone Terence Britton MD Primary Care Provider [phone] Encounter Details Date Type Department Care Team (Late st Contact Info) Description 10/16/2024 Telephone [facility] [address] [place] [address] Ellen Edmonds MD [address] [place] [address] Social History Tobacco Use Types Packs/Day [...] at any time. Please call back at [phone]. documented in this encounter Plan of Treatment Upcoming Encounters Date Type Department Care Team (Late st Contact Info) Description 06/30/2025 1:00 PM EDT Appointment [facility] [place] [address] [address] [facility] [address] [place] [address] 06/30/2025 2:30 PM EDT Office Visit [facility] Breast [facility] [address] [facility], 2nd [place] [address] Ellen Edmonds MD [address] [facility] Mouna Benavides [address] [address] documented as of this encounter [...] documented as of this encounter Care Teams Control Panel Operator Crude Unit Relationship Specialty Start Date End Date Terence Britton MD [address] [place] [address] PCP - General 08/19/24 documented as of this encounter
--- OUTSIDE RECORDS SUMMARY | 2024-12-09 08:46 | XMS_ITS | Clinical Summary ---
Author Organization [facility] Address [address] [place] [address] Care Team Providers Care Vice President Payer Name Role Phone Terence Britton MD Primary Care Provider [phone] Allergies Active Allergy Reactions Criticality Noted Date [...] from 08/12/2024:Stage IIB(cT2, cN0, cM0, G3, ER-, WV-, HER2-) - Unsigned Pathologic stage from 10/15/2024:Stage IB(pT1b, pN0, cM0, G3, ER-, WV-, HER2-) - Unsigned Encounters Date Type Department Care Team Description 10/28/2024 3:30 PM EDT Office Visit [facility] [address] [place] [address], 2[address] [place] [address] Ellen Edmonds MD Invasive ductal carcinoma of breast, female, left (Primary Dx) 10/28/2024 Travel 10/16/2024 Telephone [facility] Breast [facility] [address] [address] Ellen Edmonds MD 10/15/2024 2:50 PM EDT Anesthesia Event [facility] OPERATING ROOM [address] [place] [phone] Jessenia Humphreys MD 10/15/2024 12:45 PM EDT - 10/15/2024 3:50 PM EDT Surgery [facility] [address] [place] [phone] Ellen Edmonds MD Left localized lumpectomy sentinel lymph node [07717 (CPT )] 10/15/2024 12:30 PM EDT - 10/15/2024 11:59 PM EDT Hospital Encounter [facility] H Nuclear Medicine [address] [place] [phone] Breast cancer Discharge Disposition: Home or Self Care 10/15/2024 10:57 AM EDT - 10/15/2024 8:05 PM EDT Hospital Encounter [facility] OPERATING RO[facility] [address] [place] [address] Ellen Edmonds MD Invasive ductal carcinoma of breast, female, left Discharge Disposition: Home or Self Care 10/15/2024 7:16 AM EDT - 10/15/2024 10:56 AM EDT Hospital [facility] [address] [place] [address] Abnormal mammogram Discharge Disposition: Home or Self Care 10/15/2024 Travel 09/22/2024 10:10 AM EDT - 09/22/2024 11:59 PM EDT Hospital Encounter [facility] [address] [facility] [address] [place] [address] Abnormal mammogram Discharge Disposition: Home or Self Care 09/22/2024 8:52 AM EDT - 09/22/2024 10:09 AM EDT Hospital Encounter [facility] [address] [facility] [address] [place] [address] Invasive ductal carcinoma of breast, female, left Discharge Disposition: Home or Self Care 09/22/2024 Travel 09/10/2024 Orders Only [facility] [address] [facility], [address] [place] [phone] Ellen Edmonds MD Invasive ductal carcinoma of breast, female, left (Primary Dx) 09/09/2024 2:30 PM EDT Office Visit [facility]AV [facility] [address] [facility], [address] [place] [address] Ellen Edmonds MD Invasive ductal carcinoma of breast, female, left (Primary Dx) 09/09/2024 Orders Only Radiology Virtual Dept. [address] [place] [address] Mando Kay MD 09/09/2024 Travel from Last 3 Months Family History [...] Info) Description 06/30/2025 1:00 PM EDT Appointment [facility] Breast Care Center [facility] [place] [address] [address] [facility] [address] [place] [address] 06/30/2025 2:30 PM EDT Office Visit [facility] Breast Care Center [address] [facility], 2nd [place] [address] Ellen Edmonds MD [address] [facility] [address] [place] [phone] Health Maintenance Due Date Last Done [...] UKY-Zoster Vaccines (2 of 2) 11/08/2021 09/13/2021 [id number] Vaccine (4 - season) 2023 03/30/2021, 07/21/2020, 06/23/2020 UKY-Influenza Vaccine [...] this topic Medical Devices Implanted Type Area Commercial Attache Device Identifier Shelf Expiration Date Model / Serial / Lot Marker Smartclip Soft Tiss/Delvry Sys Pnk 5cm - [id number] Implanted:Qty: 1 on 09/22/2024 by Lien Martínez MD at [facility] Breast Left: Breast [id number] SMARTCLIPL [id number] / / Procedures Procedure Name Priority Date/Time Associated Diagnosis Comments SURGICAL PATHOLOGY EXAM Routine 10/15/2024 4:16 PM EDT Invasive ductal carcinoma of breast, female, left PB ANESTHESIA PLACEHOLDER Routine 10/15/2024 3:14 PM EDT WV AN ELECTIVE SUPRAGLOTTIC AIRWAY Routine 10/15/2024 3:14 PM EDT WV BIOPSY/EXCISION, LYMPH NODE(S) 10/15/2024 2:38 PM EDT Invasive ductal carcinoma of breast, female, left WV MASTECTOMY, PARTIAL 2:38 PM EDT Invasive ductal [...] Routine 09/22/2024 10:23 AM EDT Abnormal mammogram from Last 3 Months Results * Surgical Pathology Exam (10/15/2024 4:16 PM EDT) Case Report Surgical Pathology Case: [id number] Authorizing Provider: Ellen Edmonds MD Collected: 10/15/2024 1616 Ordering Location: [facility] OPERATING ROOM Received: 10/15/2024 1633 Pathologist: Carli Grijalva MD Specimens: A) - [place] Lymph Node, left axillary sentinel lymph node - blue and hot - 14085 B) - Breast, Left, left lumpectomy short [...] tao true margin 10/20/2024 4:08 PM EDT [facility] Final Diagnosis A. LYMPH [...] WITHOUT DIAGNOSTIC ABNORMALITY. 10/20/2024 4:08 PM EDT [facility] at 1608 EDT Synoptic Checklist INVASIVE CARCINOMA OF THE BREAST: Resection INVASIVE CARCINOMA OF THE BREAST: RESECTION - All Specimens 8th Edition - Protocol posted: 09/26/2023 SPECIMEN Procedure: Excision (less than total mastectomy) Specimen Laterality: Left TUMOR Tumor Site: Central Histologic Type: Invasive carcinoma of no special type (ductal) Histologic Grade ([place] Histologic Score): Glandular (Acinar) / Tubular Differentiation: [...] Examined (sentinel and non-sentinel): 2 Number of [place] Nodes Examined: 2 pTNM CLASSIFICATION (AJCC 8th [...] Drug Administration (FDA) cleared (test / vendor): [employer] Primary Antibody: SP1 Scoring System: No separate scoring system used Test(s) Performed: Progesterone Receptor (PgR) Status: Negative (less than 1%) : Internal control cells present and stain as expected Test Type: Food and Drug Administration (FDA) cleared (test / vendor): [employer] Primary Antibody: 1E2 Scoring System: No separate scoring system used Test(s) Performed: HER2 by Immunohistochemist ry: Negative (Score 0) Test Type: Food and Drug Administration (FDA) cleared (test / vendor): [employer] Primary Antibody: 4B5 Cold Ischemia and Fixation Times: Meet requirements specified in latest version of the ASCO / CAP Guidelines METHODS Fixative: Formalin Image Analysis: Not performed 10/20/2024 4:08 PM EDT [facility] Clinical Information Invasive ductal carcinoma of breast, female, left [C50.912] 10/20/2024 4:08 PM EDT [facility] Gross Description A. LEFT AXILLARY SENTINEL LYMPH NODE - BLUE AND HOT - 28878 The specimen is received fresh and placed [...] and 5% olea - white fibromembranous tissue. Rac Specialist sections are submitted as follows: B1-B6: Slice [...] F1-F4. Cold Time: 24h 12m FLOR Atkinson ([facility]) G. ANTERIOR SHAVE MARGIN CLIP TAO TRUE [...] H1-H4. Cold Time: 24h 11m FLOR Atkinson ([facility]) 10/20/2024 4:08 PM EDT [facility] Note: A resident was involved in the service. I attest I examined the relevant preparations for the specimens and confirmed the diagnosis or interpretation. 10/20/2024 4:08 PM EDT [facility] Lymph Node Specimen from [...] MD LAB PATHOLOGY ORDERABLES Final R esult [facility] [address] [place] [address] * WV AN ELECTIVE SUPRAGLOTTIC AIRWAY, PB ANESTHESIA PLACEHOLDER (10/15/2024 3:14 PM EDT) Narrative Layo Wen CRNA - 10/15/2024 3:14 PM EDT Layo Wen CRNA 10/15/2024 3:15 PM Airway Date/Time: 10/15/2024 3:14 PM Reason: elective Airway not difficult General Information and Staff Patient location during procedure: OR BOILER REPAIRMAN: Layo Wen CRNA Performed: PAM Patient Condition Indications for airway management: anesthesia Patient position: sniffing MILS maintained throughout Final Airway Details Final airway type: LMALMA Size: 4 LMA Type: flexible us Jessenia Humphreys MD ANESTHESIA ORDERABLES Final R esult * NM Dermal Injection [place] Node (10/15/2024 1:31 PM EDT) Anatomical Region [...] as marked on the skin, by the angiography technologist at 1:31 PM. COMPARISON/CORRELATION: Not applicable. [...] as marked on the skin, by the angiography technologist at 1:31PM. COMPARISON/CORRELATION: Not applicable. FINDINGS: [...] on 10/15/2024 3:11 PM [facility] Final Result * (ABNORMAL) POCT glucose [...] Comment 10/15/2024 12:49 PM EDT [facility] Chef De Partie ID Dianne Zhu 10/15/2024 12:49 PM EDT [facility] LAB Device ID [id number] 10/15/2024 12:49 PM EDT [facility] Specimen Type POC Capillary 10/15/2024 12:49 PM EDT [facility] Blood Capillary blood specimen / Unknown 10/15/2024 12:48 PM EDT 10/15/2024 12:49 PM EDT Ellen Edmonds MD LAB POINT OF CARE TE ST DOCKED DEVICE UNSOLICITED RESULTS Final Result Performing Organization Address City/State/RUST Co de Phone Number [facility] [address] [place] [address] * Mammography Breast Surgical Specimen (10/15/2024 7:16 [...] Last 3 Months Insurance MARLENE Care Teams Vice President Payer Relationship Specialty Start Date End Date Terence Britton MD [address] [place] [address] [facility] - General 08/19/24
--- OUTSIDE RECORDS SUMMARY | 2024-12-09 08:47 | XMS_ITS | Encounter Summary ---
Author Organization Healthcare Address [address] [place] [address] Care Team Providers Care Consultant Nurse Name Role Phone Terence Britton MD Primary Care Provider [phone] Encounter Details Date Type Department Care Team (Late Contact Info) Description 01/17/2019 Orders Only External Location [address] [place] [address] Provider, External Social History Tobacco [...] Breast [facility] [place] [address] [address] Benav[address] [facility] [address] [place] [address] 06/30/2025 2:30 PM EDT Office Visit [facility] [address] [facility], [address]nd [place] [address] Ellen Edmonds MD 800 [facility] [address] [place] [address] documented as of this encounter [...] on filedocumented in this encounter Care Teams Consultant Nurse Relationship Specialty Start Date End Date Terence Britton MD [address] [place] [address] PCP - General 08/19/24 documented as of this encounter
--- OUTSIDE RECORDS SUMMARY | 2024-12-09 08:47 | XMS_ITS | Encounter Summary ---
Author Organization Healthcare Address [address] [place] [address] Care Team Providers Care Label Press Operator Name Role Phone Terence Britton MD Primary Care Provider Encounter Details Date Type Department Care Team (Late Contact Info) Description 07/15/2018 Orders Only External Location 800 [place] [address] Provider, External Social History Tobacco [...] [facility] [place] [address] Mouna Benavides [facility] [address] [place] [address] 06/30/2025 2:30 PM EDT Office Visit [facility] 740 [facility], 2nd [place] [address] Ellen Edmonds MD 800 [facility] [address] [place] [address] documented as of this encounter [...] on filedocumented in this encounter Care Teams Label Press Operator Relationship Specialty Start Date End Date Terence Britton MD [address] [place] [address] PCP - General 08/19/24 documented as of this encounter
--- OUTSIDE RECORDS SUMMARY | 2024-12-09 08:47 | XMS_ITS | Encounter Summary ---
Author Organization Healthcare Address [address] [place] [address] Care Team Providers Care Light Rail Signal Technician Name Role Phone Terence Britton MD Primary Care Provider [phone] Encounter Details Date Type Department Care Team (Late Contact Info) Description 07/16/2019 Orders Only External Location 800 [place] [address] Provider, External Social History Tobacco [...] Center [facility] [place] [address] Mouna Benavides [facility] 800 [place] [address] 06/30/2025 2:30 PM EDT Office Visit [facility] 740 [facility], 2nd [place] [address] Ellen Edmonds MD 800 [facility] [address] [place] [address] documented as of this encounter [...] on filedocumented in this encounter Care Teams Light Rail Signal Technician Relationship Specialty Start Date End Date Terence Britton MD [address] [place] [address] PCP - General 08/19/24 documented as of this encounter
--- OUTSIDE RECORDS SUMMARY | 2024-12-09 08:47 | XMS_ITS | Encounter Summary ---
Author Organization Healthcare Address [address] [place] [address] Care Team Providers Care Front Office Attendant Name Role Phone Terence Britton MD Primary Care Provider [phone] Encounter Details Date Type Department Care Team (Late Contact Info) Description 07/15/2018 Orders Only External Location 800 [place] [address] Provider, External Social History Tobacco [...] Breast [facility] [place] [address] Mouna Benavides [facility] 800 [place] [address] 06/30/2025 2:30 PM EDT Office Visit [facility] 740 [facility], 2nd [place] [address] Ellen Edmonds MD 800 [facility] [address] [place] [address] documented as of this encounter [...] on filedocumented in this encounter Care Teams Front Office Attendant Relationship Specialty Start Date End Date Terence Britton MD [address] [place] [address] PCP - General 08/19/24 documented as of this encounter
--- OUTSIDE RECORDS SUMMARY | 2024-12-09 08:47 | XMS_ITS | Encounter Summary ---
Author Organization Healthcare Address [address] [place] [address] Care Team Providers Care Tool Design Engineer Name Role Phone Terence Britton MD Primary Care Provider [phone] Encounter Details Date Type Department Care Team (Late Contact Info) Description 07/21/2024 Orders Only External Location 800 [place] [address] Provider, External Social History Tobacco [...] [facility] [place] [address] Mouna Benavides [facility] 800 [place] [address] 06/30/2025 2:30 PM EDT Office Visit [facility] 740 [facility], 2nd [place] [address] Ellen Edmonds MD 800 [facility] [address] [place] [address] documented as of this encounter [...] on filedocumented in this encounter Care Teams Tool Design Engineer Relationship Specialty Start Date End Date Terence Britton MD [address] [place] [address] PCP - General 08/19/24 documented as of this encounter
--- OUTSIDE RECORDS SUMMARY | 2024-12-09 08:47 | XMS_ITS | Encounter Summary ---
Author Organization Healthcare Address [address] [place] [address] Care Team Providers Care Structural Steel Erection Supervisor Name Role Phone Terence Britton MD Primary Care Provider [phone] Encounter Details Date Type Department Care Team (Late Contact Info) Description 07/01/2024 Orders Only External Location 800 [place] [address] Provider, External Social History Tobacco [...] Breast Care [facility] [place] [address] Mouna Benavides [facility] 800 [place] [address] 06/30/2025 2:30 PM EDT Office Visit [facility] 740 [facility], 2nd [place] [address] Ellen Edmonds MD 800 [facility] [address] [place] [address] documented as of this encounter [...] on filedocumented in this encounter Care Teams Structural Steel Erection Supervisor Relationship Specialty Start Date End Date Terence Britton MD [address] [place] [address] PCP - General 08/19/24 documented as of this encounter
--- OUTSIDE RECORDS SUMMARY | 2024-12-09 08:47 | XMS_ITS | Encounter Summary ---
Author Organization [facility] Address [address] [place] [address] Care Team Providers Care Cyber Forensics Analyst Name Role Phone Terence Britton MD Primary Care Provider [phone] Encounter Details Date Type Department Care Team [...] Breast Care Center [facility] Alejandrina Benavides [facility] 800 [place] [address] 06/30/2025 2:30 PM EDT Office Visit [facility] 740 [facility], 2nd [place] [address] Ellen Edmonds MD 800 [facility] Moun[address] Ben[address] [facility] 134 [place] [address] documented as of this encounter [...] documented as of this encounter Care Teams Cyber Forensics Analyst Relationship Specialty Start Date End Date Terence Britton MD [address] [place] [address] PCP - General 08/19/24 documented as of this encounter
[2024-12-09 08:48] LABS: Hematocrit 41.8 % (37.0-47.0); Hemoglobin 14.0 g/dL (12.2-16.2); Immature Granulocytes % 1.2 %; Mean Corpuscular HGB Conc 33.5 g/dL (31.8-35.4); Mean Corpuscular Hemoglobin 28.4 pg (27.0-31.2); Mean Corpuscular Volume 84.8 fl (81-99); Nucleated Red Blood Cells % 0 %; Platelet Count 369 K/mm3 (142-424); Red Blood Count 4.93 M/mm3 (4.20-5.40); Red Cell Distribution Width-SD 42.1 fL; White Blood Count 23.3 K/mm3 (4.8-10.8)
[2024-12-09 08:53] LABS: Albumin Level 4.3 g/dl (3.5-5.0); Chloride 110 mmol/L (98-107); Potassium 4.0 mmoL/L (3.5-5.1); Sodium 138 mmol/L (136-145)
[2024-12-09 08:56] LABS: Alanine Aminotransferase 35 U/L (12-78); Albumin/Globulin Ratio 1.4 (1.1-1.8); Alkaline Phosphatase 74 U/L (38-126); Anion Gap 11.0 mEq/L (5-15); Aspartate Amino Transferase 27 U/L (14-36); Bilirubin,Total 0.4 mg/dl (0.2-1.3); Blood Urea Nitrogen 16 mg/dl (7-17); Carbon Dioxide 21 mmol/L (22.0-30.0); Creatinine Clearance Estimated 172 mL/min (50-200); Creatinine,Serum 0.60 mg/dl (0.52-1.04); Estimated Glomerular Filt Rate 103 ml/min (>60); GFR (African American) 125 ML/MIN (>60); Globulin 3.1 g/dL (1.3-3.2); Total Protein,Serum 7.4 g/dl (6.3-8.2)
[2024-12-09 08:57] LABS: Calcium 9.3 mg/dl (8.4-10.2); Glucose 175 mg/dl (74-100)
[2024-12-09 09:18] LABS: RBC Morphology Normal; Total Cells Counted 100
[2024-12-09] MEDS: ONDANSETRON 4MG ODT 16 MG SL (09:45)
[2024-12-09] MEDS: LORATADINE 10MG TABLET 10 MG PO (09:45)
[2024-12-09] MEDS: DEXAMETHASONE 4MG TABLET 8 MG PO (09:46)
[2024-12-09] MEDS: SODIUM CHLORIDE 0.9% 100ML BAG 100 ML IV (10:12)
[2024-12-09 10:15] VITALS: BP 106/50; PULSE 69; RESP 18; TEMP 36.7; O2SAT 99
[2024-12-09] MEDS: WATER IV (10:15)
[2024-12-09] MEDS: DOCETAXEL IV (10:15)
[2024-12-09] MEDS: DEXTROSE 5% IV (10:15)
[2024-12-09 10:45] VITALS: BP 108/60; PULSE 68; RESP 20
[2024-12-09 11:15] VITALS: BP 110/53; PULSE 71
[2024-12-09] MEDS: SODIUM CHLORIDE 0.9% IV (11:25)
[2024-12-09] MEDS: CYCLOPHOSPHAMIDE IV (11:25)
[2024-12-09 11:30] VITALS: BP 106/65; PULSE 70; RESP 18
[2024-12-09 12:05] VITALS: BP 110/65; PULSE 72; RESP 18
== END 2024-12-09 12:10 | disposition home or self-care (01) ==
PROVIDERS: PCP Family Medicine; Visit Provider Internal Medicine Medical Oncology
DX: C50.912 Malignant neoplasm of unspecified site of left female breast (principal); Z51.11 Encounter for antineoplastic chemotherapy
CPT/HCPCS: 80053; 85007; 85025; 85027; 96413; 96415; 96417; J7060; J8540; J9075; J9171; Q0162

== ENCOUNTER 2024-12-30 08:30 | Outpatient (CLI) | payer BC, SELFPAY ==
--- OUTSIDE RECORDS SUMMARY | 2024-01-21 06:00 | XMS_ITS ---
Author Organization [facility] Address [address] [place] [id number] Care Team Providers Care Freight Breaker Name Role Phone Carola Britton Primary Care [...] Encounter Location Date Provider Diagnosis [facility] [facility] 36 [facility] [address] [place] [id number] 01/21/2024 Carola Britton Encounter for immunization Z23 [...] Provider Name:Carola Sharma er, 03/13/2025 10:15:00 AM, [facility] 36 [facility], [address], [place], [id number], Progress Notes * MIRIAM GALVANADOB:1965 (59 yo F)Acc No.[id number]:01/21/2024 Progress Notes Patient: CHRISTAL GARZA Provider: Carola Britton M.D. :1965 A ge:58 Y S ex:Female Date:01/21/2024 Address:[address] [place], [place] [id number] Subjective: * Chief Complaints: * 1 [...] * Images: Billing Information: * Visit Code: 05057 Office Visit, Est Pt., Level 3. * Procedure Codes: * Electronic signature of Carola Britton MD on 12/30/2024 at 08:54 AM EDT Sign off status: Pending * Provider: Carola Britton M.D. Date: Generated for Printi ng/Fasofiag/eTransmitting on: 0 12/30/2024 08:54 AM EDT History and Physical Notes * [...]
--- OUTSIDE RECORDS SUMMARY | 2024-05-23 05:30 | XMS_ITS ---
Author Organization [facility] Address [address] [place] [id number] Care Team Providers Care Master Naval Parachutist Name Role Phone Carola Britton Primary Care Provider [phone] Allergies Allergen (clinical drug ingredient) Drug/Non Drug [...] OV Performing Lab: Notes/Report: Test performed by [facility] [address] [place] [address] , [address], [place] [address] Alejandro Cabrales MD, Pharmacy Graduate Intern CLIA: [id number] Sodium 142 135-145 mmol/L Potassium 4.4 3.5-5.3 [...] Interpretation:satisfactory Performing Lab: Notes/Report: Test performed by [facility], [address] , [address], [place] [address] Alejandro Cabrales MD, Pharmacy Graduate Intern CLIA: [id number] Cholesterol 105 <200 mg/dL Triglycerides 90 <150 [...] Problem Type II diabetes mellitus without complication (445575551) Type 2 diabetes mellitus without complication, without long-term current use of insulin (E11.9) Active confirmed Vital Signs Blood pressure systolic 110 mm Hg 05/23/19 25 Blood pressure diastolic 78 mm Hg 025 Heart Rate 79 /min 05/23/2024 Height 64.75 in 05/23/2024 Weight 237.8 lbs 05/23/2024 BMI 39.87 kg/m2 05/23/2024 Encounters Encounter Location Date Provider Diagnosis [facility] [address] [place], [place] [id number] 05/23/2024 Carola Britton Essential hypertensi on I10 [...] 03/13/2025 10:15:00 AM, [address] [facility], [address], [place], [id number], Progress Notes * MIRIAM GALVANGIULIANOB:1965 (59 yo F)Acc No.[id number]:05/23/2024 Progress Notes Patient: CHRISTAL GARZA Provider: Carola Britton M.D. :1965 A ge:59 Y S ex:Female Date:05/23/2024 Address:[address] [place], [place] [address] [id number] Subjective: * Chief Complaints: * 1 . [...] T riglycerides 90 <150 - mg/dL * Hanna Johnston Fredy 05/29/2024 9:5 5:58 AM >Patient informed [...] Procedure Codes: 3 6416 CAPILLARY BLOOD DRAW, 75590 GLYCATED HEMOGLOBIN TEST, Modifiers: QW , 3044F HG A1C LEVEL LT 7.0%, 3074F SYST BP LT 130 MM HG, 3078F DIAST BP < 80 MM HG * Follow Up: 2 months * Images: Billing Information: * Visit Code: 47724 Office Visit, Est Pt., Level 4. * Procedure Codes: 59451 CAPILLARY BLOOD DRAW. 50555 GLYCATED HEMOGLOBIN TEST. Modifiers: QW 3044F HG A1C LEVEL LT 7.0%. 3074F SYST BP LT 130 MM HG. 3078F DIAST BP < 80 MM HG. * Electronic signature of Carola Britton MD on 12/30/2024 at 08:53 AM EDT Sign off status: Pending * Provider: Carola Britton M.D. Date: 0 05/23/2024 Generated for Gelai ng/Fasofiag/eTransmitting on: 0 12/30/2024 08:53 AM EDT History and Physical Notes * [...]
--- OUTSIDE RECORDS SUMMARY | 2024-12-01 06:00 | XMS_ITS ---
Author Organization [facility] Address [address] [place] [id number] Care Team Providers Care Circulating Process Inspector Name Role Phone Carola Britton Primary Care Provider [phone] Allergies Allergen (clinical drug ingredient) Drug/Non Drug [...] Interpretation:Normal Performing Lab: Notes/Report: Test performed by [employer], [employer] [address] [place] [address] , [address], [place] [address] Alejandro Cabrales MD, Commissioned Fire Officer CLIA: [id number] Sodium 142 135-145 mmol/L Potassium 4.0 3.5-5.3 [...] W/U Status Risk Notes Problem Ductal carcinoma (63159305) Ductal carcinoma (C80.1) Active confirmed Vital Signs Blood pressure systolic 128 mm Hg 12/02/19 25 Blood pressure diastolic 82 mm Hg 025 Heart Rate 78 /min 12/01/2024 Height 64.75 in 12/01/2024 Weight 221.2 lbs 12/01/2024 BMI 37.09 kg/m2 12/01/2024 Encounters Encounter Location Date Provider Diagnosis [facility] [address] [place], [place] [id number] 12/01/2024 Carola Britton Essential hypertensi on I10 [address], [place], [id number], Progress Notes * MIRIAM GALVANADOB:1965 (59 yo F)Acc No.[id number]:12/01/2024 Progress Notes Patient: CHRISTAL GARZA Provider: Carola Britton M.D. :1965 A ge:59 Y S ex:Female Date:12/01/2024 Address:[address] [place], [place] [id number] Subjective: * Chief Complaints: * 1 . 4 months. 2. Needs labs, low dose chest CT, & diabetic eye exam. * HPI: H PI: 59 year old female presents with c/o Patient is here today for?Pt is here today for a 4 month check up. Pt sts she has no concerns at this time. ER/[place]/HER2 negative ductal carcinoma with lumpectomy October 2024. [...] Encounter for vaccination, decreased vision OS, traumatic, ER/[place]/HER@ negative ductal carcinoma August 2024, October 15, 2024 lumpectomy, Dr. Edmonds, [facility]. * Surgical History: l eft [...] * Images: Billing Information: * Visit Code: 65904 Office Visit, Est Pt., Level 4. * Procedure Codes: 52999 GLYCATED HEMOGLOBIN TEST. Modifiers: QW 3044F HG A1C LEVEL LT 7.0%. 3074F SYST BP LT 130 MM HG. 3079F DIAST BP 80-89 MM HG. * Electronic signature of Carola Britton MD on 12/30/2024 at 08:54 AM EDT Sign off status: Pending * Provider: Carola Britton M.D. Date: 0 12/01/2024 Generated for Gelai cheryl/Cindy/eTransmitting on: 0 12/30/2024 08:54 AM EDT History and Physical Notes * HPI (History of Present Illness) Category Sub-Category Detail Notes Category Not es HPI Patient is here today for Pt is here today for a 4 month check up. Pt sts she has no concerns at this time. ER/[place]/HER2 negative ductal carcinoma with lumpectomy October 2024. [...]
[2024-12-30 08:47] LABS: Hematocrit 40.6 % (37.0-47.0); Hemoglobin 13.5 g/dL (12.2-16.2); Immature Granulocytes % 1.5 %; Mean Corpuscular HGB Conc 33.3 g/dL (31.8-35.4); Mean Corpuscular Hemoglobin 28.4 pg (27.0-31.2); Mean Corpuscular Volume 85.5 fl (81-99); Nucleated Red Blood Cells % 0 %; Platelet Count 370 K/mm3 (142-424); Red Blood Count 4.75 M/mm3 (4.20-5.40); Red Cell Distribution Width-SD 46.2 fL; White Blood Count 26.7 K/mm3 (4.8-10.8)
--- OUTSIDE RECORDS SUMMARY | 2024-12-30 08:53 | XMS_ITS | Clinical Summary ---
Author Organization [facility] Address [address] [place] [address] Care Team Providers Care Hearing Care Professional Name Role Phone Terence Britton MD Primary Care Provider [phone] Allergies Active Allergy Reactions Criticality Noted Date [...] from 08/12/2024:Stage IIB(cT2, cN0, cM0, G3, ER-, ND-, HER2-) - Unsigned Pathologic stage from 10/15/2024:Stage IB(pT1b, pN0, cM0, G3, ER-, ND-, HER2-) - Unsigned Encounters Date Type Department Care Team Description 10/28/2024 3:30 PM EDT Office Visit [facility] [place] [address] [place] [address], 2nd [place] [address] Ellen Edmonds MD Invasive ductal carcinoma of breast, female, left (Primary Dx) 10/28/2024 Travel 10/16/2024 Telephone P[facility] Breast [facility] [address] [address] Ellen Edmonds MD 10/15/2024 2:50 PM EDT Anesthesia Event [facility] A OPERATING ROOM [address] [place] [phone] Jessenia Humphreys MD 10/15/2024 12:45 PM EDT - 10/15/2024 3:50 PM EDT Surgery [facility] [address] [place] [phone] Ellen Edmonds MD Left localized lumpectomy sentinel lymph node [32876 (CPT )] 10/15/2024 12:30 PM EDT - 10/15/2024 11:59 PM EDT Hospital Encounter [facility] [address] [place] [phone] Breast cancer Discharge Disposition: Home or Self Care 10/15/2024 10:57 AM EDT - 10/15/2024 8:05 PM EDT Hospital Encounter [facility] 800 [place] [address] Ellen Edmonds MD Invasive ductal carcinoma of breast, female, left Discharge Disposition: Home or Self Care 10/15/2024 7:16 AM EDT - 10/15/2024 10:56 AM EDT Hospital Encounter [facility] [address] [place] [address] Abnormal mammogram Discharge Disposition: Home or Self Care 10/15/2024 Travel from Last 3 Months Family History [...] Description 06/30/2025 1:00 PM EDT Appointment [facility] 800 [place] [address] 06/30/2025 2:30 PM EDT Office Visit [facility] Breast Care Center 740 [facility], 2nd [place] [address] Ellen Edmonds MD 800 [facility] Mouna Benavides [address] [place] [address] Health Maintenance Due Date Last [...] [facility]-Zoster Vaccines (2 of 2) 11/08/2021 09/13/2021 [id number] Vaccine ( season) 2024 03/30/2021, 07/21/2020, 06/23/2020 [facility]-Influenza Vaccine (#1) 12/08/202401/09, [...] this topic Medical Devices Implanted Type Area Contact Center Specialist Device Identifier Shelf Expiration Date Model / Serial / Lot Marker Smartclip Soft Tiss/Delvry Sys Pnk 5cm - [id number] Implanted:Qty: 1 on 09/22/2024 by Lien Martínez MD at [facility] Breast Left: Breast [id number] SMARTCLIPL T-PNK-5 / / Procedures Procedure Name Priority Date/Time Associated Diagnosis Comments SURGICAL PATHOLOGY EXAM Routine 10/15/2024 4:16 PM EDT Invasive ductal carcinoma of breast, female, left PB ANESTHESIA PLACEHOLDER Routine 10/15/2024 3:14 PM EDT ND AN ELECTIVE SUPRAGLOTTIC AIRWAY Routine 10/15/2024 3:14 PM EDT ND BIOPSY/EXCISION, LYMPH NODE(S) 10/15/2024 2:38 PM EDT Invasive ductal carcinoma of breast, female, left ND MASTECTOMY, PARTIAL 10/15/2024 2:38 PM EDT Invasive ductal carcinoma of breast, female, left NM DERMAL INJECTION SENTINEL NODE Routine 10/15/2024 1:31 PM EDT Breast cancer POCT GLUCOSE METER UNSOLICITED RESULTS Routine 10/15/2024 12:48 PM EDT MAMMOGRAPHY BREAST SURGICAL SPECIMEN REVIEW Routine 10/15/2024 7:16 AM EDT Abnormal mammogram from Last 3 Months Results * Surgical Pathology Exam (10/15/2024 4:16 PM EDT) Case Report Surgical Pathology Case: [id number] Authorizing Provider: Ellen Edmonds MD Collected: 10/15/2024 1616 Ordering Location: [facility] OPERATING ROOM Received: 10/15/2024 1633 Pathologist: Carli Grijalva MD Specimens: A) - [place] Lymph Node, left axillary sentinel lymph node - blue and hot - 31417 B) - Breast, Left, left lumpectomy short [...] tao true margin 10/20/2024 4:08 PM EDT [facility] Final Diagnosis A. LYMPH NODE, LEFT AXILLARY [...] WITHOUT DIAGNOSTIC ABNORMALITY. 10/20/2024 4:08 PM EDT [facility] at 1608 EDT Synoptic [...] Examined (sentinel and non-sentinel): 2 Number of [place] Nodes Examined: 2 pTNM CLASSIFICATION (AJCC 8th [...] Drug Administration (FDA) cleared (test / vendor): [place] Primary Antibody: SP1 Scoring System: No separate scoring system used Test(s) Performed: Progesterone Receptor (PgR) Status: Negative (less than 1%) : Internal control cells present and stain as expected Test Type: Food and Drug Administration (FDA) cleared (test / vendor): [place] Primary Antibody: 1E2 Scoring System: No separate scoring system used Test(s) Performed: HER2 by Immunohistochemist ry: Negative (Score 0) Test Type: Food and Drug Administration (FDA) cleared (test / vendor): [place] Primary Antibody: 4B5 Cold Ischemia and Fixation Times: Meet requirements specified in latest version of the ASCO / CAP Guidelines METHODS Fixative: Formalin Image Analysis: Not performed 10/20/2024 4:08 PM EDT [facility] Clinical Information Invasive ductal carcinoma of breast, female, left [C50.912] 10/20/2024 4:08 PM EDT [facility] Gross Description A. LEFT AXILLARY SENTINEL LYMPH NODE - BLUE AND HOT - 53146 The specimen is received fresh and placed [...] serially sectioned Cold Time: 18m FLOR Atkinson ([facility]) B. LEFT LUMPECTOMY SHORT STITCH [...] and 5% olea - white fibromembranous tissue. Toll Bridge Operator sections are submitted as follows: B1-B6: [...] FLOR Atkinson ([facility]) 10/20/2024 4:08 PM EDT [facility] Note: A resident was involved in the service. I attest I examined the relevant preparations for the specimens and confirmed the diagnosis or interpretation. 10/20/2024 4:08 PM EDT [facility] Lymph Node Specimen from [...] MD LAB PATHOLOGY ORDERABLES Final R esult [facility] [address] [place] [address] * ND AN ELECTIVE SUPRAGLOTTIC AIRWAY, PB ANESTHESIA PLACEHOLDER (10/15/2024 3:14 PM EDT) Narrative Layo Wen CRNA - 10/15/2024 3:14 PM EDT Layo Wen CRNA 10/15/2024 3:15 PM Airway Date/Time: 10/15/2024 3:14 PM Reason: elective Airway not difficult General Information and Staff Patient location during procedure: OR PRODUCTION INTERN: Layo Wen CRNA Performed: PRODUCTION INTERN Patient Condition Indications for airway management: anesthesia Patient position: sniffing MILS maintained throughout Final Airway Details Final airway type: LMALMA Size: 4 LMA Type: flexible us Jessenia Humphreys MD ANESTHESIA ORDERABLES Final R esult * NM Dermal Injection [place] Node (10/15/2024 1:31 PM EDT) Anatomical Region [...] marked on the skin, by the nuclear equipment sales engineer at 1:31 PM. COMPARISON/CORRELATION: Not applicable. [...] marked on the skin, by the nuclear equipment sales engineer at 1:31PM. COMPARISON/CORRELATION: Not applicable. FINDINGS: [...] 10/15/2024 12:49 PM EDT [facility] Termite Control Representative ID Dianne Zhu 10/15/2024 12:49 PM EDT [facility]ALTH[facility]ARE LAB Device ID [id number] 10/15/2024 12:49 PM EDT [facility] Specimen Type POC Capillary 10/15/2024 12:49 PM EDT [facility] Blood Capillary blood specimen / Unknown 10/15/2024 12:48 PM EDT 10/15/2024 12:49 PM EDT us Ellen Edmonds MD LAB POINT OF CARE TE ST DOCKED DEVICE UNSOLICITED RESULTS Final Result [facility] [address] [place] [address] * Mammography Breast Surgical Specimen (10/15/2024 7:16 [...] Last 3 Months Insurance MARLENE Care Teams Hearing Care Professional Relationship Specialty Start Date End Date Terence Britton MD [address] [place] [address] PCP - General 08/19/24
--- OUTSIDE RECORDS SUMMARY | 2024-12-30 08:54 | XMS_ITS | Encounter Summary ---
Author Organization Healthcare Address [address] [place] [address] Care Team Providers Care Acidity Tester Name Role Phone Terence Britton MD Primary Care Provider [phone] Encounter Details Date Type Department Care Team (Late Contact Info) Description 07/21/2024 Orders Only External Location 800 [place] [address] Provider, External Social History Tobacco [...] Breast Care Center [facility] [place] [address] Mouna Benavides [facility] 800 [place] [address] 06/30/2025 2:30 PM EDT Office Visit [facility] 740 [facility], 2nd [place] [address] Ellen Edmonds MD 800 [facility] [address] [place] [address] documented as of this encounter [...] on filedocumented in this encounter Care Teams Acidity Tester Relationship Specialty Start Date End Date Terence Britton MD [address] [place] [address] PCP - General 08/19/24 documented as of this encounter
--- OUTSIDE RECORDS SUMMARY | 2024-12-30 08:54 | XMS_ITS | Encounter Summary ---
Author Organization Healthcare Address [address] [place] [address] Care Team Providers Care Grader Meat Name Role Phone Terence Britton MD Primary Care Provider Encounter Details Date Type Department Care Team (Late Contact Info) Description 01/17/2019 Orders Only External Location 800 [place] [address] Provider, External Social History Tobacco [...] Breast Care Center [facility] [place] [address] Mouna Benavides [facility] 800 [place] [address] 06/30/2025 2:30 PM EDT Office Visit [facility] 7[address] [facility], 2nd [place] [address] Ellen Edmonds MD 800 [facility] [address] [place] [address] documented as of this encounter [...] on filedocumented in this encounter Care Teams Grader Meat Relationship Specialty Start Date End Date Terence Birtton MD [address] [place] [address] PCP - General 08/19/24 documented as of this encounter
--- OUTSIDE RECORDS SUMMARY | 2024-12-30 08:54 | XMS_ITS | Encounter Summary ---
Author Organization Healthcare Address [address] [place] [address] Care Team Providers Care Lathe Sander Name Role Phone Terence Britton MD Primary Care Provider [phone] Encounter Details Date Type Department Care Team (Late Contact Info) Description 07/01/2024 Orders Only External Location 800 [place] [address] Provider, External Social History Tobacco [...] Center Comprehensive [facility] [place] [address] Mouna Benavides [facility] 800 [place] [address] 06/30/2025 2:30 PM EDT Office Visit [facility] 740 [facility], 2nd [place] [address] Ellen Edmonds MD 800 [facility] [address] [place] [address] documented as of this encounter [...] on filedocumented in this encounter Care Teams Lathe Sander Relationship Specialty Start Date End Date Terence Britton MD [address] [place] [address] PCP - General 08/19/24 documented as of this encounter
--- OUTSIDE RECORDS SUMMARY | 2024-12-30 08:54 | XMS_ITS | Encounter Summary ---
Author Organization Healthcare Address [address] [place] [address] Care Team Providers Care Software Support Representative Name Role Phone Terence Britton MD Primary Care Provider [phone] Encounter Details Date Type Department Care Team (Late Contact Info) Description 07/15/2018 Orders Only External Location 800 [place] [address] Provider, External Social History Tobacco [...] Breast Care Center [facility] [place] [address] Mouna Benavides [facility] 800 [place] [address] 06/30/2025 2:30 PM EDT Office Visit [facility] 740 [facility], 2nd [place] [address] Ellen Edmonds MD 800 [facility] [address] [place] [address] documented as of this encounter [...] on filedocumented in this encounter Care Teams Software Support Representative Relationship Specialty Start Date End Date Terence Britton MD [address] [place] [address] PCP - General 08/19/24 documented as of this encounter
--- OUTSIDE RECORDS SUMMARY | 2024-12-30 08:54 | XMS_ITS | Encounter Summary ---
Author Organization Healthcare Address [address] [place] [address] Care Team Providers Care Break Out Man Name Role Phone Terence Britton MD Primary Care Provider [phone] Encounter Details Date Type Department Care Team (Late Contact Info) Description 07/16/2019 Orders Only External Location 800 [place] [address] Provider, External Social History Tobacco [...] Breast Care Center [facility] [place] [address] Mouna Benavides [facility] 800 [place] [address] 06/30/2025 2:30 PM EDT Office Visit [facility] 740 [facility], 2nd [place] [address] Ellen Edmonds MD 800 [facility] [address] [place] [address] documented as of this encounter [...] on filedocumented in this encounter Care Teams Break Out Man Relationship Specialty Start Date End Date Terence Britton MD [address] [place] [address] PCP - General 08/19/24 documented as of this encounter
--- OUTSIDE RECORDS SUMMARY | 2024-12-30 08:54 | XMS_ITS | Encounter Summary ---
Author Organization Healthcare Address [address] [place] [address] Care Team Providers Care Hi Lift Operator Name Role Phone Terence Britton MD Primary Care Provider [phone] Encounter Details Date Type Department Care Team (Late Contact Info) Description 07/15/2018 Orders Only External Location 800 [place] [address] Provider, External Social History Tobacco [...] Breast Care Center [facility] [place] [address] Mouna Benavides [facility] 800 [place] [address] 06/30/2025 2:30 PM EDT Office Visit [facility] 740 [facility], 2nd [place] [address] Ellen Edmonds MD 800 [facility] [address] [place] [address] documented as of this encounter [...] on filedocumented in this encounter Care Teams Hi Lift Operator Relationship Specialty Start Date End Date Terence Britton MD [address] [place] [address] PCP - General 08/19/24 documented as of this encounter
--- OUTSIDE RECORDS SUMMARY | 2024-12-30 08:54 | XMS_ITS | Patient Health Record ---
[facility] Organization [facility] Address [address] [place] [id number] Care Team Providers Care Tray Checker Name Role Phone Carola Britton Primary Care Provider Allergies Allergen (clinical drug ingredient) Drug/Non Drug Allergy documented on EMR Reaction Allergy Type Onset Date Status amoxicillin / clavulanate Augmentin vomiting Drug Allergy Active Results Component Value Reference Range Notes P-Comprehensive Metabolic Pa mariama (CMP) Reviewed date:12/02/2024 02:46:20 PM Interpretation:Normal Performing Lab: Notes/Report: Test performed by [facility] , [address], [place] [address] Alejandro Cabrales MD, Patient Carrier CLIA: [id number] Sodium 142 135-145 mmol/L Potassium 4.0 3.5-5.3 [...] 0.2 <0.2-1.2 mg/dL A/G Ratio 1.6 1.1-2.5 Glycohemoglobin A1c (in hous e) Reviewed date:12/02/2024 02:46:21 PM Interpretation:6.1% Normal Performing Lab: Notes/Report: 6.1% Normal glycohemoglobin 6.1% 5 - 6.5 % Glycohemoglobin A1c (in hous e) Reviewed date:05/23/2024 12:45:47 PM Interpretation:6.2 Performing Lab: Notes/Report: 6.2 glycohemoglobin 6.2% 5 - 6.5 % P-Comprehensive Metabolic Pa mariama (CMP) Reviewed date:05/29/2024 09:56:08 AM Interpretation:gluc 113, a1c discussed in OV Performing Lab: Notes/Report: CLIA: [id number] Alejandro Carbales MD, Patient Carrier [address] [place] [address] , [address], [place] [address] Test performed by [facility] Sodium 142 135-145 mmol/L Potassium 4.4 3.5-5.3 [...] Interpretation:satisfactory Performing Lab: Notes/Report: Test performed by [facility] [address] [place] [address] , [address], [place] [address] Alejandro Cabrales MD, Patient Carrier CLIA: [id number] Cholesterol 105 <200 mg/dL Triglycerides 90 <150 [...] Results: 50 Units: mg/dL % Change: - P-Basic Metabolic Panel (BMP ) Reviewed date:08/08/2024 12:26:23 PM Interpretation:Normal Performing Lab: Notes/Report: CLIA: [id number] Alejandro Cabrales MD, Patient Carrier [address] [place] [address] , [address], [place] [address] Test performed by [email or web address], [facility] Sodium 141 135-145 mmol/L Potassium 4.2 3.5-5.3 mmol/L Chloride 104 97-108 mmol/L CO2 26 22-32 mmol/L Glucose 90 65-99 mg/dL BUN 13 6-20 mg/dL Creatinine 0.70 0.50-1.00 mg/dL Calcium 9.6 8.6-10.4 mg/dL eGFR by Creatinine 101 >59 mL/min/1.73m2 P-Hemoglobin A1C Reviewed date:08/08/2024 12:26:23 PM Interpretation:a1c 6.2 Performing Lab: Notes/Report: Test performed by [facility] [address] [place] [address] [address], [place] [address] Alejandro Cabrales MD, Patient Carrier CLIA: [id number] Hemoglobin A1C 6.2 <5.7 % The following HbA1c ranges recommended by the [place] Diabetes Association (ADA) may be used as an aid in the diagnosis of diabetes mellitus. HbA1c Suggested Diagnosis >=6.5% Diabetic 5.7% - 6.4% Pre-Diabetic <5.7% Non-Diabetic Estimated Average Glucose Reviewed date:08/08/2024 12:26:23 PM Interpretation:Normal Performing Lab: Notes/Report: Test performed by [facility] [address] [place] [address] [address], [place] [address] Alejandro Cabrales MD, Patient Carrier CLIA: [id number] Estimated Average Glucose (eAG) 131 Estimated Average [...] ly once daily; Duration: 30 days Active CoQ-10 100 MG 1 cap(s) orally once a day; Duration: 30 day(s) 10/22/2019 Active metFORMIN HCl 850 MG 1 tablet with a uriel l Orally Once a day; Duration: 30 days Active ZyrTEC Allergy 10 MG 1 tab(s) orally onc e a day Active Potassium Chloride ER 10 MEQ 1 tablet wi th food Orally daily; Duration: 30 days Active Vitamin D3 125 MCG (5000 UT) [...] Status W/U Status Risk Notes Problem Hyperglycemia (45000184) Hyperglycemia (R73.9) Active confirmed Problem Vitamin B12 deficiency (281647408) Vitamin B12 deficiency (E53.8) Active confirmed Problem Essential hypertension (20762604) Essential hypertension (I10) Active confirmed Problem Mixed hyperlipidemia (978994660) Mixed hyperlipidemia (E78.2) Active confirmed Problem Vaccination given (103083443) Encounter for immunization (Z23) Active confirmed Problem Abnormal vaginal bleeding (966024949) DUB (dysfunctional uterine bleeding) (N93.8) Active confirmed Problem Fibrocystic breast changes (67113940) Fibrocystic breast, unspecified laterality (N60.19) Active confirmed Problem New daily persistent headache (019430501261414) New daily persistent headache (G44.52) Active confirmed Problem Chronic vaginitis (28641121) Chronic vaginitis (N76.1) Active confirmed Problem Vulvovaginitis (34974477) Vulvovaginitis (N76.0) Active confirmed Problem Mammography abnormal (227726883) Abnormal mammogram of right breast (R92.8) Active confirmed Problem Type II diabetes mellitus without complication (811359124) Type 2 diabetes mellitus without complication, without long-term current use of insulin (E11.9) Active confirmed Problem Ductal carcinoma (36022430) Ductal carcinoma (C80.1) Active confirmed Problem Urge incontinence of urine (87707979) Urge incontinence of urine (N39.41) Active confirmed Problem Cigarette smoking tobacco (substance) (34361235) Smoking history (Z87.891) Active confirmed Problem Fibrocystic breast changes (89277495) Fibrocystic breast disease (FCBD), unspecified laterality (N60.19) Active confirmed Problem Cyst of right ovary (8936575931475137 8) Cyst of right ovary (N83.201) Active confirmed Problem Hordeolum externum (9425150) Hordeolum externum of left upper eyelid (H00.014) Active confirmed Problem Ganglion cyst of left wrist (927889128543129) Ganglion cyst of dorsum of left wrist (M67.432) Active confirmed Problem Lichen sclerosus of vulva (441386044) Lichen sclerosus of vulva (N90.4) Active confirmed Vital Signs Heart Rate 78 /min 12/01/2024 Blood pressure diastolic 82 mm Hg 12/01/2024 Height 64.75 in 12/01/2024 Blood pressure systolic 128 mm Hg 12/01/2024 Weight 221.2 lbs 12/01/2024 BMI 37.09 kg/m2 12/01/2024 Encounters Encounter Location Date Provider Diagnosis [facility] [address] [id number] 01/21/2024 Carola Britton Encounter for immunization Z23 and Essential hypertension I10 [facility] [address] [id number] 05/23/2024 Carola Britton Essential hypertensi on I10 ; Mixed hyperlipidemia E78.2 ; Hyperglycemia R73.9 and Type 2 diabetes mellitus without complication, without long-term current use of insulin E11.9 [facility] [address] [place], [place] [id number] 12/01/2024 Carola Britton Essential hypertensi on I10 ; Mixed hyperlipidemia E78.2 ; Smoking history Z87.891 ; Type 2 diabetes mellitus without complication, without long-term current use of insulin E11.9 ; Ductal carcinoma C80.1 and History of lumpectomy of left breast Z98.890 [facility] [address] [place] [id number] 08/04/2024 Carola Britton Essential hypertensi on I10 ; Vulvovaginitis N76.0 ; Lichen sclerosus of vulva N90.4 and Type 2 diabetes mellitus without complication, without long-term current use of insulin E11.9 [facility] [address] [place], [place] [id number] 05/26/2024 Carola Britton Type 2 diabetes alisha itus without complication, without long-term current use of insulin E11.9 [facility] [address] [facility] [address] [place], [place] [id number] 08/08/2024 Carola Britton [facility] [address] [facility] [address] [place], [place] [id number] 12/22/2024 Carola Britton Assessments Encounter Date Diagnosis (ICD Code) Assessment Notes Treatment Notes Treatment Clinical Notes Section Notes 01/21/2024 Essential hypertension (ICD-10 - I10) 01/21/2024 Encounter for immunization (ICD-10 - Z23) 05/26/2024 Type 2 diabetes mellitus without complication, without long-term current use of insulin (ICD-10 - E11.9) 12/01/2024 Essential hypertension (ICD-10 - I10) 12/01/2024 Mixed hyperlipidemia (ICD-10 - E78.2) 05/23/2024 Essential hypertension (ICD-10 - I10) 05/23/2024 Mixed hyperlipidemia (ICD-10 - E78.2) 08/04/2024 Essential hypertension (ICD-10 - I10) 08/04/2024 Vulvovaginitis (ICD-10 - N76.0) 08/04/2024 Lichen sclerosus of vulva (ICD-10 - N90.4) 12/01/2024 Smoking history (ICD-10 - Z87.891) 05/23/2024 Hyperglycemia (ICD-10 - R73.9) 05/23/2024 Type [...] [address], [address], [place], [place], [id number], Insurance Providers Payer Name Payer Address Payer Phone Subscriber Number Group Number Insured Name Patient Relationship to Insured Coverage Start Date Coverage End Date [employer] [address] [place] [address] [id number] CHRISTAL RIVERA Self - patient is the [...] for vaccination Z23 decreased vision OS, 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 Edmonds, [facility] Surgical History Surgery Date(Month/Year) left ear drum X 2 BTL poylps from vocal cord 05/18/14 poylps removed from vocal cords endometrial polyp, Dr. Vale 2011 Colonoscopy, Dr. Berrios, adenomatous polyp s 08/01/2018 Hospitalization History Reason Date(Month/Year) ears
[2024-12-30 09:06] LABS: Albumin Level 4.3 g/dl (3.5-5.0); Chloride 105 mmol/L (98-107); Sodium 142 mmol/L (136-145)
[2024-12-30 09:07] LABS: Potassium 4.1 mmoL/L (3.5-5.1)
[2024-12-30 09:09] LABS: Alanine Aminotransferase 29 U/L (12-78); Anion Gap 15.1 mEq/L (5-15); Aspartate Amino Transferase 21 U/L (14-36); Blood Urea Nitrogen 15 mg/dl (7-17); Carbon Dioxide 26 mmol/L (22.0-30.0); Creatinine,Serum 0.60 mg/dl (0.52-1.04); Estimated Glomerular Filt Rate 103 ml/min (>60); GFR (African American) 125 ML/MIN (>60)
[2024-12-30 09:10] LABS: Albumin/Globulin Ratio 1.6 (1.1-1.8); Alkaline Phosphatase 70 U/L (38-126); Bilirubin,Total 0.4 mg/dl (0.2-1.3); Calcium 9.5 mg/dl (8.4-10.2); Globulin 2.7 g/dL (1.3-3.2); Glucose 170 mg/dl (74-100); Total Protein,Serum 7.0 g/dl (6.3-8.2)
[2024-12-30] MEDS: DEXAMETHASONE 4MG TABLET 8 MG PO (09:44)
[2024-12-30] MEDS: SODIUM CHLORIDE 0.9% 10ML FLUSH SYRINGE 10 ML IV (09:44)
[2024-12-30] MEDS: SODIUM CHLORIDE 0.9% 100ML BAG 100 ML IV (09:44)
[2024-12-30 09:45] VITALS: BP 130/77; PULSE 78; RESP 18; TEMP 36.5; O2SAT 96
[2024-12-30] MEDS: ONDANSETRON 4MG ODT 16 MG SL (09:45)
[2024-12-30] MEDS: LORATADINE 10MG TABLET 10 MG PO (09:45)
[2024-12-30 10:11] VITALS: BP 113/65; PULSE 73; RESP 20; O2SAT 97
[2024-12-30] MEDS: DEXTROSE 5% IV (10:11)
[2024-12-30] MEDS: WATER IV (10:11)
[2024-12-30] MEDS: DOCETAXEL IV (10:11)
[2024-12-30 10:22] LABS: RBC Morphology Normal; Total Cells Counted 100
[2024-12-30 10:41] VITALS: BP 112/68; PULSE 71; RESP 18; O2SAT 97
[2024-12-30 11:24] VITALS: BP 123/76; PULSE 72; RESP 20; O2SAT 97
[2024-12-30] MEDS: SODIUM CHLORIDE 0.9% IV (11:24)
[2024-12-30] MEDS: CYCLOPHOSPHAMIDE IV (11:24)
[2024-12-30 12:28] VITALS: BP 103/68; PULSE 71; RESP 20; O2SAT 96
== END 2024-12-30 23:59 | disposition home or self-care (01) ==
LOC: INF 08:32
PROVIDERS: PCP Family Medicine; Visit Provider Internal Medicine Medical Oncology
DX: C50.912 Malignant neoplasm of unspecified site of left female breast (principal); Z51.11 Encounter for antineoplastic chemotherapy
CPT/HCPCS: 80053; 85007; 85025; 85027; 96413; 96415; 96417; J7060; J8540; J9075; J9171; Q0162

== ENCOUNTER 2025-01-20 08:27 | Outpatient (CLI) | payer BC, SELFPAY ==
[2025-01-20 08:31] VITALS: BMI 38.6
[2025-01-20 08:49] LABS: Hematocrit 40.1 % (37.0-47.0); Hemoglobin 12.9 g/dL (12.2-16.2); Immature Granulocytes % 2.0 %; Mean Corpuscular HGB Conc 32.2 g/dL (31.8-35.4); Mean Corpuscular Hemoglobin 28.2 pg (27.0-31.2); Mean Corpuscular Volume 87.7 fl (81-99); Nucleated Red Blood Cells % 0 %; Platelet Count 339 K/mm3 (142-424); Red Blood Count 4.57 M/mm3 (4.20-5.40); Red Cell Distribution Width-SD 52.9 fL; White Blood Count 22.4 K/mm3 (4.8-10.8)
[2025-01-20 08:55] LABS: Albumin Level 4.0 g/dl (3.5-5.0); Chloride 103 mmol/L (98-107); Sodium 139 mmol/L (136-145)
[2025-01-20 08:56] LABS: Potassium 4.2 mmoL/L (3.5-5.1)
[2025-01-20 08:58] LABS: Alanine Aminotransferase 37 U/L (12-78); Alkaline Phosphatase 79 U/L (38-126); Anion Gap 13.2 mEq/L (5-15); Aspartate Amino Transferase 27 U/L (14-36); Bilirubin,Total 0.4 mg/dl (0.2-1.3); Blood Urea Nitrogen 13 mg/dl (7-17); Carbon Dioxide 27 mmol/L (22.0-30.0); Creatinine Clearance Estimated 147 mL/min (50-200); Creatinine,Serum 0.70 mg/dl (0.52-1.04); Estimated Glomerular Filt Rate 86 ml/min (>60); GFR (African American) 104 ML/MIN (>60)
[2025-01-20 08:59] LABS: Albumin/Globulin Ratio 1.3 (1.1-1.8); Calcium 9.0 mg/dl (8.4-10.2); Globulin 3.0 g/dL (1.3-3.2); Glucose 212 mg/dl (74-100); Total Protein,Serum 7.0 g/dl (6.3-8.2)
[2025-01-20 09:19] LABS: Total Cells Counted 100
[2025-01-20 09:20] LABS: RBC Morphology Normal
[2025-01-20 09:38] VITALS: BP 132/61; PULSE 77; RESP 18; TEMP 36.6; O2SAT 98
[2025-01-20] MEDS: SODIUM CHLORIDE 0.9% 100ML BAG 100 ML IV (09:38)
[2025-01-20] MEDS: ONDANSETRON 4MG ODT 16 MG SL (09:38)
[2025-01-20] MEDS: LORATADINE 10MG TABLET 10 MG PO (09:38)
[2025-01-20] MEDS: DEXAMETHASONE 4MG TABLET 8 MG PO (09:38)
[2025-01-20] MEDS: SODIUM CHLORIDE 0.9% 10ML FLUSH SYRINGE 10 ML IV (09:58)
[2025-01-20 10:32] VITALS: BP 117/73; PULSE 71; RESP 20; O2SAT 98
[2025-01-20] MEDS: DOCETAXEL IV (10:32)
[2025-01-20] MEDS: DEXTROSE 5% IV (10:32)
[2025-01-20] MEDS: WATER IV (10:32)
[2025-01-20 11:02] VITALS: BP 121/69; PULSE 72; RESP 20; O2SAT 97
[2025-01-20 11:43] VITALS: BP 124/78; PULSE 71; RESP 18; O2SAT 98
[2025-01-20] MEDS: SODIUM CHLORIDE 0.9% IV (11:43)
[2025-01-20] MEDS: CYCLOPHOSPHAMIDE IV (11:43)
[2025-01-20 12:35] VITALS: BP 124/76; PULSE 78; RESP 20; O2SAT 98
== END 2025-01-20 23:59 | disposition home or self-care (01) ==
LOC: INF 08:28
PROVIDERS: PCP Family Medicine; Visit Provider Internal Medicine Medical Oncology
DX: C50.912 Malignant neoplasm of unspecified site of left female breast (principal); Z51.11 Encounter for antineoplastic chemotherapy
CPT/HCPCS: 80053; 85007; 85025; 85027; 96413; 96415; 96417; J7060; J8540; J9075; J9171; Q0162

== ENCOUNTER 2025-02-17 08:33 | Outpatient (CLI) | payer BC, SELFPAY ==
--- OUTSIDE RECORDS SUMMARY | 2024-01-21 05:00 | XMS_ITS ---
[facility] [address] [place] [id number] Care Team Providers Care Employment Coordinator Name Role Phone Carola Britton Primary Care Provider [phone] Allergies Allergen (clinical drug ingredient) Drug/Non Drug Allergy documented on EMR Reaction Allergy Type Onset Date Status amoxicillin / clavulanate Augmentin vomiting Drug Allergy Active REASON FOR VISIT 5 month check, Needs labs, mammogram, low dose chest CT Medications Medication SIG (Take, Route, Frequency, Duration) Notes Start Date End Date Status Vitamin B-12 1000 MCG 1 tab(s) orally on ce a day 07/24/2016 Active ZyrTEC Allergy 10 MG 1 tab(s) orally onc e a day Active Vitamin D3 125 MCG (5000 UT) 1 cap(s) or ally once a day; Duration: 30 day(s) Active CoQ-10 100 MG 1 cap(s) orally once a day; Duration: 30 day(s) 10/22/2019 Active hydroCHLOROthiazide 25 MG 1 tablet in morning Orally Once a day; Duration: 30 day(s) 01/21/2024 Active Rosuvastatin Calcium 10 MG TAKE 1 TABLET BY MOUTH AT BEDTIME; Duration: 30 Active Potassium Chloride Jennifer ER 1 0 MEQ TAKE 1 TABLET BY MOUTH ONCE DAILY; Duration: 30 Active Losartan Potassium 25 MG TAKE 1 TABLET B Y MOUTH ONCE DAILY; Duration: 30 Active Immunizations Vaccine Route Administration Date Status Commrossy Sierra (6months&older) IM Intramuscular 01/21/2024 Administered Vital Signs Blood pressure systolic 130 mm Hg 01/21/20 24 Blood pressure diastolic 80 mm Hg 024 Heart Rate 73 /min 01/21/2024 Height 64.75 in 01/21/2024 Weight 238.0 lbs 01/21/2024 BMI 39.91 kg/m2 01/21/2024 Encounters Encounter Location Date Provider Diagnosis [facility] [address] [facility] [address] [facility] [address] [place] [id number] 01/21/2024 Carola Britton Encounter for immunization Z23 and Essential hypertension I10 Assessments Encounter Date Diagnosis (ICD Code) Assessment Notes Treatment Notes Treatment Clinical Notes Section Notes 01/21/2024 Encounter for immunization (ICD-10 - Z23) 01/21/2024 Essential hypertension (ICD-10 - I10) Plan Of Treatment Medication Medication Name Sig Start Date Stop Date Notes Maxzide-25 37.5-25 MG 1/2 Orally once a day hydroCHLOROthiazide 25 MG 1 tablet in th e morning Orally Once a day; Duration: 30 day(s) 01/21/2024 Next Appt Details Follow Up: 4 Months, Reason: Provider Name:Carola Sharma er, 03/13/2025 10:15:00 AM, [facility] [address] [facility], [address], [place], [id number], Progress Notes * MIRIAM GALVANADOB:1965 (59 yo F)Acc No.[id number]:01/21/2024 Progress Notes Patient: CHRISTAL GARZA Provider: Carola Britton M.D. :1965 A ge:58 Y S ex:Female Date:01/21/2024 Address:[address] [place], [place] [id number] Subjective: * Chief Complaints: * 1 . 5 month check. 2. Needs labs, mammogram, low dose chest CT. * HPI: C ardiology: The patient is here for a check up on Hypertension and Hyperlipidemia. Pt states she doing good and denies any new concerns. Pt is not fasting today. Denies : Chest Pain. D enies : Short of Breath. D enies : Dizziness. D enies : Palpitations. * ROS: D ERMATOLOGY: no R orin. n o H nader. G ASTROENTEROLOGY: no N ausea. n o V omiting. n o D iarrhea.? U ROLOGY: no D ifficulty urinating. n o B lood in urine. * Medical History: mammogram, COVID 19 Vaccine, Moderna May 2020, Hives have cleared since Zolair , Encounter for vaccination, decreased vision OS, traumatic. 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 Vale 2011, Colonoscopy, Dr. Berrios, adenomatous polyps 08/01/2018. * Hospitalization/Major Diagno stic Procedure: e ars . * Family History: F ather: 31 yrs, MVA. M other: 69 yrs. P aternal Grand Father: alive. P aternal Grand Mother: alive. 2 brother(s) . 1 son(s) , 1 daughter(s) . . Son 08/2014. * Social History: C URRENT TOBACCO USE S moking Status: Patient does smoke, packs per day: 1.5, Smoking preference: cigarettes, Second hand smoke exposure: Yes. C affeine: yes, frequency:daily. Exercise: no. Home smoke detector use: yes. Marital Status: . Past smoking status: yes, PPD: , years: ,determination:1pk, 19yrs. Recreational drug use: no. Alcohol: no. Son August 2014. * Medications: T aking Vitamin B-12 1000 MCG Tablet 1 tab(s) orally once a day , Taking ZyrTEC Allergy 10 MG Tablet 1 tab(s) orally once a day , Taking Vitamin D3 125 MCG (5000 UT) Capsule 1 cap(s) orally once a day , Taking CoQ-10 100 MG Capsule 1 cap(s) orally once a day , Taking Maxzide-25 37.5-25 MG Tablet 1/2 Orally once a day , Taking Potassium Chloride Jennifer ER 10 MEQ Tablet Extended Release TAKE 1 TABLET BY MOUTH ONCE DAILY , Taking Losartan Potassium 25 MG Tablet TAKE 1 TABLET BY MOUTH ONCE DAILY , Taking Rosuvastatin Calcium 10 MG Tablet TAKE 1 TABLET BY MOUTH AT BEDTIME , Medication List reviewed and reconciled with the patient * Allergies: A ugmentin: vomiting. Objective: * Vitals: W t:238.0, Temp:97.9, BP:130/80, HR:73, Nurse:LALO, Ht: 64.75, Repeat BP:132/82, BMI:39.91. * Examination: G eneral Examination: General Appearance: N AD. H EENT: u nremarkable.?Neck: s upple, no lymphadenopathy. C hest: n ormal shape and expansion. H eart:?RSR. L ungs: c lear to auscultation. N eurologic Exam: I ntact, gait normal. Skin: n ormal, no rash. P eripheral pulses: n ormal . E xtremities: t race to 1+ leg edema. Assessment: * Assessment: 1. E ssential hypertension - I10 (Primary) 2 . E ncounter for immunization - Z23 Plan: * Treatment: * Immunizations: Fluzone Quad (6months&older) : 0.5 mL (Route: Intramuscular) given by Hanna Johnston on Left Deltoid (Encounter for immunization) * Follow Up: 4 Months * Images: Billing Information: * Visit Code: 58253 Office Visit, Est Pt., Level 3. * Procedure Codes: * Electronic signature of Carola Britton MD on 02/17/2025 at 08:38 AM EST Sign off status: Pending * Provider: Carola Britton M.D. Date: Generated for Gelai ng/Josiahg/eTransmitting on: 04/19/2024 08:38 AM EST History and Physical Notes * HPI (History of Present Illness) Category Sub-Category Detail Notes Category Not es Cardiology Short of Breath Chest Pain Palpitations Dizziness Examination Category Sub-Category Detail Notes Category Not es General Examination HEENT: unremarkable Heart: RSR Lungs: clear to auscultatio n Extremities: trace to 1+ leg ida a General Appearance: NAD Skin: normal, no rash Neurologic Exam: Intact, gait normal Neck: supple, no lymphaden opathy Oral cavity: Peripheral pulses: normal Chest: normal shape and exp ansion
--- OUTSIDE RECORDS SUMMARY | 2024-05-23 04:30 | XMS_ITS ---
Author Organization [facility] Address [address] [place] [id number] Care Team Providers Care Supervisor Livestock Yard Name Role Phone Carola Britton Primary Care Provider Allergies Allergen (clinical drug ingredient) Drug/Non Drug Allergy documented on EMR Reaction Allergy Type Onset Date Status amoxicillin / clavulanate Augmentin vomiting Drug Allergy Active Results Component Value Reference Range Notes Glycohemoglobin A1c (in hous e) Reviewed date:05/23/2024 12:45:47 PM Interpretation:6.2 Performing Lab: Notes/Report: 6.2 glycohemoglobin 6.2% 5 - 6.5 % P-Comprehensive Metabolic Pa mariama (CMP) Reviewed date:05/29/2024 09:56:08 AM Interpretation:gluc 113, a1c discussed in OV Performing Lab: Notes/Report: Test performed by [facility] [address] [place] [address] , [address], [place] [address] Alejandro Cabrales MD, Crossband Layer CLIA: [id number] Sodium 142 135-145 mmol/L Potassium 4.4 3.5-5.3 mmol/L Chloride 104 97-108 mmol/L CO2 28 22-32 mmol/L Glucose 113 65-99 mg/dL BUN 13 6-20 mg/dL Creatinine 0.81 0.50-1.00 mg/dL Calcium 9.1 8.6-10.4 mg/dL eGFR by Creatinine 85 >59 mL/min/1.73m2 Protein 6.7 6.0-8.3 g/dL Albumin 4.0 3.5-5.3 g/dL Alkaline Phosphatase 99 35-121 IU/L ALT (SGPT) 20 <5-47 IU/L AST (SGOT) 17 <5-40 IU/L Bilirubin, Total 0.4 <0.2-1.2 mg/dL A/G Ratio 1.5 1.1-2.5 P-Lipid Panel Reviewed date:05/29/2024 09:56:08 AM Interpretation:satisfactory Performing Lab: Notes/Report: Test performed by [facility], [address] , [address], [place] [address] Alejandro Cabrales MD, Crossband Layer CLIA: [id number] Cholesterol 105 <200 mg/dL Triglycerides 90 <150 mg/dL HDL Cholesterol 37 >39 mg/dL Cholesterol / HDL Ratio 2.84 0.00-4.44 Ratio Non-HDL Cholesterol 68 <130 mg/dL LDL Cholesterol (Calculation) 50 <130 mg/dL LDL Cholesterol Levels* Less than 100 mg/dL Optimal 100 to 129 mg/dL Near Optimal/ Above Optimal 130 to 159 mg/dL Borderline High 160 to 189 mg/dL High 190 mg/dL and above Very High * Categories as recommended by the 2004 ATPIII guidelines LDL/HDL Ratio 1.4 <3.3 Ratio LDL Cholesterol Patient History Test Date: 05/23/2024 LDL Results: 50 Units: mg/dL % Change: - REASON FOR VISIT 4 Month Check Up Medications Medication SIG (Take, Route, Frequency, Duration) Notes Start Date End Date Status ZyrTEC Allergy 10 MG 1 tab(s) orally onc e a day Active Losartan Potassium 25 MG 1 tablet Orally once daily; Duration: 30 days Active hydroCHLOROthiazide 25 MG 1 tablet in th e morning Orally Once a day; Duration: 30 day(s) 01/21/2024 Active CoQ-10 100 MG 1 cap(s) orally once a day; Duration: 30 day(s) 10/22/2019 Active Vitamin D3 125 MCG (5000 UT) 1 cap(s) or ally once a day; Duration: 30 day(s) Active metFORMIN HCl 850 MG 1 tablet with a uriel l Orally Once a day; Duration: 30 day(s) 05/23/2024 Active Vitamin B-12 1000 MCG 1 tab(s) orally on ce a day 07/24/2016 Active Potassium Chloride ER 10 MEQ 1 tab(s) Or ally once daily; Duration: 30 days Active Rosuvastatin Calcium 10 MG 1 tablet Oral ly once daily; Duration: 30 days Active Problems Problem Type SNOMED Code ICD Code Onset Dates Problem Status W/U Status Risk Notes Problem Type II diabetes mellitus without complication (756056218) Type 2 diabetes mellitus without complication, without long-term current use of insulin (E11.9) Active confirmed Vital Signs Blood pressure systolic 110 mm Hg 05/23/19 25 Blood pressure diastolic 78 mm Hg 025 Heart Rate 79 /min 05/23/2024 Height 64.75 in 05/23/2024 Weight 237.8 lbs 05/23/2024 BMI 39.87 kg/m2 05/23/2024 Encounters Encounter Location Date Provider Diagnosis [facility] [address] [place], [place] [id number] 05/23/2024 Carola Britton Essential hypertensi on I10 ; Mixed hyperlipidemia E78.2 ; Hyperglycemia R73.9 and Type 2 diabetes mellitus without complication, without long-term current use of insulin E11.9 Assessments Encounter Date Diagnosis (ICD Code) Assessment Notes Treatment Notes Treatment Clinical Notes Section Notes 05/23/2024 Essential hypertension (ICD-10 - I10) 05/23/2024 Mixed hyperlipidemia (ICD-10 - E78.2) 05/23/2024 Hyperglycemia (ICD-10 - R73.9) 05/23/2024 Type 2 diabetes mellitus without complication, without long-term current use of insulin (ICD-10 - E11.9) Plan Of Treatment Medication Medication Name Sig Start Date Stop Date Notes Losartan Potassium 25 MG 1 tablet Orally once daily; Duration: 30 days hydroCHLOROthiazide 25 MG 1 tablet in th e morning Orally Once a day; Duration: 30 day(s) 01/21/2024 metFORMIN HCl 850 MG 1 tablet with a uriel l Orally Once a day; Duration: 30 day(s) 05/23/2024 Potassium Chloride ER 10 MEQ 1 tab(s) Or ally once daily; Duration: 30 days Rosuvastatin Calcium 10 MG 1 tablet Oral ly once daily; Duration: 30 days Next Appt Details Follow Up: 2 months, Reason: Provider Name:Carola Sharma er, 03/13/2025 10:15:00 AM, [address] [facility], [address], [place], [id number], Progress Notes * MIRIAM GALVANGIULIANOB:1965 (59 yo F)Acc No.[id number]:05/23/2024 Progress Notes Patient: CHRISTAL GARZA Provider: Carola Britton M.D. :1965 A ge:59 Y S ex:Female Date:05/23/2024 Address:[address] [place], [place] [address] [id number] Subjective: * Chief Complaints: * 1 . 4 Month Check Up. * HPI: C ardiology: The patient is here today for a check up on Hypertension and Hyperlipidemia. Pt states she is doing good and denies any new concerns. Pt is fasting. Denies : Chest Pain. D enies : Short of Breath. D enies : Dizziness. D enies : Palpitations. * ROS: C ARDIOLOGY: no C hest pain. n o S hortness of breath. ? G ASTROENTEROLOGY: no N ausea. n o V omiting. n o D iarrhea.? U ROLOGY: no D ifficulty urinating. n o B lood in urine. * Medical History: mammogram, COVID 19 Vaccine, Moderna Jun/May 2020, Hives have cleared since Zolair , Encounter for vaccination, decreased vision OS, traumatic. 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 Vale 2011, Colonoscopy, Dr. [...] cap(s) orally once a day , Taking hydroCHLOROthiazide 25 MG Tablet 1 tablet in the morning Orally Once a day , Taking Losartan Potassium 25 MG Tablet TAKE 1 TABLET BY MOUTH ONCE DAILY , Taking Potassium Chloride ER 10 MEQ Tablet Extended Release TAKE 1 TABLET BY MOUTH ONCE DAILY , Taking Rosuvastatin Calcium 10 MG Tablet TAKE 1 TABLET BY MOUTH AT BEDTIME , Medication List reviewed and reconciled with the patient * Allergies: A ugmentin: vomiting. Objective: * Vitals: W t:237.8, Temp:98.3, BP:110/78, HR:79, Nurse:LALO, Ht: 64.75, BMI:39.87. * Examination: G eneral Examination: General Appearance: N AD. H EENT: u nremarkable.?Neck: s upple, no lymphadenopathy. C hest: n ormal shape and expansion. H eart:?RSR. L ungs: c lear to auscultation. N eurologic Exam: I ntact, gait normal. Skin: n ormal, no rash. P eripheral pulses: n ormal . E xtremities: t race leg edema. Assessment: * Assessment: 1. E ssential hypertension - I10 (Primary) 2 . M ixed hyperlipidemia - E78.2 3 . H yperglycemia - R73.9 4 . T ype 2 diabetes mellitus without complication, without long-term current use of insulin - E11.9 Plan: * Treatment: Value Reference Range A /G Ratio 1.5 1.1-2.5 - * A lbumin 4.0 3.5-5.3 - g/dL * A lkaline Phosphatase 99 35-121 - IU/L * A LT (SGPT) 20 <5-47 - IU/L * A ST (SGOT) 17 <5-40 - IU/L * B ilirubin, Total 0.4 <0.2-1.2 - mg/dL * B UN 13 6-20 - mg/dL * C alcium 9.1 8.6-10.4 - mg/dL * C hloride 104 97-108 - mmol/L * C O2 28 22-32 - mmol/L * C reatinine 0.81 0.50-1.00 - mg/dL * G lucose 113 H 65-99 - mg/dL * P otassium 4.4 3.5-5.3 - mmol/L * S odium 142 135-145 - mmol/L * P rotein 6.7 6.0-8.3 - g/dL * e GFR by Creatinine 85 >59 - mL/min/1.73m2 * Hanna Johnston 05/29/2024 9:5 5:58 AM >Patient informed of normal results. 2.?Mixed hyperlipidemia? Refill Rosuvastatin Calcium Tablet, 10 MG, 1 tablet, Orally, once daily, 30 days, 30, Refills 5. ?LAB: P-Lipid Panel (Collection Date & Time - 05/23/2024 10:04 AM)? satisfactory* Value Reference Range C holesterol / HDL Ratio 2.84 0.00-4.44 - Ratio * C holesterol 105 <200 - mg/dL * H DL Cholesterol 37 L >39 - mg/dL * L DL Cholesterol (Calculation) 50 <130 - mg/d L * L DL/HDL Ratio 1.4 <3.3 - Ratio * N on-HDL Cholesterol 68 <130 - mg/dL * T riglycerides 90 <150 - mg/dL * BroadmoorHanna desouza Fredy 05/29/2024 9:5 5:58 AM >Patient informed of normal results. 3.?Hyperglycemia?LAB: Glycohemoglobin A1c (in house) (Collection Date & Time - 05/23/2024)? 6.2* Value Reference Range g lycohemoglobin 6.2% 5 - 6.5 % * Hanna Johnston Fredy 05/23/2024 11: 01:11 AM > , Provider reviewed results while patient in office. 4.?Type 2 diabetes mellitus without complication, without long-term current use of insulin? Start metFORMIN HCl Tablet, 850 MG, 1 tablet with a meal, Orally, Once a day, 30 day(s), 30, Refills 4.?? * Procedure Codes: 3 6416 CAPILLARY BLOOD DRAW, 76053 GLYCATED HEMOGLOBIN TEST, Modifiers: QW , 3044F HG A1C LEVEL LT 7.0%, 3074F SYST BP LT 130 MM HG, 3078F DIAST BP < 80 MM HG * Follow Up: 2 months * Images: Billing Information: * Visit Code: 79518 Office Visit, Est Pt., Level 4. * Procedure Codes: 08064 CAPILLARY BLOOD DRAW. 42860 GLYCATED HEMOGLOBIN TEST. Modifiers: QW 3044F HG A1C LEVEL LT 7.0%. 3074F SYST BP LT 130 MM HG. 3078F DIAST BP < 80 MM HG. * Electronic signature of Carola Britton MD on 02/17/2025 at 08:39 AM EST Sign off status: Pending * Provider: Carola Britton M.D. Date: 0 05/23/2024 Generated for Printi ng/Faxing/eTransmitting on: 1 04/19/2024 08:39 AM EST History and Physical Notes * HPI (History of Present Illness) Category Sub-Category Detail Notes Category Not es Cardiology Short of Breath Chest Pain Palpitations Dizziness Examination Category Sub-Category Detail Notes Category Not es General Examination HEENT: unremarkable Heart: RSR Lungs: clear to auscultatio n Extremities: trace leg edema General Appearance: NAD Skin: normal, no rash Neurologic Exam: Intact, gait normal Neck: supple, no lymphaden opathy Oral cavity: Peripheral pulses: normal Chest: normal shape and exp ansion
--- OUTSIDE RECORDS SUMMARY | 2024-12-01 05:00 | XMS_ITS ---
Author Organization [facility] Address [address] [place] [id number] Care Team Providers Care Steward/Stewardess Economy Class Name Role Phone Carola Britton Primary Care Provider Allergies Allergen (clinical drug ingredient) Drug/Non Drug Allergy documented on EMR Reaction Allergy Type Onset Date Status amoxicillin / clavulanate Augmentin vomiting Drug Allergy Active Results Component Value Reference Range Notes Glycohemoglobin A1c (in hous e) Reviewed date:12/02/2024 02:46:21 PM Interpretation:6.1% Normal Performing Lab: Notes/Report: 6.1% Normal glycohemoglobin 6.1% 5 - 6.5 % P-Comprehensive Metabolic Pa mariama (CMP) Reviewed date:12/02/2024 02:46:20 PM Interpretation:Normal Performing Lab: Notes/Report: Test performed by [employer], [employer] [address] [place] [address] , [address], [place] [address] Alejandro Cabrales MD, Core Machine Operator CLIA: [id number] Sodium 142 135-145 mmol/L Potassium 4.0 3.5-5.3 mmol/L Chloride 103 97-108 mmol/L CO2 25 20-32 mmol/L Glucose 96 65-99 mg/dL BUN 14 6-20 mg/dL Creatinine 0.83 0.50-1.00 mg/dL Calcium 9.5 8.6-10.4 mg/dL eGFR by Creatinine 82 >59 mL/min/1.73m2 Protein 6.5 6.0-8.3 g/dL Albumin 4.0 3.5-5.3 g/dL Alkaline Phosphatase 86 35-121 IU/L ALT (SGPT) 21 <5-47 IU/L AST (SGOT) 15 <5-40 IU/L Bilirubin, Total 0.2 <0.2-1.2 mg/dL A/G Ratio 1.6 1.1-2.5 REASON FOR VISIT 4 months, Needs labs, low dose chest CT, & diabetic eye exam Medications Medication SIG (Take, Route, Frequency, Duration) Notes Start Date End Date Status Losartan Potassium 25 MG 1 tablet Orally once daily; Duration: 30 days Active hydroCHLOROthiazide 25 MG 1 tablet in th e morning Orally Once a day; Duration: 30 days Active Rosuvastatin Calcium 10 MG 1 tablet Oral ly once daily; Duration: 30 days Active metFORMIN HCl 850 MG 1 tablet with a uriel l Orally Once a day; Duration: 30 days Active Potassium Chloride ER 10 MEQ 1 tab(s) Or ally once daily; Duration: 30 days Active CoQ-10 100 MG 1 cap(s) orally once a day; Duration: 30 day(s) 10/22/2019 Active ZyrTEC Allergy 10 MG 1 tab(s) orally onc e a day Active Vitamin D3 125 MCG (5000 UT) 1 cap(s) or ally once a day; Duration: 30 day(s) Active Vitamin B-12 1000 MCG 1 tab(s) orally on a day 07/24/2016 Active Problems Problem Type SNOMED Code ICD Code Onset Dates Problem Status W/U Status Risk Notes Problem Ductal carcinoma (60521549) Ductal carcinoma (C80.1) Active confirmed Vital Signs Blood pressure systolic 128 mm Hg 12/02/19 25 Blood pressure diastolic 82 mm Hg 025 Heart Rate 78 /min 12/01/2024 Height 64.75 in 12/01/2024 Weight 221.2 lbs 12/01/2024 BMI 37.09 kg/m2 12/01/2024 Encounters Encounter Location Date Provider Diagnosis [facility] [address] [place], [place] [id number] 12/01/2024 Carola Britton Essential hypertensi on I10 ; Mixed hyperlipidemia E78.2 ; Smoking history Z87.891 ; Type 2 diabetes mellitus without complication, without long-term current use of insulin E11.9 ; Ductal carcinoma C80.1 and History of lumpectomy of left breast Z98.890 Assessments Encounter Date Diagnosis (ICD Code) Assessment Notes Treatment Notes Treatment Clinical Notes Section Notes 12/01/2024 Essential hypertension (ICD-10 - I10) 12/01/2024 Mixed hyperlipidemia (ICD-10 - E78.2) 12/01/2024 Smoking history (ICD-10 - Z87.891) 12/01/2024 Type 2 diabetes mellitus without complication, without long-term current use of insulin (ICD-10 - E11.9) 12/01/2024 Ductal carcinoma (ICD-10 - C80.1) 12/01/2024 History of lumpectomy of left breast (ICD-10 - Z98.890) Plan Of Treatment Next Appt Details Follow Up: 3 Months, Reason: Provider Name:Carola Sharma er, 03/13/2025 10:15:00 AM, [address], [address], [place], [id number], Progress Notes * MIRIAM GALVANADOB:1965 (59 yo F)Acc No.[id number]:12/01/2024 Progress Notes Patient: CHRISTAL GARZA Provider: Carola Britton M.D. :1965 A ge:59 Y S ex:Female Date:12/01/2024 Address:[address] [place], [place] [id number] Subjective: * Chief Complaints: * 1 . 4 months. 2. Needs labs, low dose chest CT, & diabetic eye exam. * HPI: H PI: 59 year old female presents with c/o Patient is here today for?Pt is here today for a 4 month check up. Pt sts she has no concerns at this time. [place]/HER2 negative ductal carcinoma with lumpectomy October 2024. Pt sts she is doing chemo now and sts she had her first treatment done 2 weeks ago. G YN: Has breast cancer diagnosis. Ductal carcinoma. Lymph nodes negative. Lumpectomy. Chemo started November 18. Then radiation. * ROS: C ARDIOLOGY: no C hest pain. n o S hortness of breath. ? G ASTROENTEROLOGY: no N ausea. n o V omiting. n o D iarrhea.? U ROLOGY: no D ifficulty urinating. n o B lood in urine. * Medical History: mammogram, COVID 19 Vaccine, Moderna Jun/May 2020, Hives have cleared since Zolair , Encounter for vaccination, decreased vision OS, traumatic, ER/[place]/HER@ negative ductal carcinoma August 2024, October 15, 2024 lumpectomy, Dr. Edmonds, [facility]. * Surgical History: l eft ear drum [...] cap(s) orally once a day , Taking Potassium Chloride ER 10 MEQ Tablet Extended Release 1 tab(s) Orally once daily , Taking Rosuvastatin Calcium 10 MG Tablet 1 tablet Orally once daily , Taking metFORMIN HCl 850 MG Tablet 1 tablet with a meal Orally Once a day , Taking Losartan Potassium 25 MG Tablet 1 tablet Orally once daily , Taking hydroCHLOROthiazide 25 MG Tablet 1 tablet in the morning Orally Once a day , Medication List reviewed and reconciled with the patient * Allergies: A ugmentin: vomiting. Objective: * Vitals: W t: 221.2, Temp: 98.4, BP: 128/82, HR: 78, Nurse: april, Ht: 64.75, BMI:37.09. * Examination: G eneral Examination: General Appearance: [...] M ixed hyperlipidemia - E78.2 3 . S moking history - Z87.891 4 . T ype 2 diabetes mellitus without complication, without long-term current use of insulin - E11.9 5 . D uctal carcinoma - C80.1 6 . H istory of lumpectomy of left breast - Z98.890 Plan: * Treatment: Value Reference Range A /G Ratio 1.6 1.1-2.5 - * A lbumin 4.0 3.5-5.3 - g/dL * A lkaline Phosphatase 86 35-121 - IU/L * A LT (SGPT) 21 <5-47 - IU/L * A ST (SGOT) 15 <5-40 - IU/L * B ilirubin, Total 0.2 <0.2-1.2 - mg/dL * B UN 14 6-20 - mg/dL * C alcium 9.5 8.6-10.4 - mg/dL * C hloride 103 97-108 - mmol/L * C O2 25 20-32 - mmol/L * C reatinine 0.83 0.50-1.00 - mg/dL * G lucose 96 65-99 - mg/dL * P otassium 4.0 3.5-5.3 - mmol/L * S odium 142 135-145 - mmol/L * P rotein 6.5 6.0-8.3 - g/dL * e GFR by Creatinine 82 >59 - mL/min/1.73m2 * Hanna Johnston 12/02/2024 02 :46:03 PM EDT > Patient informed of normal results. ?LAB: Glycohemoglobin A1c (in house) (Collection Date & Time - 12/01/2024)? 6.1% Normal* Value Reference Range g lycohemoglobin 6.1% 5 - 6.5 % * Nai Barnes 12/01/2024 12:3 8:44 PM EDT > Hanna Johnston 12/02/2024 02:46:03 PM EDT > Patient informed of normal results. * Procedure Codes: 8 3036 GLYCATED HEMOGLOBIN TEST, Modifiers: QW , 3044F HG A1C LEVEL LT 7.0%, 3074F SYST BP LT 130 MM HG, 3079F DIAST BP 80-89 MM HG * Follow Up: 3 Months * Images: Billing Information: * Visit Code: 36843 Office Visit, Est Pt., Level 4. * Procedure Codes: 70984 GLYCATED HEMOGLOBIN TEST. Modifiers: QW 3044F HG A1C LEVEL LT 7.0%. 3074F SYST BP LT 130 MM HG. 3079F DIAST BP 80-89 MM HG. * Electronic signature of Carola Britton MD on 02/17/2025 at 08:38 AM EST Sign off status: Pending * Provider: Carola Britton M.D. Date: 0 12/01/2024 Generated for Jai luna/Cindy/eTransmitting on: 04/19/2024 08:38 AM EST History and Physical Notes * HPI (History of Present Illness) Category Sub-Category Detail Notes Category Not es HPI Patient is here today for Pt is here today for a 4 month check up. Pt sts she has no concerns at this time. [place]/HER2 negative ductal carcinoma with lumpectomy October 2024. Pt sts she is doing chemo now and sts she had her first treatment done 2 weeks ago Examination Category Sub-Category Detail Notes Category Not es General Examination HEENT: unremarkable Heart: RSR Lungs: clear to auscultatio n Extremities: trace leg edema General Appearance: NAD Skin: normal, no rash Neurologic Exam: Intact, gait normal Neck: supple, no lymphaden opathy Oral cavity: Peripheral pulses: normal Chest: normal shape and exp ansion
--- OUTSIDE RECORDS SUMMARY | 2025-02-17 08:38 | XMS_ITS | Patient Health Record ---
Author Organization [facility] Address [address] [facility] [address] [place] [id number] Care Team Providers Care Esol Teacher Assistant Name Role Phone Carola Britton Primary Care Provider Allergies Allergen (clinical drug ingredient) Drug/Non Drug Allergy documented on EMR Reaction Allergy Type Onset Date Status amoxicillin / clavulanate Augmentin vomiting Drug Allergy Active Results Component Value Reference Range Notes Glycohemoglobin A1c (in hous e) Reviewed date:12/02/2024 02:46:21 PM Interpretation:6.1% Normal Performing Lab: Notes/Report: 6.1% Normal glycohemoglobin 6.1% 5 - 6.5 % P-Lipid Panel Reviewed date:05/29/2024 09:56:08 AM Interpretation:satisfactory Performing Lab: Notes/Report: CLIA: [id number] Alejandro Cabrales MD, Conference Services Manager [facility] , [address], [place] [address] Test performed by [email or web address], [facility] Cholesterol 105 <200 mg/dL Triglycerides 90 <150 [...] OV Performing Lab: Notes/Report: Test performed by [facility] [address] [facility] , [address], [place] [address] Alejandro Cabrales MD, Conference Services Manager CLIA: [id number] Sodium 142 135-145 mmol/L Potassium 4.4 3.5-5.3 [...] date:12/02/2024 02:46:20 PM Interpretation:Normal Performing Lab: Notes/Report: CLIA: [id number] Alejandro Cabrales MD, Conference Services Manager [address] [place] [address] , [address], [place] [address] Test performed by [facility] Sodium 142 135-145 mmol/L Potassium 4.0 3.5-5.3 [...] 0.2 <0.2-1.2 mg/dL A/G Ratio 1.6 1.1-2.5 P-Basic Metabolic Panel (BMP ) Reviewed date:08/08/2024 12:26:23 PM Interpretation:Normal Performing Lab: Notes/Report: CLIA: [id number] Alejandro Cabrales MD, Conference Services Manager [address] [place] [address] , [place] [address] Test performed by [facility] Sodium 141 135-145 mmol/L Potassium 4.2 3.5-5.3 mmol/L Chloride 104 97-108 mmol/L CO2 26 22-32 mmol/L Glucose 90 65-99 mg/dL BUN 13 6-20 mg/dL Creatinine 0.70 0.50-1.00 mg/dL Calcium 9.6 8.6-10.4 mg/dL eGFR by Creatinine 101 >59 mL/min/1.73m2 P-Hemoglobin A1C Reviewed date:08/08/2024 12:26:23 PM Interpretation:a1c 6.2 Performing Lab: Notes/Report: Test performed by [email or web address], [facility] [address] [place] [address] [address], [place] [address] Alejandro Cabrales MD, Conference Services Manager CLIA: [id number] Hemoglobin A1C 6.2 <5.7 % The following HbA1c ranges recommended by the [place] Diabetes Association (ADA) may be used as an aid in the diagnosis of diabetes mellitus. HbA1c Suggested Diagnosis >=6.5% Diabetic 5.7% - 6.4% Pre-Diabetic <5.7% Non-Diabetic Estimated Average Glucose Reviewed date:08/08/2024 12:26:23 PM Interpretation:Normal Performing Lab: Notes/Report: Test performed by [email or web address], [address], [place] [address] Alejandro Cabrales MD, Conference Services Manager CLIA: [id number] Estimated Average Glucose (eAG) 131 Estimated Average [...] Duration) Notes Start Date End Date Status CoQ-10 100 MG 1 cap(s) orally once [...] 1 tab(s) orally on day 07/24/2016 Active Losartan Potassium 25 MG 1 tablet Orally Once a day; Duration: 30 days Active hydroCHLOROthiazide 25 MG 1 tablet in th e morning Orally Once a day; Duration: 30 days Active Rosuvastatin Calcium 10 MG 1 tablet Oral ly Once a day; Duration: 30 days Active Immunizations Vaccine Route Administration Date Status [...] Status W/U Status Risk Notes Problem Hyperglycemia (35024898) Hyperglycemia (R73.9) Active confirmed Problem Vitamin B12 deficiency (107318899) Vitamin B12 deficiency (E53.8) Active confirmed Problem Essential hypertension (93627278) Essential hypertension (I10) Active confirmed Problem Mixed hyperlipidemia (075618835) Mixed hyperlipidemia (E78.2) Active confirmed Problem Vaccination given (386659867) Encounter for immunization (Z23) Active confirmed Problem Abnormal vaginal bleeding (216918565) DUB (dysfunctional uterine bleeding) (N93.8) Active confirmed Problem Fibrocystic breast changes (56389962) Fibrocystic breast, unspecified laterality (N60.19) Active confirmed Problem New daily persistent headache (836505833583836) New daily persistent headache (G44.52) Active confirmed Problem Chronic vaginitis (53680959) Chronic vaginitis (N76.1) Active confirmed Problem Vulvovaginitis (61877651) Vulvovaginitis (N76.0) Active confirmed Problem Mammography abnormal (227576911) Abnormal mammogram of right breast (R92.8) Active confirmed Problem Type II diabetes mellitus without complication (561724794) Type 2 diabetes mellitus without complication, without long-term current use of insulin (E11.9) Active confirmed Problem Ductal carcinoma (72549039) Ductal carcinoma (C80.1) Active confirmed Problem Urge incontinence of urine (35367061) Urge incontinence of urine (N39.41) Active confirmed Problem Cigarette smoking tobacco (substance) (62538357) Smoking history (Z87.891) Active confirmed Problem Fibrocystic breast changes (58362044) Fibrocystic breast disease (FCBD), unspecified laterality (N60.19) Active confirmed Problem Cyst of right ovary (2155951906146623 8) Cyst of right ovary (N83.201) Active confirmed Problem Hordeolum externum (8806512) Hordeolum externum of left upper eyelid (H00.014) Active confirmed Problem Ganglion cyst of left wrist (428286727209447) Ganglion cyst of dorsum of left wrist (M67.432) Active confirmed Problem Lichen sclerosus of vulva (578645577) Lichen sclerosus of vulva (N90.4) Active confirmed Vital Signs Heart Rate 78 /min 12/01/2024 Blood pressure diastolic 82 mm Hg 12/01/2024 Height 64.75 in 12/01/2024 Blood pressure systolic 128 mm Hg 12/01/2024 Weight 221.2 lbs 12/01/2024 BMI 37.09 kg/m2 12/01/2024 Encounters Encounter Location Date Provider [facility] [address] [place] [id number] 05/23/2024 Carola Britton Essential hypertensi on I10 ; Mixed hyperlipidemia E78.2 ; Hyperglycemia R73.9 and Type 2 diabetes mellitus without complication, without long-term current use of insulin E11.[address] [id number] 12/01/2024 Carola Britton Essential hypertensi on I10 ; Mixed hyperlipidemia E78.2 ; Smoking history Z87.891 ; Type 2 diabetes mellitus without complication, without long-term current use of insulin E11.9 ; Ductal carcinoma C80.1 and History of lumpectomy of left breast Z98.890 [facility] [address] [id number] 08/04/2024 Carola Britton Essential hypertensi on I10 ; Vulvovaginitis N76.0 ; Lichen sclerosus of vulva N90.4 and Type 2 diabetes mellitus without complication, without long-term current use of insulin E11.9 [facility] [address] [facility] [address] [place], [place] [id number] 05/26/2024 Carola Britton Type 2 diabetes alisha itus without complication, without long-term current use of insulin E11.9 [facility] [facility] [facility] [address] [facility] [address] [place] [id number] 08/08/2024 Carola Britton [facility] 1210 [facility] [address] [facility] [address] [place], [place] [id number] 12/22/2024 Carola Britton Assessments Encounter Date Diagnosis (ICD Code) Assessment Notes Treatment Notes Treatment Clinical Notes Section Notes 05/26/2024 Type 2 diabetes mellitus without complication, without long-term current use of insulin (ICD-10 - E11.9) 08/04/2024 Essential hypertension (ICD-10 - I10) 08/04/2024 Vulvovaginitis (ICD-10 - N76.0) 05/23/2024 Essential hypertension (ICD-10 - I10) 05/23/2024 Mixed hyperlipidemia (ICD-10 - E78.2) 12/01/2024 Essential hypertension (ICD-10 - I10) 12/01/2024 Mixed hyperlipidemia (ICD-10 - E78.2) 08/04/2024 Lichen [...] [address], [place], [id number], Insurance Providers Payer Name Payer Address Payer Phone Subscriber Number Group Number Insured Name Patient Relationship to Insured Coverage Start Date Coverage End Date MARLENE RUIZ [employer] [address] [place] [address] [id number] CHRISTAL GALVAN Self - patient is [...] for vaccination Z23 decreased vision OS, 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 Edmonds, [facility] Surgical History Surgery Date(Month/Year) left ear drum X 2 BTL poylps from vocal cord 05/18/14 poylps removed from vocal cords endometrial polyp, Dr. Vale 2011 Colonoscopy, Dr. Berrios, adenomatous polyp s 08/01/2018 Hospitalization History Reason Date(Month/Year) ears
--- OUTSIDE RECORDS SUMMARY | 2025-02-17 08:39 | XMS_ITS | Encounter Summary ---
Author Organization Healthcare Address [address] [place] [address] Care Team Providers Care Server Administrator Name Role Phone Terence Britton MD Primary Care Provider [phone] Encounter Details Date Type Department Care Team (Late Contact Info) Description 07/01/2024 Orders Only External Location [address] [place] [address] Provider, External Social History Tobacco [...] [facility] [place] [address] [facility] [address] [place] [address] 06/30/2025 2:30 PM EDT Office Visit [facility] [address] [facility], 2nd [place] [address] Ellen Edmonds MD [address] [facility] [address] [place] [address] documented as of this encounter [...] on filedocumented in this encounter Care Teams Server Administrator Relationship Specialty Start Date End Date Terence Britton MD [address] [place] [address] PCP - General 08/19/24 documented as of this encounter
--- OUTSIDE RECORDS SUMMARY | 2025-02-17 08:39 | XMS_ITS | Clinical Summary ---
Author Organization [facility] Address [address] [place] [address] Care Team Providers Care Silver Chaser Name Role Phone Terence Britton MD Primary Care Provider [phone] Allergies Active Allergy Reactions Criticality Noted Date [...] from 08/12/2024:Stage IIB(cT2, cN0, cM0, G3, ER-, NV-, HER2-) - Unsigned Pathologic stage from 10/15/2024:Stage IB(pT1b, pN0, cM0, G3, ER-, NV-, HER2-) - Unsigned Family History Medical History Relation Name Comments Lung cancer Mother Anesthesia problems Neg Hx Relation Name Status Comments Mother Social History Tobacco Use Types Packs/Day Years Used Date Smoking Tobacco: Every Day Cigarettes 1 9.9 Started: 2015 Passive Smoke Exposure: Never Smokeless [...] [facility] [address] [facility] [address] [place] [address] 06/30/2025 2:30 PM EDT Office Visit [facility] [address] [facility], [address]nd [place] [address] Ellen Edmonds MD [address] [facility] [address] [place] [address] Health Maintenance Due Date Last [...] [facility]-Zoster Vaccines (2 of 2) 11/08/2021 09/13/2021 [id number] Vaccine ( - 2024- season) 2024 03/30/2021, 07/21/2020, 06/23/2020 [facility]-Influenza Vaccine [...] this topic Medical Devices Implanted Type Area Farmworker Poultry Device Identifier Shelf Expiration Date Model / Serial / Lot Marker Smartclip Soft Tiss/Delvry Sys Pnk 5cm - [id number] Implanted:Qty: 1 on 09/22/2024 by Lien Martínez MD at [facility] Breast Left: Breast [id number] SMARTCLIPL [id number] / / Insurance [employer] Care Teams Silver Chaser Relationship Specialty Start Date End Date Terence Britton MD [address] [place] [address] PCP - General 08/19/24
--- OUTSIDE RECORDS SUMMARY | 2025-02-17 08:39 | XMS_ITS | Encounter Summary ---
Author Organization Healthcare Address [address] [place] [address] Care Team Providers Care Trackwalker Name Role Phone Terence Britton MD Primary Care Provider [phone] Encounter Details Date Type Department Care Team (Late Contact Info) Description 01/17/2019 Orders Only External Location [address] [place] [address] Provider, External Social History Tobacco [...] [facility] [place] [address] [facility] [address] [place] [address] 06/30/2025 2:30 PM EDT Office Visit [facility] [address] [facility], [address] [place] [address] Ellen Edmonds MD [address] [facility] [address] [place] [address] documented as of this encounter [...] on filedocumented in this encounter Care Teams Trackwalker Relationship Specialty Start Date End Date Terence Britton MD [address] [place] [address] PCP - General 08/19/24 documented as of this encounter
--- OUTSIDE RECORDS SUMMARY | 2025-02-17 08:39 | XMS_ITS | Encounter Summary ---
Author Organization Healthcare Address [address] [place] [address] Care Team Providers Care Geologic Technician Name Role Phone Terence Britton MD Primary Care Provider [phone] Encounter Details Date Type Department Care Team (Late Contact Info) Description 07/16/2019 Orders Only External Location [address] [place] [address] Provider, External Social History [...] [facility] [place] [address] [facility] [address] [place] [address] 06/30/2025 2:30 PM EDT Office Visit [facility] [address] [facility], 2nd [place] [address] Ellen Edmonds MD [address] [facility] [address] [place] [address] documented as of this encounter [...] on filedocumented in this encounter Care Teams Geologic Technician Relationship Specialty Start Date End Date Terence Britton MD [address] [place] [address] PCP - General 08/19/24 documented as of this encounter
--- OUTSIDE RECORDS SUMMARY | 2025-02-17 08:39 | XMS_ITS | Encounter Summary ---
Author Organization Healthcare Address [address] [place] [address] Care Team Providers Care Printed Circuit Board Panels Trimmer Name Role Phone Terence Britton MD Primary Care Provider [phone] Encounter Details Date Type Department Care Team (Late Contact Info) Description 07/15/2018 Orders Only External Location [address] [place] [address] Provider, External Social History Tobacco [...] [facility] [place] [address] [address] Benavides [facility] [address] [place] [address] 06/30/2025 2:30 PM EDT Office Visit [facility] [address] [facility] [place] [address] Ellen Edmonds MD [address] [facility] [address] [place] [address] documented as of this encounter [...] on filedocumented in this encounter Care Teams Printed Circuit Board Panels Trimmer Relationship Specialty Start Date End Date Terence Britton MD [address] [place] [address] PCP - General 08/19/24 documented as of this encounter
--- OUTSIDE RECORDS SUMMARY | 2025-02-17 08:39 | XMS_ITS | Encounter Summary ---
Author Organization Healthcare Address [address] [place] [address] Care Team Providers Care Chinchilla Farmer Name Role Phone Terence Britton MD Primary Care Provider [phone] Encounter Details Date Type Department Care Team (Late Contact Info) Description 07/15/2018 Orders Only External Location [address] [place] [address] Provider, External Social History Tobacco [...] [facility] [place] [address] [address] Benavides [facility] [address] [place] [address] 06/30/2025 2:30 PM EDT Office Visit [facility] [address] [facility] [place] [address] Ellen Edmonds MD [address] [facility] [address] [place] [address] documented as of this encounter [...] on filedocumented in this encounter Care Teams Chinchilla Farmer Relationship Specialty Start Date End Date Terence Britton MD [address] [place] [address] PCP - General 08/19/24 documented as of this encounter
--- OUTSIDE RECORDS SUMMARY | 2025-02-17 08:39 | XMS_ITS | Encounter Summary ---
Author Organization Healthcare Address [address] [place] [place] [address] Care Team Providers Care Gas Technician Name Role Phone Terence Britton MD Primary Care Provider [phone] Encounter Details Date Type Department Care Team (Late Contact Info) Description 07/21/2024 Orders Only External Location [address] [place] [address] Provider, External Social History Tobacco [...] [facility] [place] [address] [address] [facility] [address] [place] [address] 06/30/2025 2:30 PM EDT Office Visit [facility] [address] [facility] [place] [address] Ellen Edmonds MD 800 [facility] [address] [place] [address] documented as of this encounter [...] on filedocumented in this encounter Care Teams Gas Technician Relationship Specialty Start Date End Date Terence Britton MD [address] [place] [address] PCP - General 08/19/24 documented as of this encounter
[2025-02-17 08:48] LABS: Hematocrit 36.6 % (37.0-47.0); Hemoglobin 11.9 g/dL (12.2-16.2); Immature Granulocytes % 0.3 %; Mean Corpuscular HGB Conc 32.5 g/dL (31.8-35.4); Mean Corpuscular Hemoglobin 29.1 pg (27.0-31.2); Mean Corpuscular Volume 89.5 fl (81-99); Nucleated Red Blood Cells % 0 %; Platelet Count 351 K/mm3 (142-424); Red Blood Count 4.09 M/mm3 (4.20-5.40); Red Cell Distribution Width-SD 64.5 fL; White Blood Count 9.9 K/mm3 (4.8-10.8)
[2025-02-17 08:59] LABS: Alanine Aminotransferase 31 U/L (12-78); Albumin Level 3.7 g/dl (3.5-5.0); Albumin/Globulin Ratio 1.3 (1.1-1.8); Alkaline Phosphatase 70 U/L (38-126); Anion Gap 8.1 mEq/L (5-15); Aspartate Amino Transferase 27 U/L (14-36); Bilirubin,Total 0.5 mg/dl (0.2-1.3); Blood Urea Nitrogen 13 mg/dl (7-17); Calcium 8.8 mg/dl (8.4-10.2); Carbon Dioxide 28 mmol/L (22.0-30.0); Chloride 104 mmol/L (98-107); Creatinine,Serum 0.70 mg/dl (0.52-1.04); Estimated Glomerular Filt Rate 86 ml/min (>60); GFR (African American) 104 ML/MIN (>60); Globulin 2.9 g/dL (1.3-3.2); Glucose 171 mg/dl (74-100); Potassium 3.1 mmoL/L (3.5-5.1); Sodium 137 mmol/L (136-145); Total Protein,Serum 6.6 g/dl (6.3-8.2)
== END 2025-02-17 23:59 | disposition home or self-care (01) ==
LOC: INF 08:34
PROVIDERS: PCP Family Medicine; Visit Provider Internal Medicine Medical Oncology
DX: C50.912 Malignant neoplasm of unspecified site of left female breast (principal)
CPT/HCPCS: 36415; 80053; 85025

== ENCOUNTER 2025-02-24 09:20 | Outpatient (CLI) | payer BC, SELFPAY ==
[2025-02-24 10:40] LABS: Alanine Aminotransferase 27 U/L (12-78); Albumin Level 3.7 g/dl (3.5-5.0); Albumin/Globulin Ratio 1.7 (1.1-1.8); Alkaline Phosphatase 80 U/L (38-126); Anion Gap 7.9 mEq/L (5-15); Aspartate Amino Transferase 24 U/L (14-36); Bilirubin,Total 0.5 mg/dl (0.2-1.3); Blood Urea Nitrogen 11 mg/dl (7-17); Calcium 8.9 mg/dl (8.4-10.2); Carbon Dioxide 27 mmol/L (22.0-30.0); Chloride 105 mmol/L (98-107); Creatinine,Serum 0.70 mg/dl (0.52-1.04); Estimated Glomerular Filt Rate 86 ml/min (>60); GFR (African American) 104 ML/MIN (>60); Globulin 2.2 g/dL (1.3-3.2); Glucose 113 mg/dl (74-100); Potassium 3.9 mmoL/L (3.5-5.1); Sodium 136 mmol/L (136-145); Total Protein,Serum 5.9 g/dl (6.3-8.2)
== END 2025-02-24 23:59 | disposition home or self-care (01) ==
LOC: LAB 09:21
PROVIDERS: PCP Family Medicine; Visit Provider Internal Medicine Medical Oncology
DX: C50.912 Malignant neoplasm of unspecified site of left female breast (principal)
CPT/HCPCS: 36415; 80053